=== PATIENT | female | born 1980 | race Caucasian/White ===

== ENCOUNTER 2020-05-30 15:11 | Emergency (ER) | payer MEDICAID, SELFPAY ==
--- NOTE | 2020-05-30 15:42 | XR_ITS ---
EXAMINATION: XR CHEST CLINICAL INFORMATION: Cough and wheezing COMPARISON: 05/13/2019 TECHNIQUE: Frontal view of the chest was obtained. FINDINGS: No significant abnormality is noted involving the heart, lungs, mediastinum, bony thorax or soft tissues. The lungs are hypoinflated. The subtle infiltrate seen previously at the right lung base has resolved. XR/XR chest 1V IMPRESSION: No acute thoracic disease
--- NOTE | 2020-05-30 15:42 | ED.SOB ---
HPI - SOB/Dyspnea General Chief Complaint: Dyspnea Stated Complaint: shortness of breath Time Seen by Provider: 05/30/20 15:33 Source: patient Mode of arrival: ambulatory Limitations: no limitations History of Present Illness HPI Narrative: 40 yo female with past medical history of asthma here with chest discomfort, cough, shortness of breath when cough x several days. No fevers/chills/body aches. H/o bronchitis and feels exactly the same, patient tells me she gets this every year. No leg swelling or pain. No h/o blood clots or family history of same. MD elicited complaint: shortness of breath, cough and pain with inspiration Pertinent past history: asthma Onset (ago): day(s) Timing: constant Severity: mild Exacerbating factors: coughing Relieving factors: bronchodilators and upright position Known history of: asthma Associated symptoms: chest pain, pain with inspiration and cough Treatment prior to arrival: none Related Data Previous Rx's Medication Instructions Recorded azithromycin See Rx Instructions .ROUTE 05/30/20 .COMPLEX #6 tab benzonatate [Tessalon Perles] 100 mg PO BID PRN #14 cap 05/30/20 prednisone 40 mg PO DAILY #10 tab 05/30/20 Allergies Allergy/AdvReac Type Severity Reaction Status Date / Time latex [LATEX] Allergy Unknown RASH Unverified 04/08/20 14:59 morphine [MORPHINE] Allergy Unknown HALLUCINATI Unverified 04/08/20 14:59 ONS codeine AdvReac Unknown VOMITING Unverified 04/08/20 14:59 codeine Allergy Unknown nausea/vomi Uncoded 02/20/20 00:00 ting Codeine Sulfate Allergy Unknown vomiting Uncoded 04/30/19 00:00 Latex Allergy Unknown Uncoded 04/30/19 00:00 Review of Systems Review of Systems: Yes all other systems are reviewed and are negative Constitutional: Constitutional: Reports no additional constitutional complaints, Denies body ache(s), Denies chills, Denies fever(s), Denies headache(s) and Denies weakness Eyes: Eyes: Reports no additional eye complaints and Denies change in vision ENT: Reports system reviewed and no additional complaints, except as documented, Denies dizziness, Denies headache(s), Denies nasal congestion, Denies nasal discharge and Denies neck pain Cardiovascular: Cardiovascular: Reports no additional cardiovascular complaints, Denies chest pain, Denies leg edema and Reports dyspnea Respiratory: Respiratory: Reports no additional respiratory complaints, Reports cough, Reports pain with cough and Reports dyspnea Gastrointestinal: Gastrointestinal: Reports no additional gastrointestinal complaints, Denies abdominal pain, Denies diarrhea, Denies nausea and Denies vomiting Genitourinary: Genitourinary: Reports no additional female genitourinary complaints and Denies urinary incontinence Musculoskeletal: Musculoskeletal: Reports no additional musculoskeletal complaints, Denies back pain, Denies arthralgias, Denies joint swelling, Denies neck pain, Denies numbness and Denies tingling Integumentary/Breasts: Skin/Breast: Reports system reviewed and no additional complaints, except as docu and Denies rash Neurologic: Reports system reviewed and no additional complaints, except as documented, Denies Abnormal speech present, Denies dizziness, Denies headache(s), Denies numbness, Denies tingling and Denies weakness PMFSH Past Medical History Attestation statement: The following information was validated with the patient. Source: obtained from family and nursing notes reviewed Social History Social History Alcohol intake: never Smoking Status: Current every day smoker Smoked in Last 30 Days: No Use of substances other than those prescribed or required for medical reasons: No Advance Directives: No Advance Directives Information Provided: Yes Physical Exam Vital Signs: Vital Signs: Last Vital Signs Temp 98.1 F 05/30/20 16:36 Pulse 88 05/30/20 16:36 Resp 16 05/30/20 16:36 BP 156/76 H 05/30/20 16:36 Pulse Ox 100 05/30/20 16:36 Body Mass Index 53.1 Const: General: cooperative, healthy appearing, comfortable and no acute distress Orientation/consciousness: patient oriented x3 Limitations: no limitations HENMT: Head: Yes normal to inspection Ears: hearing grossly normal bilaterally General nose exam: Normal external nose present Face and sinus: Yes normal facial exam Mouth: Normal oral and palatal mucosa present Throat: Yes posterior oropharynx normal Eyes: General: appearance normal, both eyes and all related structures Pupils: Equal, round and reactive pupils present Neck: Neck: Yes normal visual inspection Chest: Chest palpation & inspection: normal inspection of the chest and tenderness (Central chest tenderness to palp, worsened with deep breathing and cough ) Resp: Effort & Inspection: normal respiratory effort Auscultation: clear to auscultation bilaterally Cardio: Rate: regular rate Rhythm: regular rhythm Peripheral pulses: Peripheral pulses 2+ throughout GI: Inspection: Yes normal to inspection Palpation (GI): Soft to palpation and nontender Auscultation: normal bowel sounds Back/Spine/Pelvis: Thoracic/Lumbar Spine: thoracic and lumbar spine normal to inspection Skin: General skin exam: no rashes or lesions noted Neuro: General: patient oriented x3, no focal motor deficits and normal sensation to monofilament Cranial nerves: Yes Equal, round and reactive pupils present Cognition (Neuro): normal cognition Speech: No Abnormal speech present Gait exam (Neuro): Normal gait present Motor exam (neuro): 5/5 motor strength present throughout Extrem: General: Yes normal to inspection Course Course Course Narrative: 40 yo female here with MS chest pain, cough, shortness of breath with coughing. Will check CXR, COVID testing. [id number] unremarkable. Patient has stable vital signs, clear lung sounds and benign exam. Likely bronchitis and patient concurs this feels similar to her previous bouts. WIll start on oral pred, antibiotics and follow-uo with COVID testing. Reviewed worrisome signs/symptoms with patient and when to return to ED. Comfortable with discharge home. MDM - SOB/Dyspnea MDM Narrative Medical decision making narrative: pna, viral infection, covid infection, bronchitis, chest wall strain, pe Less likely pna with a unremarkable CXR. May be viral/covid infection and will f/u with test. Likely bronchitis with h/o same and same symptos per patient. Likely chest wall strain secondary to coughing. Less likely PE with no tachycardia, hypoxia, clinical s/s of PE. Medical Records Attestation: I reviewed the patient's medical records. Lab Data Attestation: I reviewed the patient's lab results. Imaging Data Chest x-ray: Attestation: I personally reviewed and interpreted this imaging study as follows: Radiologist's impression: unremarkable Discharge Plan Discharge Clinical Impression: Bronchitis Patient Disposition: Home, Self-Care Instructions: Acute Bronchitis (ED) Additional Instructions: We have tested you today for COVID 19. Test results take 1-2 days and we will call you with the results negative or positive. Take tylenol or motrin if able as needed for pain or fever. Stay well hydrated with fluids like water, gatorade and/or powerade. Wash hands at home. If living with others try to self isolate if possible. If unable wear a mask around others in your home and wash hands frequently. If COVID test is positive you will need to self isolate for a total of 14 days from when your symptoms started. You may return to work sooner if testing is negative and all symptoms resolved >72 hours. You should return to the emergency department for severe shortness of breath, chest pain or fever which does not respond to both tylenol and motrin at home. Prescriptions: New azithromycin 500 mg tablet See Rx Instructions .ROUTE .COMPLEX Qty: 6 RF: 0 prednisone 20 mg tablet 40 mg PO DAILY Qty: 10 RF: 0 benzonatate [Tessalon Perles] 100 mg capsule 100 mg PO BID PRN (Reason: cough) Qty: 14 RF: 0 Referrals: [place],[facility] [Primary Care Provider] - 2 days Stand Alone Forms: Work/School Release Interventions: ED Discharge Assessment Last Done: 05/30/20 16:56 Discharge Date/Time: 05/30/20 17:01
[2020-05-30 16:36] VITALS: BP 156/76; PULSE 88; RESP 16; TEMP 36.7; O2SAT 100; BMI 53.1
[2020-05-30 18:24] LABS: SARS COV2 PCR INHOUSE NEGATIVE (Negative)
== END 2020-05-30 17:01 | disposition home or self-care (01) ==
PROVIDERS: Nurse Practitioner Family; Emergency Provider Emergency Medicine
DX: J40 Bronchitis, not specified as acute or chronic (principal); R06.00 Dyspnea, unspecified; F17.200 Nicotine dependence, unspecified, uncomplicated; Z71.6 Tobacco abuse counseling; Z79.899 Other long term (current) drug therapy
CPT/HCPCS: 71045; 99283; 99284; U0003

== ENCOUNTER 2020-08-26 13:52 | Outpatient (REF) | payer MEDICAID, SELFPAY ==
[2020-08-27 09:15] LABS: BV Int Neg Control Negative (Negative); BV Int Pos Control Positive (Positive)
[2020-08-28 11:42] LABS: C. trachomatis RNA TMA NOT DETECTED (NOT DETECTED); N. gonorrhoeae RNA TMA NOT DETECTED (NOT DETECTED)
[2020-08-29 02:08] LABS: HPV mRNA E6/E7 rflx Not Detected (Not Detected)
== END 2020-08-26 13:53 | disposition home or self-care (01) ==
LOC: HO.LAB 13:52
PROVIDERS: Visit Provider Advanced Practice Midwife
DX: Z01.419 Encounter for gynecological examination (general) (routine) without abnormal findings (principal); Z11.51 Encounter for screening for human papillomavirus (HPV); R10.2 Pelvic and perineal pain; E66.8 Other obesity; Z68.43 Body mass index [BMI] 50.0-59.9, adult
CPT/HCPCS: 36415; 87480; 87491; 87510; 87591; 87624; 87660; 88142

== ENCOUNTER 2020-09-01 10:33 | Outpatient (REF) | payer MEDICAID, SELFPAY ==
--- NOTE | ~2020-09-01 | US_ITS ---
EXAMINATION: ULTRASOUND PELVIS. CLINICAL INFORMATION: Pelvic and perineal pain. COMPARISON: None TECHNIQUE: Transabdominal and transvaginal ultrasound the pelvis is performed. FINDINGS: On transabdominal ultrasound the uterus is anteverted and anteflexed. There is IUD in correct position within the endometrial canal. There is a hypoechoic lesion in the posterior body of uterus measuring 1.0 x 0.95 0.92 cm. Previously it measured 1.1 x 0.90 x 0.80 cm. No additional lesions seen. There are small nabothian cysts seen in the cervix. Right ovary measures 4.5 x 2.1 x 3.0 cm and volume 14.8 mL. Previously it measured 2.5 x 1.1 x 1.7 cm. No focal lesion seen. Left ovary measures 2.2 x 2.2 x 2.4 cm and volume 8.8 mL. Previously it measured 2.6 x 2.3 x 2.6 cm. There is no free fluid in the cul-de-sac. US/US pelvic complete IMPRESSION: Solitary uterine fibroid, stable. IUD in correct position within the endometrial canal. Small nabothian cysts in the cervix. The ovaries are unremarkable.
--- NOTE | ~2020-09-01 | US_ITS ---
EXAMINATION: ULTRASOUND PELVIS. CLINICAL INFORMATION: Pelvic and perineal pain. COMPARISON: None TECHNIQUE: Transabdominal and transvaginal ultrasound the pelvis is performed. FINDINGS: On transabdominal ultrasound the uterus is anteverted and anteflexed. There is IUD in correct position within the endometrial canal. There is a hypoechoic lesion in the posterior body of uterus measuring 1.0 x 0.95 0.92 cm. Previously it measured 1.1 x 0.90 x 0.80 cm. No additional lesions seen. There are small nabothian cysts seen in the cervix. Right ovary measures 4.5 x 2.1 x 3.0 cm and volume 14.8 mL. Previously it measured 2.5 x 1.1 x 1.7 cm. No focal lesion seen. Left ovary measures 2.2 x 2.2 x 2.4 cm and volume 8.8 mL. Previously it measured 2.6 x 2.3 x 2.6 cm. There is no free fluid in the cul-de-sac. US/US transvaginal IMPRESSION: Solitary uterine fibroid, stable. IUD in correct position within the endometrial canal. Small nabothian cysts in the cervix. The ovaries are unremarkable.
== END 2020-09-01 10:34 | disposition home or self-care (01) ==
LOC: HO.HMGCX 10:33
PROVIDERS: Visit Provider Advanced Practice Midwife
DX: R10.2 Pelvic and perineal pain (principal)
CPT/HCPCS: 76830; 76856

== ENCOUNTER → 2020-09-15 11:54 | Outpatient (BNVA) | payer MEDICAID, SELFPAY | PROVIDERS: Visit Provider Advanced Practice Midwife ==

== ENCOUNTER 2020-11-12 13:56 | Outpatient (REF) | payer MEDICAID, SELFPAY ==
--- NOTE | ~2020-11-12 | MM_ITS ---
EXAMINATION: MM SCREENING DIGITAL BREAST TOMOSYNTHESIS, BILATERAL CLINICAL INFORMATION: Screening. Asymptomatic. The lifetime risk of breast cancer based on the Tyrer-Cuzick Model is 11%. COMPARISON: Mammography: 04/12/2019, 03/31/2016 TECHNIQUE: Digital breast tomosynthesis is performed in both the craniocaudal and mediolateral oblique views along with computer-aided detection (CAD). Synthesized 2D images are generated from the tomosynthesis. Additional views are provided: Bilateral CC, bilateral MLO. FINDINGS: The breasts are almost entirely fatty (ACR BI-RADS breast composition Category a). There are no significant masses, abnormal calcifications, or other abnormalities. Background stromal and fibroglandular densities are stable. The skin contours are smooth. MM/MM tomosynthesis screening BI IMPRESSION: No mammographic evidence of malignancy. ASSESSMENT: BI-RADS 1: Negative RECOMMENDATION: Routine annual mammography screening. This patient's information was entered into a reminder system with a target due date for their next mammogram.
== END 2020-11-12 13:57 | disposition home or self-care (01) ==
LOC: HO.MAMMO 13:56
PROVIDERS: Visit Provider Advanced Practice Midwife
DX: Z12.31 Encounter for screening mammogram for malignant neoplasm of breast (principal)
CPT/HCPCS: 77063; 77067

== ENCOUNTER 2020-11-29 14:29 | Outpatient (REF) | payer MEDICAID, SELFPAY ==
[2020-11-30 01:36] LABS: CT PCR NOT DETECTED (Not Detect.); NG PCR NOT DETECTED (Not Detect.)
[2020-11-30 12:04] LABS: BV Int Neg Control Negative (Negative); BV Int Pos Control Positive (Positive)
[2020-12-02 07:17] LABS: HPV mRNA E6/E7 rflx Not Detected (Not Detected)
== END 2020-11-29 14:30 | disposition home or self-care (01) ==
LOC: HO.LAB 14:29
PROVIDERS: Visit Provider Advanced Practice Midwife
DX: N89.8 Other specified noninflammatory disorders of vagina (principal); R87.615 Unsatisfactory cytologic smear of cervix; E66.01 Morbid (severe) obesity due to excess calories; L73.2 Hidradenitis suppurativa; F17.210 Nicotine dependence, cigarettes, uncomplicated; Z88.5 Allergy status to narcotic agent; Z91.040 Latex allergy status; Z97.5 Presence of (intrauterine) contraceptive device
CPT/HCPCS: 87480; 87491; 87510; 87591; 87624; 87660; 88142; 99212

== ENCOUNTER → 2021-01-05 12:53 | Outpatient (BNVA) | payer MEDICAID, SELFPAY | PROVIDERS: Visit Provider Obstetrics & Gynecology | DX: N76.0 Acute vaginitis (principal); B96.89 Other specified bacterial agents as the cause of diseases classified elsewhere ==

== ENCOUNTER 2021-07-07 13:13 | Outpatient (REF) | payer MEDICAID, SELFPAY ==
[2021-07-08 01:02] LABS: CT PCR NOT DETECTED (Not Detect.); NG PCR NOT DETECTED (Not Detect.)
== END 2021-07-07 13:14 | disposition home or self-care (01) ==
LOC: HO.LAB 13:13
PROVIDERS: Visit Provider Advanced Practice Midwife
DX: Z30.433 Encounter for removal and reinsertion of intrauterine contraceptive device (principal); Z11.3 Encounter for screening for infections with a predominantly sexual mode of transmission; Z32.02 Encounter for pregnancy test, result negative
CPT/HCPCS: 58300; 58301; 81025; 87491; 87591

== ENCOUNTER 2021-08-18 13:03 | Outpatient (REF) | payer MEDICAID, SELFPAY ==
[2021-08-19 10:01] LABS: BV Int Neg Control Negative (Negative); BV Int Pos Control Positive (Positive)
== END 2021-08-18 13:04 | disposition home or self-care (01) ==
LOC: HO.LAB 13:03
PROVIDERS: Visit Provider Advanced Practice Midwife
DX: Z30.431 Encounter for routine checking of intrauterine contraceptive device (principal); N89.8 Other specified noninflammatory disorders of vagina
CPT/HCPCS: 87480; 87510; 87660; 99212

== ENCOUNTER 2021-11-03 12:35 | Outpatient (REF) | payer MEDICAID, SELFPAY ==
--- NOTE | ~2021-11-03 | US_ITS ---
EXAMINATION: US VENOUS ULTRASOUND WITH DOPPLER LOWER EXTREMITY, BILATERAL CLINICAL INFORMATION: Bilateral leg edema. COMPARISON: None TECHNIQUE: Ultrasound of the deep veins is performed from the hip to the calf with compression sonography and color and pulse Doppler assessment. Spectral analysis with color-flow imaging is performed. FINDINGS: RIGHT: There is normal venous compression and respiratory variation and augmented flow. The visualized common femoral vein, superficial femoral vein, profunda femoral vein, popliteal vein, and the trifurcation region shows no evidence of deep venous thrombosis. There is no significant popliteal fossa cyst. LEFT: There is normal venous compression and respiratory variation and augmented flow. The visualized common femoral vein, superficial femoral vein, profunda femoral vein, popliteal vein, and the trifurcation region shows no evidence of deep venous thrombosis. There is no significant popliteal fossa cyst. If the patient's symptoms persist, followup ultrasound in 5 days 7 days might be of value to exclude proximal propagation from a non-visualized calf vein. US/US venous duplex LE BI IMPRESSION: No DVT demonstrated in bilateral lower extremity.
== END 2021-11-03 12:36 | disposition home or self-care (01) ==
LOC: HO.US 12:35
PROVIDERS: PCP Registered Nurse; Visit Provider Registered Nurse
DX: R60.0 Localized edema (principal)
CPT/HCPCS: 93970

== ENCOUNTER 2021-11-09 16:54 | Emergency (ER) | payer MEDICAID, SELFPAY ==
--- NOTE | ~2021-11-09 | XR_ITS ---
EXAMINATION: XR CHEST CLINICAL INFORMATION: Chest pain COMPARISON: 05/30/2020 TECHNIQUE: Frontal view of the chest was obtained. FINDINGS: No acute finding. Lung hooper are grossly clear. The cardiac silhouette is within normal limits. There is no failure or effusion. No infiltrate. XR/XR chest 1V IMPRESSION: No acute finding.
--- NOTE | 2021-11-09 16:58 | ECG_ITS ---
Test Reason : CHEST PAIN Blood Pressure : / mmHG Vent. Rate : 078 BPM Atrial Rate : 078 BPM P-R Int : 174 ms QRS Dur : 084 ms QT Int : 362 ms P-R-T Axes : 007 008 020 degrees QTc Int : 412 ms Normal sinus rhythm Cannot rule out Anterior infarct , age undetermined Abnormal ECG When compared with ECG of 24-AUG-2019 10:17, Minimal criteria for Anterior infarct are now Present Referred By: Generic ED Physician Electronically Signed By:MARIAN LEVY MD
[2021-11-09 17:22] LABS: MANUAL DIFF FLAG NO
[2021-11-09 17:25] LABS: Basophils Absolute Auto 0.1 X10*3/uL (0.0-0.2); Basophils Percent Auto 0.4 % (0-2); Eosinophils Absolute Auto 0.2 X10*3/uL (0.0-0.4); Eosinophils Percent Auto 1.6 % (0-4); Hematocrit 39.3 % (37.0-47.0); Hemoglobin 12.6 g/dl (12.0-16.0); Imm Gran Abs Auto 0.08 X10*3/uL (0.00-0.03); Imm Gran Pct Auto 0.6 % (0.0-0.4); Lymphocytes Absolute Auto 3.8 X10*3/uL (1.2-4.9); Lymphocytes Percent Auto 27.7 % (20-40); Mean Corpuscular HGB Conc 32.1 g/dl (31.0-35.0); Mean Corpuscular Hemoglobin 30.1 pg (27.0-33.0); Mean Corpuscular Volume 93.8 fL (80.0-98.0); Mean Platelet Volume 8.8 fL (9.4-12.3); Monocytes Absolute Auto 0.7 X10*3/uL (0.1-1.2); Neutrophils Absolute Auto 8.8 x10*3/uL (2.0-8.3); Neutrophils Percent Auto 64.7 % (45-73); Platelet Count 341 X10*3/uL (160-400); Red Blood Count 4.19 X10*6/uL (4.20-5.50); Red Cell Distribution Width 12.8 % (11.0-16.0); White Blood Count 13.7 X10*3/uL (4.8-10.8)
[2021-11-09 17:45] LABS: Troponin-I High Sensitivity < 3.5 ng/L (<3.5-17.0)
[2021-11-09 17:46] LABS: Anion Gap 11 (12-20); Blood Urea Nitrogen 14 mg/dL (9-16); Calcium 9.6 mg/dL (8.4-10.2); Carbon Dioxide 33 mmol/L (22-29); Chloride 99 mmol/L (96-108); Estimated Glomerular Filt Rate > 60; Glucose Random 105 mg/dL (60-115); Potassium 4.8 mmol/L (3.3-5.1); Sodium 138 mmol/L (135-145)
[2021-11-09 18:41] VITALS: BP 145/77; PULSE 90; RESP 18; TEMP 36.5; O2SAT 99; BMI 47.8
== END 2021-11-09 21:01 | disposition left against medical advice (07) ==
PROVIDERS: Emergency Provider Emergency Medicine; PCP Registered Nurse
DX: R07.9 Chest pain, unspecified (principal)
CPT/HCPCS: 36415; 71045; 80048; 84484; 85025; 93005; 99283

== ENCOUNTER 2021-11-14 12:03 | Outpatient (REF) | payer MEDICAID, SELFPAY ==
--- NOTE | ~2021-11-14 | MM_ITS ---
EXAMINATION: MM SCREENING DIGITAL BREAST TOMOSYNTHESIS, BILATERAL CLINICAL INFORMATION: Screening. Asymptomatic. The lifetime risk of breast cancer based on the Tyrer-Cuzick Model is 11%. COMPARISON: Mammography: 11/12/2020, 04/12/2019, 03/31/2016 TECHNIQUE: Digital breast tomosynthesis is performed in both the craniocaudal and mediolateral oblique views along with computer-aided detection (CAD). Synthesized 2D images are generated from the tomosynthesis. Additional bilateral exaggerated CC and additional bilateral MLO views are provided. FINDINGS: The breasts are almost entirely fatty (ACR BI-RADS breast composition Category a). There are no significant masses, abnormal calcifications, or other abnormalities. Background stromal and fibroglandular densities are stable. There are incidental low bilateral axillary tail nodes again seen. Skin contours are smooth. MM/MM tomosynthesis screening BI IMPRESSION: No mammographic evidence of malignancy. ASSESSMENT: BI-RADS 2: Benign RECOMMENDATION: Routine annual mammography screening. This patient's information was entered into a reminder system with a target due date for their next mammogram.
== END 2021-11-14 12:04 | disposition home or self-care (01) ==
LOC: HO.MAMMO 12:03
PROVIDERS: PCP Registered Nurse; Visit Provider Advanced Practice Midwife
DX: Z12.31 Encounter for screening mammogram for malignant neoplasm of breast (principal)
CPT/HCPCS: 77063; 77067

== ENCOUNTER 2021-12-02 12:51 | Outpatient (REF) | payer MEDICAID, SELFPAY ==
--- NOTE | ~2021-12-02 | US_ITS ---
EXAMINATION: US THYROID CLINICAL INFORMATION: Nontoxic single thyroid nodule. COMPARISON: US thyroid 04/07/2016. TECHNIQUE: Linear transducer grayscale and color Doppler examination with attention to the region of the thyroid. FINDINGS: SIZE: Measurements of the thyroid lobes and nodules are given in sagittal, anteroposterior and transverse dimensions respectively. Right Thyroid Lobe: 4.6 x 2.1 x 1.6 cm, volume 8.3 mL. Previously 3.9 x 1.2 x 1.6 cm, volume 3.9 mL. Parenchyma: The gland echotexture is homogeneous. Thyroid vascularity is normal. Left Thyroid Lobe: 4.0 x 1.6 x 1.1 cm, volume 3.4 mL. Previously 3.4 x 1.6 x 1.3 cm, volume 3.5 mL. Parenchyma: The gland echotexture is homogeneous. Thyroid vascularity is normal. Isthmus: 0.46 cm in maximum AP dimension. Previously 0.50 cm. Estimated total number of nodules greater than or equal to 1 cm: 0. Base Engineer nodules are described as follows: 1. Location: Left mid. Size: 0.70 x 0.43 x 0.49 cm, volume 0.07 mL. Previously: Not documented on the previous study. Nodule characteristics: Composition: Spongiform (0). Echogenicity: Anechoic (0). Shape: Not taller than wide (0). Margins: Smooth (0). Echogenic Foci: None (0). ACR TI-RADS total points: 0 ACR TI-RADS category: 1 2. Location: Left mid. Size: 0.56 x 0.29 x 0.45 cm, volume 0.04 mL. Previously: Not documented on the previous study. Nodule characteristics: Composition: Spongiform (0). Echogenicity: Anechoic (0). Shape: Not taller than wide (0). Margins: Smooth (0). Echogenic Foci: None (0). ACR TI-RADS total points: 0 ACR TI-RADS category: 1 NODES: No lymphadenopathy is seen in the tissue surrounding the thyroid gland. US/US thyroid IMPRESSION: Tiny subcentimeter low suspicion lesions left lobe x2. These appear new since baseline. Follow-up in one year recommended. ACR TI-RADS RECOMMENDATION REFERENCE: Ultrasound-guided fine-needle aspiration, followup ultrasound, no further follow up. * TR1 (0 point) and TR 2 (2 points): No FNA or follow up * TR3 (3 points): FNA if more than or equal to 2.5 cm in maximum dimension, followup ultrasound in 1, 3 and 5 years if 1.5 to 2.4 cm in maximum dimension. * TR4 (4-6 points): FNA if more than or equal to 1.5 cm in maximum dimension, followup ultrasound in 1, 2, 3 and 5 years if 1 to 1.4 cm in maximum dimension. * TR5 (more than or equal to 7 points): FNA if more than or equal to 1 cm in maximum dimension, followup ultrasound every year for 5 years if 0.5 to 0.9 cm in maximum dimension. * TR3, TR4 or TR5 nodules that are below the size threshold for follow up receive no follow up.
== END 2021-12-02 12:52 | disposition home or self-care (01) ==
LOC: HO.HMGCX 12:51
PROVIDERS: Visit Provider Registered Nurse
DX: E04.1 Nontoxic single thyroid nodule (principal)
CPT/HCPCS: 76536

== ENCOUNTER → 2022-01-05 08:19 | Outpatient (REF) | payer MEDICAID, SELFPAY ==
--- NOTE | 2022-01-05 08:22 | CA_ITS ---
Transthoracic Echocardiogram Patient (Last, First, Middle): Lorena Phelps L Gender: Female Date of : 1980 Age: 41 Procedure Date: 01/05/2022 Procedure Type: Transthoracic Echocardiogram Location: OP Height: 160.02 cm Weight: 149.69 kg BSA: 2.39 m2 Heart Rate: bpm BP: 130 / 72 mmHg Citizen Participation Specialist: KATHARINA Lundberg MD: Mae RICHARDS [employer] Freight Car Cleaner: Bayron Melendrez MD Symptoms: R60.0 EDEMA Study Quality: Fair ECG Rhythm: Sinus Conclusions: - 1. Normal LV systolic and diastolic function 2. Normal cardiac valvular Doppler 3. Normal RV systolic pressure 4. No pericardial effusion Findings Left Ventricle Normal left ventricular size, thickness, and systolic function. The visually estimated ejection fraction is between 60-65%. Regional wall motion abnormalities can not be excluded due to suboptimal endocardial definition. Spectral Doppler is indicative of a normal filling pattern. Right Ventricle Normal right ventricular cavity size and systolic function. Atria The left atrium is likely dilated. Interatrial shunt cannot be excluded. The right atrium is normal in size. Aortic Valve The aortic valve structure and function is likely normal. There is no aortic valve stenosis. There is no aortic valve regurgitation. Mitral Valve Normal mitral valve structure and function. There is trace mitral valve regurgitation. There is no mitral valve stenosis. Pulmonic Valve The pulmonic valve was not well visualized. Tricuspid Valve Likely normal tricuspid valve structure and function. There is trace tricuspid valve regurgitation. The right ventricular systolic pressure is normal. The right ventricular systolic pressure is 14 mmHg. Normal right atrial pressure. There is no evidence of pulmonary hypertension. Great Vessels All visible segments of the aorta are normal in size. The pulmonary artery was not well visualized. Venous The inferior vena cava is normal in size and collapses greater than 50% with inspiration. Pericardium/Pleural There is no evidence of pericardial effusion. Prior Study Comparison No prior study available for comparison. Measurements 2D Linear Measurements IVSd: 1.13 0.6-0.9/0.6-1.0 cm LVIDd: 4.61 3.9-5.3/4.2-5.9 cm LVIDd Index: 1.93 2.4-3.2/2.2-3.1 cm/m2 LVIDs: 2.95 2.0-3.6 cm LVPWd: 0.91 0.7-1.1 cm LA Diam: 4.80 2.7-3.8/3.0-4.0 cm LAIDs Index: 2.01 1.5-2.3 cm/m2 LV Mass: 257.90 67-162/88-224 g LV Mass Index: 107.91 43-95/49-115 g/m2 LVOT Diam: 2.10 3.0+(-)1.3 cm 2D Systolic Function EF 4C: 66.70 >55% EF 2C: 59.30 >55% EF BiP: 62.50 >55% Mitral Valve MV Pk E: 0.90 MV PK A: 0.78 MV Decel Time: 283.00 E/A: 1.10 E'Lateral: 12.10 E'Medial: 8.59 E/E' Med: 10.50 E/E' Lat: 7.40 PHT: 83.00 MVA PHT: 2.65 Decel [place]: 3.18 Aortic Valve AoV Pk Bradley: 1.46 AoV Mn Bradley: 1.01 AoV VTI: 0.32 AoV Pk Grad: 9.00 Aov Mn Grad: 5.00 TACO Cont.VTI: 2.49 LVOT LVOT Pk Bradley: 1.08 LVOT Mn Bradley: 0.79 LVOT VTI: 0.23 LVOT Pk Grad: 5.00 LVOT Mn Grad: 3.00 LVOT Diam: 2.10 LVOT Area: 3.46 Diastolic Function MV Pk E: 0.90 MV Pk A: 0.78 E/A: 1.10 E'Medial: 8.59 E/E' Med: 10.50 E' Laterial: 12.10 E/E' Lat: 7.40 Right Ventricle TAPSE (mm): 27.20 TVS' Bradley: 16.10 Tricuspid Valve TR Pk Bradley: 1.66 TR Pk Grad: 11.00 RA Press: 3.00 RVSP: 14.00 Great Vessels Aorta Sinus of Valsalva: 3.44 2.0-3.5 cm Ao Asc: 3.50 2.1-3.4 cm Ao Arch: 3.10 Updated in Other Vendor System with Status of Final Bayron Melendrez MD electronically signed on 01/05/2022 10:40:20 AM with status of Final
== END ==
LOC: HO.CARD 08:19
PROVIDERS: Visit Provider Registered Nurse
DX: R60.0 Localized edema (principal)
CPT/HCPCS: 93306

== ENCOUNTER 2022-01-24 13:51 | Outpatient (REF) | payer MEDICAID, SELFPAY ==
--- NOTE | ~2022-01-24 | US_ITS ---
EXAMINATION: US ABDOMEN COMPLETE CLINICAL INFORMATION: Left upper quadrant pain. COMPARISON: CT abdomen pelvis 11/14/2013. US abdomen 05/22/2011. TECHNIQUE: Real-time imaging of the abdominal viscera. FINDINGS: PANCREAS: Not well visualized due to bowel gas. ABDOMINAL AORTA: The proximal, mid, and distal segments are normal in caliber. INFERIOR VENA CAVA: Visualized portions are normal. LIVER: Liver echotexture is increased. The liver is normal in size. The liver contour is normal. No focal hepatic lesion. There is no intrahepatic biliary duct dilatation seen. GALLBLADDER: Surgically absent. COMMON BILE DUCT: Normal in caliber measuring 0.72 cm in diameter. RIGHT KIDNEY: Normal. No hydronephrosis. No renal calculi or focal parenchymal lesions. The kidney measures 12.0 cm in maximum dimension. LEFT KIDNEY: Normal. No hydronephrosis. No renal calculi or focal parenchymal lesions. The kidney measures 13.2 cm in maximum dimension. SPLEEN: Normal. The spleen measures 12.0 cm in maximum dimension. FREE FLUID: None. US/US abdomen complete IMPRESSION: Echogenic liver probably representing fatty infiltration. Limited visualization of the pancreas.
== END 2022-01-24 13:52 | disposition home or self-care (01) ==
LOC: HO.HMGCX 13:51
PROVIDERS: Visit Provider Registered Nurse
DX: R10.12 Left upper quadrant pain (principal)
CPT/HCPCS: 76700

== ENCOUNTER → 2022-03-07 11:23 | Outpatient (BNVA) | payer MEDICAID, SELFPAY | PROVIDERS: PCP Registered Nurse; Visit Provider Surgery Vascular Surgery | DX: I83.12 Varicose veins of left lower extremity with inflammation (principal) | CPT/HCPCS: 99202 ==

== ENCOUNTER 2022-04-05 15:16 | Outpatient (REF) | payer MEDICAID, SELFPAY ==
[2022-04-05 19:10] LABS: CT PCR NOT DETECTED (Not Detect.); NG PCR NOT DETECTED (Not Detect.)
[2022-04-06 12:23] LABS: BV Int Neg Control Negative (Negative); BV Int Pos Control Positive (Positive)
[2022-04-08 01:22] LABS: HPV mRNA E6/E7 rflx Not Detected (Not Detected)
== END 2022-04-05 15:17 | disposition home or self-care (01) ==
LOC: HO.LNP 15:16
PROVIDERS: Visit Provider Advanced Practice Midwife
DX: Z01.419 Encounter for gynecological examination (general) (routine) without abnormal findings (principal); R10.2 Pelvic and perineal pain
CPT/HCPCS: 87480; 87491; 87510; 87591; 87624; 87660; 88142

== ENCOUNTER → 2022-04-19 11:01 | Outpatient (BNVA) | payer MEDICAID, SELFPAY | PROVIDERS: PCP Registered Nurse; Referring Provider Registered Nurse; Visit Provider Internal Medicine | DX: R07.2 Precordial pain (principal); E66.01 Morbid (severe) obesity due to excess calories; Z68.42 Body mass index [BMI] 45.0-49.9, adult | CPT/HCPCS: 99202 ==

== ENCOUNTER → 2022-04-25 10:26 | Outpatient (REF) | payer MEDICAID, SELFPAY ==
--- NOTE | 2022-04-25 10:28 | CA_ITS ---
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 Normal LV systolic and diastolic function 2. Normal RV systolic pressure Findings Left Ventricle Normal left ventricular size, thickness, and systolic function. The visually estimated ejection fraction is between 60-65%. Spectral Doppler is indicative of a normal filling pattern. Tricuspid Valve There is trace tricuspid valve regurgitation. The right ventricular systolic pressure is normal. There is no evidence of pulmonary hypertension. Pericardium/Pleural There is no evidence of pericardial effusion. Measurements 2D Linear Measurements IVSd: 1.02 0.6-0.9/0.6-1.0 cm LVIDd: 4.58 3.9-5.3/4.2-5.9 cm LVIDd Index: 1.94 2.4-3.2/2.2-3.1 cm/m2 LVIDs: 2.73 2.0-3.6 cm LVPWd: 1.07 0.7-1.1 cm LA Diam: 4.40 2.7-3.8/3.0-4.0 cm LAIDs Index: 1.86 1.5-2.3 cm/m2 LV Mass: 208.70 67-162/88-224 g LV Mass Index: 88.43 43-95/49-115 g/m2 2D Systolic Function EF 4C: 62.90 >55% EF 2C: 58.00 >55% EF BiP: 61.40 >55% Mitral Valve MV Pk E: 0.87 MV PK A: 0.78 MV Decel Time: 201.00 E/A: 1.10 E'Lateral: 13.10 E'Medial: 8.27 E/E' Med: 10.60 E/E' Lat: 6.70 PHT: 59.00 MVA PHT: 3.73 Decel Greenlee: 4.35 Diastolic Function MV Pk E: 0.87 MV Pk A: 0.78 E/A: 1.10 E'Medial: 8.27 E/E' Med: 10.60 E' Laterial: 13.10 E/E' Lat: 6.70 Right Ventricle TAPSE (mm): 29.60 TVS' Bradley: 13.30 Tricuspid Valve TR Pk Bradley: 2.65 TR Pk Grad: 28.00 RA Press: 3.00 RVSP: 31.00 Updated in Other Vendor System with Status of Final Bayron Melendrez MD electronically signed on 04/25/2022 6:47:28 PM with status of Final
== END ==
LOC: HO.CARD 10:26
PROVIDERS: PCP Registered Nurse; Visit Provider Internal Medicine
DX: R07.2 Precordial pain (principal)
CPT/HCPCS: 93308; Q9957

== ENCOUNTER 2022-05-02 12:45 | Outpatient (REF) | payer MEDICAID, SELFPAY ==
--- NOTE | ~2022-05-02 | US_ITS ---
EXAMINATION: US LOWER EXTREMITY VENOUS (REFLUX EXAM), BILATERAL CLINICAL INDICATION: Chronic venous insufficiency with lower extremity varicose veins COMPARISON: None. TECHNIQUE: Color flow triplex imaging and compression Doppler was performed to evaluate both the deep and the superficial systems bilaterally. To evaluate the superficial system, the examination was performed in the upright position. Color-flow Doppler ultrasound and compression ultrasound were utilized. In addition, maneuvers were utilized to demonstrate reflux. FINDINGS: 1. DEEP VENOUS ULTRASOUND OF THE RIGHT LOWER EXTREMITY: Common Femoral Vein: Compressible, normal respiratory variation and augmented flow. Femoral Vein: Compressible, normal color flow and augmentation. Popliteal Vein: Compressible, normal augmentation. Deep Reflux: There is reflux in the popliteal vein measuring 1700 ms There is no evidence of a Lazaro's cyst. 2. SUPERFICIAL ULTRASOUND WITH DOPPLER OF RIGHT LOWER EXTREMITY: GREAT SAPHENOUS VEIN: Saphenofemoral Junction: 1.1 cm; Reflux: 0 ms Proximal Thigh: 0.6 cm; Reflux: 0 ms Mid Thigh: 0.5 cm; Reflux: 0 ms Above Knee: 0.6 cm; Reflux: 0 ms At Knee: 0.5 cm; Reflux: 0 ms Below Knee: 0.3 cm; Reflux: 0 ms Mid Calf: 0.3 cm; Reflux: 0 ms Ankle: 0.3 cm; Reflux: 0 ms DUPLICATED MEDIAL GREAT SAPHENOUS VEIN: Diameter: 0.5 cm Reflux: None DUPLICATED LATERAL GREAT SAPHENOUS VEIN: Diameter: 0.5 cm Reflux: 3196 ms SMALL SAPHENOUS VEIN: Proximal: 0.3 cm; Reflux: 0 ms Distal: 0.2 cm; Reflux: 0 ms VEIN OF GIACOMINI: 0.3 cm without reflux PERFORATORS: Location: None significant Size: NA Reflux: NA VARICOSITIES: Location: Lateral thigh, proximal thigh, mid thigh and knee predominantly arising from of the duplicated lateral great saphenous vein Size: 0.3 to 0.5 cm Reflux: Ranging from 856 - 3288 ms 3. DEEP VENOUS ULTRASOUND OF THE LEFT LOWER EXTREMITY: Common Femoral Vein: Compressible, normal respiratory variation and augmented flow. Femoral Vein: Compressible, normal color flow and augmentation. Popliteal Vein: Compressible, normal augmentation. Deep Reflux: There is no evidence of reflux in the deep system in either the common femoral vein or the popliteal vein. There is no evidence of a Lazaro's cyst. 4. SUPERFICIAL ULTRASOUND WITH DOPPLER OF LEFT LOWER EXTREMITY: GREAT SAPHENOUS VEIN: Saphenofemoral Junction: 1.4 cm; Reflux: 0 ms Proximal Thigh: 0.7 cm; Reflux: 0 ms Mid Thigh: 0.6 cm; Reflux: 0 ms Above Knee: 0.5 cm; Reflux: 0 ms At Knee: 0.5 cm; Reflux: 0 ms Below Knee: 0.4 cm; Reflux: 0 ms Mid Calf: 0.3 cm; Reflux: 0 ms Ankle: 0.4 cm; Reflux: 0 ms DUPLICATED MEDIAL GREAT SAPHENOUS VEIN: Diameter: 0.5 cm Reflux: None DUPLICATED LATERAL GREAT SAPHENOUS VEIN: Diameter: None Imaged Reflux: NA SMALL SAPHENOUS VEIN: Proximal: 0.3 cm; Reflux: 0 ms Distal: 0.3 cm; Reflux: 0 ms VEIN OF GIACOMINI: None Imaged. PERFORATORS: Location: Calf Size: 0.3 cm Reflux: None VARICOSITIES: Location: Mid thigh off the great saphenous vein Size: 0.4 cm Reflux: 712 ms US/US venous duplex LE BI IMPRESSION: Right: Severe reflux in the right lateral duplicated great saphenous vein with multiple branching varicosities as described above Left: No significant reflux in the left great saphenous vein or small saphenous vein. There is a refluxing varicose vein in the mid to thigh arising from of the great saphenous vein
== END 2022-05-02 12:46 | disposition home or self-care (01) ==
LOC: HO.US 12:45
PROVIDERS: Visit Provider Surgery Vascular Surgery
DX: I83.12 Varicose veins of left lower extremity with inflammation (principal)
CPT/HCPCS: 93970

== ENCOUNTER 2022-05-04 11:32 | Outpatient (REF) | payer MEDICAID, SELFPAY ==
--- NOTE | 2022-05-04 10:30 | EMG_ITS ---
Left median and ulnar motor and sensory studies were performed. Left radial sensory study was performed and paraspinal muscles were tested. 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 MD MIRNA Wolfe/JONNY / [id number]
== END 2022-05-04 11:33 | disposition home or self-care (01) ==
LOC: HO.NEURO 11:32
PROVIDERS: Visit Provider Registered Nurse
DX: R20.0 Anesthesia of skin (principal)
CPT/HCPCS: 95886; 95909

== ENCOUNTER → 2022-05-09 11:21 | Outpatient (BNVA) | payer MEDICAID, SELFPAY | PROVIDERS: PCP Registered Nurse; Visit Provider Surgery Vascular Surgery | DX: I83.12 Varicose veins of left lower extremity with inflammation (principal) | CPT/HCPCS: 99212 ==

== ENCOUNTER → 2022-09-13 13:53 | Outpatient (BNVA) | payer MEDICAID, SELFPAY | PROVIDERS: PCP Registered Nurse; Visit Provider Orthopaedic Surgery | DX: R20.0 Anesthesia of skin (principal); G56.02 Carpal tunnel syndrome, left upper limb | CPT/HCPCS: 99202 ==

== ENCOUNTER 2022-10-09 08:19 | Day surgery (SDC) | payer MEDICAID, SELFPAY ==
[2022-10-09 08:46] VITALS: BMI 58.4
[2022-10-09 08:55] VITALS: BP 132/62; PULSE 78; RESP 18; TEMP 36.1; O2SAT 100
--- NOTE | 2022-10-09 10:15 | MHC.SHP ---
Pre-Procedural Eval Section A Date of Service: 10/09/22 The patient is an INPATIENT: No Changes since office visit: No Cold of Flu in the past 2 weeks, No New Medical Problems, No Changes in Medication and No Patient answered all questions The History & Physical has been completed within 30 days and I have reviewed it.: Yes Section B Chief Complaint: Carpal tunnel syndrome, left upper limb Allergies: Allergies Allergy/AdvReac Type Severity Reaction Status Date / Time latex [LATEX] Allergy Unknown RASH Verified 09/13/22 14:26 morphine [MORPHINE] Allergy Unknown HALLUCINATI Verified 09/13/22 14:26 ONS codeine AdvReac Unknown VOMITING Verified 09/13/22 14:26 Plan I have reviewed the history and physical and performed a pertinent physical examination on my patient. No changes have occurred unless specified. Time Spent With Patient Time: Total time managing care of this patient today ____ minutes.
--- NOTE | 2022-10-09 10:15 | W.PM.OPN ---
Operative Note Operative Note Date of Service: 10/09/22 Narrative: Preop diagnosis: 1. Left Carpal tunnel syndrome Postop diagnosis: same Procedure: 1. Left Carpal tunnel release Surgeon: Roshni Huff MD Anesthesia: local block using 1% lidocaine with epinephrine Findings: Thickened transverse carpal ligament. EBL: Less than 5 mL Specimens: None Complications: None Disposition: Brought to recovery room in stable condition Plan: Follow-up for 10-14 days for wound check and suture removal Indications: The patient is 42 years old, with left carpal tunnel syndrome that has been unresponsive to nonoperative management. The risks and benefits of operative treatment including but not limited to risk of damage to blood vessels, nerves, tendons, infection, persistent pain, persistent symptoms, or possible need for additional surgery were discussed with the patient and the patient wishes to proceed with surgery. Procedure: Once consent was obtained a local block was performed using a combination of 1% lidocaine with epinephrine. The patient was then brought back to the operating suite and placed on the operative table in supine position. The left upper extremity was prepped and draped in a standard surgical fashion. Once assured that we had a good block, a 2.0 cm longitudinal incision was made centered over the carpal tunnel. The incision was made through the skin to the subcutaneous tissues using a #15 blade. Dissection was made down to the level of the transverse carpal ligament with care being taken to protect the palmar cutaneous nerve. Once the transverse carpal ligament was clearly visualized, a longitudinal incision was made in the transverse carpal ligament 1st using a #15 blade, then using tenotomy scissors under direct visualization. Care was taken to look for and protect the motor branch of the median nerve when seen in this area. Once satisfied with our carpal tunnel release the wound was copiously irrigated with normal saline and hemostasis was obtained with a brief period of local pressure. The skin edges were reapproximated with some 5.0 nylon suture material and a sterile dressing was applied. The patient appears to have tolerated the procedure well and with no complications. All digits were well vascularized at the conclusion of the case.
[2022-10-09 11:42] VITALS: PULSE 80; RESP 18; TEMP 36.6; O2SAT 100
== END 2022-10-09 11:45 | disposition home or self-care (01) ==
PROVIDERS: PCP Registered Nurse; Visit Provider Orthopaedic Surgery
PROC: (CPT 64721; principal; 2022-10-09 10:00)
DX: G56.02 Carpal tunnel syndrome, left upper limb (principal); R20.0 Anesthesia of skin; R20.2 Paresthesia of skin; L02.92 Furuncle, unspecified; J45.909 Unspecified asthma, uncomplicated; E66.01 Morbid (severe) obesity due to excess calories; Z68.43 Body mass index [BMI] 50.0-59.9, adult; F11.90 Opioid use, unspecified, uncomplicated; F19.10 Other psychoactive substance abuse, uncomplicated; Z88.8 Allergy status to other drugs, medicaments and biological substances; Z91.040 Latex allergy status; F17.210 Nicotine dependence, cigarettes, uncomplicated
CPT/HCPCS: 64721; J0171

== ENCOUNTER → 2022-10-24 08:55 | Outpatient (BNVA) | payer MEDICAID, SELFPAY | PROVIDERS: PCP Registered Nurse; Visit Provider Orthopaedic Surgery ==

== ENCOUNTER 2022-12-26 12:35 | Outpatient (REF) | payer MEDICAID, SELFPAY ==
--- NOTE | ~2022-12-26 | MM_ITS ---
EXAMINATION: MM SCREENING DIGITAL BREAST TOMOSYNTHESIS, BILATERAL CLINICAL INFORMATION: Screening. Asymptomatic. The lifetime risk of breast cancer based on the Tyrer-Cuzick Model is 7%. COMPARISON: Mammography: 11/14/2021, 11/12/2020, 04/12/2019 TECHNIQUE: Digital breast tomosynthesis is performed in both the craniocaudal and mediolateral oblique views along with computer-aided detection (CAD). Synthesized 2D images are generated from the tomosynthesis. Additional bilateral CC and additional bilateral MLO views are provided. FINDINGS: The breasts are almost entirely fatty (ACR BI-RADS breast composition Category a). Background stromal markings are normal. There is no developing density or architectural abnormality. No significant mass or abnormal calcifications. The axillary nodes are stable. Prominent left axillary node shows abundant normal fatty hilus. The skin contours are smooth. No significant changes. MM/MM tomosynthesis screening BI IMPRESSION: No mammographic evidence of malignancy. ASSESSMENT: BI-RADS 2: Benign RECOMMENDATION: Routine annual mammography screening. This patient's information was entered into a reminder system with a target due date for their next mammogram.
== END 2022-12-26 12:36 | disposition home or self-care (01) ==
LOC: HO.MAMMO 12:35
PROVIDERS: PCP Registered Nurse; Visit Provider Registered Nurse
DX: Z12.31 Encounter for screening mammogram for malignant neoplasm of breast (principal)
CPT/HCPCS: 77063; 77067

== ENCOUNTER 2023-02-13 11:03 | Outpatient (AMB) | payer MEDICAID, SELFPAY ==
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
[2023-02-13 11:08] VITALS: BP 157/84; PULSE 68; O2SAT 96; BMI 56.6
== END 2023-02-13 11:49 | disposition home or self-care (01) ==
PROVIDERS: PCP Registered Nurse; Visit Provider Nurse Practitioner Family
DX: E66.01 Morbid (severe) obesity due to excess calories (principal); Z68.43 Body mass index [BMI] 50.0-59.9, adult; M54.16 Radiculopathy, lumbar region; M51.36 Other intervertebral disc degeneration, lumbar region; M96.1 Postlaminectomy syndrome, not elsewhere classified; M47.816 Spondylosis without myelopathy or radiculopathy, lumbar region
CPT/HCPCS: 99204

== ENCOUNTER → 2023-02-13 11:03 | Outpatient (BNVA) | payer MEDICAID, SELFPAY | PROVIDERS: PCP Registered Nurse; Visit Provider Nurse Practitioner Family | DX: M47.26 Other spondylosis with radiculopathy, lumbar region (principal); M51.36 Other intervertebral disc degeneration, lumbar region; M96.1 Postlaminectomy syndrome, not elsewhere classified; E66.01 Morbid (severe) obesity due to excess calories; Z68.43 Body mass index [BMI] 50.0-59.9, adult | CPT/HCPCS: 99204 ==

== ENCOUNTER 2023-03-09 11:23 | Outpatient (REF) | payer MEDICAID, SELFPAY ==
[2023-03-09 13:43] LABS: Anion Gap 11 (12-20); Blood Urea Nitrogen 14 mg/dL (9-16); Calcium 9.8 mg/dL (8.4-10.2); Carbon Dioxide 29 mmol/L (22-29); Chloride 101 mmol/L (96-108); Estimated Glomerular Filt Rate > 60; Glucose Random 82 mg/dL (60-115); Potassium 4.7 mmol/L (3.3-5.1); Sodium 136 mmol/L (135-145)
== END 2023-03-09 11:24 | disposition home or self-care (01) ==
LOC: HO.HHCL 11:23
PROVIDERS: Visit Provider Internal Medicine
DX: L73.2 Hidradenitis suppurativa (principal)
CPT/HCPCS: 36415; 80048

== ENCOUNTER 2023-11-07 14:04 | Outpatient (REF) | payer MEDICAID, SELFPAY | END 2023-11-07 14:05 | disposition home or self-care (01) | LOC: HO.LNP 14:04 | PROVIDERS: PCP Registered Nurse; Visit Provider Advanced Practice Midwife | DX: T83.32XA Displacement of intrauterine contraceptive device, initial encounter (principal) | CPT/HCPCS: 81025; 99396 ==

== ENCOUNTER 2023-11-07 14:04 | Outpatient (AMB) | payer MEDICAID, SELFPAY ==
--- NOTE | 2023-11-07 14:07 | A.OFFVIS_ITS ---
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 Doing well with no concerns. She tries to eat healthy and stays active with exercise, limited w/back pain. Currently is sexually active, alf partner. She feels safe at home. She denies vaginal itching and irritation. STI screening offered; she accepts, declines blood work. Denies family history of breast, ovarian or colon cancer. Last pap smear 2021, negative. Mammogram: 2022. 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 Sexual orientation: Straight/Heterosexual Gender identity: Female Female Reproductive History Menstrual Age of Menarche: 13 control method: progestin IUCD (Mirena 06/2021) Total pregnancies: 5 Full term: 3 Number of Living Children: 3 Ab induced: 2 Date of last pap smear: 04/05/22 (neg pap and hpv) History of abnormal pap smear: Yes (9/16 +hpv) Date of Mammogram: 12/26/22 (Birad 2) Review of Systems Const All systems reviewed & are unremarkable except as noted in HPI and below Reports as per HPI Eyes Reports no additional complaints ENT Reports no additional complaints Card Reports no additional complaints Resp Reports no additional complaints GI Reports as per HPI and Reports no additional complaints Reports as per HPI Musc Reports no additional complaints Skin/Breast Reports as per HPI Neuro Reports no additional complaints Psych Reports no additional complaints Endo Reports no additional complaints Woodrow/Lymph Reports no additional complaints Aller/Immun Reports no additional complaints Physical Exam Vital Signs: Last Vital Signs BP 110/68 11/07/23 14:08 BMI result Body Mass Index 57.4 Const General: cooperative, healthy appearing, no acute distress, well developed and alert Orientation/consciousness: patient oriented x3 HEENT Head: Yes normal to inspection Eyes General: appearance normal, both eyes and all related structures Neck Neck: Yes normal visual inspection Thyroid: Thyroid normal Chest Chest palpation & inspection: normal inspection of the chest and other (no puckering, dimpling, peau de orange, retraction, discharge, masses) Breast/axilla inspection: normal inspection of the breasts Breast/axilla palpation: normal palpation of the breasts Resp Effort & Inspection: normal respiratory effort GI Inspection: Yes normal to inspection and Yes obesity Palpation (GI): Soft to palpation Rectal Exam - Female: deferred General: Yes bladder normal to palpation External Female Exam: normal external appearance and normal appearance of the urethra Speculum Exam - Vagina: normal appearance of the vagina, normal palpation and normal vaginal discharge Speculum Exam - Cervix: normal appearance of the cervix, normal palpation and Other cervical findings present (IUD strings not seen or palpated) Bimanual exam- vagina & uterus: normal bimanual exam, normal palpation, uterine size normal, bladder normal to palpation, normal palpation and non-tender Bimanual Exam- Adnexa, other: no masses Skin General skin exam: no rashes or lesions noted Rashes: no rashes Neuro General: patient oriented x3 Cognition (Neuro): normal cognition Extrem General: Yes normal to inspection Psych Attitude: cooperative Thought process: Normal thought process present Results AMB Test Urine AMB Test Urine Negative Last Edit by STORMY Segundo on 11/07/23 14:55 Assessment & Plan Assessment & Plan (1) Well woman exam with routine gynecological exam: Code(s): Z01.419 - Encounter for gynecological examination (general) (routine) without abnormal findings Plan: (2) Intrauterine contraceptive device threads lost: Code(s): T83.32XA - Displacement of intrauterine contraceptive device, initial encounter Qualifiers: Encounter type: initial encounter Qualified Code(s): T83.32XA - Displacement of intrauterine contraceptive device, initial encounter Plan Discussed: Current recommendations for pap smears per ASCCP guidelines. Breast awareness and periodic breast exams. Maintain a healthy lifestyle including a well balanced diet and routine exercise. Plan pelvic ultrasound to check IUD positioning, follow up ultrasound results in person. Mammogram yearly. Patient verbalizes understanding and agrees to the plan of care. She was given opportunity to ask questions and all questions were answered to the best of my ability. 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 This note is constructed using voice recognition software. While every effort has been made to ensure accuracy, sheet metal mechanic errors may have been included. Orders: Orders CT NG by PCR Today Z20.2 - Contact with and (suspected) exposure to infections with a predominantly sexual mode of transmission US pelvic and transvaginal Today T83.32XA - Displacement of intrauterine contraceptive device, initial encounter Bacterial Vaginosis Panel Today Z20.2 - Contact with and (suspected) exposure to infections with a predominantly sexual mode of transmission Coding Level of Care Code Est Pt Prev Care 40-64y(14719) Diagnoses Well woman exam with routine gynecological exam Z01.419 Intrauterine contraceptive device threads lost, initial encounter T83.32XA Encounter type: initial encounter
[2023-11-07 14:08] VITALS: BP 110/68; BMI 57.4
== END 2023-11-07 14:57 | disposition home or self-care (01) ==
PROVIDERS: PCP Registered Nurse; Visit Provider Advanced Practice Midwife
DX: Z01.419 Encounter for gynecological examination (general) (routine) without abnormal findings (principal); T83.32XA Displacement of intrauterine contraceptive device, initial encounter; Z32.02 Encounter for pregnancy test, result negative
CPT/HCPCS: 99396

== ENCOUNTER 2023-11-07 14:36 | Outpatient (REF) | payer MEDICAID, SELFPAY ==
[2023-11-07 17:56] LABS: CT PCR NOT DETECTED (Not Detect.); NG PCR NOT DETECTED (Not Detect.)
[2023-11-08 12:41] LABS: BV Int Neg Control Negative (Negative); BV Int Pos Control Positive (Positive)
== END 2023-11-07 14:37 | disposition home or self-care (01) ==
LOC: HO.LAB 14:36
PROVIDERS: Visit Provider Advanced Practice Midwife
DX: Z20.2 Contact with and (suspected) exposure to infections with a predominantly sexual mode of transmission (principal)
CPT/HCPCS: 0353U; 81025; 87480; 87510; 87660; 99396

== ENCOUNTER 2023-11-14 14:34 | Outpatient (REF) | payer MEDICAID, SELFPAY ==
--- NOTE | ~2023-11-14 | US_ITS ---
EXAMINATION: US PELVIS CLINICAL INFORMATION: IUD check, displacement of intrauterine device. COMPARISON: 09/01/2020. TECHNIQUE: Ultrasound of the pelvis is performed using both transabdominal and transvaginal transducers along with Doppler. Transvaginal imaging is performed due to inadequate visualization transabdominally. Visualization severely limited due to bowel gas and body habitus. FINDINGS: The uterus is anteverted and measures 9.6 x 5.4 x 5.9 cm. IUD is grossly in place, although visualization is severely limited due to bowel gas and body habitus. Endometrial thickness is 8 mm, although endometrium poorly visualized due to shadowing from IUD as well as bowel gas and body habitus. Left ovary not visualized. Right ovary measures 3.0 x 2.1 x 2.4 cm, volume 7.9 mL and is seen only on transabdominal ultrasound images. Right ovary is grossly unremarkable on limited images. US/US pelvic and transvaginal IMPRESSION: IUD is grossly in place, although visualization is severely limited due to bowel gas and body habitus.
== END 2023-11-14 14:35 | disposition home or self-care (01) ==
LOC: HO.US 14:34
PROVIDERS: PCP Registered Nurse; Visit Provider Advanced Practice Midwife
DX: T83.32XA Displacement of intrauterine contraceptive device, initial encounter (principal)
CPT/HCPCS: 76830; 76856

== ENCOUNTER 2023-12-12 11:53 | Outpatient (AMB) | payer MEDICAID, SELFPAY ==
--- NOTE | 2023-12-12 11:54 | A.OFFVIS_ITS ---
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 She started treatment for BV but stopped due to nausea with pills, requests the gel alternative. 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 Sexual orientation: Straight/Heterosexual Gender identity: Female Female Reproductive History Menstrual Age of Menarche: 13 control method: progestin IUCD Date of last pap smear: 04/06/22 (negative) Review of Systems Const All systems reviewed & are unremarkable except as noted in HPI and below Endo Reports no additional complaints Physical Exam Const General: cooperative, healthy appearing and no acute distress Psych Appearance: well kempt Attitude: cooperative Thought process: Normal thought process present Results Reviewed Results Reviewed: [address] [address] Ultrasound Report Signed Patient: Lorena Phelps MR#: [id number] : 1980 Acct:[id number] Age/Sex: 43 / F ADM Date: 11/14/23 Loc: [facility] Attending Dr: Celeste Romo CNM Ordering Physician: Celeste Romo CNM Date of Service: 11/14/23 Procedure(s): US pelvic and transvaginal Accession Number(s): [id number] cc: Celeste Romo CNM; IgnacioMae Radha COMMUNITY SERVICE DIRECTOR~ EXAMINATION: US PELVIS CLINICAL INFORMATION: IUD check, displacement of intrauterine device. COMPARISON: 09/01/2020. TECHNIQUE: Ultrasound of the pelvis is performed using both transabdominal and transvaginal transducers along with Doppler. Transvaginal imaging is performed due to inadequate visualization transabdominally. Visualization severely limited due to bowel gas and body habitus. FINDINGS: The uterus is anteverted and measures 9.6 x 5.4 x 5.9 cm. IUD is grossly in place, although visualization is severely limited due to bowel gas and body habitus. Endometrial thickness is 8 mm, although endometrium poorly visualized due to shadowing from IUD as well as bowel gas and body habitus. Left ovary not visualized. Right ovary measures 3.0 x 2.1 x 2.4 cm, volume 7.9 mL and is seen only on transabdominal ultrasound images. Right ovary is grossly unremarkable on limited images. US/US pelvic and transvaginal IMPRESSION: IUD is grossly in place, although visualization is severely limited due to bowel gas and body habitus. Dictated By: Yulia Georges MD Signed By: <Electronically signed by Yulia Georges MD in OV> 11/19/23 1232 DD/ 1451 TD/TT: Chemistry Quality Control Technician: Assessment & Plan Assessment & Plan (1) Encounter to discuss test results: Code(s): Z71.2 - Person consulting for explanation of examination or test findings (2) Bacterial vaginosis: Code(s): N76.0 - Acute vaginitis; B96.89 - Other specified bacterial agents as the cause of diseases classified elsewhere (3) Intrauterine contraceptive device threads lost: Code(s): T83.32XA - Displacement of intrauterine contraceptive device, initial encounter Qualifiers: Encounter type: subsequent encounter Qualified Code(s): T83.32XD - Displacement of intrauterine contraceptive device, subsequent encounter Plan Reviewed ultrasound findings IUD is placed the endometrial cavity appearing properly though limited views. Reviewed use of Metrogel for complete treatment of the bacterial vaginosis episode. All of her questions and concerns were addressed to the best of my ability and shared decision making. She is agreeable to the plan of care. Return to the office for annual exam in October 2024 or sooner if needed. This note is constructed using voice recognition software. While every effort has been made to ensure accuracy, chief legal officer errors may have been included. Medications: New metronidazole 0.75%(37.5mg/5gram) 1 appful vaginal DAILY 5 days 70 grams 0RF Coding Level of Care Code Est Pt Level 3 (63135) Diagnoses Encounter to discuss test results Z71.2 Bacterial vaginosis N76.0; B96.89 Intrauterine contraceptive device threads lost, subsequent encounter T83.32XD Encounter type: subsequent encounter
[2023-12-12 11:57] VITALS: BP 122/80; BMI 57.6
== END 2023-12-12 13:13 | disposition home or self-care (01) ==
PROVIDERS: PCP Registered Nurse; Visit Provider Advanced Practice Midwife
DX: Z71.2 Person consulting for explanation of examination or test findings (principal); N76.0 Acute vaginitis; B96.89 Other specified bacterial agents as the cause of diseases classified elsewhere; T83.32XD Displacement of intrauterine contraceptive device, subsequent encounter
CPT/HCPCS: 99213

== ENCOUNTER → 2023-12-12 11:53 | Outpatient (BNVA) | payer MEDICAID, SELFPAY | PROVIDERS: PCP Registered Nurse; Visit Provider Advanced Practice Midwife | DX: Z71.2 Person consulting for explanation of examination or test findings (principal); N76.0 Acute vaginitis; B96.89 Other specified bacterial agents as the cause of diseases classified elsewhere; T83.32XA Displacement of intrauterine contraceptive device, initial encounter | CPT/HCPCS: 99212 ==

== ENCOUNTER 2024-01-16 13:50 | Outpatient (REF) | payer MEDICAID, SELFPAY ==
--- NOTE | ~2024-01-16 | US_ITS ---
EXAMINATION: US THYROID CLINICAL INFORMATION: History of thyroid nodules. COMPARISON: Thyroid ultrasound 12/02/2021. TECHNIQUE: Linear transducer grayscale and color Doppler examination with attention to the region of the thyroid. FINDINGS: SIZE: Measurements of the thyroid lobes and nodules are given in sagittal, anteroposterior and transverse dimensions respectively. Right Thyroid Lobe: 4.7 x 2.4 x 1.5 cm, volume 8.8 mL. Previously 4.6 x 2.1 x 1.6 cm, volume 8.3 mL. Parenchyma: The gland echotexture is homogeneous. Thyroid vascularity is normal. Left Thyroid Lobe: 4.2 x 1.6 x 1.4 cm, volume 5.4 mL. Previously 4.0 x 1.6 x 1.1 cm, volume 3.4 mL. Parenchyma: The gland echotexture is homogeneous. Thyroid vascularity is normal. Isthmus: 0.47 cm in maximum AP dimension. Previously 0.46 cm. Estimated total number of nodules greater than or equal to 1 cm: 0. [employer] nodules are described as follows: 1. Location: Left upper. Size: 0.62 x 0.36 x 0.65 cm, volume 0.08 mL. Previously: 0.56 x 0.29 x 0.45 cm, volume 0.04 mL. Nodule characteristics: Composition: Spongiform (0). ACR TI-RADS total points: 0 Previous: 0 ACR TI-RADS category: 1 Previous: 1 Significant change in size (>/= 20% in 2 dimensions and minimal increase of 2 mm or 50% or greater increase in volume): Yes Change in features: No Change in ACR TI-RADS risk category: No NODES: No lymphadenopathy is seen in the tissue surrounding the thyroid gland. US/US thyroid IMPRESSION: A small spongiform nodule is seen within the upper left thyroid lobe. No specific imaging follow-up is recommended. ACR TI-RADS RECOMMENDATION REFERENCE: Ultrasound-guided fine-needle aspiration, follow up ultrasound, no further followup. * TR1 (0 point) and TR2 (2 points): No FNA or followup * TR3 (3 points): FNA if more than or equal to 2.5 cm in maximum dimension, follow up ultrasound in 1, 3 and 5 years if 1.5 to 2.4 cm in maximum dimension. * TR4 (4-6 points): FNA if more than or equal to 1.5 cm in maximum dimension, follow up ultrasound in 1, 2, 3 and 5 years if 1 to 1.4 cm in maximum dimension. * TR5 (more than or equal to 7 points): FNA if more than or equal to 1 cm in maximum dimension, follow up ultrasound every year for 5 years if 0.5 to 0.9 cm in maximum dimension. * TR3, TR4 or TR5 nodules that are below the size threshold for follow up receive no followup.
== END 2024-01-16 13:51 | disposition home or self-care (01) ==
LOC: HO.HMGCX 13:50
PROVIDERS: PCP Student in an Organized Health Care Education/Training Program; Visit Provider Registered Nurse
DX: E04.1 Nontoxic single thyroid nodule (principal)
CPT/HCPCS: 76536

== ENCOUNTER 2024-02-18 12:56 | Outpatient (REF) | payer MEDICAID, SELFPAY ==
[2024-02-18 16:15] LABS: Hematocrit 39.5 % (37.0-47.0); Hemoglobin 12.6 g/dl (12.0-16.0); Mean Corpuscular HGB Conc 31.9 g/dl (31.0-35.0); Mean Corpuscular Hemoglobin 30.4 pg (27.0-33.0); Mean Corpuscular Volume 95.4 fL (80.0-98.0); Mean Platelet Volume 9.1 fL (9.4-12.3); Platelet Count 394 X10*3/uL (160-400); Red Blood Count 4.14 X10*6/uL (4.20-5.50); Red Cell Distribution Width 13.2 % (11.0-16.0); White Blood Count 12.7 X10*3/uL (4.8-10.8)
[2024-02-18 16:18] LABS: Estimated Average Glucose 128 mg/dL; Hemoglobin A1c % 6.1 % (<6.0)
[2024-02-18 16:35] LABS: Alanine Aminotransferase 32 U/L (0-31); Albumin Level 4.1 g/dL (3.5-5.0); Alkaline Phosphatase 81 U/L (39-117); Anion Gap 10 (12-20); Aspartate Amino Transferase 24 U/L (5-31); Bilirubin Total 0.4 mg/dL (0.0-1.0); Blood Urea Nitrogen 10 mg/dL (9-16); Calcium 9.6 mg/dL (8.4-10.2); Carbon Dioxide 32 mmol/L (22-29); Chloride 99 mmol/L (96-108); Cholesterol 189 mg/dL (<200); Estimated Glomerular Filt Rate > 60; Glucose Random 107 mg/dL (60-115); HDL Cholesterol 34 mg/dL (>40); LDL Cholesterol Calculated 132 mg/dL (<100); Potassium 4.6 mmol/L (3.3-5.1); Sodium 136 mmol/L (135-145); Total Protein 7.5 g/dL (6.5-8.0); Triglycerides 115 mg/dL (<150)
[2024-02-18 16:53] LABS: Thyroid Stimulating Hormone 3.69 uIU/mL (0.32-4.0); Vitamin D 25-OH Total 42.7 ng/mL (>30)
[2024-02-18 17:40] LABS: CT PCR NOT DETECTED (Not Detect.); NG PCR NOT DETECTED (Not Detect.)
[2024-02-19 04:20] LABS: Syphilis Screen Nonreactive (Nonreactive)
[2024-02-19 04:44] LABS: HBS Num1 0.77 mIU/mL (0-7.99); HBc Num1 0.11 S/CO (0.00-0.79); HBsAGNum1 0.31 S/CO (0.00-0.99); HIV AB/AG Nonreactive (Nonreactive); HIV Num 1 0.05 S/CO (0.00-0.99); Hepatitis B Core Antibody Nonreactive (Nonreactive); Hepatitis B Surface Antigen Negative (Negative); ~HepC Num1 1.17 S/CO (0.00-0.79); ~Hepatitis B Surface Antibody NONREACTIVE (Nonreactive); ~Hepatitis C Antibody Reactive (Nonreactive)
[2024-02-21 15:18] LABS: HCV Log PCR <1.18 NOT DETECTED Log IU/mL (NOT DETECTED); HepC Viral Load <15 NOT DETECTED IU/mL (NOT DETECTED)
== END 2024-02-18 12:57 | disposition home or self-care (01) ==
LOC: HO.MAMMO 12:56
PROVIDERS: PCP Student in an Organized Health Care Education/Training Program; Visit Provider Student in an Organized Health Care Education/Training Program
DX: Z00.00 Encounter for general adult medical examination without abnormal findings (principal); Z12.31 Encounter for screening mammogram for malignant neoplasm of breast
CPT/HCPCS: 36415; 77063; 77067; 80053; 80061; 82306; 83036; 84439; 84443; 85027; 86704; 86706; 86780; 86803; 87340; 87389; 87491; 87522; 87591

== ENCOUNTER → 2024-02-18 13:15 | Outpatient (BNV) | payer MEDICAID, SELFPAY | PROVIDERS: PCP Student in an Organized Health Care Education/Training Program; Visit Provider Radiology Diagnostic Radiology | DX: Z12.31 Encounter for screening mammogram for malignant neoplasm of breast (principal) | CPT/HCPCS: 77063; 77067 ==

== ENCOUNTER 2024-06-09 08:57 | Outpatient (REF) | payer MEDICAID, SELFPAY | END 2024-06-09 08:58 | disposition home or self-care (01) | LOC: HO.HHCX 08:57 | PROVIDERS: Visit Provider Student in an Organized Health Care Education/Training Program | DX: Z13.89 Encounter for screening for other disorder (principal) ==

== ENCOUNTER 2024-06-09 09:07 | Outpatient (REF) | payer OTHER, SELFPAY ==
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
== END 2024-06-09 09:08 | disposition home or self-care (01) ==
LOC: HO.HHCX 09:07
PROVIDERS: Visit Provider Student in an Organized Health Care Education/Training Program
DX: M25.531 Pain in right wrist (principal); M54.50 Low back pain, unspecified; G89.29 Other chronic pain
CPT/HCPCS: 72100; 73110

== ENCOUNTER 2024-10-14 13:02 | Outpatient (REF) | payer MEDICAID, SELFPAY ==
--- NOTE | ~2024-10-14 | US_ITS ---
EXAMINATION: US TRIPLEX LOWER EXTREMITY, BILATERAL CLINICAL INFORMATION: Lower extremity edema. COMPARISON: None available. TECHNIQUE: Color-flow triplex imaging with spectral analysis and compression Doppler were performed on the bilateral lower extremities. FINDINGS: As per technologist note, somewhat limited exam due to patient body habitus. Respiratory variation, normal compression and augmented flow are noted throughout the bilateral lower extremities. The visualized common femoral vein, superficial femoral vein, profunda femoral vein, popliteal vein and midcalf peroneal and posterior tibial venous segments show no evidence of deep venous thrombosis bilaterally. There is no Lazaro's cyst. US/US venous duplex LE BI IMPRESSION: No evidence of deep venous thrombosis involving the bilateral lower extremities. Electronically signed by: Cristóbal Eugene MD 10/14/2024 01:45 PM EDT
--- OUTSIDE RECORDS SUMMARY | 2024-10-14 15:50 | XMS_ITS | Encounter Summary ---
Author Organization [employer] Address [address] [place] [address] 7t [place] [address] Care Team Providers Care Older Worker Specialist Name Role Phone Margi Barnes MD Primary Care Pro vider Reason for Referral * Imaging (STAT) - Authorized Specialty Diagnoses / Procedures Referred By Contac t Referred To Contact Cardiology Diagnoses Bilateral lower extremity edema Procedures Vascular US lower extremity venous duplex bilateral Vascular US lower extremity venous duplex bilateral Gonzalez Goemz MD [address] [place] [address] Phone: tel: fax: [address] Phone: tel: fax: Referral ID Status Reason Start Date Expiration Date Visits Requested Visits Authorized [id number] Authorized Perform Procedure 10/14/2024 10/14/2025 1 1 * Consultation (Routine) - Authorized Specialty Diagnoses / Procedures Referred By Contac t Referred To Contact Vascular Surgery Diagnoses Bilateral lower extremity edema Gonzalez Gomez MD [address] [place] [address] Phone: tel: fax: [facility] Referral ID Status Reason Start Date Expiration Date Visits Requested Visits Authorized [id number] Authorized Specialty Services Required 10/14/2024 10/14/2025 6 6 * Imaging (Routine) - Authorized Specialty Diagnoses / Procedures Referred By Contac t Referred To Contact Cardiology Diagnoses Bilateral lower extremity edema Procedures Transthoracic Echo (TTE) Complete Gonzalez Gomez MD [address] [place] [address] Phone: tel: fax: [address] Phone: tel: fax: Referral ID Status Reason Start Date Expiration Date Visits Requested Visits Authorized [id number] Authorized Perform Procedure 10/14/2024 10/14/2025 1 1 Reason for Visit * Reason Comments Sick Onsite BLLE swelling x3 mon ths left leg swelling worsening Encounter Details Date Type Department Care Team (Late st Contact Info) Description 10/14/2024 11:00 AM EDT Office Visit [facility] MEDICINE [address] [place] [address] Gonzalez Gomez MD [address] [place], [place] [phone] Bilateral lower extremity edema (Primary Dx); Lymphedema; Elevated blood pressure reading Social History Tobacco Use Types Packs/Day Years Used Date Smoking Tobacco: Every Day Cigarettes Passive Smoke Exposure: Current Tobacco Cessation:Ready to Q uit: Not Asked; Counseling Given: Not Answered Comments:Started smoking 13 y of age ,stopped during , 10 cig a day Alcohol Use Standard Drinks/Week Comments Never 0 (1 standard drink = 0.6 oz pur e alcohol) Depression Answer Date Recorded Patient Health Questionnaire-9 Score 4 01/10/2024 Patient Health Questionnaire-9 Score 4 01/10/2024 Last PHQ-9: Questionnaire Data Not on file 0 01/10/2024 Housing Stability Answer Date Recorded What is your housing situation today? I have luis suh 02/19/[address] you li ve. Do you have problems with any of the following? None of the above 02/19/2024 Food Insecurity Answer Date Recorded Within the past 12 months, y ou worried that your food would run out before you got money to buy more: Never True 02/19/2024 Within the past 12 months,th e food you bought just didn't last and you didn't have enough money to get more: Never True Transportation Answer Date Recorded In the past 12 months, has l ack of transportation kept you from medical appts, meetings, work or from getting things needed for daily living? No 02/19/2024 Utilities Answer Date Recorded In the past 12 months, has t he electric, gas, oil or water company threatened to shut off services in your home? No 02/19/2024 Depression Answer Date Recorded Patient Health Questionnaire-2 Score 0 01/10/2024 Internet Access Answer Date Recorded Internet Access Q1 Yes 03/24/2024 Internet Access Q2 Not on file 03/24/2024 Comments Unknown Sex and Gender Information Value Date Recorded Sex Assigned at Female 05/22/2022 10:16 AM EDT Legal Sex Female 10:16 AM EDT Gender Identity Female 05/22/2022 10:16 AM EDT Sexual Orientation Straight 01/10/2024 10 :18 AM EDT documented as of this encounter Last Filed Vital Signs Vital Sign Reading Time Taken Comments Blood Pressure 160/81 10/14/2024 10:55 AM EDT pt reports no chest pain, palpitations. or SOB, is experiecning a lot of anxiety Pulse 68 10/14/2024 10:55 AM EDT Temperature 36.1 ??C (96.9 ??F) 10/14/2024 1 0:55 AM EDT Respiratory Rate 20 10/14/2024 10:5 5 AM EDT Oxygen Saturation 98% 10/14/2024 10: 55 AM EDT Inhaled Oxygen Concentration - - Weight 149 kg (327 lb 9.6 oz) 10/14/2024 10:55 AM EDT Height 160 cm (5' 3 ) 10/14/2024 10:55 AM EDT Body Mass Index 58.03 10/14/2024 10:55 AM EDT documented in this encounter Progress Notes * Gonzalez Rosa MD - 10/14/2024 11:00 AM EDT SUBJECTIVE Lorena Phelps is a 44 y.o. female who presents for Sick Onsite (BLLE swelling x3 months left leg swelling worsening). Edema Presents with recurrent edema. The current episode started 1-4 weeks ago. The onset of the episode was gradual. Pertinent negative symptoms include no abdominal pain, no chest pain, no cough and no fever. Treatments tried include nothing. Review of Systems Constitutional: Negative for fever. HENT: Negative for sore throat. Respiratory: Negative for cough and shortness of breath. Cardiovascular: Negative for chest pain. Gastrointestinal: Negative for abdominal pain. Neurological: Negative for headaches. Allergies Allergen Reactions Aspirin Nausea Other reaction(s): Unknown Codeine Other reaction(s): Nausea / Vomiting Morphine Hallucinations Other reaction(s): HALLUCUNATE VOMITING Varenicline Insomnia Latex Other, Rash and Swelling OBJECTIVE Vitals: 10/14/24 1055 BP: (!) 160/81 BP Location: Left arm Patient Position: Sitting BP Cuff Size: Large adult Pulse: 68 Resp: 20 Temp: 96.9 ??F (36.1 ??C) TempSrc: Temporal SpO2: 98% Weight: 327 lb 9.6 oz (149 kg) Height: 5' 3 (1.6 m) Physical Exam Vitals reviewed. Constitutional: Appearance: Normal appearance. HENT: Head: Normocephalic and atraumatic. Right Ear: External ear normal. Left Ear: External ear normal. Nose: Nose normal. Mouth/Throat: Mouth: Mucous membranes are moist. Eyes: Conjunctiva/sclera: Conjunctivae normal. Cardiovascular: Rate and Rhythm: Normal rate and regular rhythm. Pulmonary: Effort: Pulmonary effort is normal. Breath sounds: Normal breath sounds. Musculoskeletal: Right lower le+ Pitting Edema present. Left lower le+ Pitting Edema present. Skin: General: Skin is warm. Neurological: Mental Status: She is alert. Mental status is at baseline. Assessment/Plan Problem List Items Addressed This Visit Bilateral lower extremity edema - Primary Patient here for a sick visit with c/o bilateral LE edema x 4 week approximately. No sob, no pain, no redness, no HAIR On exam she has bilateral LE edema left> Right 1 -2 + Plan: Start Lasix 20 mg po daily LE US to rule out DVT, B-CONSULTING MARINE ENGINEER, ECHO Will refer back to vascular surgeon, seen in the past F/u with PCP after initial testing Relevant Medications furosemide (Lasix) 20 MG tablet Other Relevant Orders Vascular US lower extremity venous duplex bilateral B Type Natriuretic Peptide (BNP) Transthoracic Echo (TTE) Complete Referral to Vascular Surgery Lymphedema Patient of Dr. Sawant, here with c/o worsening LE edema Per EHR notes, this seems to be a chronic issue for which patient has been treated with Diuretics and compressive stockings Exam today indicated of fluid overload Plan: Restart lasix ( pt not taking) Obtain BNP, ECHO Referred back to vascular surgery Elevated blood pressure reading 1 month f/u with RN for a BP check Pt started on furosemide 20 mg po daily If BP persistently elevated might need another afgent BMP ordered Relevant Orders Basic Metabolic Panel documented in this encounter Miscellaneous Notes * Assessment & Plan Note - Gonzalez Rosa MD - 10/14/2024 11:17 AM EDT Associated Problem(s): Elevated blood pressure reading 1 month f/u with RN for a BP check Pt started on furosemide 20 mg po daily If BP persistently elevated might need another afgent BMP ordered * Assessment & Plan Note - Gonzalez Rosa MD - 10/14/2024 11:13 AM EDT Associated Problem(s): Bilateral lower extremity edema Patient here for a sick visit with c/o bilateral LE edema x 4 week approximately. No sob, no pain, no redness, no HAIR On exam she has bilateral LE edema left> Right 1 -2 + Plan: Start Lasix 20 mg po daily LE US to rule out DVT, B-CONSULTING MARINE ENGINEER, ECHO Will refer back to vascular surgeon, seen in the past F/u with PCP after initial testing * Assessment & Plan Note - Gonzalez Rosa MD - 10/14/2024 11:02 AM EDT Associated Problem(s): Lymphedema Patient of Dr. Sawant, here with c/o worsening LE edema Per EHR notes, this seems to be a chronic issue for which patient has been treated with Diuretics and compressive stockings Exam today indicated of fluid overload Plan: Restart lasix ( pt not taking) Obtain BNP, ECHO Referred back to vascular surgery * Addendum Note - Gonzalez Rosa MD - 10/14/2024 11:00 AM EDTAddended by: GONZALEZ WOOD on: 10/14/2024 11:22 AM Modules accepted: Orders documented in this encounter Plan of Treatment Upcoming Encounters Date Type Department Care Team (Late st Contact Info) Description 11/06/2024 9:30 AM EDT Office Visit [facility] MEDICINE [address] [place] [address] [phone] Margi Barnes MD [address] [place] [address] [phone] 11/14/2024 1:00 PM EDT Clinical Support [facility] MEDICINE [address] [place] [address] [phone] Scheduled Orders Name Type Priority Associated Diagnoses Order Schedule B Type Natriuretic Peptide (BNP) Lab Routine Bilateral lower extremity edema Expected: 10/14/2024, Expires: 10/14/2025 Transthoracic Echo (TTE) Complete Echocardiography Routine Bilateral lower extremity edema Expected: 10/14/2024 (Approximate), Expires: 10/14/2026 Basic Metabolic Panel Lab Routine Elevated blood pressure reading Ordered: 10/14/2024 Scheduled Referrals Name Type Priority Associated Diagnoses Orde r Schedule Referral to Vascular Surgery Outpatient Referral Routine Bilateral lower extremity edema Expected: 10/14/2024 (Approximate), Expires: 10/14/2025 documented as of this encounter Procedures Procedure Name Priority Date/Time Associated Diagnosis Comments VASC US LOWER EXTREMITY VENOUS DUPLEX BILATERAL STAT 10/14/2024 1:18 PM EDT Bilateral lower extremity edema documented in this encounter Results * Vascular US lower extremity venous duplex bilateral (10/14/2024 1:18 PM EDT) 10/14/2024 1:18 PM EDT Narrative [facility] - 10/14/2024 1:48 PM EDT ? [facility] ?[address] ? [place] [address] ? Ultrasound Report ? Signed ? Patient: Lorena Phelps ?MR#: [id number] ?? [id number] ? : 1980 ?Acct:[id number] ? Age/Sex: 44 / F ?ADM Date: 10/14/24 ? Loc: HO.[facility] ? Attending Dr: Margi Walters MD ? Ordering Physician: Gonzalez Reno MD ?? Date of Service: 10/14/24 ?? Procedure(s): US venous duplex LE BI ?? Accession Number(s): [id number] ? cc: Gonzalez Reno MD; Margi Barnes MD ? EXAMINATION: ?? US TRIPLEX LOWER EXTREMITY, BILATERAL ? CLINICAL INFORMATION: ?? Lower extremity edema. ? COMPARISON: ?? None available. ? TECHNIQUE: ?? Color-flow triplex imaging with spectral analysis and compression ?? Doppler were performed on the bilateral lower extremities. ? FINDINGS: ?? As per technologist note, somewhat limited exam due to patient body ?? habitus. ? Respiratory variation, normal compression and augmented flow are noted ?? throughout the bilateral lower extremities. The visualized common ?? femoral vein, superficial femoral vein, profunda femoral vein, ?? popliteal vein and midcalf peroneal and posterior tibial venous ?? segments show no evidence of deep venous thrombosis bilaterally. ? There is no Lazaro's cyst. ? US/US venous duplex LE BI ?? IMPRESSION: ?? No evidence of deep venous thrombosis involving the bilateral lower ?? extremities. ? Electronically signed by: ??Cristóbal Eugene MD ??10/14/2024 01:45 PM EDT RP ? Dictated By: ?Cristóbal Eugene MD ? Signed By: ?<Electronically signed by Cristóbal Eugene MD in OV> ?10/14/24 1345 ? DD/ 1318 ? TD/TT: 10/14/24 1342 ? Station Mechanic Helper: ? Procedure Note Donotsurendrainterpreter, Image - 10/14/2024 [facility] [address] [place] [address], [place] [address] Ultrasound Report Signed Patient: Lorena Phelps LMR#: [id number] : 1980Acct:[id number] Age/Sex: 44 / FADM Date: 10/14/24 [facility] Dr: Margi Walters MD Ordering Physician: Gonzalez Reno MD Date of Service: 10/14/24 Procedure(s): US venous duplex LE BI Accession Number(s): [id number] cc: Gonzalez Reno MD; Margi Barnes MD EXAMINATION: US TRIPLEX LOWER EXTREMITY, BILATERAL CLINICAL INFORMATION: Lower extremity edema. COMPARISON: None available. TECHNIQUE: Color-flow triplex imaging with spectral analysis and compression Doppler were performed on the bilateral lower extremities. FINDINGS: As per technologist note, somewhat limited exam due to patient body habitus. Respiratory variation, normal compression and augmented flow are noted throughout the bilateral lower extremities. The visualized common femoral vein, superficial femoral vein, profunda femoral vein, popliteal vein and midcalf peroneal and posterior tibial venous segments show no evidence of deep venous thrombosis bilaterally. There is no Lazaro's cyst. US/US venous duplex LE BI IMPRESSION: No evidence of deep venous thrombosis involving the bilateral lower extremities. Electronically signed by: Cristóbal Eugene MD 10/14/2024 01:45 PM EDT Dictated By: Cristóbal Eugene MD Signed By: <Electronically signed by Cristóbal Eugene MD in OV> 10/14/24 1345 DD/ 1318 TD/TT: 10/14/24 1342 Station Mechanic Helper: us Gonzalez Rosa MD CV VASCULAR PROCEDURE S Edited Result - Final [facility] [address] [place] [address] documented in this encounter Visit Diagnoses Diagnosis Bilateral lower extremity edema- Primary Lymphedema Other noninfectious lymphedema Elevated blood pressure reading Elevated blood pressure reading without diagnosis of hypertension documented in this encounter Additional Health Concerns Assessment Noted Time PHQ-9 Depression Total Score: 4 01/10/20 24 10:04 AM EDT documented as of this encounter Care Teams Older Worker Specialist Relationship Specialty Start Date End Date Margi Barnes MD [address] [place] [address] PCP - General Internal Medicine 04/26/23 documented as of this encounter
--- OUTSIDE RECORDS SUMMARY | 2024-10-14 15:50 | XMS_ITS | Encounter Summary ---
Author Organization [employer] Address [address] [facility] 7t [place] [address] Care Team Providers Care Wait Staff Name Role Phone Margi Barnes MD Primary Care Pro vider Encounter Details Date Type Department Care Team ([facility] st Contact Info) Description 10/13/2024 Telephone [facility] MEDICINE [address] [place] [address] [phone] Margi Barnes MD [address] [place], [place] [phone] Social History Tobacco Use Types Packs/Day Years Used Date Smoking Tobacco: Every Day Cigarettes Comments:Started smoking 13 y of age ,stopped [...] AM EDT documented as of this encounter Miscellaneous Notes * Telephone Encounter - Beena Watson RN - 10/13/2024 1:08 PM EDT T/C to patient to inquire about direct scheduling appointment on November 06 that pt labeled Blood work . Pt states that she did not mean to say that and she is actually looking to get seen for ongoing bilateral leg swelling that is currently worse in the left leg. Pt states that bilateral leg swelling started 3 months ago and pt saw Dr. Sawant for this and was instructed to try compression sock and elevation. Pt reports that she uses both of these interventions with no success. Pt states that now her left leg swelling has increased and leg is becoming red. Pt denies pain or heat to leg but does states that she has been having a increase in headaches for the past few months with out chest pain or dizziness. Pt does report one episode of dizziness that night that resolved with rest and was not associated with any other symptoms. When ask about blurry vision pt states that she has been have blurry vision for the past month but was also diagnosed with glaucoma. Pt agrees to sick visit tomorrow with Dr. Cope as PCP is not in office currently. Direct scheduling visit also left so that a follow up is already in place should it be needed. RN reviews ED precautions, pt expresses understanding and agrees to plan of care. documented in this encounter Plan of Treatment Upcoming Encounters Date Type Department Care Team (Late st Contact Info) Description 11/06/2024 9:30 AM EDT Office Visit [address] [address] Margi Barnes MD [address] [place] [address] 11/14/2024 1:00 PM EDT Clinical Support [address] [address] documented as of this encounter Visit Diagnoses Not on filedocumented in this encounter Additional Health Concerns Assessment Noted Time PHQ-9 Depression Total Score: 4 01/10/20 24 10:04 AM EDT documented as of this encounter Care Teams Wait Staff Relationship Specialty Start Date End Date Margi Barnes MD [address] [place] [phone] PCP - General Internal Medicine 04/26/23 documented as of this encounter
--- OUTSIDE RECORDS SUMMARY | 2024-10-14 15:50 | XMS_ITS | Encounter Summary ---
Author Organization [employer] Address [address] 7[address] [place] [address] Care Team Providers Care Tool Carrier Name Role Phone Margi Barnes MD Primary Care Pro vider Encounter Details Date Type Department Care Team (Latest Contact Info) Description 10/13/2024 Travel Social History Tobacco Use Types Packs/Day Years [...] AM EDT documented as of this encounter Plan of Treatment Upcoming Encounters Date Type Department Care Team (Late st Contact Info) Description 11/06/2024 9:30 AM EDT Office Visit [facility] MEDICINE [address] [place] [phone] Margi Barnes MD [address] [place] [phone] 11/14/2024 1:00 PM EDT Clinical Support [address] [address] documented as of this encounter Visit Diagnoses Not on filedocumented in this encounter Additional Health Concerns Assessment Noted Time PHQ-9 Depression Total Score: 4 01/10/20 24 10:04 AM EDT documented as of this encounter Care Teams Tool Carrier Relationship Specialty Start Date End Date Margi Barnes MD [address] [place] [address] PCP - General Internal Medicine 04/26/23 documented as of this encounter
--- OUTSIDE RECORDS SUMMARY | 2024-10-14 15:50 | XMS_ITS | Encounter Summary ---
Author Organization [employer] Address [address] [facility] 7t [place] [address] Care Team Providers Care Wet Char Conveyor Tender Name Role Phone Margi Barnes MD Primary Care Pro vider Reason for Visit * Reason Comments Med Refill Encounter Details Date Type Department Care Team ([facility] st Contact Info) Description 10/23/2023 Refill [facility] & PEDS [address] [place], [place] [phone] Margi Barnes MD [address] [place] [address] Other migraine without status migrainosus, not intractable Social History Tobacco Use Types Packs/Day Years Used Date Smoking Tobacco: Every Day Cigarettes Depression Answer Date Recorded Patient Health Questionnaire-9 Score 7 01/30/2023 Housing Stability Answer Date Recorded What is your housing situation today? I have luisxiomara suh 05/09/[address] you li ve. Do you have problems with any of the following? None of the above 05/09/2023 Food Insecurity Answer Date Recorded Within the past 12 months, y ou worried that your food would run out before you got money to buy more: Never True 05/09/2023 Within the past 12 months,th e food you bought just didn't last and you didn't have enough money to get more: Never True Transportation Answer Date Recorded In the past 12 months, has l ack of transportation kept you from medical appts, meetings, work or from getting things needed for daily living? No 05/09/2023 Utilities Answer Date Recorded In the past 12 months, has t he electric, gas, oil or water company threatened to shut off services in your home? No 05/09/2023 Depression Answer Date Recorded Patient Health Questionnaire-2 Score 0 01/30/2023 Comments Unknown Sex and Gender Information Value [...] Description 11/06/2024 9:30 AM EDT Office Visit [facility] MEDICINE [address] [place] [phone] Margi Barnes MD [address] [place] [phone] 11/14/2024 1:00 PM EDT Clinical Support [facility] MEDICINE [address] [place] [phone] documented as of this encounter Visit Diagnoses Diagnosis Other migraine without status migrainosus, not intractable documented in this encounter Additional Health Concerns Assessment Noted Time PHQ-9 Depression Total Score: 7 01/31/20 23 10:22 AM EDT documented as of this encounter Care Teams Wet Char Conveyor Tender Relationship Specialty Start Date End Date Margi Barnes MD [address] [place] [phone] PCP - General Internal Medicine 04/26/23 documented as of this encounter
--- OUTSIDE RECORDS SUMMARY | 2024-10-14 15:50 | XMS_ITS | Encounter Summary ---
Author Organization [employer] Address [address] [facility] 7t [place] [address] Care Team Providers Care Cna Hha Name Role Phone Margi Barnes MD Primary Care Pro vider Encounter Details Date Type Department Care Team ([facility] st Contact Info) Description 10/03/2024 Population Health Risk Score [facility] (C3) Department [address] [facility] [address] [place] [address] Provider, Population Health Generic Social History Tobacco Use Types Packs/Day Years [...] Description 11/06/2024 9:30 AM EDT Office Visit [facility] MEDICINE [address] [place] [phone] Margi Barnes MD [address] [place] [phone] 11/14/2024 1:00 PM EDT Clinical Support [facility] MEDICINE [address] [place] [phone] documented as of this encounter Visit Diagnoses Not on filedocumented in this encounter Additional Health Concerns Assessment Noted Time PHQ-9 Depression Total Score: 4 01/10/20 24 10:04 AM EDT documented as of this encounter Care Teams Cna Hha Relationship Specialty Start Date End Date Margi Barnes MD [address] [place] [address] PCP - General Internal Medicine 04/26/23 documented as of this encounter
--- OUTSIDE RECORDS SUMMARY | 2024-10-14 15:50 | XMS_ITS | Encounter Summary ---
Author Organization [employer] Address [address] [facility] [address] 7t [place] [address] Care Team Providers Care Heating Element Repairer Name Role Phone Margi Barnes MD Primary Care Pro vider Encounter Details Date Type Department Care Team (Latest Contact Info) Description 10/14/2024 Travel Social History Tobacco Use Types Packs/Day Years Used Date Smoking Tobacco: Every Day Cigarettes Passive Smoke Exposure: Current Comments:Started smoking 13 y of age ,stopped [...] Description 11/06/2024 9:30 AM EDT Office Visit [facility] MEDICINE [address] [place] [phone] Margi Barnes MD [address] [place] [address] 11/14/2024 1:00 PM EDT Clinical Support [address] [address] documented as of this encounter Visit Diagnoses Not on filedocumented in this encounter Additional Health Concerns Assessment Noted Time PHQ-9 Depression Total Score: 4 01/10/20 24 10:04 AM EDT documented as of this encounter Care Teams Heating Element Repairer Relationship Specialty Start Date End Date Margi Barnes MD [address] [place] [address] PCP - General Internal Medicine 04/26/23 documented as of this encounter
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
--- OUTSIDE RECORDS SUMMARY | 2024-10-14 15:50 | XMS_ITS | Encounter Summary ---
Author Organization [employer] Address [address] [place] [address] 7 [place] [address] Care Team Providers Care Chemical Packager Name Role Phone Margi Barnes MD Primary Care Pro vider Reason for Visit * Reason Comments Med Refill Encounter Details Date Type Department Care Team ([facility] st Contact Info) Description 05/28/2024 Refill [facility] 230 [place], [place] [phone] Margi Barnes MD 230 [place], [place] [phone] Hidradenitis suppurativa Social History Tobacco Use Types Packs/Day Years [...] your housing situation today? I have luis vikash 02/19/[address] you li [...] Description 11/06/2024 9:30 AM EDT Office Visit [facility] [address] [place] [address] Margi Barnes MD [address] [place] [address] 11/14/2024 1:00 PM EDT Clinical Support [address] [address] documented as of this encounter Visit Diagnoses Diagnosis Hidradenitis suppurativa Hidradenitis documented in this encounter Additional Health Concerns Assessment Noted Time PHQ-9 Depression Total Score: 4 01/10/20 24 10:04 AM EDT documented as of this encounter Care Teams Chemical Packager Relationship Specialty Start Date End Date Margi Barnes MD [address] [place] [address] PCP - General Internal Medicine 04/26/23 documented as of this encounter
--- OUTSIDE RECORDS SUMMARY | 2024-10-14 15:50 | XMS_ITS | Encounter Summary ---
Author Organization [employer] Address [address] [place] [address] 7t [place] [address] Care Team Providers Care Heel Former Name Role Phone Mae Pierre Primary Care Provider +1- [phone] Margi Barnes MD Primary Care Pro vider Reason for Visit * Reason Comments Med Refill Encounter Details Date Type Department Care Team ([facility] Contact Info) Description 01/27/2023 Refill [facility] 230 [place] [address] Mae Pierre FNP [address] [place] [address] Dept of [place] [address] Impetigo Social History Tobacco Use Types Packs/Day Years Used Date Smoking Tobacco: Every Day Cigarettes Depression Answer Date Recorded Patient Health Questionnaire-9 Score 7 01/30/2023 Depression Answer Date Recorded Patient Health Questionnaire-2 Score 0 01/30/2023 Comments Unknown Sex and Gender Information Value Date Recorded Sex Assigned at Female 05/22/2022 10:16 AM EDT Legal Sex Female 10:16 AM EDT Gender Identity Female 05/22/2022 10:16 AM EDT Sexual Orientation Straight 01/10/2024 10 :18 AM EDT COVID-19 Exposure Response Date Recorded In the last 10 days, have yo u been in contact with someone who was confirmed or suspected to have Coronavirus/COVID-19? No / Unsure 01/30/2023 9:53 AM EDT documented as of this encounter Plan of Treatment Upcoming Encounters Date Type Department Care Team ([facility] Contact Info) Description 11/06/2024 9:30 AM EDT Office Visit [address] [address] Margi Barnes MD 230 [place] [address] 11/14/2024 1:00 PM EDT Clinical Support [address] [address] documented as of this encounter Visit Diagnoses Diagnosis Impetigo documented in this encounter Care Teams Heel Former Relationship Specialty Start Date End Date Mae Pierre FNP PCP - General Family Medicine 05/16/21 04/25/23 Margi Barnes MD [address] [place] [address] PCP - General Internal Medicine 04/26/23 documented as of this encounter
--- OUTSIDE RECORDS SUMMARY | 2024-10-14 15:50 | XMS_ITS | Encounter Summary ---
Author Organization [employer] Address [address] [place] [address] 7 [place] [address] Care Team Providers Care Senior Clinician Name Role Phone Mae Pierre Primary Care Provider +1- [phone] Margi Barnes MD Primary Care Pro vider Reason for Visit * Reason Comments Med Refill Encounter Details Date Type Department Care Team ([facility] Contact Info) Description 09/12/2022 Refill [facility] 230 [place] [address] Mae Pierre FNP [address] [place] [address] Dept [place] [address] COPD with acute exacerbation ([facility]) Social History Tobacco Use Types Packs/Day Years Used Date Smoking Tobacco: Every Day Cigarettes Comments Unknown Sex and Gender Information Value [...] suspected to have Coronavirus/COVID-19? No / Unsure 08/31/2022 11:08 AM EST documented as of this encounter Plan of Treatment Upcoming Encounters Date Type Department Care Team ([facility] Contact Info) Description 11/06/2024 9:30 AM EDT Office Visit [facility] 230 [place] [address] Margi Barnes MD 230 [place] [address] 11/14/2024 1:00 PM EDT Clinical Support [facility] [address] [place] [address] documented as of this encounter Visit Diagnoses Diagnosis COPD with acute exacerbation (CMS/HCC) documented in this encounter Care Teams Senior Clinician Relationship Specialty Start Date End Date Mae Pierre FNP PCP - General Family Medicine 05/16/21 04/25/23 Margi Barnes MD [address] [place] [address] PCP - General Internal Medicine 04/26/23 documented as of this encounter
--- OUTSIDE RECORDS SUMMARY | 2024-10-14 15:50 | XMS_ITS | Encounter Summary ---
Author Organization [employer] Address [address] [facility] 7t [place] [address] Care Team Providers Care Outside Repairer Special Name Role Phone Margi Barnes MD Primary Care Pro vider Reason for Visit * Reason Comments Med Change Request Encounter Details Date Type Department Care Team ([facility] st Contact Info) Description 10/14/2024 Refill [facility] MED[facility]INE 230 [place], [place] [phone] Gonzalez Gomez MD 230 [place], [place] [phone] Bilateral lower extremity edema Social History Tobacco Use Types Packs/Day Years [...] Description 11/06/2024 9:30 AM EDT Office Visit [address] [address] Margi Barnes MD [address] [place] [address] 11/14/2024 1:00 PM EDT Clinical Support [address] [address] documented as of this encounter Visit Diagnoses Diagnosis Bilateral lower extremity edema documented in this encounter Additional Health Concerns Assessment Noted Time PHQ-9 Depression Total Score: 4 01/10/20 24 10:04 AM EDT documented as of this encounter Care Teams Outside Repairer Special Relationship Specialty Start Date End Date Margi Barnes MD [address] [place] [address] PCP - General Internal Medicine 04/26/23 documented as of this encounter
--- OUTSIDE RECORDS SUMMARY | 2024-10-14 15:50 | XMS_ITS | Encounter Summary ---
Author Organization [employer] Address [address] [place] [address] 7 [place] [address] Care Team Providers Care Credit Administrator Name Role Phone Margi Barnes MD Primary Care Pro vider Reason for Visit * Reason Onset Date Comments Med Refill 04/27/2024 Encounter Details Date Type Department Care Team (Late st Contact Info) Description 04/27/2024 Refill [facility] 230 [place], [place] [phone] Margi Barnes MD 230 [place], [place] [phone] COPD with acute exacerbation (CMS/HCC); Lumbar disc disease with radiculopathy Social History Tobacco Use Types Packs/Day Years [...] EDT Office Visit [facility] [address] [place] [address] Margi Barnes MD [address] [place] [address] 11/14/2024 1:00 PM EDT Clinical Support [facility] [address] [place] [address] documented as of this encounter Visit Diagnoses Diagnosis COPD with acute exacerbation (CMS/HCC) Lumbar disc disease with radiculopathy documented in this encounter Additional Health Concerns Assessment Noted Time PHQ-9 Depression Total Score: 4 01/10/20 24 10:04 AM EDT documented as of this encounter Care Teams Credit Administrator Relationship Specialty Start Date End Date Margi Barnes MD [address] [place] [address] PCP - General Internal Medicine 04/26/23 documented as of this encounter
== END 2024-10-14 13:03 | disposition home or self-care (01) ==
LOC: HO.HMGCX 13:02
PROVIDERS: PCP Student in an Organized Health Care Education/Training Program; Visit Provider Student in an Organized Health Care Education/Training Program
DX: R60.0 Localized edema (principal)
CPT/HCPCS: 93970

== ENCOUNTER → 2024-10-14 13:18 | Outpatient (BNV) | payer MEDICAID, SELFPAY | PROVIDERS: PCP Student in an Organized Health Care Education/Training Program; Visit Provider Radiology Diagnostic Radiology | DX: R22.43 Localized swelling, mass and lump, lower limb, bilateral (principal) | CPT/HCPCS: 93970 ==

== ENCOUNTER → 2024-10-27 12:43 | Outpatient (REF) | payer MEDICAID, SELFPAY ==
--- NOTE | 2024-10-27 12:46 | CA_ITS ---
Transthoracic Echocardiogram Patient (Last, First, Middle): Lorena Phelps L Gender: Female Date of : 1980 Age: 44 Procedure Date: 10/27/2024 Procedure Type: Transthoracic Echocardiogram Location: OP Height: 160.02 cm Weight: 147.42 kg BSA: 2.38 m2 Heart Rate: bpm BP: 124 / 72 mmHg Pollution Control Chemist: MAGDALENA Referring MD: Gonzalez Reno MD Symptoms: B/L LE EDEMA R60.0 Study Quality: Technically Difficult, contrast ECG Rhythm: Sinus Conclusions: - The left ventricular systolic function is normal. The calculated ejection fraction is 63% by biplane method. - No obvious valvular pathology seen on this study. - There is mild dilatation of the ascending aorta measuring 4.00 cm. Findings Procedure Information Contrast agent, definity, is being given per protocol without apparent complications. Left Ventricle Normal left ventricular cavity size. There is mildly increased left ventricular wall thickness. The left ventricular systolic function is normal. The calculated ejection fraction is 63% by biplane method. There is no evidence of regional wall motion abnormalities. Diastolic function is normal for age. Right Ventricle Mildly increased right ventricular cavity size. There is normal right ventricular systolic function. Atria The left atrium is mildly dilated. The right atrium is normal in size. Aortic Valve There is a normal trileaflet aortic valve. There is no aortic valve stenosis. There is no aortic valve regurgitation. Mitral Valve The mitral valve appears normal. There is no mitral valve regurgitation. There is no mitral valve stenosis. Pulmonic Valve The pulmonic valve is likely normal. Tricuspid Valve There is trace tricuspid valve regurgitation. There is no evidence of pulmonary hypertension. Great Vessels There is mild dilatation of the ascending aorta measuring 4.00 cm. Venous The inferior vena cava is normal in size and collapses greater than 50% with inspiration. Pericardium/Pleural There is no evidence of pericardial effusion. Prior Study Comparison No significant change compared to prior study dated: 04/25/2022. Recommendations, Care & Conclusions No obvious valvular pathology seen on this study. Measurements 2D Linear Measurements IVSd: 1.11 0.6-0.9/0.6-1.0 cm LVIDd: 5.18 3.9-5.3/4.2-5.9 cm LVIDd Index: 2.18 2.4-3.2/2.2-3.1 cm/m2 LVIDs: 3.60 2.0-3.6 cm LVPWd: 1.04 0.7-1.1 cm LA Diam: 5.30 2.7-3.8/3.0-4.0 cm LAIDs Index: 2.23 1.5-2.3 cm/m2 LV Mass: 265.03 67-162/88-224 g LV Mass Index: 111.36 43-95/49-115 g/m2 LVOT Diam: 2.20 3.0+(-)1.3 cm 2D Systolic Function EF 4C: 61.30 >55% EF 2C: 64.00 >55% EF BiP: 62.60 >55% Mitral Valve MV Pk E: 0.88 MV PK A: 0.67 MV Decel Time: 213.00 E/A: 1.30 E'Lateral: 11.50 E'Medial: 7.72 E/E' Med: 11.40 E/E' Lat: 7.60 PHT: 62.00 MVA PHT: 3.55 Decel [place]: 4.13 Aortic Valve AoV Pk Bradley: 1.50 AoV Mn Bradley: 1.07 AoV VTI: 0.34 AoV Pk Grad: 9.00 Aov Mn Grad: 5.00 TACO Cont.VTI: 2.73 LVOT LVOT Pk Bradley: 1.17 LVOT Mn Bradley: 0.77 LVOT VTI: 0.25 LVOT Pk Grad: 5.00 LVOT Mn Grad: 3.00 LVOT Diam: 2.20 LVOT Area: 3.80 Diastolic Function MV Pk E: 0.88 MV Pk A: 0.67 E/A: 1.30 E'Medial: 7.72 E/E' Med: 11.40 E' Laterial: 11.50 E/E' Lat: 7.60 Right Ventricle TAPSE (mm): 27.50 TVS' Bradley: 14.90 Tricuspid Valve TR Pk Bradley: 1.82 TR Pk Grad: 13.00 RA Press: 3.00 RVSP: 16.00 Great Vessels Aorta Sinus of Valsalva: 3.67 2.0-3.[address] Ridge: 3.20 1.7-3.4 cm Ao Asc: 4.00 2.1-3.4 cm Updated in Other Vendor System with Status of Final Sammy Javed MD electronically signed on 10/28/2024 9:06:43 AM with status of Final
--- OUTSIDE RECORDS SUMMARY | 2024-10-27 15:01 | XMS_ITS | Encounter Summary ---
Author Organization [employer] Address [address] [facility] 7t [place] [address] Care Team Providers Care Rail Equipment Operator Name Role Phone Margi Barnes MD Primary Care Pro vider Reason for Visit * Reason Comments Med Refill Encounter Details Date Type Department Care Team ([facility] st Contact Info) Description 10/23/2023 Refill [facility] [address] [place], [place] [phone] Margi Barnes MD 230 [place] [address] Other migraine without status migrainosus, not intractable Social History Tobacco Use Types Packs/Day Years Used Date Smoking Tobacco: Every Day Cigarettes Depression Answer Date Recorded Patient Health Questionnaire-9 Score 7 01/30/2023 Housing Stability Answer Date Recorded What is your housing situation today? I have luis vikash 05/09/[address] you li [...] Description 11/06/2024 9:30 AM EDT Office Visit [facility]ICINE [address] [place] [address] Margi Barnes MD [address] [place] [address] 11/14/2024 1:00 PM EDT Clinical Support [facility] [address] [place] [address] documented as of this encounter Visit Diagnoses Diagnosis Other migraine without status migrainosus, not intractable documented in this encounter Additional Health Concerns Assessment Noted Time PHQ-9 Depression Total Score: 7 01/31/20 23 10:22 AM EDT documented as of this encounter Care Teams Rail Equipment Operator Relationship Specialty Start Date End Date Margi Barnes MD [address] [place] [address] PCP - General Internal Medicine 04/26/23 documented as of this encounter
--- OUTSIDE RECORDS SUMMARY | 2024-10-27 15:01 | XMS_ITS | Encounter Summary ---
Author Organization [employer] Address [address] [place] [address] 7 [place] [address] Care Team Providers Care Territory Account Representative Name Role Phone Margi Barnes MD Primary Care Pro vider Reason for Visit * Reason Comments Med Refill Encounter Details Date Type Department Care Team ([facility] st Contact Info) Description 05/28/2024 Refill [facility] 230 [place], [place] [phone] Margi Barnes MD 230 [place], [place] [phone] Hidradenitis suppurativa Social History Tobacco Use Types [...] Description 11/06/2024 9:30 AM EDT Office Visit [facility] [address] [place] [address] Margi Barnes MD [address] [place] [address] 11/14/2024 1:00 PM EDT Clinical Support [address] [address] documented as of this encounter Visit Diagnoses Diagnosis Hidradenitis suppurativa Hidradenitis documented in this encounter Additional Health Concerns Assessment Noted Time PHQ-9 Depression Total Score: 4 01/10/20 24 10:04 AM EDT documented as of this encounter Care Teams Territory Account Representative Relationship Specialty Start Date End Date Margi Barnes MD [address] [place] [address] PCP - General Internal Medicine 04/26/23 documented as of this encounter
--- OUTSIDE RECORDS SUMMARY | 2024-10-27 15:01 | XMS_ITS | Encounter Summary ---
Author Organization [employer] Address [address] [place] [address] 7 [place] [address] Care Team Providers Care Shrimp Cleaner Name Role Phone Margi Barnes MD Primary Care Pro vider Reason for Visit * Reason Onset Date Comments Med Refill 04/27/2024 Encounter Details Date Type Department Care Team (Late st Contact Info) Description 04/27/2024 Refill [facility] MEDICINE 230 [place], [place] [phone] Margi Barnes MD 230 [place], [place] [phone] COPD with acute exacerbation (CMS/HCC); Lumbar disc [...] your housing situation today? I have luis ush 02/19/[address] you li [...] Description 11/06/2024 9:30 AM EDT Office Visit [facility] MEDICINE [address] [place] [address] Margi Barnes MD [address] [place] [address] 11/14/2024 1:00 PM EDT Clinical Support [facility] [address] [place] [address] documented as of this encounter Visit Diagnoses Diagnosis COPD with acute exacerbation (CMS/HCC) Lumbar disc disease with radiculopathy documented in this encounter Additional Health Concerns Assessment Noted Time PHQ-9 Depression Total Score: 4 01/10/20 24 10:04 AM EDT documented as of this encounter Care Teams Shrimp Cleaner Relationship Specialty Start Date End Date Margi Barnes MD [address] [place] [address] PCP - General Internal Medicine 04/26/23 documented as of this encounter
--- OUTSIDE RECORDS SUMMARY | 2024-10-27 15:01 | XMS_ITS | Encounter Summary ---
Author Organization [employer] Address [address] [place] [address] 7 [place] [address] Care Team Providers Care Rn Case Manager Hospice Name Role Phone Mae Pierre Primary Care Provider +1- [phone] Margi Barnes MD Primary Care Pro vider Reason for Visit * Reason Comments Med Refill Encounter Details Date Type Department Care Team ([facility] Contact Info) Description 09/12/2022 Refill [facility] MEDICINE 230 [place] [address] Mae Pierre FNP [address] [place] [address] Dept [place] [address] COPD with acute exacerbation ([facility]) Social History Tobacco Use Types Packs/Day [...] Upcoming Encounters Date Type Department Care Team ([facility] Contact Info) Description 11/06/2024 9:30 AM EDT Office Visit [facility] MED[facility]INE 230 [place] [address] Margi Barnes MD 230 [place] [address] 11/14/2024 1:00 PM EDT Clinical Support [facility]INE [address] [place] [address] documented as of this encounter Visit Diagnoses Diagnosis COPD with acute exacerbation (CMS/HCC) documented in this encounter Care Teams Rn Case Manager Hospice Relationship Specialty Start Date End Date Mae Pierre FNP PCP - General Family Medicine 05/16/21 04/25/23 Margi Barnes MD [address] [place] [address] PCP - General Internal Medicine 04/26/23 documented as of this encounter
--- OUTSIDE RECORDS SUMMARY | 2024-10-27 15:01 | XMS_ITS | Encounter Summary ---
Author Organization [employer] Address [address] [place] [address] 7t [place] [address] Care Team Providers Care Real Estate Leasing Agent Name Role Phone Mae Pierre Primary Care Provider +1- [phone] Margi Barnes MD Primary Care Pro vider Reason for Visit * Reason Comments Med Refill Encounter Details Date Type Department Care Team ([facility] Contact Info) Description 01/27/2023 Refill [facility] MEDICINE 230 [place] [address] Mae Pierre FNP [address] [place] [address] [place] [address] Impetigo Social History Tobacco Use Types Packs/Day [...] Upcoming Encounters Date Type Department Care Team ([facility] Contact Info) Description 11/06/2024 9:30 AM EDT Office Visit [address] [address] Margi Barnes MD 230 [place] [address] 11/14/2024 1:00 PM EDT Clinical Support [address] [address] documented as of this encounter Visit Diagnoses Diagnosis Impetigo documented in this encounter Care Teams Real Estate Leasing Agent Relationship Specialty Start Date End Date Mae Pierre FNP PCP - General Family Medicine 05/16/21 04/25/23 Margi Barnes MD [address] [place] [address] PCP - General Internal Medicine 04/26/23 documented as of this encounter
--- OUTSIDE RECORDS SUMMARY | 2024-10-27 15:01 | XMS_ITS | Clinical Summary ---
Author Organization [employer] Address [address] [place] [address] 7t [place] [address] Care Team Providers Care Medical Office Supervisor Name Role Phone Margi Barnes MD Primary Care Pro vider Allergies Active Allergy Reactions Criticality Noted Date Comments Aspirin Nausea 02/15/2016 Other reaction(s): Unknown Codeine 06/24/2012 Other reaction(s): Nausea / Vomiting Latex Other,Rash,Swelling Low 11/08/2022 Morphine Hallucinations 10/05/2016 Other reaction(s): HALLUCUNATE VOMITING Varenicline Insomnia 09/08/2015 Medications albuterol (2.5 MG/3ML) 0.083% nebulizer solution inhale 3 milliliter by nebulization route every 6 hours as needed 019 Active Nebulizers (Compressor Nebulizer) misc Pulmo-aide compressor 016 Active methadone (Dolophine) 10 MG/ML solution take 84 milliliter by oral route every day Active Spacer/Aero-Hold ing Chambers (AEROCHAMBER MAX W/FLOW-VU) misc Use as directed with MDI 016 Active lidocaine (Lidoderm) 5 % patch Apply 1 patch topically Once per day. Remove & discard patch within 12 hours or as directed by MD. 30 patch 2 024 Active budesonide-formo terol (Symbicort) 160-4.5 MCG/ACT inhalerIndicatio ns:COPD with acute exacerbation (CMS/HCC) PLEASE SEE ATTACHED FOR DETAILED DIRECTIONS 10.2 each 2 024 Active loratadine (Claritin) 10 MG tablet TAKE 1 TABLET BY MOUTH EVERY DAY IN THE MORNING 90 tablet 1 024 Active FLUoxetine (PROzac) 20 MG capsule TAKE 1 CAPSULE BY MOUTH EVERY DAY IN THE MORNING 30 capsule 5 024 Active ibuprofen 800 MG tabletIndication s:Lumbar disc disease with radiculopathy TAKE 1 TABLET BY MOUTH EVERY DAY NEEDED FOR MODERATE PAIN 30 tablet 025 Active Ventolin HFA 108 (90 Base) MCG/ACT inhaler INHALE 1 PUFF EVERY 4 HOURS NEEDED FOR WHEEZE 18 g 2 025 Active Tirzepatide-Weig ht Management (Zepbound) 2.5 MG/0.5ML solution auto-injectorInd ications:Class 3 severe obesity due to excess calories without serious comorbidity with body mass index (BMI) of 50.0 to 59.9 in adult (CMS/[facility]) Inject 0.5 mL (2.5 mg) under the skin 1 (one) time per week. 2 mL 025 Active topiramate 50 MG tabletIndication s:Other migraine without status migrainosus, not intractable TAKE 1 TABLET BY MOUTH EVERY DAY 90 tablet 025 Active furosemide (Lasix) 20 MG tabletIndication s:Bilateral lower extremity edema TAKE 1 TABLET (20 MG) BY MOUTH ONCE PER DAY. 90 tablet 025 Active nicotine polacrilex (Nicotine Mini) 2 MG lozenge Dissolve 1 lozenge (2 mg) in the mouth every 2 (two) hours if needed for smoking cessation. 100 lozenge 1 024 2024 Discontinued(T herapy completed) nicotine (Nicoderm, Step 3) 7 MG/24HR patchIndications :Nicotine Dependence Place 1 patch on the skin 1 (one) time each day at the same time. 30 patch 2 024 2024 Discontinued(T herapy completed) furosemide (Lasix) 20 MG tabletIndication s:Bilateral lower extremity edema Take 1 tablet (20 mg) by mouth Once per day. 30 tablet 1 025 2024 Discontinued Active Problems Problem Noted Date Diagnosed Date [...] daily LE US to rule out DVT, B-GRADUATE NURSE, ECHO Will refer back to vascular surgeon, [...] 09/30/2021 Varicose veins of left lower extremity Thyroid nodule 11/02/2021 Hidradenitis suppurativa 11/02/2021 Overview [...] Stasis dermatitis on feet and calves with colorer machine. F/u PRN Lumbar disc disease with radiculopathy [...] Description 10/14/2024 11:00 AM EDT Office Visit [facility] [address] [place] [address] Gonzalez Gomez MD Bilateral lower extremity edema (Primary Dx); Lymphedema; Elevated blood pressure reading 10/14/2024 Refill [facility] [address] [place] [address] Gonzalez Gomez MD Bilateral lower extremity edema 10/14/2024 Travel 10/13/2024 Travel 10/13/2024 Telephone [facility] [address] [place] [address] Margi Barnes MD 10/03/2024 Population Health Risk Score [facility] Department [address] [place] [address] [phone] Provider, Population Health Generic 09/11/2024 9:00 AM EST Office Visit [facility] [address] [place] [address] Lisa Leiva, OD Prediabetes (Primary Dx); Anatomical narrow angle of both eyes; Amblyopia of right eye; Hyperopia of both eyes with astigmatism and presbyopia 09/11/2024 Telephone [facility] [address] [place] [address] Lisa Leiva, OD 09/11/2024 Travel 09/04/2024 Travel 09/02/2024 Refill [facility] [address] [place] [address] Margi Barnes MD Other migraine without status migrainosus, not intractable 08/21/2024 Travel 08/18/2024 9:30 AM EST Nurse Only [facility] [address] [place] [address] Sarai Orozco LPN Encounter for immunization (Primary Dx) 08/18/2024 Travel 08/11/2024 Travel 08/08/2024 Refill [facility] [address] [place] [address] Margi Barnes MD from Last 3 Months Immunizations Name Administration Dates Next Due Hep A, Adult 09/05/2016,03/07/2016 Hep B, adult 08/18/2024, 4,02/19/2024,09/05,05/02/2016,03/07/2016 Influenza injectable quadriv alent preservative free 06/04/2019 Influenza, IIV3, injectable 05/19/2011, 8,08/18/2004 Influenza, Split (incl. ester fied surface antigen) 06/25/2013,05/14/2012 Pfizer Covid-19 Vaccine 12+ 12/09/2020, 1 Pneumococcal Conjugate PCV 20 01/10/2024 Pneumococcal Polysaccharide [...] 11/06/2024 9:30 AM EDT Office Visit [address] [address] Margi Barnes MD [address] [place] [address] 11/14/2024 1:00 PM EDT Clinical Support [address] [address] Health Maintenance Due Date Last Done Comments CT Colonography 1979 Colonoscopy 1979 Colorectal Cancer Screening 1979 FIT DNA/Cologuard 1979 FIT 1979 FOBT 1980 Sigmoidoscopy 1980 Family Planning (PISQ) 1994 Pap Smear 01/15/2000 COVID-19 Vaccine ( - season) 2024 12/09/2020, 11/18/2020 Influenza Vaccine (#1) [...] 1:18 PM EDT) 10/14/2024 1:18 PM EDT [facility] - 10/14/2024 1:48 PM EDT ? [facility] ?[address] ? [place] [address] ? Ultrasound Report ? Signed ? Patient: Adventist,Lorena L ?MR#: [id number] ?? [id number] ? : 1980 ?Acct:[id number] ? Age/Sex: 44 / F ?ADM Date: 10/14/24 ? Loc: HO.HMGCX ? Attending Dr: Margi Walters MD ? Ordering Physician: Gonzalez Reno MD ?? Date of Service: 10/14/24 ?? Procedure(s): US venous duplex LE BI ?? Accession Number(s): [id number] ? cc: Gonzalez Reno MD; Margi Barnes [...] DD/ 1318 ? TD/TT: 10/14/24 1342 ? Motorcycle Police Officer: ? Procedure Note Atilio, Leonid - 10/14/2024 [facility] [address] [place] [address] Ultrasound Report Signed Patient: Adventist,Lorena LMR#: [id number] : 1980Acct:[id number] Age/Sex: 44 / FADM Date: 10/14/24 Loc: HO.HMGCX Attending Dr: Margi Walters MD Ordering Physician: Gonzalez eRno MD Date of Service: 10/14/24 Procedure(s): US venous duplex LE BI Accession Number(s): [id number] cc: Gonzalez Reno MD; Margi Barnes MD [...] 10/14/24 1345 DD/ 1318 TD/TT: 10/14/24 1342 Motorcycle Police Officer: us Gonzalez Rosa MD CV VASCULAR PROCEDURE S Edited Result - Final [facility] [address] [place] [phone] * (ABNORMAL) Hepatitis C Antibody with Reflex to HCV, RNA, Quantitative, Real- Time PCR (02/18/2024 1:40 PM EDT) Hepatitis C Antibody Reactive( A) Nonreactive [facility] Comment:Presumptive evidence of antibodies to HCV. Blood Venous blood specimen / Unknown 02/18/2024 1:40 PM EDT 02/18/2024 3:57 PM EDT Margi Walters MD LAB BLOOD ORDERAB LES Final Result Performing Organization Address [facility]/ZIP Co de Phone Number [facility] [address] [place] [address] [phone] * HIV-1/2 Antigen and Antibodies, Fourth Generation, with Reflexes (02/18/2024 1:40 PM EDT) HIV AB/AG Nonreactive Nonreactive [facility] Comment:HIV-1 p24 Ag and/or HIV-1/HIV-2 Ab not detected.A test result that is nonreactive does not exclude thepossibility of exposure to or infection with HIV-1 and/orHIV-2. Nonreactive results in this assay for individualswith prior exposure to HIV-1 and/or HIV-2 may be due toantigen and antibody levels that are below the limit ofdetection of this assay.The [employer] HIV Ag/Ab Combo assay result andsupplemental assay results should be interpreted inconjunction with the patient's clinical presentation,history and other laboratory results. If the results areinconsistent with clinical evidence, additional testing issuggested to confirm the result. Blood Venous blood specimen / Unknown 02/18/2024 1:40 PM EDT 02/18/2024 3:57 PM EDT us Margi Walters MD LAB BLOOD ORDERAB LES Final Result Performing Organization Address City/[facility]/ZIP Co de Phone Number [facility] [address] [place] [address] [phone] * (ABNORMAL) Hemoglobin A1c (02/18/2024 1:40 PM EDT) Hemoglobin A1c 6.1(H) <6.0 % [facility] Comment:Hemoglobin A1C Refer ence Range Adults: 4.8 - 6.0 % Non diabetic: < 6.0 % Goal: < 7.0 %Additional Action Suggested: > 8.0 %Note: Hemoglobin A1c results are invalid for patients with abnormal amounts of HbF. Blood transfusions may impact the HbA1c concentration in the patient sample. Estimated Average Glucose 128 mg/dL [facility] Comment:eAG = Estimated ave rage glucose which is %A1C expressed asaverage glucose, using the formula of the U8K-CjgtkisWxdvyox Glucose study (ADAG), Diabetes Care, Vol.31,#8,Feb. 2007 Blood Venous blood specimen / Unknown 02/18/2024 1:40 PM EDT 02/18/2024 3:57 PM EDT Margi Walters MD LAB BLOOD ORDERAB LES Final Result [facility] [address] [place] [phone] * (ABNORMAL) Lipid Panel, Standard (02/18/2024 1:40 PM EDT) Triglycerides 115 <150 mg/dL [facility] Comment:Desirable Triglyceri de: less than 150 mg/dLBorderline High Triglyceride 150-199 mg/dLHigh Triglyceride: 200-499 mg/dLVery High Triglyceride: greater than or equal to 5OO mg/dL Cholesterol 189 <200 mg/dL [facility] Comment:Desirable Cholestero l: less than 200 mg/dLBorderline High Cholesterol: 200-239 mg/dLHigh Cholesterol: greater than 239 mg/dL LDL Cholesterol Calculated 132(H) <100 mg/dL [facility] Comment:Desirable LDL: less than 100 mg/dLNear Optimal/Above Optimal LDL: 110- 129 mg/dLBorderline High LDL: 130-159 mg/dLHigh LDL: 160-189 mg/dLVery High LDL: greater than or equal to 190 mg/dL HDL Cholesterol 34(L) >40 mg/dL [facility] Comment:Desirable HDL: great er than 40 mg/dL Note: This HDL assay may give artificially low results in patients with liver disease. Blood Venous blood specimen / Unknown 02/18/2024 1:40 PM EDT 02/18/2024 3:57 PM EDT us Margi Walters MD LAB BLOOD ORDERAB LES Final Result Performing Organization Address [facility]/State/ZIP Co de Phone Number [facility] [address] [place] [phone] * BI Mammogram Screening Tomosynthesis Bilateral (02/18/2024 1:27 PM EDT) Anatomical Region Laterality Modality Breast Bilateral Mammography 02/18/2024 1:27 PM EDT Narrative 03/05/2024 11:04 PM EDT ? [facility] ? [address] ?[place] [address] ? Mammography Report ? Signed ? Patient: Adventist,Lorena L ?MR#: [id number] ?? [id number] ? : 1980 ?Acct:[id number] ? Age/Sex: 44 / F ?ADM Date: 02/18/24 ? Loc: HO.MAMMO ? Attending Dr: Margi Walters MD ? Ordering Physician: Margi Barnes MD ?Re ?? sults: 1Negative ? Date of Service: 02/18/24 ?Follow Up: 1 Year From Orig ?? inal Mammogram ? Procedure(s): MM tomosynthesis screening BI ?? Accession Number(s): [id number] ? cc: Margi Barnes MD ? EXAMINATION: [...] 2300 ? DD/ 1327 ? TD/TT: ? Motorcycle Police Officer: ? Procedure Note Leonid Trimble - 03/05/2024 [facility] [address] [place], [place] [address] Mammography Report Signed Patient: Lorena Phelps LMR#: [id number] : 1980Acct:[id number] Age/Sex: 44 / FADM Date: 02/18/24 Loc: KEN[facility] Attending Dr: Margi Walters MD Ordering Physician: Margi Barnes sults: 1Negative Date of Service: 02/18/24Follow Up: 1 Year From Orig ina Mammogram Procedure(s): MM tomosynthesis screening BI Accession Number(s): [id number] cc: Margi Barnes MD EXAMINATION: MM SCREENING [...] in OV> 03/05/24 2300 DD/ 1327 TD/TT: Motorcycle Police Officer: Margi Walters MD IMG BI PROCEDURES Final Result * HPV E6/E7 RFLX PATTI 16 18/45 (04/05/2022 3:16 PM EDT) HPV 16 RNA [facility]NP [facility] HPV 18/45 RNA [facility] HPV E6 E7 ADD [facility] HPV mRNA E6/E7 rflx Not Detected Not Detected [facility] Comment: Methodology: Fur Mixer-Mediated Amplification This assay detects E6/E7 viral messenger RNA (mRNA) from 14 high-risk HPV types (16,18,31,33,35,39,45,51,52,56,58,59,66,68). Cervical sources are required for HPV testing. If a vaginal source from a patient who has had a total hysterectomy with removal of cervix was submitted, please contact the testing laboratory for alternative testing options. For additional information, please refer to [email or web address].Access Media 3/faq/FUQ046q0 (This link if provided for information/ educational purposes only.) THIS TEST WAS PERFORMED AT: [facility] [address] [place] [address] [address] [place], [place] ??[phone] BRICE TUCKER MD 04/05/2022 3:16 PM EDT us Celeste Romo HISTORICAL/NON ORDERABLE LABS Fi nal Result [facility] Anywhere [address] from Last 3 Months or Most Recently Relevant to Health Maintenance Insurance [facility] Care Teams Medical Office Supervisor Relationship Specialty Start Date End Date Margi Barnes MD [address] [place] [phone] PCP - General Internal Medicine 10/5/23
== END ==
LOC: HO.CARD 12:43
PROVIDERS: PCP Student in an Organized Health Care Education/Training Program; Visit Provider Internal Medicine
DX: R60.0 Localized edema (principal)
CPT/HCPCS: 93306; Q9957

== ENCOUNTER → 2024-10-27 12:46 | Outpatient (BNV) | payer MEDICAID, SELFPAY | PROVIDERS: PCP Student in an Organized Health Care Education/Training Program; Visit Provider Internal Medicine | DX: I51.7 Cardiomegaly (principal); I71.21 Aneurysm of the ascending aorta, without rupture | CPT/HCPCS: 93306 ==

== ENCOUNTER 2024-10-28 13:52 | Outpatient (AMB) | payer MEDICAID, SELFPAY ==
--- NOTE | 2024-10-28 13:58 | A.OFFVIS_ITS ---
Intake Visit Reasons: follow up Re-Referral for LE swelling Intake Note: Patient presents for bilateral leg swelling. Left leg is worse. No other symptoms. Accompanied by: Self / Same As Patient Allergies latex [LATEX] Allergy (Unknown, Verified 10/28/24 14:00) RASH morphine [MORPHINE] Allergy (Unknown, Verified 10/28/24 14:00) HALLUCINATIONS codeine Adverse Reaction (Unknown, Verified 10/28/24 14:00) VOMITING HPI HPI follow up Re-Referral for LE swelling: Details: The patient is a morbidly obese 44-year-old female presenting with symptoms related to chronic venous insufficiency. She experiences leg swelling, predominantly in the left leg, accompanied by discoloration. These symptoms vary in intensity correlating with physical activities such as walking or standing, and she is aware of her obesity as a contributory factor. She had actually seen us a proximally 2 years prior and at that time her workup prove to be negative. She now presents for re-evaluation. Patient denies any previous venous surgery or injections. Patient denies any history of DVT/ PE. - ultrasound on 10/14/2024 was negative for DVT Patient denies any history of phlebitis. Trial of compression includes - [id number] They now present for vascular evaluation regarding their varicose veins. 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 Sexual orientation: Straight/Heterosexual Gender identity: Female Female Reproductive History Menstrual Age of Menarche: 13 Review of Systems Const Reports as per HPI ENT Reports no additional complaints Card Denies chest pain, Denies chest pain at rest and Denies chest pain with activity Resp Denies chest congestion and Denies cough GI Reports no additional complaints Musc Details: pain over varicosities, aching of lower extremities, swelling, cramping, heaviness and tiredness, itching Denies abnormal gait Skin/Breast Reports pruritus and Denies wounds Neuro Reports no additional complaints and Denies abnormal gait Psych Denies no additional complaints Physical Exam Const General: cooperative, healthy appearing and comfortable Orientation/consciousness: oriented to person, oriented to place and oriented to time Neck Carotids: no bruits Chest Chest palpation & inspection: normal inspection of the chest and normal palpation of entire chest wall Resp Effort & Inspection: normal respiratory effort and able to speak in complete sentences Cardio Rate: regular rate Heart sounds: S1 normal heart sound present and S2 normal heart sound present Peripheral pulses: Peripheral pulses 2+ throughout GI Inspection: Yes normal to inspection Skin Other: +2 edema, large rope-like varicosities greater than 4 mm bilateral calf CEAP Classification C4 - skin color changes Ep - Etiology Primary As - superficial veins P - reflux General skin exam: dry skin Neuro General: oriented to person, oriented to place and oriented to time Extrem Right lower extremity: full ROM, normal capillary refill and edema Left lower extremity: full ROM, normal capillary refill and edema Psych Mental Status: mental status grossly normal Assessment & Plan Assessment & Plan (1) Varicose veins of left lower extremity with inflammation: Code(s): I83.12 - Varicose veins of left lower extremity with inflammation Category: Medical Plan: In short, the patient has evidence of venous insufficiency. I have discussed the pathophysiology with the patient. In addition I have provided informational material regarding venous disease to the patient. We have discussed conservative measures including compression, elevation, and exercise. I have also provided a handout regarding appropriate use of compression stockings and where to purchase good compression stockings as well. I have taken the liberty of ordering venous insufficiency testing with the patient. They will follow up with me after testing. The patient had an opportunity to ask questions regarding the treatment plan. All questions were answered. Imaging studies, laboratory studies and physical exam results were discussed and reviewed in detail. No major barriers to understanding were identified. The patient expressed understanding and agreement with the above treatment plan. The patient is aware they should contact our office by phone for worsening of the current condition or the appearance of new symptoms. Thank you for allowing me to participate in the vascular care of this patient. If you have any questions or concerns regarding the treatment for the above condition please do not hesitate to contact me. The office telephone contact is [phone]. This note is constructed using voice recognition software. While every effort has been made to ensure accuracy, medical economics consultant errors may have been included. Thank you for allowing me to participate in the care of your patient. Yours sincerely, Deniz Lui MD, FACS, R.P.V.I. Orders: Orders US venous duplex LE BI 1 Week I83.12 - Varicose veins of left lower extremity with inflammation Coding Level of Care Code Est Pt Level 4 (34681) Complex EM visit Add On G2211 Diagnoses Varicose veins of left lower extremity with inflammation I83.12
== END 2024-10-28 14:12 | disposition home or self-care (01) ==
LOC: HO.HVS 13:53
PROVIDERS: PCP Student in an Organized Health Care Education/Training Program; Visit Provider Surgery Vascular Surgery
DX: I83.12 Varicose veins of left lower extremity with inflammation (principal)
CPT/HCPCS: 99214

== ENCOUNTER → 2024-10-28 13:52 | Outpatient (BNVA) | payer MEDICAID, SELFPAY | PROVIDERS: PCP Student in an Organized Health Care Education/Training Program; Visit Provider Surgery Vascular Surgery | DX: I83.12 Varicose veins of left lower extremity with inflammation (principal) | CPT/HCPCS: 99212 ==

== ENCOUNTER 2024-12-05 10:15 | Outpatient (REF) | payer MEDICAID, SELFPAY ==
--- NOTE | ~2024-12-05 | US_ITS ---
EXAMINATION: US LOWER EXTREMITY VENOUS (REFLUX EXAM), BILATERAL CLINICAL INFORMATION: Varices. COMPARISON: Venous ultrasound dated October 14, 2024, reported negative for DVT. TECHNIQUE: Color flow triplex imaging and compression Doppler was performed to evaluate both the deep and the superficial systems bilaterally. To evaluate the superficial system, the examination was performed in the upright position. Color-flow Doppler ultrasound and compression ultrasound were utilized. In addition, maneuvers were utilized to demonstrate reflux. FINDINGS: 1. DEEP VENOUS ULTRASOUND OF THE RIGHT LOWER EXTREMITY: Common Femoral Vein: Compressible, normal respiratory variation and augmented flow. Femoral Vein: Compressible, normal color flow and augmentation. Popliteal Vein: Compressible, normal augmentation. Deep Reflux: 2608 ms in the popliteal vein. There is no evidence of a Lazaro's cyst. 2. SUPERFICIAL ULTRASOUND WITH DOPPLER OF RIGHT LOWER EXTREMITY: GREAT SAPHENOUS VEIN: Saphenofemoral Junction: 0.9 cm; Reflux: 0 ms Proximal Thigh: 0.5 cm; Reflux: 0 ms Mid Thigh: 0.6 cm; Reflux: 0 ms Distal Thigh: 0.5 cm; Reflux: 0 ms At Knee: 0.4 cm; Reflux: 0 ms Proximal Calf: 0.3 cm; Reflux: 0 ms Mid Calf: 0.3 cm; Reflux: 0 ms Distal Calf: 0.3 cm; Reflux: 1320 ms DUPLICATED MEDIAL GREAT SAPHENOUS VEIN: Diameter: None imaged Reflux: NA DUPLICATED LATERAL GREAT SAPHENOUS VEIN: Diameter: 0.5 cm. Reflux: 668 ms. SMALL SAPHENOUS VEIN: Saphenopopliteal Junction: 0.2 cm; Reflux: 0 ms Proximal: 0.2 cm; Reflux: 0 ms Distal: 0.2 cm; Reflux: 0 ms VEIN OF GIACOMINI: Size: NA Reflux: NA PERFORATORS: Location: Proximal calf. Size: 0.2 cm. Reflux: NA VARICOSITIES: Location: Accessory saphenous vein, proximal segment. Distal thigh to the distal calf. Size: 0.3-0.7 cm. Reflux: 2212 ms in the distal calf and 1212 ms in the proximal accessory saphenous vein. 3. DEEP VENOUS ULTRASOUND OF THE LEFT LOWER EXTREMITY: Common Femoral Vein: Compressible, normal respiratory variation and augmented flow. Femoral Vein: Compressible, normal color flow and augmentation. Popliteal Vein: Compressible, normal augmentation. Deep Reflux: 788 ms in the popliteal vein. There is no evidence of a Lazaro's cyst. 4. SUPERFICIAL ULTRASOUND WITH DOPPLER OF LEFT LOWER EXTREMITY: GREAT SAPHENOUS VEIN: Saphenofemoral Junction: 1.2 cm; Reflux: 0 ms Proximal Thigh: 0.7 cm; Reflux: 0 ms Mid Thigh: 0.5 cm; Reflux: 0 ms Distal Thigh: 0.4 cm; Reflux: 0 ms At Knee: 0.4 cm; Reflux: 0 ms Proximal Calf: 0.5 cm; Reflux: 0 ms Mid Calf: 0.3 cm; Reflux: 0 ms Distal Calf: 0.4 cm; Reflux: 0 ms DUPLICATED MEDIAL GREAT SAPHENOUS VEIN: Diameter: None imaged Reflux: NA DUPLICATED LATERAL GREAT SAPHENOUS VEIN: Diameter: None imaged. Reflux: NA SMALL SAPHENOUS VEIN: Saphenopopliteal Junction: 0.3 cm; Reflux: 540 ms Proximal: 0.2 cm; Reflux: 0 ms Distal: 0.3 cm; Reflux: 0 ms VEIN OF GIACOMINI: Size: NA Reflux: NA PERFORATORS: Location: Proximal thigh, proximal and mid calf. Size: 0.2-0.3 cm. Reflux: NA VARICOSITIES: Location: Proximal thigh and at the knee. Size: 0.3-0.4 cm. Reflux: 2464 ms in the proximal thigh and 2220 ms at the knee. US/US venous insuf bilat IMPRESSION: Right: Venous insufficiency, great saphenous vein at the ankle and lateral saphenous vein at the junction. Reflux in the popliteal vein. Varices with reflux in the proximal accessory saphenous vein and distal calf. Perforators without reflux in the proximal calf. Left: Venous insufficiency, small saphenous vein at the junction. Reflux, popliteal vein. Varices with reflux in the proximal thigh and at the knee. Perforators with reflux. Electronically signed by: Kentrell Cutler MD 12/08/2024 10:34 AM EDT
--- OUTSIDE RECORDS SUMMARY | 2024-12-05 10:35 | XMS_ITS | Encounter Summary ---
Author Organization [employer] Address [address] [place] [address] 7 [place] [address] Care Team Providers Care Head Swamper Name Role Phone Margi Barnes MD Primary Care Pro vider Reason for Visit * Reason Onset Date Comments Med Refill 04/27/2024 Encounter Details Date Type Department Care Team (Late st Contact Info) Description 04/27/2024 Refill [facility] [address] [place], [place] [phone] Margi Barnes MD [address] [place], [place] [phone] COPD with acute exacerbation (CMS/HCC); Lumbar disc [...] your housing situation today? I have luis shu 02/19/[address] you li [...] Care Team (Late st Contact Info) Description 01/06/2025 9:45 AM EDT Office Visit [facility] [address] [place] [phone] Margi Barnes MD [address] [place] [phone] documented as of this encounter Visit Diagnoses Diagnosis COPD with acute exacerbation (CMS/HCC) Lumbar disc disease with radiculopathy documented in this encounter Additional Health Concerns Assessment Noted Time PHQ-9 Depression Total Score: 4 01/10/20 24 10:04 AM EDT documented as of this encounter Care Teams Head Swamper Relationship Specialty Start Date End Date Margi Barnes MD [address] [place], [place] [phone] PCP - General Internal Medicine 04/26/23 documented as of this encounter
--- OUTSIDE RECORDS SUMMARY | 2024-12-05 10:35 | XMS_ITS | Encounter Summary ---
Author Organization [employer] Address [address] [place] [address] 7 [place] [address] Care Team Providers Care Oxygen Tank Filler Name Role Phone Margi Barnes MD Primary Care Pro vider Reason for Visit * Reason Comments Med Refill Encounter Details Date Type Department Care Team ([facility] st Contact Info) Description 05/28/2024 Refill [facility] [address] [place], [place] [phone] Margi Barnes MD [address] [place], [place] [phone] Hidradenitis suppurativa Social History Tobacco Use Types [...] Description 01/06/2025 9:45 AM EDT Office Visit [facility] [address] [place] [phone] Margi Barnes MD [address] [place] [address] [phone] documented as of this encounter Visit Diagnoses Diagnosis Hidradenitis suppurativa Hidradenitis documented in this encounter Additional Health Concerns Assessment Noted Time PHQ-9 Depression Total Score: 4 01/10/20 24 10:04 AM EDT documented as of this encounter Care Teams Oxygen Tank Filler Relationship Specialty Start Date End Date Margi Barnes MD [address] [place] [phone] PCP - General Internal Medicine 04/26/23 documented as of this encounter
--- OUTSIDE RECORDS SUMMARY | 2024-12-05 10:35 | XMS_ITS | Encounter Summary ---
Author Organization [employer] Address [address] [place] [address] Care Team Providers Care Medical Physics Teacher Name Role Phone Margi Barnes MD Primary Care Pro vider Reason for Visit * Reason Onset Date Comments Med Refill 11/26/2024 Encounter Details Date Type Department Care Team (Late st Contact Info) Description 11/26/2024 Refill [facility] [address] [place], [place] [phone] Nuria Holm, ANP [address] [place], [place] [phone] Class 3 severe obesity due to excess calories without serious comorbidity with body mass index (BMI) of 50.0 to 59.9 in adult Social History Tobacco Use Types Packs/Day Years [...] Description 01/06/2025 9:45 AM EDT Office Visit [facility] [address] [place] [phone] Margi Barnes MD [address] [place] [phone] documented as of this encounter Visit Diagnoses Diagnosis Class 3 severe obesity due to excess calories without serious comorbidity with body mass index (BMI) of 50.0 to 59.9 in adult documented in this encounter Additional Health Concerns Assessment Noted Time PHQ-9 Depression Total Score: 4 01/10/20 24 10:04 AM EDT documented as of this encounter Care Teams Medical Physics Teacher Relationship Specialty Start Date End Date Margi Barnes MD [address] [place] [phone] PCP - General Internal Medicine 04/26/23 documented as of this encounter
--- OUTSIDE RECORDS SUMMARY | 2024-12-05 10:35 | XMS_ITS | Encounter Summary ---
Author Organization [employer] Address [address] 7t [place] [address] Care Team Providers Care Finish Painter Name Role Phone Margi Barnes MD Primary Care Pro vider Reason for Visit * Reason Comments Med Refill Encounter Details Date Type Department Care Team ([facility] st Contact Info) Description 11/06/2024 Refill [facility] [address] [place], [place] [phone] Ting Kevin NP [address] [place] [address] Lumbar disc disease with radiculopathy Social History [...] housing situation today? I have luisxiomara suh 02/19/[address] you [...] Description 01/06/2025 9:45 AM EDT Office Visit [facility] [address] [place] [phone] Margi Barnes MD [address] [place] [phone] documented as of this encounter Visit Diagnoses Diagnosis Lumbar disc disease with radiculopathy documented in this encounter Additional Health Concerns Assessment Noted Time PHQ-9 Depression Total Score: 4 01/10/20 24 10:04 AM EDT documented as of this encounter Care Teams Finish Painter Relationship Specialty Start Date End Date Margi Barnes MD [address] [place] [phone] PCP - General Internal Medicine 04/26/23 documented as of this encounter
--- OUTSIDE RECORDS SUMMARY | 2024-12-05 10:35 | XMS_ITS | Encounter Summary ---
Author Organization [employer] Address [address] [facility] [address] 7t [place] [address] Care Team Providers Care Histology Specialist Name Role Phone Margi Barnes MD Primary Care Pro vider Reason for Visit * Reason Comments Med Refill Encounter Details Date Type Department Care Team ([facility] st Contact Info) Description 12/03/2024 Refill [facility] [address] [place], [place] [phone] Chitra Garcia MD [address] [place] [address] Other migraine without status migrainosus, not intractable [...] Description 01/06/2025 9:45 AM EDT Office Visit [facility] [address] [place] [phone] Margi Barnes MD [address] [place] [address] documented as of this encounter Visit Diagnoses Diagnosis Other migraine without status migrainosus, not intractable documented in this encounter Additional Health Concerns Assessment Noted Time PHQ-9 Depression Total Score: 4 01/10/20 24 10:04 AM EDT documented as of this encounter Care Teams Histology Specialist Relationship Specialty Start Date End Date Margi Barnes MD [address] [place] [address] PCP - General Internal Medicine 04/26/23 documented as of this encounter
--- OUTSIDE RECORDS SUMMARY | 2024-12-05 10:35 | XMS_ITS | Encounter Summary ---
Author Organization [employer] Address [address] [facility] 7t [place] [address] Care Team Providers Care Supervising Chef Name Role Phone Mae Pierre Primary Care Provider [phone]- [phone] Margi Barnes MD Primary Care Pro vider Reason for Visit * Reason Comments Med Refill Encounter Details Date Type Department Care Team ([facility] st Contact Info) Description 01/27/2023 Refill [facility] [address] [place] [address] Mae Pierre FNP [address] [place] [address] Dept [place] [address] Impetigo Social History Tobacco Use Types Packs/Day [...] AM EDT documented as of this encounter Functional Status * Over the past 2 weeks, how often have you been bothered by any of the following problems? Question Answer Date of Assessment Author Patient Health Questionnaire-2 Score 0 01/20 10:22 AM Sheyla Valenzuela * If you checked off any problems on this questionnaire so far, Question Answer Date of Assessment Author How difficult have these problems made it for you to do your work, take care of things at home, or get along with other people? Somewhat difficult 01/30/2023 10:22 AM Sheyla Valenzuela * Over the past 2 weeks, how often have you been bothered by any of the following problems? Question Answer Date of Assessment Author Little interest or pleasure in doing things Not at all 01/30/2023 10:22 AM Sheyla Valenzuela Feeling down, depressed, or hopeless Not at all 01/30/2023 10:22 AM Sheyla Valenzuela Trouble falling or staying asleep, or sleeping too much Nearly every day 01/30/2023 10:22 AM Sheyla Valenzuela Feeling tired or having little energy Nearly every day 01/30/2023 10:22 AM Sheyla Valenzuela Poor appetite or overeating Several days 01/30/2023 10 :22 AM Sheyla Valenzuela Feeling bad about yourself - or that you are a failure or have let yourself or your family down Not at all 01/30/2023 10:22 AM Sheyla Valenzuela Trouble concentrating on things, such as reading the newspaper or watching television Not at all 01/30/2023 10:22 AM Sheyla Valenzuela Moving or speaking so slowly that other people could have noticed? Or the opposite - being so fidgety or restless that you have been moving around a lot more than usual. Not at all 01/30/2023 10:22 AM Sheyla Valenzuela Thoughts that you would be better off or hurting yourself in some way Not at all 01/30/2023 10:22 AM Blaise Valenzuela r Patient Health Questionnaire-9 Score 7 01/30/2023 10:22 AM Miranda Valenzuela er documented as of this encounter Plan of Treatment Upcoming Encounters Date Type Department Care Team (Late st Contact Info) Description 01/06/2025 9:45 AM EDT Office Visit [facility] [address] [place] [address] Margi Barnes MD [address] [place] [address] documented as of this encounter Visit Diagnoses Diagnosis Impetigo documented in this encounter Care Teams Supervising Chef Relationship Specialty Start Date End Date Mae Pierre FNP PCP - General Family Medicine 05/16/21 04/25/23 Margi Barnes MD [address] [place] [address] PCP - General Internal Medicine 04/26/23 documented as of this encounter
--- OUTSIDE RECORDS SUMMARY | 2024-12-05 10:35 | XMS_ITS | Encounter Summary ---
Author Organization [employer] Address [address] [facility] [address] [facility] [address] 7t [place] [address] Care Team Providers Care Tablet Tester Name Role Phone Margi Barnes MD Primary Care Pro vider Reason for Visit * Reason Onset Date Comments Med Refill 11/06/2024 Encounter Details Date Type Department Care Team (Late st Contact Info) Description 11/06/2024 Refill [facility] [address] [place], [place] [phone] Nuria Holm, ANP [address] [place], [place] [phone] Class 3 severe obesity due to excess [...] Description 01/06/2025 9:45 AM EDT Office Visit [facility] [address] [place] [phone] Margi Barnes MD [address] [place] [address] documented as of this encounter Visit Diagnoses Diagnosis Class 3 severe obesity due to excess calories without serious comorbidity with body mass index (BMI) of 50.0 to 59.9 in adult documented in this encounter Additional Health Concerns Assessment Noted Time PHQ-9 Depression Total Score: 4 01/10/20 24 10:04 AM EDT documented as of this encounter Care Teams Tablet Tester Relationship Specialty Start Date End Date Margi Barnes MD [address] [place] [phone] PCP - General Internal Medicine 04/26/23 documented as of this encounter
--- OUTSIDE RECORDS SUMMARY | 2024-12-05 10:35 | XMS_ITS | Encounter Summary ---
Author Organization [employer] Address [address] [facility] 7t [place] [address] Care Team Providers Care Electric Distribution Engineer Name Role Phone Margi Barnes MD Primary Care Pro vider Reason for Visit * Reason Comments Med Refill Encounter Details Date Type Department Care Team ([facility] st Contact Info) Description 10/23/2023 Refill [facility] [address] [place], [place] [phone] Margi Barnes MD [address] [place] [address] Other migraine without status migrainosus, not intractable [...] t he electric, gas, oil or water [employer] threatened to shut off services in your [...] Description 01/06/2025 9:45 AM EDT Office Visit [facility] [address] [place] [phone] Margi Barnes MD [address] [place] [address] documented as of this encounter Visit Diagnoses Diagnosis Other migraine without status migrainosus, not intractable documented in this encounter Additional Health Concerns Assessment Noted Time PHQ-9 Depression Total Score: 7 01/31/20 10:22 AM EDT documented as of this encounter Care Teams Electric Distribution Engineer Relationship Specialty Start Date End Date Margi Barnes MD [address] [place] [phone] PCP - General Internal Medicine 04/26/23 documented as of this encounter
--- OUTSIDE RECORDS SUMMARY | 2024-12-05 10:35 | XMS_ITS | Encounter Summary ---
Author Organization [employer] Address [address] [place] [address] 7 [place] [address] Care Team Providers Care Optical Fabricator Name Role Phone Margi Barnes MD Primary Care Pro vider Reason for Visit * Reason Onset Date Comments Prior Authorization 11/28/2024 Encounter Details Date Type Department Care Team ([facility] st Contact Info) Description 11/28/2024 Telephone [facility] [address] [place], [place] [phone] Margi Barnes MD [address] [place], [place] [phone] Prior Authorization Social History Tobacco Use Types Packs/Day Years [...] encounter Miscellaneous Notes * Telephone Encounter - Holli Haynes - 12/01/2024 9:17 AM EDT PA Approval for [employer] received and sent to scan. * Telephone Encounter - Holli Haynes - 11/28/2024 12:01 PM EDT PA for [employer]ep[employer] signed and faxed to . Pending decision. Confirmation received and sent to scan. If pt calls for status, please advise to call pharmacy. documented in this encounter Plan of Treatment Upcoming Encounters Date Type Department Care Team (Late st Contact Info) Description 01/06/2025 9:45 AM EDT Office Visit [facility] [address] [place], [place] [phone] Margi Barnes MD [address] [place], [place] [phone] documented as of this encounter Visit Diagnoses Not on filedocumented in this encounter Additional Health Concerns Assessment Noted Time PHQ-9 Depression Total Score: 4 01/10/20 24 10:04 AM EDT documented as of this encounter Care Teams Optical Fabricator Relationship Specialty Start Date End Date Margi Barnes MD [address] [place] [phone] PCP - General Internal Medicine 04/26/23 documented as of this encounter
--- OUTSIDE RECORDS SUMMARY | 2024-12-05 10:35 | XMS_ITS | Encounter Summary ---
Author Organization [employer] Address [address] [place] [address] [place] [address] Care Team Providers Care Assembler Garment Form Name Role Phone Mae Pierre Primary Care Provider [phone]- [phone] Margi Barnes MD Primary Care Pro vider Reason for Visit * Reason Comments Med Refill Encounter Details Date Type Department Care Team ([facility] Contact Info) Description 09/12/2022 Refill [facility] [address] [place] [phone] Mae Pierre FNP [address] [place] [address] Dept [place] [address] COPD with acute exacerbation ([facility]) Social History Tobacco Use Types Packs/Day Years [...] Upcoming Encounters Date Type Department Care Team ([facility] Contact Info) Description 01/06/2025 9:45 AM EDT Office Visit [facility] [address] [place], [place] [phone] Margi Barnes MD [address] [place] [address] [place] [address] documented as of this encounter Visit Diagnoses Diagnosis COPD with acute exacerbation (CMS/HCC) documented in this encounter Care Teams Assembler Garment Form Relationship Specialty Start Date End Date Mae Pierre FNP PCP - General Family Medicine 05/16/21 04/25/23 Margi Barnes MD 230 [place] [address] PCP - General Internal Medicine 04/26/23 documented as of this encounter
--- OUTSIDE RECORDS SUMMARY | 2024-12-05 10:35 | XMS_ITS | Clinical Summary ---
Author Organization [employer] Address [address] [place] [address] [address] [place] [address] Care Team Providers Care Product Marketing Engineer Name Role Phone Margi Barnes MD [...] Use as directed with MDI 016 Active budesonide-formo terol (Symbicort) 160-4.5 MCG/ACT inhalerIndicatio ns:COPD with acute exacerbation (CMS/HCC) PLEASE SEE ATTACHED FOR DETAILED DIRECTIONS 10.2 each 2 024 Active loratadine (Claritin) 10 MG tablet TAKE 1 TABLET BY MOUTH EVERY DAY IN THE MORNING 90 tablet 1 024 Active FLUoxetine (PROzac) 20 MG capsule TAKE 1 CAPSULE BY MOUTH EVERY DAY IN THE MORNING 30 capsule 5 11/20/2 024 Active Tirzepatide-Weig ht Management (Zepbound) 2.5 MG/0.5ML solution auto-injectorInd ications:Class 3 severe obesity due to excess calories without serious comorbidity with body mass index (BMI) of 50.0 to 59.9 in adult Inject 0.5 mL (2.5 mg) under the skin 1 (one) time per week. 2 mL Active doxycycline (Adoxa) 100 MG tablet TAKE 1 TABLET BY MOUTH TWICE A DAY WITH FOOD & WATER. WEAR SUNSCREEN Active clindamycin (Clindagel) 1 % gel APPLY TO TRUNK, EXTREMITIES, GROIN TWICE A DAY NEEDED FLARES Active BENZAC AC WASH 10 % external wash APPLY TOPICALLY TO TRUNK, LEGS EVERY DAY AND RINSE Active prednisoLONE acetate (Pred-Forte) 1 % ophthalmic suspension PLEASE SEE ATTACHED FOR DETAILED DIRECTIONS Active ibuprofen 800 MG tabletIndication s:Lumbar disc disease with radiculopathy TAKE 1 TABLET BY MOUTH EVERY DAY NEEDED FOR MODERATE PAIN 30 tablet 025 Active lidocaine (Lidoderm) 5 % patch APPLY 1 PATCH TOPICALLY DAILY. REMOVE AND DISCARD PATCH WITHIN 12 HOURS OR DIRECTED BY MD. 30 patch 2 025 Active Ventolin HFA 108 (90 Base) MCG/ACT inhaler INHALE 1 PUFF EVERY 4 HOURS NEEDED FOR WHEEZE 18 g 2 025 Active topiramate 50 MG tabletIndication s:Other migraine without status migrainosus, not intractable TAKE 1 TABLET BY MOUTH EVERY DAY 90 tablet 025 Active lidocaine (Lidoderm) 5 % patch Apply 1 patch topically Once per day. Remove & discard patch within 12 hours or as directed by MD. 30 patch 2 024 2024 Discontinued(R eorder (will not trigger notification to Pharmacy)) ibuprofen 800 MG tabletIndication s:Lumbar disc disease with radiculopathy TAKE 1 TABLET BY MOUTH EVERY DAY NEEDED FOR MODERATE PAIN 30 tablet 025 2024 Discontinued(R eorder (will not trigger notification to Pharmacy)) Ventolin HFA 108 (90 Base) MCG/ACT inhaler INHALE 1 PUFF EVERY 4 HOURS NEEDED FOR WHEEZE 18 g 2 025 2024 Discontinued topiramate 50 MG tabletIndication s:Other migraine without status migrainosus, not intractable TAKE 1 TABLET BY MOUTH EVERY DAY 90 tablet 025 2024 Discontinued furosemide (Lasix) 20 MG tabletIndication s:Bilateral lower extremity edema TAKE 1 TABLET (20 MG) BY MOUTH ONCE PER DAY. 90 tablet 025 2024 Discontinued(O ther) Active Problems Problem Noted Date Diagnosed Date Glaucoma 11/06/2024 Bilateral lower extremity edema 10/14/2024 Assessment & Plan (10/14/2024 11:13 AM EDT): Patient here for a sick visit with c/o bilateral LE edema x 4 week approximately. No sob, no pain, no redness, no HAIR On exam she has bilateral LE edema left> Right 1 -2 + Plan: Start Lasix 20 mg po daily LE US to rule out DVT, B-DETAILER, ECHO Will refer back to vascular surgeon, [...] Stasis dermatitis on feet and calves with capacity planning manager. F/u PRN Lumbar disc disease with radiculopathy [...] Encounters Date Type Department Care Team Description 12/03/2024 Refill [facility] [address] [place], [place] [phone] Chitra Garcia MD Other migraine without status migrainosus, not intractable 11/28/2024 Telephone [facility] MEDICINE [address] [place], [place] [phone] Margi Barnes MD Prior Authorization 11/26/2024 Refill [facility] MEDICINE [address] [place] [address] Nuria Holm ANP Class 3 severe obesity due to excess calories without serious comorbidity with body mass index (BMI) of 50.0 to 59.9 in adult 11/18/2024 Refill [facility] MEDICINE [address] [place] [address] Nuria Holm ANP 11/07/2024 Outside Procedure [facility] OPTOMETRY [address] [place] [address] Susan Bean, OD Presbyopia (Primary Dx) 11/06/2024 9:45 AM EDT Office Visit [facility] OPTOMETRY [address] [place] [address] Hank Beann, OD Hyperopia of both eyes with astigmatism and presbyopia (Primary Dx) 11/06/2024 9:30 AM EDT Office Visit [facility] MED[facility]INE [address] [place], [place] [phone] Margi Barnes MD Glaucoma of both eyes, unspecified glaucoma type (Primary Dx); Dietary counseling; Exercise counseling; Chronic obstructive pulmonary disease, unspecified COPD type (CMS/HCC); Bilateral lower extremity edema; Class 3 severe obesity due to excess calories without serious comorbidity with body mass index (BMI) of 50.0 to 59.9 in adult; Prediabetes; Latex allergy; Tobacco dependence syndrome 11/06/2024 Refill [facility] MED[facility]INE [address] [place] [address] Margi Barnes MD Lumbar disc disease with radiculopathy 11/06/2024 Refill [facility] MED[facility]INE [address] [place] [address] Nuria Holm ANP Class 3 severe obesity due to excess calories without serious comorbidity with body mass index (BMI) of 50.0 to 59.9 in adult 11/06/2024 Refill [facility] MED[facility]INE [address] [place] [address] Margi Barnes MD 11/06/2024 Refill [facility] PEDS [address] [place] [address] Ting Kevin NP Lumbar disc disease with radiculopathy 11/06/2024 Travel 10/30/2024 Telephone [facility] MEDICINE [address] [place] [address] Margi Barnes MD chart prep 10/30/2024 Travel 10/14/2024 11:00 AM EDT Office Visit [facility] MED[facility] [address] [place] [address] Gonzalez Gomez MD Bilateral lower extremity edema (Primary Dx); Lymphedema; Elevated blood pressure reading 10/14/2024 Refill [facility] MED[facility] [address] [place] [address] Gonzalez Gomez MD Bilateral lower extremity edema 10/14/2024 Travel 10/13/2024 Travel 10/13/2024 Telephone [facility] MEDICINE [address] [place] [address] Margi Barnes MD 10/03/2024 Population Health Risk Score Community [facility] () Department [address] [place] [phone] Provider, Population Health Generic 09/11/2024 9:00 AM EST Office Visit [facility] OPTOMETRY [address] [place] [address] Lisa Leiva, OD Prediabetes (Primary Dx); Anatomical narrow angle of both eyes; Amblyopia of right eye; Hyperopia of both eyes with astigmatism and presbyopia 09/11/2024 Telephone [facility] OPTOMETRY [address] [place], [place] [phone] Lisa Leiva, BLAIRE 09/11/2024 Travel from Last 3 Months Immunizations Immunization Administration Dates Next Due Hep A, Adult [...] your housing situation today? I have luis sing 02/19/[address] you li [...] Sign Reading Time Taken Comments Blood Pressure 136/70 11/06/2024 9:45 AM EDT Pulse 70 11/06/2024 9:45 AM EDT Temperature 36.3 ??C (97.4 ??F) 11/06/2024 9:45 AM ED T Respiratory Rate 20 11/06/2024 9:45 AM EDT Oxygen Saturation 100% 11/06/2024 9:45 AM EDT Inhaled Oxygen Concentration - - Weight 148 kg (327 lb) 11/06/2024 9:45 AM EDT Height 160 cm (5' 3 ) 11/06/2024 9:45 AM EDT Body Mass Index 57.93 11/06/2024 9:45 AM EDT Plan of Treatment Upcoming Encounters Date Type Department Care Team (Late st Contact Info) Description 01/06/2025 9:45 AM EDT Office Visit [facility] MEDICINE [address] [place] [address] Margi Barnes MD [address] [place], [place] [phone] Health Maintenance Due Date Last Done Comments CT Colonography 1979 Colonoscopy 1979 Colorectal Cancer Screening 1979 FIT DNA/Cologuard 1979 FIT 1979 FOBT 1979 Sigmoidoscopy 1979 Family Planning (PISQ) 1994 Pap Smear 01/15/2000 COVID-19 Vaccine ( season) 2024 12/09/2020, 11/18/2020 Influenza Vaccine (#1) 2024 9, 06/25/2013, 05/14/2012, Additional history exists Depression Screening 01/09/2025 01/10/2024, 01/10/20 24 Diabetes: Hemoglobin A1C 02/17/2025 024, 12/12/2022, 10/03/2021 SDOH Screening 02/18/2025 02/19/2024 Alcohol/Substance Use Screening 06/10/2025 06/10/2024 Tobacco Screening 11/06/2025 11/06/2024 Mammogram 02/17/2026 02/18/2024, 06/0 12/2022, 12/26/2022 Cervical [...] patient's age to complete this topic Meningococcal B Vaccine Aged Out No l onger eligible based on patient's age to complete [...] PM EDT) 10/14/2024 1:18 PM EDT Narrative [facility] - 10/14/2024 1:48 PM EDT ? [facility] ?[address] ? [place] [address] ? Ultrasound Report ? Signed ? Patient: Yarsani,Lorena L ?MR#: [id number] ?? [id number] ? : 1980 ?Acct:[id number] ? Age/Sex: 44 / F ?ADM Date: 10/14/24 ? Loc: HO.HMGCX ? Attending Dr: Margi Walters MD ? Ordering Physician: Gonzalez Reno MD ?? Date of Service: 10/14/24 ?? Procedure(s): US venous duplex LE BI ?? Accession Number(s): [id number] ? cc: Gonzalez Reno MD; Margi Barnes [...] DD/ 1318 ? TD/TT: 10/14/24 1342 ? Wreath Inspector: ? Procedure Note Donotuseinterpreter, Image - 10/14/2024 [facility] [address] [place] [address] [place] [address] Ultrasound Report Signed Patient: Lorena Phelps LMR#: [id number] : 1980Acct:[id number] Age/Sex: 44 / FADM Date: 10/14/24 Loc: HO.HMGCX Attending Dr: Margi Walters MD Ordering Physician: Gonzalez Reno MD Date of Service: 10/14/24 Procedure(s): US venous duplex LE BI Accession Number(s): [id number] cc: Gonzalez Reno MD; Margi Barnes MD [...] 10/14/24 1345 DD/ 1318 TD/TT: 10/14/24 1342 Wreath Inspector: Gonzalez Rosa MD CV VASCULAR PROCEDURE S Edited Result - Final [facility] [address] [place] [address] * (ABNORMAL) Hepatitis C Antibody with Reflex to HCV, RNA, Quantitative, Real- Time PCR (02/18/2024 1:40 PM EDT) Hepatitis C Antibody Reactive( A) Nonreactive [facility] Comment:Presumptive evidence of antibodies to HCV. Blood Venous blood specimen / Unknown 02/18/2024 1:40 PM EDT 02/18/2024 3:57 PM EDT us Margi Walters MD LAB BLOOD ORDERAB LES Final Result Performing Organization Address [facility] Co de Phone Number [facility] [address] [place] [phone] * HIV-1/2 Antigen and Antibodies, Fourth Generation, with Reflexes (02/18/2024 1:40 PM EDT) Pathologist [facility] HIV AB/AG Nonreactive Nonreactive [facility] Comment:HIV-1 p24 Ag and/or HIV-1/HIV-2 Ab not detected.A test result that is nonreactive does not exclude thepossibility of exposure to or infection with HIV-1 and/orHIV-2. Nonreactive results in this assay for individualswith prior exposure to HIV-1 and/or HIV-2 may be due toantigen and antibody levels that are below the limit ofdetection of this assay.The Pediatric [employer]ien[employer]eniFiltr8 HIV Ag/Ab Combo assay result andsupplemental assay results should be interpreted inconjunction with the patient's clinical presentation,history and other laboratory results. If the results areinconsistent with clinical evidence, additional testing issuggested to confirm the result. Blood Venous blood specimen / Unknown 02/18/2024 1:40 PM EDT 02/18/2024 3:57 PM EDT us Margi Walters MD LAB BLOOD ORDERAB LES Final Result Performing Organization Address [facility]/State/ZIP Co de Phone Number [facility] [address] [place] [phone] * (ABNORMAL) Hemoglobin A1c (02/18/2024 1:40 PM EDT) Hemoglobin A1c 6.1(H) <6.0 % [facility] Comment:Hemoglobin A1C Refer ence Range Adults: 4.8 - 6.0 % Non diabetic: < 6.0 % Goal: < 7.0 %Additional Action Suggested: > 8.0 %Note: Hemoglobin A1c results are invalid for patients with abnormal amounts of HbF. Blood transfusions may impact the HbA1c concentration in the patient sample. Estimated Average Glucose 128 mg/dL [facility] Comment:eAG = Estimated ave rage glucose which is %A1C expressed asaverage glucose, using the formula of the E2C-HiwhloiKxwoekp Glucose study (ADAG), Diabetes Care, Vol.31,#8,Feb. 2007 Blood Venous blood specimen / Unknown 02/18/2024 1:40 PM EDT 02/18/2024 3:57 PM EDT us Margi Walters MD LAB BLOOD ORDERAB LES Final Result [facility] [address] [place] [phone] * (ABNORMAL) Lipid Panel, Standard (02/18/2024 1:40 PM EDT) Triglycerides 115 <150 mg/dL [facility] Comment:Desirable Triglyceri de: less than 150 mg/dLBorderline High Triglyceride 150-199 mg/dLHigh Triglyceride: 200-499 mg/dLVery High Triglyceride: greater than or equal to 5OO mg/dL Cholesterol 189 <200 mg/dL [facility] Comment:Desirable Cholestero l: less than 200 mg/dLBorderline High Cholesterol: 200-239 mg/dLHigh Cholesterol: greater than 239 mg/dL LDL Cholesterol Calculated 132(H) <100 mg/dL [facility] Comment:Desirable LDL: less than 100 mg/dLNear Optimal/Above Optimal LDL: 110- 129 mg/dLBorderline High LDL: 130-159 mg/dLHigh LDL: 160-189 mg/dLVery High LDL: greater than or equal to 190 mg/dL HDL Cholesterol 34(L) >40 mg/dL [facility] Comment:Desirable HDL: great er than 40 mg/dL Note: This HDL assay may give artificially low results in patients with liver disease. Blood Venous blood specimen / Unknown 02/18/2024 1:40 PM EDT 02/18/2024 3:57 PM EDT us Margi Walters MD LAB BLOOD ORDERAB LES Final Result [facility] [address] [facility] [place] [phone] * BI Mammogram Screening Tomosynthesis Bilateral (02/18/2024 1:27 PM EDT) Anatomical Region Laterality Modality Breast Bilateral Mammography 02/18/2024 1:27 PM EDT Narrative 03/05/2024 11:04 PM EDT ? [facility] [place] ? [address] ?[place] [address] ? Mammography Report ? Signed ? Patient: Yarsani,Sarah L ?MR#: [id number] ?? [id number] ? : 1980 ?Acct:[id number] ? Age/Sex: 44 / F ?ADM Date: 07/29/24 ? Loc: HO.MAMMO ? Attending Dr: Margi Walters MD ? Ordering Physician: Margi Barnes MD ?Re ?? sults: 1Negative ? Date of Service: 02/18/24 ?Follow Up: 1 Year From Orig ?? inal Mammogram ? Procedure(s): MM tomosynthesis screening BI ?? Accession Number(s): [id number] ? cc: Margi Barnes MD ? EXAMINATION: ?? MM SCREENING DIGITAL BREAST TOMOSYNTHESIS, BILATERAL ? CLINICAL INFORMATION: ? Screening. Asymptomatic. ? COMPARISON: ?? Mammography: This study is compared with prior exams dating back to ?? 2018. ? TECHNIQUE: ?? Digital breast tomosynthesis is [...] by Janett Vicente MD in OV> ? 03/05/242299 ? DD/ ? TD/TT: ? Wreath Inspector: ? Procedure Note Atilio, Image - 03/05/[address] [facility] [place] [address] Mammography Report Signed Patient: Lorena Phelps LMR#: [id number] : 1980Acct:[id number] Age/Sex: 44 / FADM Date: 02/18/24 Loc: HO.MAMMO Attending Dr: Margi Walters MD Ordering Physician: Margi Barnes sults: 1Negative Date of Service: 02/18/24Follow Up: 1 Year From Orig inal Mammogram Procedure(s): MM tomosynthesis screening BI Accession Number(s): [id number] cc: Margi Barnes MD EXAMINATION: MM SCREENING [...] in OV> 03/05/24 2300 DD/ 1327 TD/TT: Wreath Inspector: us Margi Walters MD IMG BI PROCEDURES Final Result * HPV E6/E7 RFLX PATTI 16 18/45 (04/05/2022 3:16 PM EDT) HPV 16 RNA [facility] HPV 18/45 RNA [facility] HPV E6 E7 ADD [facility] HPV mRNA E6/E7 rflx Not Detected Not Detected [facility] Comment: Methodology: Scratch Brusher-Mediated Amplification This assay detects E6/E7 viral messenger RNA (mRNA) from 14 high-risk HPV types (16,18,31,33,35,39,45,51,52,56,58,59,66,68). Cervical sources are required for HPV testing. If a vaginal source from a patient who has had a total hysterectomy with removal of cervix was submitted, please contact the testing laboratory for alternative testing options. For additional information, please refer to http://education.Domo Safety/faq/IDM652m9 (This link if provided for information/ educational purposes only.) THIS TEST WAS PERFORMED AT: [facility] [address] [place] [address] [address] [place], [place] ??[phone] BRICE TUCKER MD 04/05/2022 3:16 PM EDT us Celeste Romo HISTORICAL/NON ORDERABLE LABS Fi nal Result [facility] [address] from Last 3 Months or Most Recently Relevant to Health Maintenance Insurance [facility] C3 Care Teams Product Marketing Engineer Relationship Specialty Start Date End Date Margi Barnes MD [address] [place] [phone] PCP - General Internal Medicine 04/26/23
== END 2024-12-05 10:16 | disposition home or self-care (01) ==
LOC: HO.US 10:15
PROVIDERS: PCP Student in an Organized Health Care Education/Training Program; Visit Provider Surgery Vascular Surgery
DX: I83.12 Varicose veins of left lower extremity with inflammation (principal)
CPT/HCPCS: 93970

== ENCOUNTER → 2024-12-05 10:17 | Outpatient (BNV) | payer MEDICAID, SELFPAY | PROVIDERS: PCP Student in an Organized Health Care Education/Training Program; Visit Provider Radiology Diagnostic Radiology | DX: I87.2 Venous insufficiency (chronic) (peripheral) (principal) | CPT/HCPCS: 93970 ==

== ENCOUNTER 2025-01-13 14:13 | Outpatient (AMB) | payer MEDICAID, SELFPAY ==
--- NOTE | 2025-01-13 14:16 | MHC.OFFVIS ---
Intake Visit Reasons: follow up s/p US 12/05/24 Intake Note: Patient presents for follow up . Patient states she has swelling , discoloration and pain. Accompanied by: Self / Same As Patient Allergies latex (LATEX) Allergy (Unknown, Verified 01/13/25 14:17) RASH morphine (MORPHINE) Allergy (Unknown, Verified 01/13/25 14:17) HALLUCINATIONS codeine Adverse Reaction (Unknown, Verified 01/13/25 14:17) VOMITING [facility] follow up s/p US 12/05/24: Details: The patient is a 44-year-old female presenting with concerns of lower extremity swelling and skin discoloration. The swelling and discoloration are attributed to pressure on her legs, potentially worsened by her weight and prolonged standing. The swelling is more severe in one leg. She now presents for venous insufficiency follow-up. 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 Sexual orientation: Straight/Heterosexual Gender identity: Female Female Reproductive History Menstrual Age of Menarche: 13 Review of Systems Const Reports as per HPI ENT Reports no additional complaints Card Denies chest pain, Denies chest pain at rest and Denies chest pain with activity Resp Denies chest congestion and Denies cough GI Reports no additional complaints Musc Details: pain over varicosities, aching of lower extremities, swelling, cramping, heaviness and tiredness, itching Denies abnormal gait Skin/Breast Reports pruritus and Denies wounds Neuro Reports no additional complaints and Denies abnormal gait Psych Denies no additional complaints Physical Exam Const General: cooperative, healthy appearing and comfortable Orientation/consciousness: oriented to person, oriented to place and oriented to time Neck Carotids: no bruits Chest Chest palpation & inspection: normal inspection of the chest and normal palpation of entire chest wall Resp Effort & Inspection: normal respiratory effort and able to speak in complete sentences Cardio Rate: regular rate Heart sounds: S1 normal heart sound present and S2 normal heart sound present Peripheral pulses: Peripheral pulses 2+ throughout GI Inspection: Yes normal to inspection Skin Other: +2 edema, large rope-like varicosities greater than 4 mm CEAP Classification C4 - skin color changes Ep - Etiology Primary As - superficial veins P - reflux General skin exam: dry skin Neuro General: oriented to person, oriented to place and oriented to time Extrem Right lower extremity: full ROM, normal capillary refill and edema Left lower extremity: full ROM, normal capillary refill and edema Psych Mental Status: mental status grossly normal Results Reviewed Results Reviewed: Brief summary of venous insufficiency testing is as follows: right great saphenous vein: negative right small saphenous vein: negative right accessory vein: none present left great saphenous vein: negative left small saphenous vein: negative left accessory vein: none present Please note there is no evidence of any venous aneurysms or significant tortuosity Assessment & Plan Assessment & Plan (1) Varicose veins of left lower extremity with inflammation: Code(s): I83.12 - Varicose veins of left lower extremity with inflammation Category: Medical Plan: In short patient is negative for any significant venous insufficiency. We did discuss routine conservative measures including compression elevation and exercise. Patient will follow up with us on an as-needed basis. Thank you for allowing us to assist in her care. The patient had an opportunity to ask questions regarding the treatment plan. All questions were answered. Imaging studies, laboratory studies and physical exam results were discussed and reviewed in detail. No major barriers to understanding were identified. The patient expressed understanding and agreement with the above treatment plan. The patient is aware they should contact our office by phone for worsening of the current condition or the appearance of new symptoms. Thank you for allowing me to participate in the vascular care of this patient. If you have any questions or concerns regarding the treatment for the above condition please do not hesitate to contact me. The office telephone contact is [phone]. This note is constructed using voice recognition software. While every effort has been made to ensure accuracy, janitorial supervisor errors may have been included. Thank you for allowing me to participate in the care of your patient. Yours sincerely, Deniz Lui MD, FACS, R.P.V.I. Plan Patient was informed and verbally consented to the use of an ambient scribe for clinic note documentation during this visit. Patient Instructions: - Wear compression stockings as much as possible. - Elevate your legs when resting to reduce swelling. - Aim for 6,000 to 10,000 steps daily to improve circulation. - No need for follow-up unless new symptoms develop. Coding Level of Care Code Est Pt Level 4 (34141) Diagnoses Varicose veins of left lower extremity with inflammation I83.12
--- OUTSIDE RECORDS SUMMARY | 2025-01-13 17:18 | XMS_ITS | Encounter Summary ---
Author Organization [employer] Address [address] [facility] [address] [place] [address] Care Team Providers Care Application Tester Name Role Phone Mae Pierre Primary Care Provider [phone]- [phone] Margi Barnes MD Primary Care Pro vider Reason for Visit * Reason Comments Med Refill Encounter Details Date Type Department Care Team ([facility] st Contact Info) Description 01/27/2023 Refill [facility] MEDICINE [address] [place] [address] Mae Pierre FNP [address] [place] [address] Dept [place] [address] [place] Social History Tobacco Use Types Packs/Day [...] Care Team (Late st Contact Info) Description 04/03/2025 9:00 AM EDT Office Visit [facility] MEDICINE [address] [place] [address] Margi Barnes MD [address] [place] [address] documented as of this encounter Visit Diagnoses Diagnosis [place] documented in this encounter Care Teams Application Tester Relationship Specialty Start Date End Date Mae Pierre FNP PCP - General Family Medicine 05/16/21 04/25/23 Margi Barnes MD [address] [place] [address] PCP - General Internal Medicine 04/26/23 documented as of this encounter
== END 2025-01-13 14:30 | disposition home or self-care (01) ==
LOC: HO.HVS 14:13
PROVIDERS: PCP Student in an Organized Health Care Education/Training Program; Visit Provider Surgery Vascular Surgery
DX: I83.12 Varicose veins of left lower extremity with inflammation (principal)
CPT/HCPCS: 99214

== ENCOUNTER → 2025-01-13 14:13 | Outpatient (BNVA) | payer MEDICAID, SELFPAY | PROVIDERS: PCP Student in an Organized Health Care Education/Training Program; Visit Provider Surgery Vascular Surgery | DX: I83.12 Varicose veins of left lower extremity with inflammation (principal) | CPT/HCPCS: 99212 ==

== ENCOUNTER 2025-02-05 11:06 | Outpatient (AMB) | payer MEDICAID, SELFPAY ==
--- NOTE | 2025-02-05 11:28 | A.OFFVIS_ITS ---
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 Payroll Coordinator Required: No Information Interpreted: clinical only (Mariella) Accompanied by: Self / Same As Patient Allergies latex (LATEX) Allergy (Unknown, Verified 02/05/25 11:31) RASH morphine (MORPHINE) Allergy (Unknown, Verified 02/05/25 11:31) HALLUCINATIONS codeine Adverse Reaction (Unknown, Verified 02/05/25 11:31) VOMITING Medication List - Last Reconciled 02/05/25 by Shanice Cummins LPN adalimumab (Humira) 40 mg subcut Q2W budesonide-formoterol 160-4.5 mcg/actuation (Symbicort) inhalation fluoxetine (Prozac) 20 mg PO DAILY ibuprofen 800 mg PO TID levonorgestrel (Mirena) intrauterine loratadine 10 mg PO DAILY methadone 84 mg PO DAILY topiramate 50 mg PO DAILY Is last menstrual period known: No Post menopausal: No Patient : No Followed by:: Shanice Cummins LPN Do you need a note to return to daycare/school/sports/work: No HPI Comments Details: Patient is a premenopausal woman presenting for annual examination. Doing well with no host coordinator concerns. Mirena IUD user. Currently is sexually active. She denies vaginal itching or irritation. STI screening offered; she accepts, declines bled work. She tries to eat healthy, no regular exercise due to leg pain. Denies family history of breast or colon cancer. FH ovarian cancer-mother. Last pap smear 2021, negative. Mammogram: 2023. Booked 02/18/25. Current daily smoker. 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 Sexual orientation: Straight/Heterosexual Gender identity: Female Female Reproductive History Menstrual Age of Menarche: 13 control method: progestin IUCD (Mirena inserted 07/04/2021) Total pregnancies: 5 Full term: 3 Number of Living Children: 3 Ab induced: 2 History of abnormal pap smear: No History of abnormal mammogram: No (next apt February 18) Review of Systems Const All systems reviewed & are unremarkable except as noted in HPI and below Reports as per HPI Eyes Reports no additional complaints ENT Reports no additional complaints Card Reports no additional complaints Resp Reports no additional complaints GI Reports as per HPI and Reports no additional complaints Reports as per HPI Musc Reports no additional complaints Skin/Breast Reports as per HPI Neuro Reports no additional complaints Psych Reports no additional complaints Endo Reports no additional complaints Woodrow/Lymph Reports no additional complaints Aller/Immun Reports no additional complaints Physical Exam Vital Signs: Last Vital Signs BP 122/74 02/05/25 11:36 BMI result Body Mass Index 56.9 Const General: cooperative, healthy appearing, no acute distress, well developed and alert Orientation/consciousness: patient oriented x3 HEENT Head: Yes normal to inspection Eyes General: appearance normal, both eyes and all related structures Neck Neck: Yes normal visual inspection Thyroid: Thyroid normal Chest Chest palpation & inspection: normal inspection of the chest and other (no puckering, dimpling, peau de orange, retraction, discharge, masses) Breast/axilla inspection: normal inspection of the breasts Breast/axilla palpation: normal palpation of the breasts Resp Effort & Inspection: normal respiratory effort GI Inspection: Yes normal to inspection and Yes obesity Palpation (GI): Soft to palpation Rectal Exam - Female: deferred General: Yes bladder normal to palpation External Female Exam: normal external appearance and normal appearance of the urethra Speculum Exam - Vagina: normal appearance of the vagina, normal palpation and normal vaginal discharge Speculum Exam - Cervix: normal appearance of the cervix, normal palpation and Other cervical findings present (IUD strings seen at the os) Bimanual exam- vagina & uterus: normal bimanual exam, normal palpation, uterine size normal, bladder normal to palpation, normal palpation and non-tender Bimanual Exam- Adnexa, other: tender on the right Skin General skin exam: no rashes or lesions noted Rashes: no rashes Neuro General: patient oriented x3 Cognition (Neuro): normal cognition Extrem General: Yes normal to inspection Psych Attitude: cooperative Thought process: Normal thought process present Assessment & Plan Assessment & Plan (1) Pelvic pain: Code(s): R10.2 - Pelvic and perineal pain Category: Medical (2) Well woman exam with routine gynecological exam: Code(s): Z01.419 - Encounter for gynecological examination (general) (routine) without abnormal findings Category: Medical Plan Discussed: Current recommendations for pap smears per ASCCP guidelines. Breast awareness and periodic breast exams. Mammogram yearly. Maintain a healthy lifestyle including a well balanced diet and routine exercise. Use condoms for STI and prevention. BV, GC and chlamydia obtained. Encouraged tobacco cessation. Patient verbalizes understanding and agrees to the plan of care. She was given opportunity to ask questions and all questions were answered to the best of my ability. RTO in one year for annual host coordinator examination. This note is constructed using voice recognition software. While every effort has been made to ensure accuracy, produce wrapper errors may have been included. Orders: Orders US pelvic and transvaginal Today R10.2 - Pelvic and perineal pain Bacterial Vaginosis Panel Today Z11.3 - Encounter for screening for infections with a predominantly sexual mode of transmission CT NG by PCR Vag/Cerv Today Z11.3 - Encounter for screening for infections with a predominantly sexual mode of transmission Coding Level of Care Code Est Pt Prev Care 40-64y(83948) Diagnoses Pelvic pain R10.2 Well woman exam with routine gynecological exam Z01.419
[2025-02-05 11:36] VITALS: BP 122/74; BMI 56.9
--- OUTSIDE RECORDS SUMMARY | 2025-02-05 11:56 | XMS_ITS | Encounter Summary ---
Author Organization [employer] Address [address] [facility] [address] [place] [address] Care Team Providers Care Craft Coordinator Name Role Phone Mae Pierre Primary Care Provider [phone]- [phone] Margi Barnes MD Primary Care Pro vider Reason for Visit * Reason Comments Med Refill Encounter Details Date Type Department Care Team ([facility] st Contact Info) Description 01/27/2023 Refill [facility] MEDICINE [address] [place] [address] Mae Pierre FNP [address] [place] [address] Dept [place] [address] [place] Social History Tobacco Use Types Packs/Day [...] Description 04/03/2025 9:00 AM EDT Office Visit [facility] MEDICINE [address] [place] [address] Margi Barnes MD [address] [place] [address] documented as of this encounter Visit Diagnoses Diagnosis [place] documented in this encounter Care Teams Craft Coordinator Relationship Specialty Start Date End Date Mae Pierre FNP PCP - General Family Medicine 05/16/21 04/25/23 Margi Barnes MD [address] [place] [address] PCP - General Internal Medicine 04/26/23 documented as of this encounter
== END 2025-02-05 12:05 | disposition home or self-care (01) ==
LOC: HO.HWS 11:06
PROVIDERS: PCP Student in an Organized Health Care Education/Training Program; Visit Provider Advanced Practice Midwife
DX: Z01.419 Encounter for gynecological examination (general) (routine) without abnormal findings (principal); R10.2 Pelvic and perineal pain
CPT/HCPCS: 99396; 99459

== ENCOUNTER 2025-02-05 11:06 | Outpatient (REF) | payer MEDICAID, SELFPAY ==
[2025-02-05 15:18] LABS: Bacterial Vaginosis PCR POSITIVE (Negative); Candida Group PCR NOT DETECTED (Not Detect); Candida glab krusei PCR NOT DETECTED (Not Detect); Trichomonas vaginalis PCR NOT DETECTED (Not Detect)
[2025-02-05 15:50] LABS: CT PCR NOT DETECTED (Not Detect.); NG PCR NOT DETECTED (Not Detect.)
== END 2025-02-05 11:07 | disposition home or self-care (01) ==
LOC: HO.LNP 11:06
PROVIDERS: PCP Student in an Organized Health Care Education/Training Program; Visit Provider Advanced Practice Midwife
DX: Z11.3 Encounter for screening for infections with a predominantly sexual mode of transmission (principal); Z01.411 Encounter for gynecological examination (general) (routine) with abnormal findings; R10.2 Pelvic and perineal pain
CPT/HCPCS: 81515; 87491; 87591; 99396; 99459

== ENCOUNTER 2025-02-13 11:51 | Outpatient (REF) | payer MEDICAID, SELFPAY ==
--- NOTE | ~2025-02-13 | US_ITS ---
EXAMINATION: US PELVIS CLINICAL INFORMATION: Pelvic and perineal pain. Status post intrauterine device placement COMPARISON: November 14, 2023. TECHNIQUE: Ultrasound of the pelvis is performed using both transabdominal and transvaginal transducers along with Doppler. Transvaginal imaging is performed due to inadequate visualization transabdominally. FINDINGS: Uterus: The uterus is anteversion flexion and measures 13 x 6 x 6 cm. Volume: 231 cc. The double wall endometrial thickness is noted fully depicted secondary to presence of an intrauterine contraceptive device in normal position. Multiple nabothian cysts in the cervix. . The uterus is smooth in contour and has normal myometrial echogenicity. No visible fibroid. Adnexa: The ovaries are identified with color Doppler flow.. No gross free fluid in the cul-de-sac. Right ovary measures 7 x 5 x 5 cm. Volume: 88 cc. There is a well-defined 4.4 cm anechoic lesion without septations or nodular components. Left ovary measures 3 x 3 x 4 cm. Volume: 16 cc. US/US pelvic and transvaginal IMPRESSION: 4.4 cm simple cystic lesion right ovary. No ovarian torsion. Intrauterine contraceptive device in satisfactory position. Electronically signed by: Kentrell Cutler MD 02/13/2025 12:42 PM EDT
--- OUTSIDE RECORDS SUMMARY | 2025-02-13 11:53 | XMS_ITS | Encounter Summary ---
Author Organization [employer] Address [address] [facility] 7[address] [place] [address] Care Team Providers Care Biological Plant Operator Name Role Phone Mae Pierre Primary Care Provider +1- [phone] Margi Barnes MD Primary Care Pro vider Reason for Visit * Reason Comments Med Refill Encounter Details Date Type Department Care Team ([facility] st Contact Info) Description 01/27/2023 Refill [facility] MEDICINE [address] [place] [address] Mae Pierre FNP [address] [place] [address] Dept [place] [address] [place] Social History Tobacco Use Types Packs/Day [...] Description 04/03/2025 9:00 AM EDT Office Visit [facility] MEDICINE [address] [place] [address] Margi Barnes MD [address] [place] [address] documented as of this encounter Visit Diagnoses Diagnosis [place] documented in this encounter Care Teams Biological Plant Operator Relationship Specialty Start Date End Date aMe Pierre FNP PCP - General Family Medicine 05/16/21 04/25/23 Margi Barnes MD [address] [place] [address] PCP - General Internal Medicine 04/26/23 documented as of this encounter
== END 2025-02-13 11:52 | disposition home or self-care (01) ==
LOC: HO.US 11:51
PROVIDERS: PCP Student in an Organized Health Care Education/Training Program; Visit Provider Advanced Practice Midwife
DX: R10.2 Pelvic and perineal pain (principal)
CPT/HCPCS: 76830; 76856

== ENCOUNTER → 2025-02-13 11:53 | Outpatient (BNV) | payer MEDICAID, SELFPAY | PROVIDERS: PCP Student in an Organized Health Care Education/Training Program; Visit Provider Radiology Diagnostic Radiology | DX: N83.291 Other ovarian cyst, right side (principal) | CPT/HCPCS: 76830; 76856 ==

== ENCOUNTER 2025-02-18 13:28 | Outpatient (REF) | payer MEDICAID, SELFPAY ==
--- OUTSIDE RECORDS SUMMARY | 2025-02-18 14:02 | XMS_ITS | Encounter Summary ---
Author Organization [employer] Address [address] [facility] 7t [place] [address] Care Team Providers Care Research Professor Of Biostatistics Name Role Phone Mae Pierre Primary Care Provider +1- [phone] Margi Barnes MD Primary Care Pro vider Reason for Visit * Reason Comments Med Refill Encounter Details Date Type Department Care Team ([facility] st Contact Info) Description 01/27/2023 Refill [facility] MEDICINE [address] [place] [address] Mae Pierre FNP [address] [place] [address] Dept [place] [address] [place] Social History Tobacco Use Types Packs/Day [...] Description 04/03/2025 9:00 AM EDT Office Visit [facility] MEDICINE [address] [place] [address] Margi Barnes MD [address] [place] [address] documented as of this encounter Visit Diagnoses Diagnosis [place] documented in this encounter Care Teams Research Professor Of Biostatistics Relationship Specialty Start Date End Date Mae Pierre FNP PCP - General Family Medicine 05/16/21 04/25/23 Margi Barnes MD [address] [place] [address] PCP - General Internal Medicine 04/26/23 documented as of this encounter
== END 2025-02-18 13:29 | disposition home or self-care (01) ==
LOC: HO.MAMMO 13:28
PROVIDERS: PCP Student in an Organized Health Care Education/Training Program; Visit Provider Student in an Organized Health Care Education/Training Program
DX: Z12.31 Encounter for screening mammogram for malignant neoplasm of breast (principal)
CPT/HCPCS: 77063; 77067

== ENCOUNTER → 2025-02-18 13:30 | Outpatient (BNV) | payer MEDICAID, SELFPAY | PROVIDERS: PCP Student in an Organized Health Care Education/Training Program; Visit Provider Internal Medicine | DX: Z12.31 Encounter for screening mammogram for malignant neoplasm of breast (principal) | CPT/HCPCS: 77063; 77067 ==

== ENCOUNTER 2025-02-25 10:42 | Outpatient (AMB) | payer MEDICAID, SELFPAY ==
--- NOTE | 2025-02-25 10:55 | A.OFFVIS_ITS ---
Vital Signs 02/25/25 10:56 02/25/25 10:56 02/25/25 10:56 Height 5 ft 3 in Weight 321 lb BP 124/78 Blood Pressure Location Rt brachial Position Sitting Intake Visit Reasons: US follow up Intake Note: here to review pelvic u/s Information Interpreted: non-clinical & clinical Accompanied by: best friend Allergies latex (LATEX) Allergy (Unknown, Verified 02/05/25 11:31) RASH morphine (MORPHINE) Allergy (Unknown, Verified 02/05/25 11:31) HALLUCINATIONS codeine Adverse Reaction (Unknown, Verified 02/05/25 11:31) VOMITING Medication List - Last Reconciled 02/25/25 by Shanice Cummins LPN adalimumab (Humira) 40 mg subcut Q2W budesonide-formoterol 160-4.5 mcg/actuation (Symbicort) inhalation fluoxetine (Prozac) 20 mg PO DAILY ibuprofen 800 mg PO TID levonorgestrel (Mirena) intrauterine loratadine 10 mg PO DAILY methadone 84 mg PO DAILY topiramate 50 mg PO DAILY Is last menstrual period known: Yes Last menstrual period: 02/03/25 Post menopausal: No Patient : No Do you need a note to return to daycare/school/sports/work: No HPI Comments Details: Patient is here today for a follow up pelvic ultrasound, accompanied by her friend Jeannette. History of pelvic pain with prior exam. Mirena IUD user. She reports abnormal bleeding and pain after ultrasound procedure. She completed her treatment for BV recently, wants to be rechecked for BV. 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 Sexual orientation: Straight/Heterosexual Gender identity: Female Female Reproductive History Menstrual Age of Menarche: 13 Date of last menstrual period: 02/03/25 control method: progestin IUCD (mirena placed 07/07/21) Total pregnancies: 4 Number of Living Children: 3 Ab induced: 1 Review of Systems Const All systems reviewed & are unremarkable except as noted in HPI and below Physical Exam Vital Signs: Last Vital Signs BP 124/78 02/25/25 10:56 Const General: cooperative, healthy appearing and no acute distress Orientation/consciousness: patient oriented x3 GI Inspection: Yes normal to inspection Palpation (GI): Soft to palpation, Tenderness to palpation present (GI) (Bilateral minimal tenderness with palpation) and Other GI palpation findings present (Nontender) Rectal Exam - Female: visual inspection normal General: Yes bladder normal to palpation External Female Exam: normal appearance of the urethra Speculum Exam - Vagina: normal appearance of the vagina, normal palpation and normal vaginal discharge Speculum Exam - Cervix: normal appearance of the cervix and normal palpation Bimanual exam- vagina & uterus: normal bimanual exam, normal palpation, uterine size normal, bladder normal to palpation, normal palpation, uterine shape normal and non-tender Bimanual Exam- Adnexa, other: normal adnexae Neuro General: patient oriented x3 Results Reviewed Results Reviewed: [address] [address] Ultrasound Report Signed Patient: Lorena Phelps MR#: [id number] : 1980 Acct:[id number] Age/Sex: 45 / F ADM Date: 02/13/25 Loc: HO.US Attending Dr: Celeste Romo CNM Ordering Physician: Celeste Romo CNM Date of Service: 02/13/25 Procedure(s): US pelvic and transvaginal Accession Number(s): [id number] cc: Celeste Romo CNM; Margi Barnes MD~ EXAMINATION: US PELVIS CLINICAL INFORMATION: Pelvic and perineal pain. Status post intrauterine device placement COMPARISON: November 14, 2023. TECHNIQUE: Ultrasound of the pelvis is performed using both transabdominal and transvaginal transducers along with Doppler. Transvaginal imaging is performed due to inadequate visualization transabdominally. FINDINGS: Uterus: The uterus is anteversion flexion and measures 13 x 6 x 6 cm. Volume: 231 cc. The double wall endometrial thickness is noted fully depicted secondary to presence of an intrauterine contraceptive device in normal position. Multiple nabothian cysts in the cervix. . The uterus is smooth in contour and has normal myometrial echogenicity. No visible fibroid. Adnexa: The ovaries are identified with color Doppler flow.. No gross free fluid in the cul-de-sac. Right ovary measures 7 x 5 x 5 cm. Volume: 88 cc. There is a well-defined 4.4 cm anechoic lesion without septations or nodular components. Left ovary measures 3 x 3 x 4 cm. Volume: 16 cc. US/US pelvic and transvaginal IMPRESSION: 4.4 cm simple cystic lesion right ovary. No ovarian torsion. Intrauterine contraceptive device in satisfactory position. Electronically signed by: Kentrell Cutler MD 02/13/2025 12:42 PM EDT RP Dictated By: Kentrell Anthony MD Signed By: <Electronically signed by Kentrell Thompson MD in OV> 02/13/25 1242 DD/ 1200 TD/TT: 02/13/25 1230 Hvac Service Tech: Assessment & Plan Assessment & Plan (1) Ovarian cyst: Code(s): N83.209 - Unspecified ovarian cyst, unspecified side Category: Medical Qualifiers: Laterality: right Qualified Code(s): N83.201 - Unspecified ovarian cyst, right side Plan: Lorena is very concerned about her ovarian cyst and ongoing intermittent pelvic discomfort would like to follow up with an ultrasound to make sure the cyst is clear and not continue to worry about it. Consider residual tenderness on the abdomen from ultrasound procedure, should improve with time. Plan pelvic ultrasound at 12 weeks, call sooner if there is any changes in pain discomfort or other symptoms for sooner evaluation. Most cyst resolve on their own. (2) Vaginal discharge: Code(s): N89.8 - Other specified noninflammatory disorders of vagina Category: Medical Plan: Discussed: Ultrasound findings-4.4 right simple cyst. IUD in proper position. (3) Pelvic pain in female: Code(s): R10.2 - Pelvic and perineal pain Category: Medical Plan BV panel obtained, await results care. Discuss role of gut biome and use of women's. Boric acid protocol copy provided. The patient expressed understanding and agreement with the plan of care. All of her questions and concerns were addressed to the best of my ability. This note is constructed using voice recognition software. While every effort has been made to ensure accuracy, account solutions analyst errors may have been included. Orders: Orders Bacterial Vaginosis Panel Today N89.8 - Other specified noninflammatory disorders of vagina US pelvic and transvaginal 05/18/25 N83.201 - Unspecified ovarian cyst, right side Coding Level of Care Code Est Pt Level 3 (00172) Diagnoses Cyst of right ovary N83.201 Laterality: right Vaginal discharge N89.8 Pelvic pain in female R10.2
[2025-02-25 10:56] VITALS: BP 124/78
--- OUTSIDE RECORDS SUMMARY | 2025-02-25 11:26 | XMS_ITS | Encounter Summary ---
Author Organization [email or web address] Address [address] [facility] 7[address] [place] [address] Care Team Providers Care Tetryl Screen Operator Name Role Phone Mae Pierre Primary Care Provider [phone] Margi Barnes MD Primary Care Pro vider Reason for Visit * Reason Comments Med Refill Encounter Details Date Type Department Care Team ([facility] st Contact Info) Description 01/27/2023 Refill [facility] MEDICINE [address] [place] [address] Mae Pierre FNP [address] [place] [address] Dept [place] [address] Impetigo Social History Tobacco Use Types Packs/Day [...] Description 04/03/2025 9:00 AM EDT Office Visit [facility] MEDICINE [address] [place] [address] Margi Barnes MD [address] [place] [address] documented as of this encounter Visit Diagnoses Diagnosis Impetigo documented in this encounter Care Teams Tetryl Screen Operator Relationship Specialty Start Date End Date Mae Pierre FNP PCP - General Family Medicine 05/16/21 04/25/23 Margi Barnes MD [address] [place] [address] PCP - General Internal Medicine 04/26/23 documented as of this encounter
== END 2025-02-25 12:20 | disposition home or self-care (01) ==
LOC: HO.HWS 10:43
PROVIDERS: PCP Student in an Organized Health Care Education/Training Program; Visit Provider Advanced Practice Midwife
DX: N83.201 Unspecified ovarian cyst, right side (principal); N89.8 Other specified noninflammatory disorders of vagina; R10.2 Pelvic and perineal pain
CPT/HCPCS: 99213

== ENCOUNTER 2025-02-25 10:42 | Outpatient (REF) | payer MEDICAID, SELFPAY ==
[2025-02-25 15:44] LABS: Bacterial Vaginosis PCR NEGATIVE (Negative); Candida Group PCR NOT DETECTED (Not Detect); Candida glab krusei PCR NOT DETECTED (Not Detect); Trichomonas vaginalis PCR NOT DETECTED (Not Detect)
== END 2025-02-25 10:43 | disposition home or self-care (01) ==
LOC: HO.LNP 10:42
PROVIDERS: PCP Student in an Organized Health Care Education/Training Program; Visit Provider Advanced Practice Midwife
DX: Z12.11 Encounter for screening for malignant neoplasm of colon (principal); N83.201 Unspecified ovarian cyst, right side; R10.2 Pelvic and perineal pain; K59.03 Drug induced constipation; K64.9 Unspecified hemorrhoids; N89.8 Other specified noninflammatory disorders of vagina; Z97.5 Presence of (intrauterine) contraceptive device; Z79.899 Other long term (current) drug therapy
CPT/HCPCS: 81515; 99212

== ENCOUNTER 2025-02-25 13:56 | Outpatient (AMB) | payer MEDICAID, SELFPAY ==
--- NOTE | 2025-02-25 13:58 | MHC.OFFVIS ---
Vital Signs 02/25/25 14:04 Height 5 ft 3 in Weight 321 lb BMI 56.9 BP 106/52 L Blood Pressure Location Rt brachial Position Sitting Pulse 74 Pulse Source Pulse Oximeter Pulse Oximetry (%) 94 Oxygen Delivery Method Room Air Intake Visit Reasons: colo screening Intake Note: New pt for initial colo screening. CC: C.O. constipation hx w/ active hemorrhoids, constant BRB TX. No additional sx or concerns at this time. [employer] Power[employer] Supervisor Required: No Accompanied by: Self / Same As Patient Allergies latex (LATEX) Allergy (Unknown, Verified 02/25/25 14:09) RASH morphine (MORPHINE) Allergy (Unknown, Verified 02/25/25 14:09) HALLUCINATIONS codeine Adverse Reaction (Unknown, Verified 02/25/25 14:09) VOMITING HPI HPI colo screening: Details: 45 year old? female with past medical history of lumbar degenerative disc disease, carpal tunnel syndrome, morbid obesity, hidradenitis, asthma, depression is here today for pre colonoscopy screening.? Patient was sent to us by her PCP.? This is her first colonoscopy screening.? Patient denies any gastrointestinal symptoms in the past or at present.? However patient does report constipation. Reports that her hemorrhoids are more active now that she is more constipated. Stooling about 3 times a week. Denies any personal or family history of gastrointestinal disease, colon polyps, or CRC.? Denies history of difficulty with sedation or anesthesia in the past.? Negative for history of sleep apnea.? Denies any history of cardiac, renal, pulmonary, or hepatic disease.?? No history of infectious? diseases like hepatitis A, B, C, HIV or tuberculosis.? Patient is not on any anticoagulation [facility] Medical History Ovarian cyst IUD (intrauterine device) in place Pelvic pain Morbid obesity with BMI of 50.0-59.9, adult Drug abuse Asthma Back problem Hydradenitis Depression Surgical History Hx laparoscopic cholecystectomy History of lumpectomy of right breast Family History Mother Emphysema lung Heart attack Ovarian cancer Father Liver cancer Social History Alcohol intake: never Patient Tobacco Use Status: Current everyday Tobacco user Tobacco use type: Cigarette Cigarettes Per Day: 10 Current occupational status: disabled 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 Sexual orientation: Straight/Heterosexual Gender identity: Female Female Reproductive History Menstrual Age of Menarche: 13 Review of Systems Const Denies weight gain and Denies weight loss ENT Reports no additional complaints, Denies dysphagia and Denies odynophagia Card Reports no additional complaints Resp Reports no additional complaints GI Denies abdominal pain, Denies belching, Denies melena, Denies bloating, Reports hematochezia, Denies change in bowel habits, Reports constipation, Denies dysphagia, Denies excessive flatus, Denies dyspepsia, Denies heartburn, Denies diarrhea, Denies loose stools, Denies nausea, Denies odynophagia and Denies vomiting Musc Reports no additional complaints Neuro Reports no additional complaints Psych Reports no additional complaints Endo Reports no additional complaints Physical Exam Vital Signs: Last Vital Signs Pulse 74 02/25/25 14:04 BP 106/52 L 02/25/25 14:04 Pulse Ox 94 02/25/25 14:04 Oxygen Delivery Method Room Air 02/25/25 14:04 BMI result Body Mass Index 56.9 Const General: healthy appearing and no acute distress Nutritional Appearance: well nourished and obese Orientation/consciousness: patient oriented x3 Resp Effort & Inspection: normal respiratory effort, able to speak in complete sentences, no tracheal deviation and symmetric chest movement Auscultation: clear to auscultation bilaterally Cardio Rate: regular rate GI Inspection: Yes normal to inspection, No distended and Yes obesity Palpation (GI): Soft to palpation, not firm, nontender and No hepatosplenomegaly present Auscultation: normal bowel sounds General: Yes no CVA tenderness Back/Spine/Pelvis Back: no CVA tenderness Skin General skin exam: elasticity normal, turgor normal and dry skin Neuro General: patient oriented x3 Psych Appearance: grossly normal Mental Status: mental status grossly normal Assessment & Plan Assessment & Plan (1) Screen for colon cancer: Code(s): Z12.11 - Encounter for screening for malignant neoplasm of colon (2) Constipation: Code(s): K59.00 - Constipation, unspecified Qualifiers: Constipation type: drug induced constipation Qualified Code(s): K59.03 - Drug induced constipation Plan Patient denies any cardiac or respiratory symptoms.? Patient reports constipation is send her script for Dulcolax. Increase fluid intake and activity to promote better bowel motility. Patient reports active hemorrhoids. She can start taking Proctosol cream. Denies any issues with anesthesia in the past.? Denies any history of sleep apnea.? No history infectious diseases in the past or present.? Not on any anticoagulation therapy.? No family or personal history of colon cancer or polyps.? Patient denies melena, hematochezia, unintentional weight loss or ribbon like stools.? Discussed at length the pre-procedure,? prep, diet & medications as well as what to expect prior, during and after the procedure.?? Stressed the importance of good bowel prep.? Recommended the use of Vaseline or Calmoseptine OTC & baby wipes with bowel movements to promote comfort.? ?Patient verbalizes understanding and agrees to plan of care.? She was given the opportunity to ask questions and all questions answered.? We will see her after the procedure.? Medications: New bisacodyl (Dulcolax (bisacodyl)) 10 mg (2 x 5 mg) PO BEDTIME 180 tabs 4RF hydrocortisone 2.5% (Proctosol HC) 1 appl TX BID-QID PRN 30 grams 2RF hemorrhoids K64.9 - Unspecified hemorrhoids Coding Level of Care Code New Pt Level 3 (62555) Diagnoses Screen for colon cancer Z12.11 Drug-induced constipation K59.03 Constipation type: drug induced constipation Time Spent (min) 40 Comment 30 minutes spent with patient and additional 10 minutes spent reviewing her records
[2025-02-25 14:04] VITALS: BP 106/52; PULSE 74; O2SAT 94; BMI 56.9
== END 2025-02-25 14:24 | disposition home or self-care (01) ==
LOC: HO.HGI 13:57
PROVIDERS: PCP Student in an Organized Health Care Education/Training Program; Visit Provider Nurse Practitioner Family
DX: Z01.818 Encounter for other preprocedural examination (principal); Z12.11 Encounter for screening for malignant neoplasm of colon; K59.03 Drug induced constipation
CPT/HCPCS: 99203

== ENCOUNTER 2025-04-18 11:57 | Emergency (ER) | payer MEDICAID, SELFPAY ==
--- NOTE | 2025-04-18 | ECG_ITS ---
Test Reason : CHEST PAIN Blood Pressure : */* mmHG Vent. Rate : 73 BPM Atrial Rate : 73 BPM P-R Int : 178 ms QRS Dur : 88 ms QT Int : 378 ms P-R-T Axes : 55 12 28 degrees QTcB Int : 416 ms Normal sinus rhythm Normal ECG When compared with ECG of 09-Nov-2021 17:18, No significant change was found Referred By: Generic ED Physician Electronically Signed By: Flaco Hamilton
--- NOTE | ~2025-04-18 | XR_ITS ---
CLINICAL HISTORY: palpitations, CP Two views of the chest. COMPARISON: None provided. FINDINGS: Normal heart size. No consolidation. No pleural effusion or pneumothorax. No acute fracture. IMPRESSION: 1. No consolidation. This document has been electronically signed by: Andres Lane MD on 04/18/2025 16:53:30
[2025-04-18 12:02] VITALS: BP 160/78; BP 200/106; PULSE 82; PULSE 84; RESP 20; TEMP 36.6; O2SAT 97; O2SAT 98; BMI 58.5
--- OUTSIDE RECORDS SUMMARY | 2025-04-18 12:33 | XMS_ITS | Encounter Summary ---
Author Organization [employer] Address [address] [place] [address] 7 [place] [address] Care Team Providers Care Bridge Inspector Name Role Phone Mae Pierre Primary Care Provider Margi Jensen MD Primary Care Pro vider Reason for Visit * Reason Comments Med Refill Encounter Details Date Type Department Care Team ([facility] st Contact Info) Description 09/12/2022 Refill [facility] MEDICINE [address] [place], [place] [phone] Mae Pierre FNP COPD with acute exacerbation (CMS/HCC) Social History Tobacco Use Types Packs/Day Years [...] as of this encounter Plan of Treatment Not on file documented as of this encounter Visit Diagnoses Diagnosis COPD with acute exacerbation (CMS/HCC) documented in this encounter Care Teams Bridge Inspector Relationship Specialty Start Date End Date Mae Pierre FNP PCP - General Family Medicine 05/16/21 04/25/23 Margi Barnes MD [address] [place], [place] [phone] PCP - General Internal Medicine 04/26/23 documented as of this encounter
--- OUTSIDE RECORDS SUMMARY | 2025-04-18 12:33 | XMS_ITS | Encounter Summary ---
Author Organization [employer] Address [address] [facility] [address] [place] [address] Care Team Providers Care Division Roadmaster Name Role Phone Margi Barnes MD Primary Care Pro vider Reason for Visit * Reason Comments Med Refill Encounter Details Date Type Department Care Team ([facility] st Contact Info) Description 11/06/2024 Refill [facility] MED & PEDS [address] [place], [place] [phone] Ting Kevin NP [address] [place] [address] Lumbar disc disease with radiculopathy Social History [...] documented as of this encounter Care Teams Division Roadmaster Relationship Specialty Start Date End Date Margi Barnes MD [address] [place] [id number] PCP - General Internal Medicine 04/26/23 documented as of this encounter
--- OUTSIDE RECORDS SUMMARY | 2025-04-18 12:33 | XMS_ITS | Encounter Summary ---
Author Organization [employer] Address [address] [facility] [address] [place] [address] Care Team Providers Care Cessation Systems Outreach Specialist Name Role Phone Margi Barnes MD Primary Care Pro vider Reason for Visit * Reason Onset Date Comments Med Refill 11/26/2024 Encounter Details Date Type Department Care Team ([facility] st Contact Info) Description 11/26/2024 Refill [facility] MEDICINE [address] [place], [place] [phone] Nuria Holm, ANP [address] [place] [address] Class 3 severe obesity due to excess [...] documented as of this encounter Care Teams Cessation Systems Outreach Specialist Relationship Specialty Start Date End Date Margi Barnes MD [address] [place] [id number] PCP - General Internal Medicine 04/26/23 documented as of this encounter
--- OUTSIDE RECORDS SUMMARY | 2025-04-18 12:33 | XMS_ITS | Clinical Summary ---
Author Organization [employer] Address [address] [place] [address] 7[address] [place] [address] Care Team Providers Care Loan Representative Name Role Phone Margi Barnes MD [...] DETAILED DIRECTIONS 10.2 each 2 024 Active FLUoxetine (PROzac) 20 MG capsule TAKE 1 CAPSULE BY MOUTH EVERY DAY IN THE MORNING 30 capsule 5 024 Active Tirzepatide-Weig ht Management (Zepbound) 2.5 [...] PLEASE SEE ATTACHED FOR DETAILED DIRECTIONS Active lidocaine (Lidoderm) 5 % patch APPLY 1 PATCH TOPICALLY DAILY. REMOVE AND DISCARD PATCH WITHIN 12 HOURS OR DIRECTED BY MD. 30 patch 2 Active loratadine (Claritin) 10 MG tablet TAKE 1 TABLET BY MOUTH EVERY DAY IN THE MORNING 90 tablet 1 025 Active Ventolin HFA 108 (90 Base) MCG/ACT inhaler INHALE 1 PUFF EVERY 4 HOURS NEEDED FOR WHEEZE 18 g 2 025 Active topiramate 50 MG tabletIndication s:Other migraine without status migrainosus, not intractable Take 1 tablet (50 mg) by mouth Once per day. 90 tablet 025 Active ibuprofen 800 MG tabletIndication s:Lumbar disc disease with radiculopathy TAKE 1 TABLET BY MOUTH EVERY DAY NEEDED FOR MODERATE PAIN. 30 tablet 025 Active ibuprofen 800 MG tabletIndication s:Lumbar disc disease with radiculopathy TAKE 1 TABLET BY MOUTH EVERY DAY NEEDED FOR MODERATE PAIN. 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 F/u PRN Lumbar disc disease with radiculopathy [...] Encounters Date Type Department Care Team Description 04/03/2025 Telephone [facility] [address] [place] [phone] Margi Barnes MD No Show (Pt no show no PE on 04/03/2025. No show letter mailed, recall set.) 03/27/2025 Travel 03/27/2025 Patient Outreach [facility] [address] [place] [phone] Margi Barnes MD Pre-visit Planning (Pre-visit planning - LVM ) 03/20/2025 Refill [facility] [address] [place] [address] Margi Barnes MD Lumbar disc disease with radiculopathy 03/04/2025 Refill [facility] [address] [place] [address] Chitra Garcia MD Other migraine without status migrainosus, not intractable 03/04/2025 Refill [facility] [address] [place], [place] [phone] Margi Barnes MD Other migraine without status migrainosus, not intractable 02/25/2025 Orders Only GENERIC EXTERNAL DATA DEPARTMENT Provider, Generic External Data 02/10/2025 Telephone [facility] [address] [place] [phone] Margi Barnes MD Referral 02/05/2025 Results Follow-Up [address] [address] Margi Barnes MD Bacterial Vaginosis, Chlamydia/N. Gonorrhoeae RNA, TMA, Urogenitial 02/05/2025 Orders Only GENERIC EXTERNAL DATA DEPARTMENT Provider, Generic External Data 02/02/2025 Refill [facility] [address] [place] [address] Margi Barnes MD from Last 3 Months Immunizations Immunization Administration Dates Next Due Hep A, Adult 09/05/2016,03/07/2016 Hep B, adult 08/18/2024,,02/19/2024,09/05,05/02/2016,03/07/2016 Influenza injectable quadriv alent preservative free 06/04/2019 [...] 70 11/06/2024 9:45 AM EDT Temperature 36.3 C (97.4 F) 11/06/2024 9:45 AM EDT Respiratory Rate 20 11/06/2024 9:45 AM EDT Oxygen Saturation 100% 11/06/2024 9:45 AM EDT Inhaled Oxygen Concentration - - Weight 148 kg (327 lb) 11/06/2024 9:45 AM EDT Height 160 cm (5' 3 ) 11/06/2024 9:45 AM EDT Body Mass Index 57.93 11/06/2024 9:45 AM EDT Plan of Treatment Health Maintenance Due Date Last Done Comments CT Colonography 1979 Colonoscopy 1979 Colorectal Cancer Screening 1979 FIT DNA/Cologuard 1979 FIT 1979 FOBT 1979 Sigmoidoscopy 1979 Family Planning (PISQ) 1994 Depression Screening 01/09/2025 01/10/2024, 01/10/20 24 Diabetes: Hemoglobin A1C 02/17/2025 024, 12/12/2022, 10/03/2021 SDOH Screening 02/18/2025 02/19/2024 COVID-19 Vaccine ( season) 2025 12/09/2020, 11/18/2020 Influenza Vaccine (#1) 2025 9, 06/25/2013, 05/14/2012, Additional history exists Alcohol/Substance Use Screening 06/10/2025 06/10/2024 Disability Screening 10/30/2025 10/30/2024 Tobacco Screening 11/06/2025 11/06/2024 Mammogram 02/18/2027 02/18/2025, 01/21, 12/26/2022, Additional history exists Cervical Cancer Screening 04/05/2027 HPV/Cotest 04/05/2027 04/05/2022, 03/23, 11/29/2020, Additional history exists Pap Smear 04/05/2027 Zoster Vaccines (1 of 2) 2029 Lipid [...] Years) and At-Risk Patients (6 to 49) Years Completed 01/10/2024, 05/14/2012, 08/18/2004 HIV Screening Completed [...] Procedure Name Priority Date/Time Associated Diagnosis Comments BACTERIAL VAGINOSIS PANEL Routine 02/25/2025 10:45 AM EDT BI MAMMOGRAM SCREENING TOMOSYNTHESIS BILATERAL Routine 02/18/2025 2:00 PM EDT US PELVIS TRANSVAGINAL Routine 12:00 PM EDT CHLAMYDIA/N. GONORRHOEAE RNA, TMA, UROGENITAL Routine 02/05/2025 11:06 AM EDT BACTERIAL VAGINOSIS PANEL Routine 02/05/2025 11:06 AM EDT HEPATITIS C AB W/REFL TO HCV RNA, QN, PCR Routine 02/18/2024 1:40 PM EDT Annual physical exam HIV 1/2 ANTIGEN/ANTIBODY, FOURTH GENERATION W/RFL Routine 02/18/2024 1:40 PM EDT Annual physical exam HEMOGLOBIN A1C Routine 02/18/2024 1:40 PM EDT Annual physical exam LIPID PANEL, STANDARD Routine 02/18/2024 1:40 PM EDT Annual physical exam ZZZ HISTORICAL HPV E6/E7 RFLX PATTI 16 18/45 Routine 04/05/2022 3:16 PM EDT from Last 3 Months or Most Recently Relevant to Health Maintenance Results * Bacterial Vaginosis (02/25/2025 10:45 AM EDT) Only the most recent of2 resultswithin the time period is included. TRICHOMONAS VAGINALIS DETECTION BY PCR NOT DETECTED Not Detect [facility] BACTERIAL VAGINOSIS DETECTION BY PCR NEGATIVE Negative [facility] Comment:The BV organism targ ets of the Xpert Xpress MVP test can becommensal in women; Xpert Xpress MVP positive results forbacterial vaginosis should be considered in conjunction withother clinical and patient information to determine thedisease status. Organisms that are not detected by the XpertXpress MVP test have also been reported to be associatedwith BV and aerobic vaginitis.The Xpert Xpress MVP test performance has not been evaluatedin patients under the age of 14. NARGIS GROUP DETECTION BY PCR NOT DETECTED Not Detect [facility] Nargis glab krusei PCR NOT DETECTED Not Detect [facility] 02/25/2025 10:4 5 AM EDT 02/25/2025 1:11 PM EDT us Generic External Data Provider LAB MICROBIOLOGY - GENERAL ORDERABLES Final Result [facility] [address] [place] [phone] * BI Mammogram Screening Tomosynthesis Bilateral (02/18/2025 2:00 PM EDT) Anatomical Region Laterality Modality Breast Bilateral Mammography 02/18/2025 2:00 PM EDT Narrative 03/02/2025 10:44 AM EDT [address] [place] [address] Mammography Report Signed Patient: Lorena Phelps MR#: [id number] : 1980 Acct:[id number] Age/Sex: 45 / F ADM Date: 02/18/25 Loc: HO.MAMMO Attending Dr: Margi Walters MD Ordering Physician: Margi Barnes MD Re sults: 1Negative Date of Service: 02/18/25 Follow Up: 1 Year From [facility] Mammogram Procedure(s): MM tomosynthesis screening BI Accession Number(s): [id number] cc: Margi Barnes MD EXAMINATION: MM SCREENING DIGITAL BREAST TOMOSYNTHESIS, BILATERAL CLINICAL INFORMATION: Screening. Asymptomatic. COMPARISON: Mammography: Comparison is made with available priors TECHNIQUE: Digital breast mammography with tomosynthesis is performed in both the craniocaudal and mediolateral oblique views along with computer-aided detection (CAD). FINDINGS: There are scattered areas of fibroglandular [...] target due date for their next mammogram. Electronically signed by: Donna Salas DO 03/02/2025 10:41 AM EDT RP Dictated By: Donna Salas DO Signed By: <Electronically signed by Donna Salas DO in OV> 03/02/25 1041 DD/ 1400 TD/TT: 02/18/25 1420 Appliance Installer: Procedure Note Donotuseinterpreter, Image - 03/02/2025 [facility] [address] [place], [place] [address] Mammography Report Signed Patient: Lorena Phelps LMR#: [id number] : 1980Acct:[id number] Age/Sex: 45 / FADM Date: 02/18/25 Loc: HO.MAMMO Attending Dr: Margi Walters MD Ordering Physician: Margi Barnes sults: 1Negative Date of Service: 02/18/25Follow Up: 1 Year From Orig in[facility] Mammogram Procedure(s): MM tomosynthesis screening BI Accession Number(s): [id number] cc: Margi Barnes MD EXAMINATION: MM SCREENING DIGITAL BREAST TOMOSYNTHESIS, BILATERAL CLINICAL INFORMATION: Screening. Asymptomatic. COMPARISON: Mammography: Comparison is made with available priors TECHNIQUE: Digital breast mammography with tomosynthesis is performed in both the craniocaudal and mediolateral oblique views along with computer-aided detection (CAD). FINDINGS: There are scattered areas of fibroglandular [...] target due date for their next mammogram. Electronically signed by: Donna Salas DO 03/02/2025 10:41 AM EDT RP Dictated By: Donna Salas DO Signed By: <Electronically signed by Donna Salas DO in OV> 03/02/25 1041 DD/ 1400 TD/TT: 02/18/25 1420 Appliance Installer: us Margi Walters MD IMG BI PROCEDURES Final Result * US Pelvis Transvaginal (02/13/2025 12:00 PM EDT) Anatomical Region Laterality Modality Pelvis Ultrasound 02/13/2025 12:0 0 PM EDT Narrative 02/13/2025 12:46 PM EDT [place] [id number] Ultrasound Report Signed Patient: Lorena Phelps MR#: [id number] : 1980 Acct:[id number] Age/Sex: 45 / F ADM Date: 02/13/25 Loc: HO.US Attending Dr: Celeste Romo CNM Ordering Physician: Celeste Romo CNM Date of Service: 02/13/25 Procedure(s): US pelvic and transvaginal Accession Number(s): [id number] cc: Celeste Romo CNM; Margi Barnes MD EXAMINATION: US PELVIS CLINICAL INFORMATION: Pelvic and perineal pain. Status post intrauterine device placement COMPARISON: November 14, 2023. TECHNIQUE: Ultrasound of the pelvis is performed using both transabdominal and transvaginal transducers along with Doppler. Transvaginal imaging is performed due to inadequate visualization transabdominally. FINDINGS: Uterus: The uterus is anteversion flexion and measures 13 x 6 x 6 cm. Volume: 231 cc. The double wall endometrial thickness is noted fully depicted secondary to presence of an intrauterine contraceptive device in normal position. Multiple nabothian cysts in the cervix. . The uterus is smooth in contour and has normal myometrial echogenicity. No visible fibroid. Adnexa: The ovaries are identified with color Doppler flow.. No gross free fluid in the cul-de-sac. Right ovary measures 7 x 5 x 5 cm. Volume: 88 cc. There is a well-defined 4.4 cm anechoic lesion without septations or nodular components. Left ovary measures 3 x 3 x 4 cm. Volume: 16 cc. US/US pelvic and transvaginal IMPRESSION: 4.4 cm simple cystic lesion right ovary. No ovarian torsion. Intrauterine contraceptive device in satisfactory position. Electronically signed by: Kentrell Cutler MD 02/13/2025 12:42 PM EDT RP Dictated By: Kentrell Anthony MD Signed By: <Electronically signed by Kentrell Thompson MD in OV> 02/13/25 1242 DD/ 1200 TD/TT: 02/13/25 1230 Appliance Installer: Procedure Note Donotuseinterpreter, Image - 02/13/2025 [place] [id number] Ultrasound Report Signed Patient: Lorena Phelps LMR#: [id number] : 1980Acct:[id number] Age/Sex: 45 / FADM Date: 02/13/25 Loc: HO.US Attending Dr: Celeste Romo CNM Ordering Physician: Celeste Romo CNM Date of Service: 02/13/25 Procedure(s): US pelvic and transvaginal Accession Number(s): [id number] cc: Celeste Romo CNM; Margi Barnes MD EXAMINATION: US PELVIS CLINICAL INFORMATION: Pelvic and perineal pain. Status post intrauterine device placement COMPARISON: November 14, 2023. TECHNIQUE: Ultrasound of the pelvis is performed using both transabdominal and transvaginal transducers along with Doppler. Transvaginal imaging is performed due to inadequate visualization transabdominally. FINDINGS: Uterus: The uterus is anteversion flexion and measures 13 x 6 x 6 cm. Volume: 231 cc. The double wall endometrial thickness is noted fully depicted secondary to presence of an intrauterine contraceptive device in normal position. Multiple nabothian cysts in the cervix. . The uterus is smooth in contour and has normal myometrial echogenicity. No visible fibroid. Adnexa: The ovaries are identified with color Doppler flow.. No gross free fluid in the cul-de-sac. Right ovary measures 7 x 5 x 5 cm. Volume: 88 cc. There is a well-defined 4.4 cm anechoic lesion without septations or nodular components. Left ovary measures 3 x 3 x 4 cm. Volume: 16 cc. US/US pelvic and transvaginal IMPRESSION: 4.4 cm simple cystic lesion right ovary. No ovarian torsion. Intrauterine contraceptive device in satisfactory position. Electronically signed by: Kentrell Cutler MD 02/13/2025 12:42 PM EDT RP Dictated By: Kentrell Anthony MD Signed By: <Electronically signed by Kentrell [place] MDin OV> 02/13/25 1242 DD/ 1200 TD/TT: 02/13/25 1230 Appliance Installer: [facility] External Provider IMG US PROCEDURES Edited Result - Final * Chlamydia/N. Gonorrhoeae RNA, TMA, Urogenitial (02/05/2025 11:06 AM EDT) CT PCR NOT DETECTED Not Detect. [facility] Comment:A not detected test result does not exclude the possibilityof infection because test results can be affected byimproper specimen collection, concurrent antibiotic therapy,or the number of organisms in the specimen which may bebelow the sensitivity of the test. As with many diagnostictests, results from the Xpert CT/NG assay should beinterpreted in conjunction with other laboratory andclinical data available to the clinician.Xpert CT/NG performance has not been evaluated in patientsless than 14 years of age. The assay should not be used forthe evaluationof suspected sexual abuse or for other medico-legalindications. Additional testing is recommended in anycircumstance when false positive or false negative resultscould lead to adverse medical, social or psychologicalconsequences. NG PCR NOT DETECTED Not Detect. [facility] Comment:A not detected test result does not exclude the possibilityof infection because test results can be affected byimproper specimen collection, concurrent antibiotic therapy,or the number of organisms in the specimen which may bebelow the sensitivity of the test. As with many diagnostictests, results from the Xpert CT/NG assay should beinterpreted in conjunction with other laboratory andclinical data available to the clinician.Xpert CT/NG performance has not been evaluated in patientsless than 14 years of age. The assay should not be used forthe evaluationof suspected sexual abuse or for other medico-legalindications. Additional testing is recommended in anycircumstance when false positive or false negative resultscould lead to adverse medical, social or psychologicalconsequences. 02/05/2025 11:0 6 AM EDT 02/05/2025 1:34 PM EDT us Generic External Data Provider LAB MICROBIOLOGY - GENERAL ORDERABLES Final Result Performing Organization Address [facility]/ZIP Co de Phone Number [facility] [address] [place] [phone] * (ABNORMAL) Hepatitis C Antibody with Reflex to HCV, RNA, Quantitative, Real- Time PCR (02/18/2024 1:40 PM EDT) Pathologist [facility] Hepatitis C Antibody Reactive( A) Nonreactive [facility] Comment:Presumptive evidence of antibodies to HCV. Blood Venous blood specimen / Unknown 02/18/2024 1:40 PM EDT 02/18/2024 3:57 PM EDT us Margi Walters MD LAB BLOOD ORDERAB LES Final Result Performing Organization Address [facility]/ZIP Co de Phone Number [facility] [address] [place] [phone] * HIV-1/2 Antigen and Antibodies, Fourth Generation, with Reflexes (02/18/2024 1:40 PM EDT) HIV AB/AG Nonreactive Nonreactive [facility] Comment:HIV-1 p24 Ag and/or HIV-1/HIV-2 Ab not detected.A test result that is nonreactive does not exclude thepossibility of exposure to or infection with HIV-1 and/orHIV-2. Nonreactive results in this assay for individualswith prior exposure to HIV-1 and/or HIV-2 may be due toantigen and antibody levels that are below the limit ofdetection of this assay.The StepUp HIV Ag/Ab Combo assay result andsupplemental assay results should be interpreted inconjunction with the patient's clinical presentation,history and other laboratory results. If the results areinconsistent with clinical evidence, additional testing issuggested to confirm the result. Blood Venous blood specimen / Unknown 02/18/2024 1:40 PM EDT 02/18/2024 3:57 PM EDT us Margi Walters MD LAB BLOOD ORDERAB LES Final Result [facility] [address] [place] [phone] * (ABNORMAL) Hemoglobin A1c (02/18/2024 1:40 PM EDT) Hemoglobin A1c 6.1(H) <6.0 % [facility] Comment:Hemoglobin A1C Refer ence Range Adults: 4.8 - 6.0 % Non diabetic: < 6.0 % Goal: < 7.0 %Additional Action Suggested: > 8.0 %Note: Hemoglobin A1c results are invalid for patients with abnormal amounts of HbF. Blood transfusions may impact the HbA1c concentration in the patient sample. Estimated Average Glucose 128 mg/dL [facility] Comment:eAG = Estimated ave rage glucose which is %A1C expressed asaverage glucose, using the formula of the X1D-JdbruhvNnityfx Glucose study (ADAG), Diabetes Care, Vol.31,#8,Feb. 2007 Blood Venous blood specimen / Unknown 02/18/2024 1:40 PM EDT 02/18/2024 3:57 PM EDT us Margi Walters MD LAB BLOOD ORDERAB LES Final Result Performing Organization Address City/[facility]/ZIP Co de Phone Number [facility] [address] [place] [phone] * (ABNORMAL) Lipid Panel, Standard (02/18/2024 1:40 PM EDT) Triglycerides 115 <150 mg/dL [facility] Comment:Desirable Triglyceri de: less than 150 mg/dLBorderline High Triglyceride 150-199 mg/dLHigh Triglyceride: 200-499 mg/dLVery High Triglyceride: greater than or equal to 5OO mg/dL Cholesterol 189 <200 mg/dL [facility] Comment:Desirable Cholestero l: less than 200 mg/dLBorderline High Cholesterol: 200-239 mg/dLHigh Cholesterol: greater than 239 mg/dL LDL Cholesterol Calculated 132(H) <100 mg/dL [facility] Comment:Desirable LDL: less than 100 mg/dLNear Optimal/Above Optimal LDL: 110- 129 mg/dLBorderline High LDL: 130-159 mg/dLHigh LDL: 160-189 mg/dLVery High LDL: greater than or equal to 190 mg/dL HDL Cholesterol 34(L) >40 mg/dL [facility] Comment:Desirable HDL: great er than 40 mg/dL Note: This HDL assay may give artificially low results in patients with liver disease. Blood Venous blood specimen / Unknown 02/18/2024 1:40 PM EDT 02/18/2024 3:57 PM EDT us Margi Walters MD LAB BLOOD ORDERAB LES Final Result [facility] [address] [place] [phone] * HPV E6/E7 RFLX PATTI 16 18/45 (04/05/2022 3:16 PM EDT) HPV 16 RNA [facility] HPV 18/45 RNA [facility] HPV E6 E7 ADD [facility] HPV mRNA E6/E7 rflx Not Detected Not Detected [facility] Comment: Methodology: Senior Project Leader/Team Lead-Mediated Amplification This assay detects E6/E7 viral messenger RNA (mRNA) from 14 high-risk HPV types (16,18,31,33,35,39,45,51,52,56,58,59,66,68). Cervical sources are required for HPV testing. If a vaginal source from a patient who has had a total hysterectomy with removal of cervix was submitted, please contact the testing laboratory for alternative testing options. For additional information, please refer to http://education.[employer]/faq/VBO014z4 (This link if provided for information/ educational purposes only.) THIS TEST WAS PERFORMED AT: [facility] [address] [place] [address] [address]LO[address],[place] [phone] BRICE TUCKER MD 04/05/2022 3:16 PM EDT Celeste Romo HISTORICAL/NON ORDERABLE LABS Fi nal Result [facility] [address] from Last 3 Months or Most Recently Relevant to Health Maintenance Insurance [facility] STAND[facility] Care Teams Loan Representative Relationship Specialty Start Date End Date Margi Barnes MD [address] [place] [phone] PCP - General Internal Medicine 04/26/23
--- OUTSIDE RECORDS SUMMARY | 2025-04-18 12:33 | XMS_ITS | Encounter Summary ---
Author Organization [employer] Address [address] [place] [address] Care Team Providers Care Director Instructional Material Name Role Phone Margi Barnes MD Primary Care Pro vider Reason for Visit * Reason Onset Date Comments Med Refill 11/06/2024 Encounter Details Date Type Department Care Team ([facility] st Contact Info) Description 11/06/2024 Refill [facility] [address] [place], [place] [phone] Nuria Holm, ANP [address] [place] [address] Class 3 severe obesity due to excess [...] documented as of this encounter Care Teams Director Instructional Material Relationship Specialty Start Date End Date Margi Barnes MD [address] [place] [phone] PCP - General Internal Medicine 04/26/23 documented as of this encounter
--- OUTSIDE RECORDS SUMMARY | 2025-04-18 12:33 | XMS_ITS | Encounter Summary ---
Author Organization [employer] Address [address] [place] [address] 7 [place] [address] Care Team Providers Care Reporting Developer Name Role Phone Margi Barnes MD Primary Care Pro vider Reason for Visit * Reason Onset Date Comments Appointment Request 01/06/2025 Encounter Details Date Type Department Care Team ([facility] Contact Info) Description 01/06/2025 Telephone [facility] MEDICINE [address] [place], [place] [phone] Margi Barnes MD [address] [place], [place] [phone] Appointment Request Social History Tobacco Use Types Packs/Day Years [...] encounter Miscellaneous Notes * Telephone Encounter - Vikas Billy - 01/06/2025 8:48 AM EDT Tc from pt requesting to reschedule appointment as they are unable to attend. Appointment type - Physical (30) Provider - Margi Walters Effie notes - Follow up in about 2 months (around 01/06/2025) for annual exam,f weight . ( PVP unable to complete) Patient requests a call back at [phone]. documented in this encounter Plan of Treatment Not on file documented as of this encounter Visit Diagnoses Not on filedocumented in this encounter Additional Health Concerns Assessment Noted Time PHQ-9 Depression Total Score: 4 01/10/20 24 10:04 AM EDT documented as of this encounter Care Teams Reporting Developer Relationship Specialty Start Date End Date Margi Barnes MD [address] [place] [phone] PCP - General Internal Medicine 04/26/23 documented as of this encounter
--- OUTSIDE RECORDS SUMMARY | 2025-04-18 12:33 | XMS_ITS | Encounter Summary ---
Author Organization [employer] Address [address] [place] [address] 7 [place] [address] Care Team Providers Care It Software Developer Name Role Phone Margi Barnes MD Primary Care Pro vider Reason for Visit * Reason Comments Med Refill Encounter Details Date Type Department Care Team ([facility] st Contact Info) Description 05/28/2024 Refill [facility] MEDIC[facility] [address] [place], [place] [phone] Margi Barnes MD [address] [place] [address] Hidradenitis suppurativa Social History Tobacco Use Types [...] documented as of this encounter Care Teams It Software Developer Relationship Specialty Start Date End Date Margi Barnes MD [address] [place] [phone] PCP - General Internal Medicine 04/26/23 documented as of this encounter
--- OUTSIDE RECORDS SUMMARY | 2025-04-18 12:33 | XMS_ITS | Encounter Summary ---
Author Organization [employer] Address [address] [place] [address] 7 [place] [address] Care Team Providers Care Board Certified Family Physician Name Role Phone Margi Barnes MD Primary Care Pro vider Reason for Visit * Reason Onset Date Comments Med Refill 04/27/2024 Encounter Details Date Type Department Care Team (Late st Contact Info) Description 04/27/2024 Refill [facility] [address] [place], [place] [phone] Margi Barnes MD [address] [place] [address] COPD with acute exacerbation (CMS/HCC); Lumbar disc [...] documented as of this encounter Care Teams Board Certified Family Physician Relationship Specialty Start Date End Date Margi Barnes MD [address] [place] [id number] PCP - General Internal Medicine 04/26/23 documented as of this encounter
--- OUTSIDE RECORDS SUMMARY | 2025-04-18 12:33 | XMS_ITS | Encounter Summary ---
Author Organization [employer] Address [address] [facility] 7t [place] [address] Care Team Providers Care Motorcycle Deliverer Name Role Phone Margi Barnes MD Primary Care Pro vider Reason for Visit * Reason Comments Med Refill Encounter Details Date Type Department Care Team ([facility] st Contact Info) Description 10/23/2023 Refill [facility] [address] [place], [place] [phone] Margi Barnes MD [address] [place] [address] Other migraine without status migrainosus, not intractable [...] t he electric, gas, oil or water Location [employer] threatened to shut off services in your [...] documented as of this encounter Care Teams Motorcycle Deliverer Relationship Specialty Start Date End Date Margi Barnes MD [address] [place] [id number] PCP - General Internal Medicine 04/26/23 documented as of this encounter
--- OUTSIDE RECORDS SUMMARY | 2025-04-18 12:33 | XMS_ITS | Encounter Summary ---
Author Organization [employer] Address [address] [facility] 7t [place] [address] Care Team Providers Care Meteorological Technician Name Role Phone Mae Pierre TAR ROOFER Primary Care Provider Margi Jensen MD Primary Care Pro vider Reason for Visit * Reason Comments Med Refill Encounter Details Date Type Department Care Team (Late st Contact Info) Description 01/27/2023 Refill [facility] [address] [place] [address] Mae Pierre FNP Impetigo Social History Tobacco Use Types Packs/Day [...] Health Questionnaire-2 Score 0 01/20 10:22 AM EDT Sheyla Cornelius * If you checked off any problems [...] Impetigo documented in this encounter Care Teams Meteorological Technician Relationship Specialty Start Date End Date Mae Pierre FNP PCP - General Family Medicine 05/16/21 04/25/23 Margi Barnes MD [address] [place] [id number] PCP - General Internal Medicine 04/26/23 documented as of this encounter
[2025-04-18 14:09] LABS: MANUAL DIFF FLAG NO
[2025-04-18 14:20] LABS: Hematocrit 37.4 % (37.0-47.0); Hemoglobin 12.7 g/dl (12.0-16.0); Imm Gran Abs Auto 0.08 X10*3/uL (0.00-0.03); Imm Gran Pct Auto 0.6 % (0.0-0.4); Lymphocytes Absolute Auto 2.9 X10*3/uL (1.2-4.9); Mean Corpuscular HGB Conc 34.0 g/dl (31.0-35.0); Mean Corpuscular Hemoglobin 31.2 pg (27.0-33.0); Mean Corpuscular Volume 91.9 fL (80.0-98.0); NRBC Abs Auto 0.000 X10*3/uL (0.0-0.012); NRBC Pct Auto 0.0 /100WBC (0.0-0.2); Platelet Count 320 X10*3/uL (160-400); Red Blood Count 4.07 X10*6/uL (4.20-5.50); White Blood Count 14.3 X10*3/uL (4.8-10.8)
[2025-04-18 14:25] LABS: Alanine Aminotransferase 33 U/L (0-31); Albumin Level 4.3 g/dL (3.5-5.0); Alkaline Phosphatase 64 U/L (39-117); Anion Gap 11 (12-20); Aspartate Amino Transferase 39 U/L (5-31); Blood Urea Nitrogen 11 mg/dL (9-16); Calcium 9.0 mg/dL (8.4-10.2); Carbon Dioxide 27 mmol/L (22-29); Chloride 104 mmol/L (96-108); Creatinine Clr Calc Pharmacy 131.6; Estimated Glomerular Filt Rate > 60; Magnesium 2.5 mg/dL (1.6-2.6); Potassium 4.3 mmol/L (3.3-5.1); Sodium 138 mmol/L (135-145); Total Protein 7.3 g/dL (6.5-8.0)
[2025-04-18 14:32] LABS: Troponin-I High Sensitivity < 2.7 ng/L (<3.5-17.0)
--- NOTE | 2025-04-18 14:47 | ED.CHESTPAIN ---
HPI - Chest Pain General Chief Complaint: Chest Pain Stated Complaint: intermittent chest tightness Time Seen by Provider: 04/18/25 14:14 Source: patient and EMS Mode of arrival: EMS Limitations: no limitations History of Present Illness ED Provider: Angela Faulkner APRN HPI narrative: 45-year-old female with a past medical history of asthma, chronic back pain, depression, migraines, thyroid goiter, hidradenitis presents the ER with complaints of intermittent chest pain and palpitations since Sunday. Episodes occur at rest. They are not worsened with exertion. There is no associated shortness of breath, diaphoresis or vomiting. No leg swelling or leg pain. No recent travel, surgeries, hospitalizations. No recent illnesses. No oral hormone use. No history of DVT or PE. No family history of sudden cardiac . Related Data Home Medications ?Medication ?Instructions ?Recorded ?Confirmed fluoxetine 20 mg capsule (Prozac) 20 mg PO DAILY 11/29/20 02/25/25 methadone 5 mg tablet 84 mg PO DAILY 11/29/20 02/25/25 topiramate 50 mg tablet 50 mg PO DAILY 04/05/22 02/25/25 budesonide-formoterol HFA 160 inhalation 02/13/23 02/25/25 mcg-4.5 mcg/actuation aerosol inhaler (Symbicort) levonorgestrel (Mirena) intrauterine 12/12/23 02/25/25 adalimumab 40 mg/0.8 mL 40 mg subcut Q2W 02/05/25 02/25/25 subcutaneous syringe kit (Humira) albuterol sulfate 90 mcg/actuation 1 puff inhalation Q4H PRN wheezing 02/25/25 aerosol inhaler (Ventolin HFA) lidocaine 5 % topical patch 1 patch topical DAILY 02/25/25 loratadine 10 mg tablet 10 mg PO QAM 02/25/25 Previous Rx's ?Medication ?Instructions ?Recorded bisacodyl 5 mg tablet,delayed 10 mg (2 x 5 mg) PO BEDTIME #180 02/25/25 release (Dulcolax (bisacodyl)) tabs hydrocortisone 2.5 % topical cream 1 appl PA BID-QID PRN hemorrhoids 02/25/25 with perineal applicator #30 grams (Proctosol HC) Allergies Allergy/AdvReac Type Severity Reaction Status Date / Time latex (LATEX) Allergy Unknown RASH Verified 04/18/25 12:09 morphine (MORPHINE) Allergy Unknown HALLUCINATI Verified 04/18/25 12:09 ONS codeine AdvReac Unknown VOMITING Verified 04/18/25 12:09 Review of Systems Review of Systems: Yes all other systems are reviewed and are negative Constitutional: Constitutional: Reports no additional constitutional complaints, Denies body ache(s), Denies chills, Denies fever(s), Denies headache(s) and Denies weakness Eyes: Eyes: Reports no additional eye complaints and Denies change in vision ENT: Reports system reviewed and no additional complaints, except as documented, Denies dizziness, Denies headache(s), Denies nasal congestion, Denies nasal discharge and Denies neck pain Cardiovascular: Cardiovascular: Reports no additional cardiovascular complaints, Reports chest pain, Denies leg edema, Reports palpitations and Denies dyspnea Respiratory: Respiratory: Reports no additional respiratory complaints, Denies cough and Denies dyspnea Gastrointestinal: Gastrointestinal: Reports no additional gastrointestinal complaints, Denies abdominal pain, Denies diarrhea, Denies nausea and Denies vomiting Genitourinary: Genitourinary: Reports no additional female genitourinary complaints and Denies urinary incontinence Musculoskeletal: Musculoskeletal: Reports no additional musculoskeletal complaints, Denies back pain, Denies arthralgias, Denies joint swelling, Denies neck pain, Denies numbness and Denies tingling Integumentary/Breasts: Skin/Breast: Reports system reviewed and no additional complaints, except as docu and Denies rash Neurologic: Reports system reviewed and no additional complaints, except as documented, Denies Abnormal speech present, Denies dizziness, Denies headache(s), Denies numbness, Denies tingling and Denies weakness Endocrine: Endocrine: Reports palpitations PMFSH Past Medical History Attestation statement: The following information was validated with the patient. Source: old records reviewed and nursing notes reviewed Medical History Ovarian cyst IUD (intrauterine device) in place Pelvic pain Morbid obesity with BMI of 50.0-59.9, adult Drug abuse Asthma Back problem Hydradenitis Depression Surgical History Hx laparoscopic cholecystectomy History of lumpectomy of right breast Family History Family History Mother Emphysema lung Heart attack Ovarian cancer Father Liver cancer Social History Social History Alcohol intake: never Patient Tobacco Use Status: Current everyday Tobacco user Tobacco use type: Cigarette Cigarettes Per Day: 10 Current occupational status: disabled 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 Sexual orientation: Straight/Heterosexual Gender identity: Female Physical Exam Vital Signs: Vital Signs: Last Vital Signs Temp 97.6 F 04/18/25 17:22 Pulse 69 04/18/25 17:22 Resp 17 04/18/25 17:22 BP 157/70 H 04/18/25 17:22 Pulse Ox 100 04/18/25 17:22 O2 Del Method Room Air 04/18/25 17:22 BMI result Body Mass Index 58.5 Const: General: cooperative, healthy appearing, comfortable and no acute distress Orientation/consciousness: patient oriented x3 Limitations: no limitations HEENT: Head: Yes normal to inspection Ears: hearing grossly normal bilaterally General nose exam: Normal external nose present Face and sinus: Yes normal facial exam Mouth: Normal oral and palatal mucosa present Throat: Yes posterior oropharynx normal Eyes: General: appearance normal, both eyes and all related structures Pupils: Equal, round and reactive pupils present Neck: Neck: Yes normal visual inspection Chest: Chest palpation & inspection: normal inspection of the chest Resp: Effort & Inspection: normal respiratory effort Auscultation: clear to auscultation bilaterally Cardio: Rate: regular rate Rhythm: regular rhythm Peripheral pulses: Peripheral pulses 2+ throughout GI: Inspection: Yes normal to inspection Palpation (GI): Soft to palpation and nontender Auscultation: normal bowel sounds Back/Spine/Pelvis: Thoracic/Lumbar Spine: thoracic and lumbar spine normal to inspection Skin: General skin exam: no rashes or lesions noted Neuro: General: patient oriented x3, no focal motor deficits and normal sensation to monofilament Cranial nerves: Yes Equal, round and reactive pupils present Cognition (Neuro): normal cognition Speech: No Abnormal speech present Gait exam (Neuro): Normal gait present Motor exam (neuro): 5/5 motor strength present throughout Extrem: General: Yes normal to inspection, Yes no calf tenderness and Yes normal gait Course Course Course Narrative: Labs are unremarkable. EKG is nonischemic. X-ray shows no acute finding. HPI is atypical for ACS. Reviewed findings with the patient. Reviewed worrisome signs and symptoms of when to return to the emergency room. Comfortable plan for discharge home. Medical Decision Making Medical Decision Making [facility] Narrative: 45-year-old female with a past medical history of asthma, chronic back pain, depression, migraines, thyroid goiter, hidradenitis presents the ER with complaints of intermittent chest pain and palpitations since Sunday. Episodes occur at rest. They are not worsened with exertion. There is no associated shortness of breath, diaphoresis or vomiting. No leg swelling or leg pain. No recent travel, surgeries, hospitalizations. No recent illnesses. No oral hormone use. No history of DVT or PE. No family history of sudden cardiac . Exam is benign. Vitals are stable. Will obtain labs, EKG, chest xray Differential Diagnosis Differential Diagnoses: The differential diagnosis associated with the presentation includes ACS-less likely with nonischemic EKG, flat troponin and symptoms for several days PE-less likely with PERC 0 Aortic dissection-less likely with gradual onset of symptoms Admission/Observation Consideration of admission/observation: Escalation of care including admission/observation considered See course of care Lab Data [facility] Lab Attestation statement: I reviewed the patient's lab results. 04/18/25 13:42 04/18/25 13:42 Labs: Lab Results 04/18/25 Range/Units 13:42 WBC 14.3 H (4.8-10.8) X10*3/uL RBC 4.07 L (4.20-5.50) X10*6/uL Hgb 12.7 (12.0-16.0) g/dl Hct 37.4 (37.0-47.0) % MCV 91.9 (80.0-98.0) fL MCH 31.2 (27.0-33.0) pg MCHC 34.0 (31.0-35.0) g/dl RDW 13.1 (11.0-16.0) % Plt Count 320 (160-400) X10*3/uL MPV 9.1 L (9.4-12.3) fL Immature Gran % (Auto) 0.6 H (0.0-0.4) % Neut % (Auto) 74.0 H (45-73) % Lymph % (Auto) 20.4 (20-40) % Robertson % (Auto) 4.6 (2-11) % Eos % (Auto) 0.1 (0-4) % Baso % (Auto) 0.3 (0-2) % Lymph # (Auto) 2.9 (1.2-4.9) X10*3/uL Robertson # (Auto) 0.7 (0.1-1.2) X10*3/uL Eos # (Auto) 0.0 (0.0-0.4) X10*3/uL Baso # (Auto) 0.0 (0.0-0.2) X10*3/uL Abs Immat Gran (auto) 0.08 H (0.00-0.03) X10*3/uL Absolute Neuts (auto) 10.6 H (2.0-8.3) x10*3/uL Absolute Nucleated RBC 0.000 (0.0-0.012) X10*3/uL Nucleated RBC % (auto) 0.0 (0.0-0.2) /100WBC Sodium 138 (135-145) mmol/L Potassium 4.3 (3.3-5.1) mmol/L Chloride 104 (96-108) mmol/L Carbon Dioxide 27 (22-29) mmol/L Anion Gap 11 L (12-20) BUN 11 (9-16) mg/dL Creatinine 0.77 (0.5-1.4) mg/dL Estim Creat Clear Calc 131.6 Estimated GFR > 60 Random Glucose 147 H (60-115) mg/dL Calcium 9.0 D (8.4-10.2) mg/dL Magnesium 2.5 (1.6-2.6) mg/dL Total Bilirubin 0.5 (0.0-1.0) mg/dL AST 39 H (5-31) U/L ALT 33 H (0-31) U/L Alkaline Phosphatase 64 (39-117) U/L Troponin I High Sens < 2.7 (<3.5-17.0) ng/L Total Protein 7.3 (6.5-8.0) g/dL Albumin 4.3 (3.5-5.0) g/dL TSH 1.15 (0.32-4.0) uIU/mL Independent Interpretation I performed an independent interpretation of an: EKG and Plain X-Ray Interpretation: I independently viewed the EKG which shows normal sinus rhythm with a rate of 73 I independently reviewed the x-ray and agree with the radiology report Radiology Impression Discussion of test interpretation with radiology: I have reviewed the radiologist's reading. Radiologist Impression: [address] [address] XRay Report Signed Patient: Lorena Phelps MR#: [id number] : 1980 Acct:[id number] Age/Sex: 45 / F ADM Date: 04/18/25 Loc: HO.ED Attending Dr: Ordering Physician: Angela Faulkner NP Date of Service: 04/18/25 Procedure(s): XR chest 2V Accession Number(s): [id number] cc: Angela Faulkner NP; Margi Barnes MD~ Reason for Exam: palpitations, CP CLINICAL HISTORY: palpitations, CP Two views of the chest. COMPARISON: None provided. FINDINGS: Normal heart size. No consolidation. No pleural effusion or pneumothorax. No acute fracture. IMPRESSION: 1. No consolidation. This document has been electronically signed by: Andres Lane MD on 04/18/2025 16:53:30 Discharge Plan Discharge Clinical Impression: Palpitations Patient Disposition: Home, Self-Care Instructions: Heart Palpitations (ED) Additional Instructions: Limit caffeine intake Stay hydrated Follow-up with your primary care doctor as you may need to have an outpatient Holter monitor done Prescriptions: No Action fluoxetine [Prozac] 20 mg capsule 20 mg PO DAILY methadone 5 mg tablet 84 mg PO DAILY topiramate 50 mg tablet 50 mg PO DAILY budesonide-formoterol [Symbicort] 160-4.5 mcg/actuation HFA aerosol inhaler inhalation Mirena 21 mcg/24 hours (8 yrs) 52 mg intrauterine device intrauterine albuterol sulfate [Ventolin HFA] 90 mcg/actuation HFA aerosol inhaler 1 puff inhalation Q4H PRN (Reason: wheezing) loratadine 10 mg tablet 10 mg PO QAM lidocaine 5 % adhesive patch,medicated 1 patch topical DAILY hydrocortisone [Proctosol HC] 2.5 % cream with perineal applicator 1 appl PA BID-QID PRN (Reason: hemorrhoids) Qty: 30 2RF bisacodyl [Dulcolax (bisacodyl)] 5 mg tablet,delayed release (DR/EC) 10 mg PO BEDTIME Qty: 180 4RF Humira 40 mg/0.8 mL syringe kit 40 mg subcut Q2W Referrals: Margi Barnes MD [Primary Care Provider, Internal Medicine] Interventions: ED Discharge Assessment Last Done: 04/18/25 17:22 Discharge Date/Time: 04/18/25 17:24 Print Language: Rwandan
[2025-04-18 15:32] VITALS: BP 157/76; PULSE 58; RESP 14; TEMP 36.8; O2SAT 95
[2025-04-18 17:16] VITALS: BP 157/70; PULSE 69; RESP 17; TEMP 36.4; O2SAT 100
[2025-04-18 17:22] VITALS: BP 157/70; PULSE 69; RESP 17; TEMP 36.4; O2SAT 100
== END 2025-04-18 17:24 | disposition home or self-care (01) ==
PROVIDERS: Nurse Practitioner Family; Emergency Provider Emergency Medicine Emergency Medical Services; PCP Student in an Organized Health Care Education/Training Program
DX: R00.2 Palpitations (principal); R07.89 Other chest pain; F17.210 Nicotine dependence, cigarettes, uncomplicated; Z79.899 Other long term (current) drug therapy
CPT/HCPCS: 36415; 71046; 80053; 83735; 84443; 84484; 85025; 93005; 99283; 99285

== ENCOUNTER → 2025-04-18 12:14 | Outpatient (BNV) | payer MEDICAID, SELFPAY | PROVIDERS: Emergency Provider Emergency Medicine Emergency Medical Services; PCP Student in an Organized Health Care Education/Training Program; Visit Provider Internal Medicine Cardiovascular Disease | DX: R07.89 Other chest pain (principal) | CPT/HCPCS: 93010 ==

== ENCOUNTER → 2025-04-18 14:44 | Outpatient (BNV) | payer MEDICAID, SELFPAY | PROVIDERS: Emergency Provider Emergency Medicine Emergency Medical Services; PCP Student in an Organized Health Care Education/Training Program; Visit Provider Radiology Diagnostic Radiology | DX: R00.2 Palpitations (principal); R07.9 Chest pain, unspecified | CPT/HCPCS: 71046 ==

== ENCOUNTER 2025-04-22 12:13 | Outpatient (REF) | payer MEDICAID, SELFPAY ==
--- OUTSIDE RECORDS SUMMARY | 2025-04-22 10:15 | XMS_ITS | Encounter Summary ---
Author Organization [employer] Address [address] [facility] 7t [place] [address] Care Team Providers Care Gun Mechanic Name Role Phone Margi Barnes MD Primary Care Pro vider Reason for Referral * Cardiology (Routine) - Authorized Specialty Diagnoses / Procedures Referred By Contac t Referred To Contact Cardiology Diagnoses Palpitations Procedures Holter monitor - 48 hour Dodie Vilchis FNP [address] [place] [address] Phone: tel: fax: [facility] [address] [place] [address] Phone: tel: fax: Referral ID Status Reason Start Date Expiration Date V isits Requested Visits Authorized [id number] Authorized 04/22/2025 04/22/2026 1 1 Reason for Visit * Reason Comments hospital follow up Encounter Details Date Type Department Care Team ([facility] st Contact Info) Description 04/22/2025 10:15 AM EDT Office Visit [facility] MEDICINE [address] [place] [address] Dodie Vilchis FNP [address] [place], [place] [phone] Palpitations (Primary Dx) Social History Tobacco Use [...] documented as of this encounter Care Teams Gun Mechanic Relationship Specialty Start Date End Date Margi Barnes MD [address] [place] [id number] PCP - General Internal Medicine 04/26/23 documented as of this encounter
--- OUTSIDE RECORDS SUMMARY | 2025-04-22 13:43 | XMS_ITS | Encounter Summary ---
Author Organization [employer] Address [address] [facility] [address] 7[address] [place] [address] Care Team Providers Care Engine Maintenance Mechanic Name Role Phone Margi Barnes MD Primary Care Pro vider Encounter Details Date Type Department Care Team (Latest Contact Info) Description 04/22/2025 Travel Social History Tobacco Use Types Packs/Day [...] documented as of this encounter Care Teams Engine Maintenance Mechanic Relationship Specialty Start Date End Date Margi Barnes MD [address] [place] [id number] PCP - General Internal Medicine 04/26/23 documented as of this encounter
--- OUTSIDE RECORDS SUMMARY | 2025-04-22 13:43 | XMS_ITS | Encounter Summary ---
Author Organization [employer] Address [address] [facility] [address] 7[address] [place] [address] Care Team Providers Care Bacon Slicer Name Role Phone Margi Barnes MD Primary Care Pro vider Reason for Visit * Reason Onset Date Comments Med Refill 11/26/2024 Encounter Details Date Type Department Care Team (Late st Contact Info) Description 11/26/2024 Refill [facility] [address] [place], [place] [phone] Nuria Holm, ANP 230 [place] [address] Class 3 severe obesity due to excess [...] (BMI) of 50.0 to 59.9 in adult (HCC) documented in this encounter Additional Health Concerns Assessment Noted Time PHQ-9 Depression Total Score: 4 01/10/20 24 10:04 AM EDT documented as of this encounter Care Teams Bacon Slicer Relationship Specialty Start Date End Date Margi Barnes MD [address] [place] [id number] PCP - General Internal Medicine 04/26/23 documented as of this encounter
--- OUTSIDE RECORDS SUMMARY | 2025-04-22 13:43 | XMS_ITS | Encounter Summary ---
Author Organization [employer] Address [address] [place] [address] 7 [place] [address] Care Team Providers Care Building Cleaning Supervisor Name Role Phone Margi Barnes MD Primary Care Pro vider Reason for Visit * Reason Onset Date Comments Appointment Request 01/06/2025 Encounter Details Date Type Department Care Team ([facility] Contact Info) Description 01/06/2025 Telephone [facility] 230 [place], [place] [phone] Margi Barnes MD 230 [place], [place] [phone] Appointment Request Social History Tobacco Use Types [...] complete) Patient requests a call back at [phone]. documented in this encounter Plan of Treatment Not on file documented as of this encounter Visit Diagnoses Not on filedocumented in this encounter Additional Health Concerns Assessment Noted Time PHQ-9 Depression Total Score: 4 01/10/20 24 10:04 AM EDT documented as of this encounter Care Teams Building Cleaning Supervisor Relationship Specialty Start Date End Date Margi Barnes MD [address] [place] [id number] PCP - General Internal Medicine 04/26/23 documented as of this encounter
--- OUTSIDE RECORDS SUMMARY | 2025-04-22 13:43 | XMS_ITS | Encounter Summary ---
Author Organization [employer] Address [address] [place] [address] 7 [place] [address] Care Team Providers Care Nursing Home Director Name Role Phone Margi Barnes MD Primary Care Pro vider Reason for Visit * Reason Comments Med Refill Encounter Details Date Type Department Care Team ([facility] st Contact Info) Description 05/28/2024 Refill [facility] 230 [place], [place] [phone] Margi aBrnes MD 230 [place] [address] Hidradenitis suppurativa Social History Tobacco Use Types [...] documented as of this encounter Care Teams Nursing Home Director Relationship Specialty Start Date End Date Margi Barnes MD [address] [place] [phone] PCP - General Internal Medicine 04/26/23 documented as of this encounter
--- OUTSIDE RECORDS SUMMARY | 2025-04-22 13:43 | XMS_ITS | Encounter Summary ---
Author Organization [employer] Address [address] [facility] 7t [place] [address] Care Team Providers Care Warehouse Assistant Name Role Phone Margi Barnes MD Primary Care Pro vider Reason for Visit * Reason Comments Med Refill Encounter Details Date Type Department Care Team ([facility] st Contact Info) Description 10/23/2023 Refill [facility] PEDS [address] [place], [place] [phone] Margi Barnes MD 230 [place] [address] Other migraine without status migrainosus, not intractable Social History Tobacco Use Types Packs/Day Years Used Date Smoking Tobacco: Every Day Cigarettes Depression Answer Date Recorded Patient Health Questionnaire-9 Score 7 01/30/2023 Housing Stability Answer Date Recorded What is your housing situation today? I have luis vikahs 05/09/[address] you li [...] t he electric, gas, oil or water [employer] threatened to shut off services in your [...] documented as of this encounter Care Teams Warehouse Assistant Relationship Specialty Start Date End Date Margi Barnes MD [address] [place] [phone] PCP - General Internal Medicine 04/26/23 documented as of this encounter
--- OUTSIDE RECORDS SUMMARY | 2025-04-22 13:43 | XMS_ITS | Encounter Summary ---
Author Organization [employer] Address [address] [place] [address] [place] [address] Care Team Providers Care Computer Tech Name Role Phone Margi Barnes MD Primary Care Pro vider Reason for Visit * Reason Comments Care Coordination CHW outreach for SDO H housing search-referral completed Encounter Details Date Type Department Care Team (Latest Contact Info) Description 04/22/2025 Patient Outreach [facility] [address] [place] [phone] Margi Barnes MD 230 [place] [address] Care Coordination (CHW outreach for SDOH housing search-referral completed ) Social History Tobacco Use Types Packs/Day Years [...] Author Not at all 04/22/2025 10:26 AM MAYTET Valery White MA * Patient Health Questionnaire-9 [...] co ntrol worrying 2 04/22/2025 10:25 AM Valery Aguirre MA Worrying too much about diff erent things 2 04/22/2025 10:25 AM MAYTET Valery White MA Trouble relaxing 2 04/22/2025 10:25 AM EDT Valery White MA Being so restless that it is hard to sit still 3 04/22/2025 10:25 AM EDT Valery White MA Becoming easily annoyed or irritable 0 04/22/2025 10:25 AM MAYTET Valery White MA Feeling afraid as if somethi ng awful might happen 2 04/22/2025 10:25 AM Valery Aguirre MA BERNARDO-7 Total Score 14 04/22/2025 10:25 AM Valery Aguirre MA documented as of this encounter Progress Notes * Shai Ramos - 04/22/2025 12:00 PM EDT CHW Shai Ramos, placed outbound call to patient for assistance with SDOH as a referral was received by the provider. Patient's name and were confirmed. Patient screened positive for the following SDOH housing insecurities. Patient states is staying with her friend but is searching for her own apartment. CHW referral patient to the list of application mail out to her address on file. Patient verbalizes understanding, and able to agree with plan to follow up herself. Patient educated on extended clinic hours on Mondays through Wednesdays, and Walk-In Urgent Care Located in [facility]. Patient provided with after-hours line for [facility], , which offer night time triage service and option to transfer to network operations specialist provider if needed. documented in this encounter Plan of Treatment Not on file documented as of this encounter Visit Diagnoses Not on filedocumented in this encounter Additional Health Concerns Assessment Noted Time PHQ-9 Depression Total Score: 7 04/22/20 25 10:26 AM EDT documented as of this encounter Care Teams Computer Tech Relationship Specialty Start Date End Date Margi Barnes MD [address] [place] [id number] PCP - General Internal Medicine 04/26/23 documented as of this encounter
--- OUTSIDE RECORDS SUMMARY | 2025-04-22 13:43 | XMS_ITS | Encounter Summary ---
Author Organization [employer] Address [address] [place] [address] [address] [place] [address] Care Team Providers Care Regulatory And Compliance Technician Name Role Phone Margi Barnes MD Primary Care Pro vider Reason for Referral * Consultation (Routine) - Closed Specialty Diagnoses / Procedures Referred By Contalondra t Referred To Contact Diagnoses Hidradenitis suppurativa Skin lesion aMrgi Barnes MD [address] [place] [phone] Phone: tel: fax: Kar Dunlap [address] [place] [phone] Phone: tel: fax: Referral ID Status Reason Start Date Expiration Date V isits Requested Visits Authorized [id number] Closed Specialty Services Required 04/21/2025 04/21/2026 6 6 Encounter Details Date Type Department Care Team (Late st Contact Info) Description 04/20/2025 Orders Only [facility] [address] [place] [address] [phone] Margi Barnes MD 230 [place] [address] Hidradenitis suppurativa (Primary Dx); Skin lesion Social History Tobacco Use Types Packs/Day Years [...] of this encounter Plan of Treatment Scheduled Referrals Name Type Priority Associated Diagnoses Order Schedule Referral to Dermatology Outpatient Referral Routine Hidradenitis suppurativa Skin lesion Expected: 04/20/2025 (Approximate), Expires: 04/20/2026 documented as of this encounter Visit Diagnoses Diagnosis Hidradenitis suppurativa- Primary Hidradenitis Skin lesion Unspecified disorder of skin and subcutaneous tissue documented in this encounter Additional Health Concerns Assessment Noted Time PHQ-9 Depression Total Score: 4 01/10/20 24 10:04 AM EDT documented as of this encounter Care Teams Regulatory And Compliance Technician Relationship Specialty Start Date End Date Margi Barnes MD [address] [place] [phone] PCP - General Internal Medicine 04/26/23 documented as of this encounter
--- OUTSIDE RECORDS SUMMARY | 2025-04-22 13:43 | XMS_ITS | Encounter Summary ---
Author Organization [employer] Address [address] [facility] [address] 7t [place] [address] Care Team Providers Care Rn Clinical Quality Name Role Phone Margi Barnes MD Primary Care Pro vider Reason for Visit * Reason Comments Med Refill Encounter Details Date Type Department Care Team ([facility] st Contact Info) Description 11/06/2024 Refill [facility] MED & PEDS [address] [place], [place] [phone] Ting Kevin NP 230 [place] [address] Lumbar disc disease with radiculopathy Social History [...] documented as of this encounter Care Teams Rn Clinical Quality Relationship Specialty Start Date End Date Margi Barnes MD [address] [place] [phone] PCP - General Internal Medicine 04/26/23 documented as of this encounter
--- OUTSIDE RECORDS SUMMARY | 2025-04-22 13:43 | XMS_ITS | Encounter Summary ---
Author Organization [employer] Address [address] [place] [address] 7 [place] [address] Care Team Providers Care Syruper Name Role Phone Margi Barnes MD Primary Care Pro vider Reason for Visit * Reason Onset Date Comments Med Refill 04/27/2024 Encounter Details Date Type Department Care Team (Late st Contact Info) Description 04/27/[address] [facility] 230 [place], [place] [phone] Margi Barnes MD 230 [place] [address] COPD with acute exacerbation (CMS/HCC); Lumbar disc [...] Diagnoses Diagnosis COPD with acute exacerbation (CMS/HCC) (HCC) Lumbar disc disease with radiculopathy documented in this encounter Additional Health Concerns Assessment Noted Time PHQ-9 Depression Total Score: 4 01/10/20 24 10:04 AM EDT documented as of this encounter Care Teams Syruper Relationship Specialty Start Date End Date Margi Barnes MD [address] [place] [phone] PCP - General Internal Medicine 04/26/23 documented as of this encounter
--- OUTSIDE RECORDS SUMMARY | 2025-04-22 13:43 | XMS_ITS | Encounter Summary ---
Author Organization [employer] Address [address] [facility] 7t [place] [address] Care Team Providers Care Technician Biological Health Name Role Phone Mae Pierre HOTEL GENERAL MANAGER Primary Care Provider Margi Jensen MD Primary Care Pro vider Reason for Visit * Reason Comments Med Refill Encounter Details Date Type Department Care Team (Late st Contact Info) Description 01/27/2023 Refill [facility] [address] [place] [address] Mae Pierre FNP Impetigo Social History Tobacco [...] Impetigo documented in this encounter Care Teams Technician Biological Health Relationship Specialty Start Date End Date Mae Pierre FNP PCP - General Family Medicine 05/16/21 04/25/23 Margi Barnes MD [address] [place] [phone] PCP - General Internal Medicine 04/26/23 documented as of this encounter
--- OUTSIDE RECORDS SUMMARY | 2025-04-22 13:43 | XMS_ITS | Clinical Summary ---
Author Organization [employer] Address [address] [place] [address] 7[address] [place] [address] Care Team Providers Care Contract Designer Name Role Phone Margi Barnes MD Primary [...] MCG/ACT inhalerIndicatio ns:COPD with acute exacerbation (CMS/HCC) (HCC) PLEASE SEE ATTACHED FOR DETAILED DIRECTIONS 10.2 each 2 024 Active FLUoxetine (PROzac) 20 MG capsule TAKE 1 CAPSULE BY MOUTH EVERY DAY IN THE MORNING 30 capsule 5 024 Active Tirzepatide-Weig ht Management (Zepbound) 2.5 MG/0.5ML solution auto-injectorInd ications:Class 3 severe obesity due to excess calories without serious comorbidity with body mass index (BMI) of 50.0 to 59.9 in adult (HCC) Inject 0.5 mL (2.5 mg) under the [...] DAY IN THE MORNING 90 tablet 1 Active Ventolin HFA 108 (90 Base) MCG/ACT inhaler INHALE 1 PUFF EVERY 4 HOURS NEEDED FOR WHEEZE 18 g 2 025 Active topiramate 50 MG tabletIndication s:Other migraine without status migrainosus, not intractable Take 1 tablet (50 mg) by mouth Once per day. 90 tablet Active ibuprofen 800 MG tabletIndication s:Lumbar disc disease with radiculopathy Take 1 tablet (800 mg) by mouth Once daily as needed for moderate pain. TAKE 1 TABLET BY MOUTH EVERY DAY NEEDED FOR MODERATE PAIN Do not recommend daily ibuprofen use 15 tablet 025 2024 Active ibuprofen 800 MG tabletIndication s:Lumbar disc [...] daily LE US to rule out DVT, B-ELECTROENCEPHALOGRAPH TECHNOLOGIST, ECHO Will refer back to vascular surgeon, [...] Stasis dermatitis on feet and calves with strategic business development. F/u PRN Lumbar disc disease with radiculopathy [...] Encounters Date Type Department Care Team Description 04/22/2025 10:15 AM EDT Office Visit [facility] [place] [address] Dodie Vlichis FNP Palpitations (Primary Dx) 04/22/2025 Patient Outreach [facility] [place] [address] Margi Barnes MD Care Coordination ([facility] outreach for [facility] housing search-referral completed ) 04/22/2025 Travel 04/21/2025 Travel 04/20/2025 Results Follow-Up [facility] [place] [address] Margi Barnes MD CBC auto differential, Comprehensive Metabolic Panel, Magnesium, High Sensitivity Troponin I 04/20/2025 Orders Only [facility] [place] [address] Margi Barnes MD Hidradenitis suppurativa (Primary Dx); Skin lesion 04/20/2025 Telephone [facility] [place] [address] Margi Barnes MD Referral 04/20/2025 Telephone [facility] [place] [address] Margi Barnes MD Appointment Request 04/20/2025 Telephone [facility] [place] [phone] Margi Barnes MD ER Follow-up 04/20/2025 Refill [facility] [place] [phone] Margi Barnes MD Lumbar disc disease with radiculopathy 04/18/2025 Orders Only GENERIC EXTERNAL DATA DEPARTMENT Provider, Generic External Data 04/03/2025 Telephone [facility] [place] [phone] Margi Barnes MD No Show (Pt no show no PE on 04/03/2025. No show letter mailed, recall set.) 03/27/2025 Travel 03/27/2025 Patient Outreach [facility] [place] [phone] Margi Barnes MD Pre-visit Planning (Pre-visit planning - LVM ) 03/20/2025 Refill [facility] [address] [place] [phone] Margi Barnes MD Lumbar disc disease with radiculopathy 03/04/2025 Refill [facility] [address] [place] [address] Chitra Garcia MD Other migraine without status migrainosus, not intractable 03/04/2025 Refill [facility] [address] [place], [place] [phone] Margi Barnes MD Other migraine without status migrainosus, not intractable 02/25/2025 Orders Only GENERIC EXTERNAL DATA DEPARTMENT Provider, Generic External Data 02/10/2025 Telephone [facility] [address] [place] [phone] Margi Barnes MD Referral 02/05/2025 Results Follow-Up [facility] [address] [place] [phone] Margi Barnes MD Bacterial Vaginosis, Chlamydia/N. Gonorrhoeae RNA, TMA, Urogenitial 02/05/2025 Orders Only GENERIC EXTERNAL DATA DEPARTMENT Provider, Generic External Data 02/02/2025 Refill [facility] [address] [place] [address] Margi Barnes MD from Last 3 Months [...] Mass Index 56.6 04/22/2025 11:05 AM EDT Plan of Treatment Health Maintenance Due Date Last Done Comments CT Colonography 1979 Colonoscopy 1979 Colorectal Cancer Screening 1979 FIT DNA/Cologuard 1979 FIT 1979 FOBT 1980 Sigmoidoscopy 1980 Family Planning (PISQ) 1994 Diabetes: Hemoglobin A1C 02/17/2025 024, 12/12/2022, 10/03/2021 COVID-19 Vaccine ( season) 2025 12/09/2020, 11/18/2020 Influenza Vaccine (#1) 2025 9, 06/25/2013, 05/14/2012, Additional history exists Alcohol/Substance Use Screening 06/10/2025 06/10/2024 Disability Screening 10/30/2025 10/30/2024 Depression Screening 04/22/2026 04/22/2025, 04/22/20 SDOH Screening 04/22/2026 04/22/2025 Tobacco Screening 04/22/2026 04/22/2025 Mammogram 02/18/2027 02/18/2025, 07/2 03/2024, 12/26/2022, Additional history exists Cervical Cancer Screening [...] Procedure Name Priority Date/Time Associated Diagnosis Comments XR CHEST 2 VIEWS Routine 04/18/2025 4:53 PM EDT HIGH SENSITIVITY TROPONIN I Routine 04/18/2025 1:42 PM EDT MAGNESIUM Routine 04/18/2025 1:42 PM EDT COMPREHENSIVE METABOLIC PANEL Routine 04/18/2025 1:42 PM EDT CBC WITH AUTO DIFFERENTIAL Routine 04/18/2025 1:42 PM EDT BACTERIAL VAGINOSIS PANEL Routine 02/25/2025 10:45 AM [...] Recently Relevant to Health Maintenance Results * XR Chest 2 Views (04/18/2025 4:53 PM EDT) Anatomical Region Laterality Modality Chest Radiographic Roopa ging 04/18/2025 4:53 PM EDT Narrative 04/18/2025 4:54 PM EDT [address] [address] XRay Report Signed Patient: Lorena Phelps MR#: [id number] : 1980 Acct:[id number] Age/Sex: 45 / F ADM Date: 04/18/25 Loc: .ED Attending Dr: Ordering Physician: Angela Faulkner NP Date of Service: 04/18/25 Procedure(s): XR chest 2V Accession Number(s): [id number] cc: Angela Faulkner NP; Margi Barnes MD Reason for Exam: palpitations, CP CLINICAL HISTORY: palpitations, CP Two views of the chest. COMPARISON: None provided. FINDINGS: Normal heart size. No consolidation. No pleural effusion or pneumothorax. No acute fracture. IMPRESSION: 1. No consolidation. This document has been electronically signed by: Andres Lane MD on 04/18/2025 16:53:30 Dictated By: Andres Lane MD Signed By: <Electronically signed by Andres Lane MD in OV> 04/18/25 1654 DD/ 1653 TD/TT: 04/18/25 165 Catalytic Case Operator: Procedure Note Donotuseinterpreter, Image - 04/18/[address] [address] XRay Report Signed Patient: Lorena Phelps LMR#: [id number] : 1980Acct:[id number] Age/Sex: 45 / FADM Date: 04/18/25 Loc: .ED Attending Dr: Ordering Physician: Angela Faulkner NP Date of Service: 04/18/25 Procedure(s): XR chest 2V Accession Number(s): [id number] cc: Angela Faulkner NP; Margi Barnes MD Reason for Exam: palpitations, CP CLINICAL HISTORY: palpitations, CP Two views of the chest. COMPARISON: None provided. FINDINGS: Normal heart size. No consolidation. No pleural effusion or pneumothorax. No acute fracture. IMPRESSION: 1. No consolidation. This document has been electronically signed by: Andres Lane MD on 04/18/2025 16:53:30 Dictated By: Andres Lane MD Signed By: <Electronically signed by Andres Lane MD in OV> 04/18/251653 DD/ 52 TD/TT: 04/18/251652 Catalytic Case Operator: [facility] External Provider IMG XR PROCEDURES Edited Result - Final * High Sensitivity Troponin I (04/18/2025 1:42 PM EDT) [facility] TROPONIN I HIGH SENSITIVITY <2.7 <3.5 - 17.0 ng/L [facility] Comment:The Buck high sens itivity Troponin-I results should beused in conjunction with other diagnostic information suchas ECG, clinical observations and information, and patientsymptoms to aid in the diagnosis of [place]. 04/18/2025 1:42 PM EDT 04/18/2025 2:08 PM EDT Generic External Data Provider LAB BLOOD ORDERAB LES Final Result [facility] [address] [place] [phone] * (ABNORMAL) CBC auto differential (04/18/2025 1:42 PM EDT) [facility] White Blood Count 14.3(H) 4.8 - 10.8 X10*3/uL [facility] Red Blood Count 4.07(L) 4.20 - 5.50 X10*6/uL [facility] Hemoglobin 12.7 12.0 - 16.0 g/dl [facility] Hematocrit 37.4 37.0 - 47.0 % [facility] Mean Corpuscular Volume 91.9 80.0 - 98.0 fL [facility] Mean Corpuscular Hemoglobin 31.2 27.0 - 33.0 pg [facility] Mean Corpuscular HGB Conc 34.0 31.0 - 35.0 g/dl [facility] Red Cell Distribution Width 13.1 11.0 - 16.0 % [facility] Platelet Count 320 160 - 400 X10*3/uL [facility] Mean Platelet Volume 9.1(L) 9.4 - 12.3 fL [facility] Neutrophils Percent Auto 74.0(H) 45 - 73 % [facility] Imm Gran Pct Auto 0.6(H) 0.0 - 0.4 % [facility] Lymphocytes Percent Auto 20.4 20 - 40 % [facility] Monocytes Percent Auto 4.6 2 - 11 % [facility] Eosinophils Percent Auto 0.1 0 - 4 % [facility] Basophils Percent Auto 0.3 0 - 2 % [facility] NRBC Pct Auto 0.0 0.0 - 0.2 /100WBC [facility] Neutrophils Absolute Auto 10.6(H) 2.0 - 8.3 x10*3/uL [facility] Imm Gran Abs Auto 0.08(H) 0.00 - 0.03 X10*3/uL [facility] Lymphocytes Absolute Auto 2.9 1.2 - 4.9 X10*3/uL [facility] Monocytes Absolute Auto 0.7 0.1 - 1.2 X10*3/uL [facility] Eosinophils Absolute Auto 0.0 0.0 - 0.4 X10*3/uL [facility] Basophils Absolute Auto 0.0 0.0 - 0.2 X10*3/uL [facility] NRBC Abs Auto 0.000 0.0 - 0.012 X10*3/uL [facility] 04/18/2025 1:42 PM EDT 04/18/2025 2:08 PM EDT us Generic External Data Provider LAB BLOOD ORDERAB LES Final Result [facility] [address] [place] [phone] * Magnesium (04/18/2025 1:42 PM EDT) Magnesium 2.5 1.6 - 2.6 mg/dL [facility] 04/18/2025 1:42 PM EDT 04/18/2025 2:08 PM EDT us Generic External Data Provider LAB BLOOD ORDERAB LES Final Result [facility] [address] [place] [phone] * (ABNORMAL) Comprehensive Metabolic Panel (04/18/2025 1:42 PM EDT) Sodium 138 135 - 145 mmol/L [facility] Potassium 4.3 3.3 - 5.1 mmol/L [facility] Chloride 104 96 - 108 mmol/L [facility] Carbon Dioxide 27 22 - 29 mmol/L [facility] Anion Gap 11(L) 12 - 20 [facility] Urea Nitrogen (BUN) 11 9 - 16 mg/dL [facility] Creatinine, Serum 0.77 0.5 - 1.4 mg/dL [facility] Creatinine Clr Calc Pharmacy 131.6 [facility] Comment:Provided height and weight: 160.02 cm,149.685 kg.eGFR (calculated from the MDRD study equation) and eCrCl(calculated from the Cockcroft-Gault equation) are based ondifferent parameters and may not yield comparable results.If eCrCl result is absurd, please check patient'sheight/weight. Estimated Glomerular Filt Rate >60 [facility] Comment:Chronic Kidney Disea se: Estimated GFR < 60 mL/min/1.20x7Fwhnrb Kidney Disease: Estimated GFR < 15 mL/min/1.73m2 Glucose 147(H) 60 - 115 mg/dL [facility] Calcium 9.0 8.4 - 10.2 mg/dL [facility] Bilirubin, Total 0.5 0.0 - 1.0 mg/dL [facility] Aspartate Amino Transferase 39(H) 5 - 31 U/L [facility] Alanine Aminotransferase 33(H) 0 - 31 U/L [facility] Total Protein 7.3 6.5 - 8.0 g/dL [facility] Albumin Level 4.3 3.5 - 5.0 g/dL [facility] Alkaline Phosphatase 64 39 - 117 U/L [facility] 04/18/2025 1:42 PM EDT 04/18/2025 2:08 PM EDT Generic External Data Provider LAB BLOOD ORDERAB LES Final Result Performing Organization Address City/[facility] Co de Phone Number [facility] [address] [place] [phone] * Bacterial Vaginosis (02/25/2025 10:45 AM EDT) Only the most recent of2 resultswithin the time period is included. TRICHOMONAS VAGINALIS DETECTION BY PCR NOT DETECTED Not Detect [facility] BACTERIAL VAGINOSIS DETECTION BY PCR NEGATIVE Negative [facility] Comment:The BV organism targ ets of [...] DETECTION BY PCR NOT DETECTED Not Detect [facility] Nargis glab krusei PCR NOT DETECTED Not Detect [facility] 02/25/2025 10:4 5 AM EDT 02/25/2025 1:11 PM EDT Generic External Data Provider LAB MICROBIOLOGY - GENERAL ORDERABLES Final Result Performing Organization Address [facility] Co de Phone Number [facility] [address] [place] [phone] * BI Mammogram Screening Tomosynthesis Bilateral (02/18/2025 2:00 PM EDT) Anatomical Region Laterality Modality Breast Bilateral Mammography 02/18/2025 2:00 PM EDT Narrative 03/02/2025 10:44 AM EDT [facility] [address] [place] [place], [place] [address] Mammography Report Signed Patient: Lorena Phelps MR#: [id number] : 1980 Acct:[id number] Age/Sex: 45 / F ADM Date: 02/18/25 Loc: HO.MAMMO Attending Dr: Margi Walters MD Ordering Physician: Margi Barnes MD Re sults: 1Negative Date of Service: 02/18/25 Follow Up: 1 Year From Orig inal Mammogram Procedure(s): MM tomosynthesis screening BI Accession Number(s): [id number] cc: Margi Barnes MD EXAMINATION: MM SCREENING [...] Donna Salas DO 03/02/2025 10:41 AM EDT Dictated By: oDnna Salas DO Signed By: <Electronically signed by Donna Salas DO in OV> 03/02/25 1041 DD/ 1400 TD/TT: 02/18/25 1420 Catalytic Case Operator: Procedure Note Donotuseinterpreter, Image - 03/02/2025 [facility] [address] [place] [address] Mammography Report Signed Patient: Lorena Phelps LMR#: [id number] : 1980Acct:[id number] Age/Sex: 45 / FADM Date: 02/18/25 Loc: HO.MAMMO Attending Dr: Margi Walters MD Ordering Physician: Margi Barnes sults: 1Negative Date of Service: 02/18/25Follow Up: 1 Year From Orig ina Mammogram Procedure(s): MM tomosynthesis screening BI Accession Number(s): [id number] cc: Margi Barnes MD EXAMINATION: MM SCREENING [...] Donna Salas DO 03/02/2025 10:41 AM EDT Dictated By: Donna Salas DO Signed By: <Electronically signed by Donna Salas DO in OV> 03/02/25 1041 DD/ 1400 TD/TT: 02/18/25 1420 Catalytic Case Operator: us Margi Walters MD IMG BI PROCEDURES Final Result * US Pelvis Transvaginal (02/13/2025 12:00 PM EDT) Anatomical Region Laterality Modality Pelvis Ultrasound 02/13/2025 12:0 0 PM EDT Narrative 02/13/2025 12:46 PM EDT [address] [address] Ultrasound Report Signed Patient: Lorena Phelps MR#: [id number] : 1980 Acct:[id number] Age/Sex: 45 / F ADM Date: 02/13/25 Loc: HO.US Attending Dr: Celeste Romo CNM Ordering Physician: Celeste Romo CNM Date of Service: 02/13/25 Procedure(s): US pelvic and transvaginal Accession Number(s): [id number] cc: Celeste Romo CNM; Margi Barnes MD [...] device in satisfactory position. Electronically signed by: Kentrlel Cutler MD 02/13/2025 12:42 PM EDT Dictated By: Kentrell Anthony MD Signed By: <Electronically signed by Kentrell Thompson MD in OV> 02/13/25 1242 DD/ 1200 TD/TT: 02/13/25 1230 Catalytic Case Operator: Procedure Note Donotuseinterpreter, Image - 02/13/2025 [place] [address] Ultrasound Report Signed Patient: Lorena Phelps LMR#: [id number] : 1980Acct:[id number] Age/Sex: 45 / FADM Date: 02/13/25 Loc: HO.US Attending Dr: Celeste Romo CNM Ordering Physician: Celeste Romo CNM Date of Service: 02/13/25 Procedure(s): US pelvic and transvaginal Accession Number(s): [id number] cc: Celeste Romo CNM; Margi Barnes MD [...] 02/13/25 1242 DD/ 1200 TD/TT: 02/13/25 1230 Catalytic Case Operator: [facility] External Provider IMG US PROCEDURES Edited Result - Final * Chlamydia/N. Gonorrhoeae RNA, TMA, Urogenitial (02/05/2025 11:06 AM EDT) CT PCR NOT DETECTED Not Detect. [facility] Comment:A not detected test result does [...] psychologicalconsequences. NG PCR NOT DETECTED Not Detect. [facility] Comment:A not detected test result does [...] GENERAL ORDERABLES Final Result Performing Organization Address [facility]/ZIP Co de Phone Number [facility] [address] [place] [address] [phone] * (ABNORMAL) Hepatitis C Antibody with Reflex to HCV, RNA, Quantitative, Real- Time PCR (02/18/2024 1:40 PM EDT) Hepatitis C Antibody Reactive( A) Nonreactive [facility] Comment:Presumptive evidence of antibodies to HCV. Blood Venous blood specimen / Unknown 02/18/2024 1:40 PM EDT 02/18/2024 3:57 PM EDT us Margi Walters MD LAB BLOOD ORDERAB LES Final Result Performing Organization Address [facility] Co de Phone Number [facility] [address] [place] [phone] * HIV-1/2 Antigen and Antibodies, Fourth Generation, with Reflexes (02/18/2024 1:40 PM EDT) Pathologist [facility] HIV AB/AG Nonreactive Nonreactive [facility] Comment:HIV-1 p24 Ag and/or HIV-1/HIV-2 Ab not detected.A test result that is nonreactive does not exclude thepossibility of exposure to or infection with HIV-1 and/orHIV-2. Nonreactive results in this assay for individualswith prior exposure to HIV-1 and/or HIV-2 may be due toantigen and antibody levels that are below the limit ofdetection of this assay.The [employer] HIV Ag/Ab Combo assay result andsupplemental assay results should be interpreted inconjunction with the patient's clinical presentation,history and other laboratory results. If the results areinconsistent with clinical evidence, additional testing issuggested to confirm the result. Blood Venous blood specimen / Unknown 02/18/2024 1:40 PM EDT 02/18/2024 3:57 PM EDT us Margi Walters MD LAB BLOOD ORDERAB LES Final Result Performing Organization Address [facility] Co de Phone Number [facility] [address] [place] [phone] * (ABNORMAL) Hemoglobin A1c (02/18/2024 1:40 PM EDT) Hemoglobin A1c 6.1(H) <6.0 % [facility] Comment:Hemoglobin A1C Refer ence Range Adults: 4.8 - 6.0 % Non diabetic: < 6.0 % Goal: < 7.0 %Additional Action Suggested: > 8.0 %Note: Hemoglobin A1c results are invalid for patients with abnormal amounts of HbF. Blood transfusions may impact the HbA1c concentration in the patient sample. Estimated Average Glucose 128 mg/dL [facility] Comment:eAG = Estimated ave rage glucose which is %A1C expressed asaverage glucose, using the formula of the T6L-SdrtrjkMzklazw Glucose study (ADAG), Diabetes Care, Vol.31,#8,Feb. 2007 Blood Venous blood specimen / Unknown 02/18/2024 1:40 PM EDT 02/18/2024 3:57 PM EDT us Margi Walters MD LAB BLOOD ORDERAB LES Final Result Performing Organization Address [facility] Co de Phone Number [facility] [address] [place] [phone] * (ABNORMAL) Lipid Panel, Standard (02/18/2024 1:40 PM EDT) Triglycerides 115 <150 mg/dL [facility] Comment:Desirable Triglyceri de: less than 150 mg/dLBorderline High Triglyceride 150-199 mg/dLHigh Triglyceride: 200-499 mg/dLVery High Triglyceride: greater than or equal to 5OO mg/dL Cholesterol 189 <200 mg/dL [facility] Comment:Desirable Cholestero l: less than 200 mg/dLBorderline High Cholesterol: 200-239 mg/dLHigh Cholesterol: greater than 239 mg/dL LDL Cholesterol Calculated 132(H) <100 mg/dL [facility] Comment:Desirable LDL: less than 100 mg/dLNear Optimal/Above Optimal LDL: 110- 129 mg/dLBorderline High LDL: 130-159 mg/dLHigh LDL: 160-189 mg/dLVery High LDL: greater than or equal to 190 mg/dL HDL Cholesterol 34(L) >40 mg/dL [facility] Comment:Desirable HDL: great er than 40 mg/dL Note: This HDL assay may give artificially low results in patients with liver disease. Blood Venous blood specimen / Unknown 02/18/2024 1:40 PM EDT 02/18/2024 3:57 PM EDT Margi Walters MD LAB BLOOD ORDERAB LES Final Result Performing Organization Address City/State/[facility] Co de Phone Number [facility] [address] [place] [phone] * HPV E6/E7 RFLX PATTI 16 18/45 (04/05/2022 3:16 PM EDT) HPV 16 RNA [facility] HPV 18/45 RNA [facility] HPV E6 E7 ADD [facility]NP [facility] HPV mRNA E6/E7 rflx Not Detected Not Detected [facility] Comment: Methodology: Cutter Grinder-Mediated Amplification This assay detects E6/E7 viral messenger RNA (mRNA) from 14 high-risk HPV types (16,18,31,33,35,39,45,51,52,56,58,59,66,68). Cervical sources are required for HPV testing. If a vaginal source from a patient who has had a total hysterectomy with removal of cervix was submitted, please contact the testing laboratory for alternative testing options. For additional information, please refer to http://education.[employer]/faq/JGC261u6 (This link if provided for information/ educational purposes only.) THIS TEST WAS PERFORMED AT: [facility] [address] [place] [address],[place] [address] BRICE TUCKER MD 04/05/2022 3:16 PM EDT us Celeste Romo HISTORICAL/NON ORDERABLE LABS Fi nal Result [facility] [address] from Last 3 Months or Most Recently Relevant to Health Maintenance Insurance [facility] [employer] C3 Care Teams Contract Designer Relationship Specialty Start Date End Date Margi Barnes MD [address] [place] [phone] PCP - General Internal Medicine 04/26/23
--- OUTSIDE RECORDS SUMMARY | 2025-04-22 13:43 | XMS_ITS | Encounter Summary ---
Author Organization [employer] Address [address] [facility] 7 [place] [address] Care Team Providers Care Pharmacy Clinical Coordinator Name Role Phone Margi Barnes MD Primary Care Pro vider Encounter Details Date Type Department Care Team (Latest Contact Info) Description 04/20/2025 Results Follow-Up [facility] MEDICINE [address] [place] [phone] Margi Barnes MD [address] [place] [address] CBC auto differential, Comprehensive Metabolic Panel, Magnesium, High Sensitivity Troponin I Social History Tobacco Use Types Packs/Day Years [...] of Assessment Author 7 04/22/2025 10:26 AM Valery Aguirre MA * Over the last 2 weeks, how often have you been bothered by any of the following problems? Question Answer Date of Assessment Author Feeling nervous, anxious, or on edge 3 04/22/2025 10:25 AM EDT Valery White MA Not being able to stop or co ntrol worrying 2 04/22/2025 10:25 AM MAYTET Valery White MA Worrying too much about diff erent things 2 04/22/2025 10:25 AM Valery Aguirre MA Trouble relaxing 2 04/22/2025 10:25 AM MAYTET Valery White MA Being so restless that it is hard to sit still 3 04/22/2025 10:25 AM Valery Aguirre MA Becoming easily annoyed or irritable 0 04/22/2025 10:25 AM Valery Aguirre MA Feeling afraid as if somethi ng awful might happen 2 04/22/2025 10:25 AM Valery Aguirre MA BERNARDO-7 Total Score 14 04/22/2025 10:25 AM Valery Aguirre MA documented as of this encounter Miscellaneous Notes * Result Encounter Note - Margi Walters MD - 04/20/2025 1:20 PM EDT please can you call pt and schedule an apt with me for f up care thanks documented in this encounter Plan of Treatment Not on file documented as of this encounter Visit Diagnoses Not on filedocumented in this encounter Additional Health Concerns Assessment Noted Time PHQ-9 Depression Total Score: 4 01/10/20 24 10:04 AM EDT documented as of this encounter Care Teams Pharmacy Clinical Coordinator Relationship Specialty Start Date End Date Margi Barnes MD [address] [place] [phone] PCP - General Internal Medicine 04/26/23 documented as of this encounter
--- OUTSIDE RECORDS SUMMARY | 2025-04-22 13:43 | XMS_ITS | Encounter Summary ---
Author Organization [employer] Address [address] 7t [place] [address] Care Team Providers Care Cereal Maker Name Role Phone Margi Barnes MD Primary Care Pro vider Reason for Visit * Reason Onset Date Comments Med Refill 11/06/2024 Encounter Details Date Type Department Care Team ([facility] st Contact Info) Description 11/06/[address] [facility] MEDICINE [address] [place], [place] [phone] Nuria Holm, ANP [address] [place] [address] Class 3 severe obesity due to excess [...] documented as of this encounter Care Teams Cereal Maker Relationship Specialty Start Date End Date Margi Barnes MD [address] [place] [phone] PCP - General Internal Medicine 04/26/23 documented as of this encounter
--- OUTSIDE RECORDS SUMMARY | 2025-04-22 13:43 | XMS_ITS | Encounter Summary ---
Author Organization [employer] Address [address] [facility] [address] 7t [place] [address] Care Team Providers Care Gun Examiner Name Role Phone Margi Barnes MD Primary Care Pro vider Encounter Details Date Type Department Care Team (Latest Contact Info) Description 04/21/2025 Travel Social History Tobacco Use Types Packs/Day [...] as of this encounter Care Teams Gun Examiner Relationship Specialty Start Date End Date Margi Barnes MD [address] [place] [phone] PCP - General Internal Medicine 04/26/23 documented as of this encounter
--- OUTSIDE RECORDS SUMMARY | 2025-04-22 13:44 | XMS_ITS | Encounter Summary ---
Author Organization [employer] Address [address] [address] 7t [place] [address] Care Team Providers Care Manager Pulmonary Name Role Phone Margi Barnes MD Primary Care Pro vider Encounter Details Date Type Department Care Team (Late st Contact Info) Description 04/18/2025 Orders Only GENERIC EXTERNAL DATA DEPARTMENT Provider, Generic External Data Social History Tobacco Use Types Packs/Day Years [...] on file documented as of this encounter Procedures Procedure Name Priority Date/Time Associated Diagnosis Comments XR CHEST 2 VIEWS Routine 04/18/2025 4:53 PM EDT HIGH SENSITIVITY TROPONIN I Routine 04/18/2025 1:42 PM EDT CBC WITH AUTO DIFFERENTIAL Routine 04/18/2025 1:42 PM EDT MAGNESIUM Routine 04/18/2025 1:42 PM EDT COMPREHENSIVE METABOLIC PANEL Routine 04/18/2025 1:42 PM EDT documented in this encounter Results * XR Chest 2 Views (04/18/2025 4:53 PM EDT) Anatomical Region Laterality Modality Chest Radiographic Roopa ging 04/18/2025 4:53 PM EDT Narrative 04/18/2025 4:54 PM EDT [address] [address] XRay Report Signed Patient: Lorena Phelps MR#: [id number] : 1980 Acct:[id number] Age/Sex: 45 / F ADM Date: 04/18/25 Loc: .ED Attending Dr: Ordering Physician: Angela Faulkner NP Date of Service: 04/18/25 Procedure(s): XR chest 2V Accession Number(s): [id number] cc: Angela Faulkner NP; Margi Barnes MD [...] in OV> 04/18/251653 DD/ 52 TD/TT: 04/18/251652 Sign Carpenter: Procedure Note Donotuseinterpreter, Image - 04/18/[address] [address] XRay Report Signed Patient: Lorena Phelps LMR#: [id number] : 1980Acct:[id number] Age/Sex: 45 / FADM Date: 04/18/25 Loc: .ED Attending Dr: Ordering Physician: Angela Faulkner NP Date of Service: 04/18/25 Procedure(s): XR chest 2V Accession Number(s): [id number] cc: Angela Faulkner NP; Margi Barnes MD [...] in OV> 04/18/251653 DD/ 52 TD/TT: 04/18/251652 Sign Carpenter: [facility] External Provider IMG XR PROCEDURES Edited Result - Final * High Sensitivity Troponin I (04/18/2025 1:42 PM EDT) [facility] TROPONIN I HIGH SENSITIVITY <2.7 <3.5 - 17.0 ng/L [facility] Comment:The Buck high sens itivity Troponin-I results should beused in conjunction with other diagnostic information suchas ECG, clinical observations and information, and patientsymptoms to aid in the diagnosis of AR. 04/18/2025 1:42 PM EDT 04/18/2025 2:08 PM EDT Generic External Data Provider LAB BLOOD ORDERAB LES Final Result Performing Organization Address [facility]/ZIP Co de Phone Number [facility] [address] [place] [phone] * Magnesium (04/18/2025 1:42 PM EDT) [facility] Magnesium 2.5 1.6 - 2.6 mg/dL [facility] 04/18/2025 1:42 PM EDT 04/18/2025 2:08 PM EDT [employer] External Data Provider LAB BLOOD ORDERAB LES Final Result Performing Organization Address [facility] Co de Phone Number [facility] [address] [place] [phone] * (ABNORMAL) Comprehensive Metabolic Panel (04/18/2025 1:42 PM EDT) [facility] Sodium 138 135 - 145 mmol/L [facility] Potassium 4.3 3.3 - 5.1 mmol/L [facility] Chloride 104 96 - 108 mmol/L [facility] Carbon Dioxide 27 22 - 29 mmol/L [facility] Anion Gap 11(L) 12 - 20 [facility] Urea Nitrogen (BUN) 11 9 - 16 mg/dL [facility] Creatinine, Serum 0.77 0.5 - 1.4 mg/dL [facility] Creatinine Clr Calc Pharmacy 131.6 [facility] Comment:Provided height and weight: 160.02 cm,149.685 kg.eGFR (calculated from the MDRD study equation) and eCrCl(calculated from the Cockcroft-Gault equation) are based ondifferent parameters and may not yield comparable results.If eCrCl result is absurd, please check patient'sheight/weight. Estimated Glomerular Filt Rate >60 [facility] Comment:Chronic Kidney Disea se: Estimated GFR < 60 mL/min/1.98k8Dynsko Kidney Disease: Estimated GFR < 15 mL/min/1.73m2 Glucose 147(H) 60 - 115 mg/dL [facility] Calcium 9.0 8.4 - 10.2 mg/dL [facility] Bilirubin, Total 0.5 0.0 - 1.0 mg/dL [facility] Aspartate Amino Transferase 39(H) 5 - 31 U/L [facility] Alanine Aminotransferase 33(H) 0 - 31 U/L [facility] Total Protein 7.3 6.5 - 8.0 g/dL [facility] Albumin Level 4.3 3.5 - 5.0 g/dL [facility] Alkaline Phosphatase 64 39 - 117 U/L [facility] 04/18/2025 1:42 PM EDT 04/18/2025 2:08 PM EDT us Generic External Data Provider LAB BLOOD ORDERAB LES Final Result [facility] [address] [place] [phone] * (ABNORMAL) CBC auto differential (04/18/2025 1:42 PM EDT) White Blood Count 14.3(H) 4.8 - 10.8 X10*3/uL [facility] Red Blood Count 4.07(L) 4.20 - 5.50 X10*6/uL [facility] Hemoglobin 12.7 12.0 - 16.0 g/dl [facility] Hematocrit 37.4 37.0 - 47.0 % [facility] Mean Corpuscular Volume 91.9 80.0 - 98.0 fL [facility] Mean Corpuscular Hemoglobin 31.2 27.0 - 33.0 pg [facility] Mean Corpuscular HGB Conc 34.0 31.0 - 35.0 g/dl [facility] Red Cell Distribution Width 13.1 11.0 - 16.0 % [facility] Platelet Count 320 160 - 400 X10*3/uL [facility] Mean Platelet Volume 9.1(L) 9.4 - 12.3 fL [facility] Neutrophils Percent Auto 74.0(H) 45 - 73 % [facility] Imm Gran Pct Auto 0.6(H) 0.0 - 0.4 % [facility] Lymphocytes Percent Auto 20.4 20 - 40 % [facility] Monocytes Percent Auto 4.6 2 - 11 % [facility] Eosinophils Percent Auto 0.1 0 - 4 % [facility] Basophils Percent Auto 0.3 0 - 2 % [facility] NRBC Pct Auto 0.0 0.0 - 0.2 /100WBC [facility] Neutrophils Absolute Auto 10.6(H) 2.0 - 8.3 x10*3/uL [facility] Imm Gran Abs Auto 0.08(H) 0.00 - 0.03 X10*3/uL [facility] Lymphocytes Absolute Auto 2.9 1.2 - 4.9 X10*3/uL [facility] Monocytes Absolute Auto 0.7 0.1 - 1.2 X10*3/uL [facility] Eosinophils Absolute Auto 0.0 0.0 - 0.4 X10*3/uL [facility] Basophils Absolute Auto 0.0 0.0 - 0.2 X10*3/uL [facility] NRBC Abs Auto 0.000 0.0 - 0.012 X10*3/uL [facility] 04/18/2025 1:42 PM EDT 04/18/2025 2:08 PM EDT us Generic External Data Provider LAB BLOOD ORDERAB LES Final Result [facility] [address] [place] [phone] documented in this encounter Visit Diagnoses Not on filedocumented in this encounter Additional Health Concerns Assessment Noted Time PHQ-9 Depression Total Score: 4 01/10/20 24 10:04 AM EDT documented as of this encounter Care Teams Manager Pulmonary Relationship Specialty Start Date End Date Margi Barnes MD [address] [place] [address] PCP - General Internal Medicine 04/26/23 documented as of this encounter
--- OUTSIDE RECORDS SUMMARY | 2025-04-22 13:44 | XMS_ITS | Encounter Summary ---
Author Organization [employer] Address [address] [place] [address] 7 [place] [address] Care Team Providers Care Sectional Belt Mold Assembler Name Role Phone Mae Pierre Primary Care Provider Margi Jensen MD Primary Care Pro vider Reason for Visit * Reason Comments Med Refill Encounter Details Date Type Department Care Team ([facility] st Contact Info) Description 09/12/2022 Refill [facility] MEDICINE [address] [place], [place] [phone] Mae Pierre FNP COPD with acute exacerbation [...] Diagnosis COPD with acute exacerbation (CMS/HCC) (HCC) documented in this encounter Care Teams Sectional Belt Mold Assembler Relationship Specialty Start Date End Date Mae Pierre FNP PCP - General Family Medicine 05/16/21 04/25/23 Margi Barnes MD [address] [place] [address] PCP - General Internal Medicine 04/26/23 documented as of this encounter
--- OUTSIDE RECORDS SUMMARY | 2025-04-22 13:44 | XMS_ITS | Encounter Summary ---
Author Organization [employer] Address [address] [facility] 7 [place] [address] Care Team Providers Care Assistant Wrestling Coach Name Role Phone Margi Barnes MD Primary Care Pro vider Reason for Visit * Reason Comments Med Refill Encounter Details Date Type Department Care Team ([facility] st Contact Info) Description 04/20/2025 Refill [facility] MEDICINE [address] [place], [place] [phone] Margi Barnes MD [address] [place] [address] Lumbar disc disease with radiculopathy Social History [...] documented as of this encounter Care Teams Assistant Wrestling Coach Relationship Specialty Start Date End Date Margi Barnes MD [address] [place] [phone] PCP - General Internal Medicine 04/26/23 documented as of this encounter
--- OUTSIDE RECORDS SUMMARY | 2025-04-22 13:44 | XMS_ITS | Encounter Summary ---
Author Organization [employer] Address [address] [place] [address] 7 [place] [address] Care Team Providers Care Trash Collector Supervisor Name Role Phone Margi Barnes MD Primary Care Pro vider Reason for Visit * Reason Onset Date Comments Appointment Request 04/20/2025 Encounter Details Date Type Department Care Team ([facility] st Contact Info) Description 04/20/2025 Telephone [facility] MED[facility]INE [address] [place], [place] [phone] Margi Barnes MD [address] [place], [place] [phone] Appointment Request Social History Tobacco Use Types [...] housing situation today? I have luisxiomara suh 04/22/[address] you [...] of Assessment Author 7 04/22/2025 10:26 AM MAYTET Valery White MA * Over the last [...] awful might happen 2 04/22/2025 10:25 AM MAYTET Valery White MA BERNARDO-7 Total Score 14 04/22/2025 10:25 AM Valery Aguirre MA documented as of this encounter Miscellaneous Notes * Telephone Encounter - Pantera Jones - 04/20/2025 8:50 AM EDT Tc from pt requesting to reschedule missed PE apt Contact pt at [phone] documented in this encounter Plan of Treatment Not on file documented as of this encounter Visit Diagnoses Not on filedocumented in this encounter Additional Health Concerns Assessment Noted Time PHQ-9 Depression Total Score: 4 01/10/20 24 10:04 AM EDT documented as of this encounter Care Teams Trash Collector Supervisor Relationship Specialty Start Date End Date Margi Barnes MD [address] [place] [phone] PCP - General Internal Medicine 04/26/23 documented as of this encounter
--- OUTSIDE RECORDS SUMMARY | 2025-04-22 13:44 | XMS_ITS | Encounter Summary ---
Author Organization [employer] Address [address] [place] [address] 7 [place] [address] Care Team Providers Care Plier Worker Name Role Phone Margi Barnes MD Primary Care Pro vider Reason for Visit * Reason Onset Date Comments Referral 04/20/2025 Encounter Details Date Type Department Care Team ([facility] st Contact Info) Description 04/20/2025 Telephone [facility] MEDICINE [address] [place], [place] [phone] Margi Barnes MD [address] [place], [place] [phone] Referral Social History Tobacco Use Types Packs/Day Years [...] Miscellaneous Notes * Telephone Encounter - Beena Lopez RN - 04/20/2025 1:05 PM EDT Return call placed to the pt to inform that PCP placed a new referral for dermatology. Pt was informed that this was also sent to [facility] as requested by the pt. The pt was agreeable to this information and stated understanding. * Telephone Encounter - Beena Lopez RN - 04/20/2025 11:36 AM EDT TC placed to pt who informed that a new referral is needed for dermatology. Pt last referral was placed in December of 2023 and the pt requested a new updated referral to the same location. Pt advised that this request will be sent to PCP. * Telephone Encounter - Pantera Jones - 04/20/2025 8:52 AM EDT Tc from pt requesting a referral to [facility] Contact pt at [phone] documented in this encounter Plan of Treatment Not on file documented as of this encounter Visit Diagnoses Not on filedocumented in this encounter Additional Health Concerns Assessment Noted Time PHQ-9 Depression Total Score: 4 01/10/20 10:04 AM EDT documented as of this encounter Care Teams Plier Worker Relationship Specialty Start Date End Date Margi Barnes MD [address] [place] [phone] PCP - General Internal Medicine 04/26/23 documented as of this encounter
--- OUTSIDE RECORDS SUMMARY | 2025-04-22 13:44 | XMS_ITS | Encounter Summary ---
Author Organization [employer] Address [address] [place] [address] 7 [place] [address] Care Team Providers Care Conventional Underwriter Name Role Phone Margi Barnes MD Primary Care Pro vider Reason for Visit * Reason Onset Date Comments ER Follow-up 04/20/2025 Encounter Details Date Type Department Care Team ([facility] Contact Info) Description 04/20/2025 Telephone [facility] MEDICINE [address] [place], [place] [phone] Margi Barnes MD 230 [place], [place] [phone] ER Follow-up Social History Tobacco Use Types Packs/Day Years [...] Encounter - Beena Lopez RN - 04/20/2025 11:32 AM EDT TC placed to the pt to follow up on the [facility] ED visit on 04/18 for reported chest pain and palpitations. The pf was discharged home after EKG, chest XR and blood work all came back negative. The pt wasadvised to follow up with their PCP for possible outpatient Holter monitor testing. The pt was advised that scheduling with PCP at the moment is limited but any other provider at the clinic can be booked. The pt was agreeable to scheduling with Dodie Vilchis on 04/22/2025 for a sick onsite ED F/U. * Telephone Encounter - Pantera Jones - 04/20/2025 8:48 AM EDT Patient calling to report ED visit on : Date: 04/18 Hospital: [facility] Seen for: pt felt like she was having a heart attack , high blood pressure Symptomatic No *if yes message should go to Triage Patient advised will forward to team nurse for follow up Contact pt at [phone] documented in this encounter Plan of Treatment Not on file documented as of this encounter Visit Diagnoses Not on filedocumented in this encounter Additional Health Concerns Assessment Noted Time PHQ-9 Depression Total Score: 4 01/10/20 10:04 AM EDT documented as of this encounter Care Teams Conventional Underwriter Relationship Specialty Start Date End Date Margi Barnes MD [address] [place] [address] PCP - General Internal Medicine 04/26/23 documented as of this encounter
== END 2025-04-22 12:14 | disposition home or self-care (01) ==
LOC: HO.HHCL 12:13
PROVIDERS: PCP Registered Nurse; Visit Provider Registered Nurse
DX: Z13.89 Encounter for screening for other disorder (principal)

== ENCOUNTER 2025-04-27 14:02 | Outpatient (REF) | payer MEDICAID, SELFPAY ==
--- OUTSIDE RECORDS SUMMARY | 2025-04-22 10:15 | XMS_ITS | Encounter Summary ---
Author Organization [employer] Address [address] [facility] 7t [place] [address] Care Team Providers Care Jazz Singer Name Role Phone Margi Barnes MD Primary Care Pro vider Reason for Referral * Cardiology (Routine) - Authorized Specialty Diagnoses / Procedures Referred By Contac t Referred To Contact Cardiology Diagnoses Palpitations Procedures Holter monitor - 48 hour Dodie Vilchis FNP [address] [place] [address] Phone: tel: fax: [facility] [address] [place] [address] Phone: tel: fax: Referral ID Status Reason Start Date Expiration Date V isits Requested Visits Authorized [id number] Authorized 04/22/2025 04/22/2026 1 1 Reason for Visit * Reason Comments hospital follow up Encounter Details Date Type Department Care Team ([facility] st Contact Info) Description 04/22/2025 10:15 AM EDT Office Visit [facility] [address] [place] [address] Dodie Vilchis FNP [address] [place], [place] [phone] Palpitations (Primary Dx) Social History Tobacco Use Types Packs/Day Years [...] Date Recorded Patient Health Questionnaire-9 Score 7 04/22/2025 Patient Health Questionnaire-9 Score 7 04/22/2025 Last PHQ-9: Questionnaire Data Not on file 1 Housing Stability Answer Date Recorded What is your housing situation today? I have luis suh 04/22/[address] you li ve. Do you have problems with any of the following? Pests such as bugs, ants, or mice;Mold;Water leaks 04/22/2025 Food Insecurity Answer Date Recorded Within the past 12 months, y ou worried that your food would run out before you got money to buy more: Sometimes True 2024 Within the past 12 months,th e food you bought just didn't last and you didn't have enough money to get more: Sometimes True 04/22/2025 Transportation Answer Date Recorded In the past 12 months, has l ack of transportation kept you from medical appts, meetings, work or from getting things needed for daily living? No 04/22/2025 Utilities Answer Date Recorded In the past 12 months, has t he electric, gas, oil or water company threatened to shut off services in your home? Yes 04/22/2025 Depression Answer Date Recorded Patient Health Questionnaire-2 Score 2 04/22/2025 Internet Access Answer Date Recorded Internet Access Q1 Yes 04/22/2025 Internet Access Q2 Not on file 04/22/2025 Comments Unknown Sex and Gender Information Value Date Recorded Sex Assigned at Female 05/22/2022 10:16 AM EDT Legal Sex Female 10:16 AM EDT Gender Identity Female 05/22/2022 10:16 AM EDT Sexual Orientation Straight 01/10/2024 10 :18 AM EDT documented as of this encounter Last Filed Vital Signs Vital Sign Reading Time Taken Comments Blood Pressure 148/80 04/22/2025 11:05 AM EDT Pulse 69 04/22/2025 11:05 AM EDT Temperature 36.6 C (97.8 F) 04/22/2025 11:05 AM EDT Respiratory Rate 20 04/22/2025 11:05 AM EDT Oxygen Saturation 97% 04/22/2025 11:05 AM EDT Inhaled Oxygen Concentration - - Weight 145 kg (319 lb 8 oz) 04/22/2025 11:05 AM EDT Height 160 cm (5' 3 ) 04/22/2025 11:05 AM EDT Body Mass Index 56.6 04/22/2025 11:05 AM EDT documented in this encounter Functional Status * Over the past 2 weeks, how often have you been bothered by any of the following problems? Question Answer Date of Assessment Author Patient Health Questionnaire -2 Score 2 04/22/2025 10:26 AM EDT Valery White MA * Little interest or pleasure in doing things Answer Date of Assessment Author Several days 04/22/2025 10:26 AM EDT Valery White MA * Feeling down, depressed, or hopeless Answer Date of Assessment Author Several days 04/22/2025 10:26 AM EDT Valery White MA * Trouble falling or staying asleep, or sleeping too much Answer Date of Assessment Author More than half the days 04/22/2025 10:26 AM EDT Valery White MA * Feeling tired or having little energy Answer Date of Assessment Author More than half the days 04/22/2025 10:26 AM EDT Valery White MA * Poor appetite or overeating Answer Date of Assessment Author Several days 04/22/2025 10:26 AM EDT Valery White MA * Feeling bad about yourself - or that you are a failure or have let yourself or your family down Answer Date of Assessment Author Not at all 04/22/2025 10:26 AM EDT Valery White MA * Trouble concentrating on things, such as reading the newspaper or watching television Answer Date of Assessment Author Not at all 04/22/2025 10:26 AM EDT Valery White MA * Moving or speaking so slowly that other people could have noticed? Or the opposite - being so fidgety or restless that you have been moving around a lot more than usual. Answer Date of Assessment Author Not at all 04/22/2025 10:26 AM EDT Valery White MA * Thoughts that you would be better off or hurting yourself in some way Answer Date of Assessment Author Not at all 04/22/2025 10:26 AM EDT Valery White MA * Patient Health Questionnaire-9 Score Answer Date of Assessment Author 7 04/22/2025 10:26 AM EDT Valery White MA * Over the last 2 weeks, how often have you been bothered by any of the following problems? Question Answer Date of Assessment Author Feeling nervous, anxious, or on edge 3 04/22/2025 10:25 AM EDT Valery White MA Not being able to stop or co ntrol worrying 2 04/22/2025 10:25 AM EDT Valery White MA Worrying too much about diff erent things 2 04/22/2025 10:25 AM EDT Valery White MA Trouble relaxing 2 04/22/2025 10:25 AM EDT Valery White MA Being so restless that it is hard to sit still 3 04/22/2025 10:25 AM EDT Valery White MA Becoming easily annoyed or irritable 0 04/22/2025 10:25 AM EDT Valery White MA Feeling afraid as if somethi ng awful might happen 2 04/22/2025 10:25 AM EDT Valery White MA BERNARDO-7 Total Score 14 04/22/2025 10:25 AM EDT Valery White MA documented as of this encounter Plan of Treatment Scheduled Orders Name Type Priority Associated Diagnoses Orde r Schedule TSH W/Reflex to FT4 Lab Routine Palpitations Expected: 04/22/2025 (Approximate), Expires: 04/22/2026 [facility] Lab Routine Palpitations Expected: 04/22/2025, Expires: 04/22/2026 [facility] Lab Routine Palpitations Expected: 04/22/2025, Expires: 04/22/2026 Holter monitor - 48 hour Cardiac Services Routine Palpitations Expected: 04/22/2025 (Approximate), Expires: 04/22/2027 documented as of this encounter Visit Diagnoses Diagnosis Palpitations- Primary documented in this encounter Additional Health Concerns Assessment Noted Time PHQ-9 Depression Total Score: 7 04/22/20 25 10:26 AM EDT documented as of this encounter Care Teams Jazz Singer Relationship Specialty Start Date End Date Margi Barnes MD [address] [place] [id number] PCP - General Internal Medicine 04/26/23 documented as of this encounter
--- OUTSIDE RECORDS SUMMARY | 2025-04-27 16:36 | XMS_ITS | Clinical Summary ---
Author Organization [employer] Address [address] [place] [address] 7t [place] [address] Care Team Providers Care Physician Office Assistant Name Role Phone Margi Barnes MD Primary Care Pro vider Allergies Active Allergy Reactions Criticality Noted Date Comments Aspirin Nausea 02/15/2016 Other reaction(s): Unknown Codeine 06/24/2012 Other reaction(s): Nausea / Vomiting Latex Other,Rash,Swelling Low 11/08/2022 Morphine Hallucinations 10/05/2016 Other reaction(s): HALLUCUNATE VOMITING Varenicline Insomnia 09/08/2015 Medications * This document contains information received from the source organization and may not represent a complete record from that organization. albuterol (2.5 MG/3ML) 0.083% nebulizer solution inhale [...] HOURS NEEDED FOR WHEEZE 18 g 2 Active topiramate 50 MG tabletIndication s:Other migraine [...] Active Problems Problem Noted Date Diagnosed Date Anxiety disorder, unspecified 04/22/2025 Glaucoma 11/06/2024 Bilateral lower extremity edema 10/14/2024 Assessment & Plan (10/14/2024 11:13 AM EDT): Patient here for a sick visit with c/o bilateral LE edema x 4 week approximately. 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 F/u PRN Lumbar disc disease with radiculopathy [...] Date Resolved Date Hypothyroidism 08/13/2014 02/20/2024 Encounters * This document contains information received from the source organization and may not represent a complete record from that organization. Date Type Department Care Team Description 04/22/2025 10:15 AM EDT Office Visit [facility] [place] [address] Dodie Vilchis, SUSIE Palpitations (Primary Dx) 04/22/2025 Patient Outreach [address] [place] [address] Margi Barnes MD Care Coordination (CHW outreach for [facility] housing search-referral completed ) 04/22/2025 Travel 04/21/2025 Travel 04/20/2025 Results Follow-Up [address] [place] [address] Margi Barnes MD CBC auto differential, Comprehensive Metabolic Panel, Magnesium, High Sensitivity Troponin I 04/20/2025 Orders Only [address] [place] [address] Margi Barnes MD Hidradenitis suppurativa (Primary Dx); Skin lesion 04/20/2025 [address]phone [address] [place] [address] Margi Barnes MD Referral 04/20/2025 [address] [place] [address] Margi Barnes MD Appointment Request 04/20/2025 Telephone [address] [place] [address] Margi Barnes MD ER Follow-up 04/20/2025 Refill [facility] [place], [place] [phone] Margi Barnes MD Lumbar disc disease with radiculopathy 04/18/2025 Orders Only GENERIC EXTERNAL DATA DEPARTMENT Provider, Generic External Data 04/03/2025 Telephone [facility] [place] [place] [phone] Margi Barnes MD No Show (Pt no show no PE on 04/03/2025. No show letter mailed, recall set.) 03/27/2025 Travel 03/27/2025 Patient Outreach [facility] [address] [place] [address] Margi Barnes MD Pre-visit Planning (Pre-visit planning - LVM ) 03/20/2025 Refill [facility] [address] [place] [address] Margi Barnes MD Lumbar disc disease with radiculopathy 03/04/2025 Refill [facility] [address] [place] [address] Chitra Garcia MD Other migraine without status migrainosus, not intractable 03/04/2025 Refill [facility] [address] [place], [place] [phone] Margi Barnes MD Other migraine without status migrainosus, not intractable 02/25/2025 Orders Only GENERIC EXTERNAL DATA DEPARTMENT Provider, Generic External Data 02/10/2025 Telephone [facility] [address] [place] [address] Margi Barnes MD Referral 02/05/2025 Results Follow-Up [address] [address] Margi Barnes MD Bacterial Vaginosis, Chlamydia/N. Gonorrhoeae RNA, TMA, Urogenitial 02/05/2025 Orders Only GENERIC EXTERNAL DATA DEPARTMENT Provider, Generic External Data 02/02/2025 Refill [facility] [address] [place] [address] Margi Barnes MD from Last 3 Months [...] Tobacco Screening 04/22/2026 04/22/2025 Mammogram 02/18/2027 02/18/2025, 01/21, 12/26/2022, Additional history [...] PM EDT Narrative 04/18/2025 4:54 PM EDT [address] [address] XRay Report Signed Patient: Lorena Phelps MR#: [id number] : 1980 Acct:[id number] Age/Sex: 45 / F ADM Date: 04/18/25 Loc: .ED Attending Dr: Ordering Physician: Angela Faulkner NP Date of Service: 04/18/25 Procedure(s): XR chest 2V Accession Number(s): [id number] cc: Angela Faulkner NP; Margi Barnes MD [...] in OV> 04/18/251653 DD/ 52 TD/TT: 04/18/251652 Mechanical Engineering Lecturer: Procedure Note Donotuseinterpreter, Image - 04/18/[address] [address] XRay Report Signed Patient: Lorena Phelps LMR#: [id number] : 1980Acct:[id number] Age/Sex: 45 / FADM Date: 04/18/25 Loc: .ED Attending Dr: Ordering Physician: Angela Faulkner NP Date of Service: 04/18/25 Procedure(s): XR chest 2V Accession Number(s): [id number] cc: Angela Faulkner NP; Margi Barnes MD [...] in OV> 04/18/251653 DD/ 52 TD/TT: 04/18/251652 Mechanical Engineering Lecturer: [facility] External Provider IMG XR PROCEDURES Edited Result - Final * High Sensitivity Troponin I (04/18/2025 1:42 PM EDT) [facility] TROPONIN I HIGH SENSITIVITY <2.7 <3.5 - 17.0 ng/L [facility] Comment:The Buck high sens itivity Troponin-I results should beused in conjunction with other diagnostic information suchas ECG, clinical observations and information, and patientsymptoms to aid in the diagnosis of IA. 04/18/2025 1:42 PM EDT 04/18/2025 2:08 PM EDT Generic External Data Provider LAB BLOOD ORDERAB LES Final Result [facility] [address] [place] [phone] * (ABNORMAL) CBC auto differential (04/18/2025 1:42 PM EDT) [facility] White Blood Count 14.3(H) 4.8 - 10.8 X10*3/uL [facility] Red Blood Count 4.07(L) 4.20 - 5.50 X10*6/uL [facility] Hemoglobin 12.7 12.0 - 16.0 g/dl [facility] Hematocrit 37.4 37.0 - 47.0 % [facility] Mean Corpuscular Volume 91.9 80.0 - 98.0 fL [facility] Mean Corpuscular Hemoglobin 31.2 27.0 - 33.0 pg [facility] Mean Corpuscular HGB Conc 34.0 31.0 - 35.0 g/dl [facility] Red Cell Distribution Width 13.1 11.0 - 16.0 % [facility] Platelet Count 320 160 - 400 X10*3/uL [facility] Mean Platelet Volume 9.1(L) 9.4 - 12.3 fL [facility] Neutrophils Percent Auto 74.0(H) 45 - 73 % [facility] Imm Gran Pct Auto 0.6(H) 0.0 - 0.4 % [facility] Lymphocytes Percent Auto 20.4 20 - 40 % [facility] Monocytes Percent Auto 4.6 2 - 11 % [facility] Eosinophils Percent Auto 0.1 0 - 4 % [facility] Basophils Percent Auto 0.3 0 - 2 % [facility] NRBC Pct Auto 0.0 0.0 - 0.2 /100WBC [facility] Neutrophils Absolute Auto 10.6(H) 2.0 - 8.3 x10*3/uL [facility] Imm Gran Abs Auto 0.08(H) 0.00 - 0.03 X10*3/uL [facility] Lymphocytes Absolute Auto 2.9 1.2 - 4.9 X10*3/uL [facility] Monocytes Absolute Auto 0.7 0.1 - 1.2 X10*3/uL [facility] Eosinophils Absolute Auto 0.0 0.0 - 0.4 X10*3/uL [facility] Basophils Absolute Auto 0.0 0.0 - 0.2 X10*3/uL [facility] NRBC Abs Auto 0.000 0.0 - 0.012 X10*3/uL [facility] 04/18/2025 1:42 PM EDT 04/18/2025 2:08 PM EDT us Generic External Data Provider LAB BLOOD ORDERAB LES Final Result [facility] [address] [place] [phone] * Magnesium (04/18/2025 1:42 PM EDT) Magnesium 2.5 1.6 - 2.6 mg/dL [facility] 04/18/2025 1:42 PM EDT 04/18/2025 2:08 PM EDT us Generic External Data Provider LAB BLOOD ORDERAB LES Final Result [facility] [address] [place] [address] [phone] * (ABNORMAL) Comprehensive Metabolic Panel (04/18/2025 1:42 PM EDT) Sodium 138 135 - 145 mmol/L [facility] Potassium 4.3 3.3 - 5.1 mmol/L [facility] Chloride 104 96 - 108 mmol/L [facility] Carbon Dioxide 27 22 - 29 mmol/L [facility] Anion Gap 11(L) 12 - 20 [facility] Urea Nitrogen (BUN) 11 9 - 16 mg/dL [facility] Creatinine, Serum 0.77 0.5 - 1.4 mg/dL [facility] Creatinine Clr Calc Pharmacy 131.6 [facility] Comment:Provided height and weight: 160.02 cm,149.685 kg.eGFR (calculated from the MDRD study equation) and eCrCl(calculated from the Cockcroft-Gault equation) are based ondifferent parameters and may not yield comparable results.If eCrCl result is absurd, please check patient'sheight/weight. Estimated Glomerular Filt Rate >60 [facility] Comment:Chronic Kidney Disea se: Estimated GFR < 60 mL/min/1.12h7Gtoneb Kidney Disease: Estimated GFR < 15 mL/min/1.73m2 Glucose 147(H) 60 - 115 mg/dL [facility] Calcium 9.0 8.4 - 10.2 mg/dL [facility] Bilirubin, Total 0.5 0.0 - 1.0 mg/dL [facility] Aspartate Amino Transferase 39(H) 5 - 31 U/L [facility] Alanine Aminotransferase 33(H) 0 - 31 U/L [facility] Total Protein 7.3 6.5 - 8.0 g/dL [facility] Albumin Level 4.3 3.5 - 5.0 g/dL [facility] Alkaline Phosphatase 64 39 - 117 U/L [facility] 04/18/2025 1:42 PM EDT 04/18/2025 2:08 PM EDT us Generic External Data Provider LAB BLOOD ORDERAB LES Final Result Performing Organization Address City/[facility]/ZIP Co de Phone Number [facility] [address] [place] [phone] * Bacterial Vaginosis (02/25/2025 10:45 AM EDT) Only the most recent of2 resultswithin the time period is included. TRICHOMONAS VAGINALIS DETECTION BY PCR NOT DETECTED Not Detect [facility] BACTERIAL VAGINOSIS DETECTION BY PCR NEGATIVE Negative [facility] Comment:The BV organism targ ets of [...] DETECTION BY PCR NOT DETECTED Not Detect [facility] Nargis glab krusei PCR NOT DETECTED Not Detect [facility] 02/25/2025 10:4 5 AM EDT 02/25/2025 1:11 PM EDT us Generic External Data Provider LAB MICROBIOLOGY - GENERAL ORDERABLES Final Result [facility] [address] [place] [address] [phone] * BI Mammogram Screening Tomosynthesis Bilateral (02/18/2025 2:00 PM EDT) Anatomical Region Laterality Modality Breast Bilateral Mammography 02/18/2025 2:00 PM EDT Narrative 03/02/2025 10:44 AM EDT [address] [place] [address] Mammography Report Signed Patient: Lorena Phelps MR#: [id number] : 1980 Acct:[id number] Age/Sex: 45 / F ADM Date: 02/18/25 Loc: HO.MAMMO Attending Dr: Margi [place] MD Ordering Physician: Margi Barnes MD Re sults: 1Negative Date of Service: 02/18/25 Follow Up: 1 Year From [facility] ina Mammogram Procedure(s): MM tomosynthesis screening BI Accession Number(s): [id number] cc: Margi Barnes MD EXAMINATION: MM SCREENING [...] by Donna Salas DO in OV> 03/02/25 104 DD/ 1400 TD/TT: 02/18/25 1420 Mechanical Engineering Lecturer: Procedure Note Donotsurendrainterpreter, Image - 03/02/20[facility] [address] [place] [address] Mammography Report Signed Patient: Lorena Phelps LMR#: [id number] : 1980Acct:[id number] Age/Sex: 45 / FADM Date: 02/18/25 Loc: HO.MAMMO Attending Dr: Margi Walters MD Ordering Physician: Margi Barnes sults: 1Negative Date of Service: 02/18/25Follow Up: 1 Year From Orig inal Mammogram Procedure(s): MM tomosynthesis screening BI Accession Number(s): [id number] cc: Margi Barnes MD EXAMINATION: MM SCREENING [...] by Donna Salas DO in OV> 03/02/25 104 DD/ 1400 TD/TT: 02/18/25 1420 Mechanical Engineering Lecturer: us Margi Walters MD IMG BI PROCEDURES Final Result * US Pelvis Transvaginal (02/13/2025 12:00 PM EDT) Anatomical Region Laterality Modality Pelvis Ultrasound 02/13/2025 12:0 0 PM EDT Narrative 02/13/2025 12:46 PM EDT [address] [address] Ultrasound Report Signed Patient: Lorena Phelps MR#: [id number] : 1980 Acct:[id number] Age/Sex: 45 / F ADM Date: 02/13/25 Loc: HO.US Attending Dr: Celeste Romo CNM Ordering Physician: Celeste Romo CNM Date of Service: 02/13/25 Procedure(s): US pelvic and transvaginal Accession Number(s): [id number] cc: Celeste Romo CNM; Margi Barnes MD [...] 02/13/25 1242 DD/ 1200 TD/TT: 02/13/25 1230 Mechanical Engineering Lecturer: Procedure Note Donotuseinterpreter, Image - 02/13/[address] [address] Ultrasound Report Signed Patient: Lorena Phelps LMR#: [id number] : 1980Acct:[id number] Age/Sex: 45 / FADM Date: 02/13/25 Loc: HO.US Attending Dr: Celeste Romo CNM Ordering Physician: Celeste Romo CNM Date of Service: 02/13/25 Procedure(s): US pelvic and transvaginal Accession Number(s): [id number] cc: Celeste Romo CNM; Margi Barnes MD [...] Kentrell Cutler MD 02/13/2025 12:42 PM EDT Dictated By: Kentrell Anthony MD Signed By: <Electronically signed by Kentrell [place] MDin OV> 02/13/25 1242 DD/ 1200 TD/TT: 02/13/25 1230 Mechanical Engineering Lecturer: [facility] External Provider IMG US PROCEDURES Edited Result - Final * Chlamydia/N. Gonorrhoeae RNA, TMA, Urogenitial (02/05/2025 11:06 AM EDT) CT PCR NOT DETECTED Not Detect. [facility] Comment:A not detected test result does [...] psychologicalconsequences. NG PCR NOT DETECTED Not Detect. [facility] Comment:A not detected test result does [...] GENERAL ORDERABLES Final Result Performing Organization Address [facility] Co de Phone Number [facility] [address] [place] [phone] * (ABNORMAL) Hepatitis C Antibody with Reflex to HCV, RNA, Quantitative, Real- Time PCR (02/18/2024 1:40 PM EDT) [facility] Hepatitis C Antibody Reactive( A) Nonreactive [facility] Comment:Presumptive evidence of antibodies to HCV. Blood Venous blood specimen / Unknown 02/18/2024 1:40 PM EDT 02/18/2024 3:57 PM EDT us Margi Walters MD LAB BLOOD ORDERAB LES Final Result Performing Organization Address [facility] Co de Phone Number [facility] [address] [place] [phone] * HIV-1/2 Antigen and Antibodies, Fourth Generation, with Reflexes (02/18/2024 1:40 PM EDT) Pathologist [facility] HIV AB/AG Nonreactive Nonreactive [facility] Comment:HIV-1 p24 Ag and/or HIV-1/HIV-2 Ab not detected.A test result that is nonreactive does not exclude thepossibility of exposure to or infection with HIV-1 and/orHIV-2. Nonreactive results in this assay for individualswith prior exposure to HIV-1 and/or HIV-2 may be due toantigen and antibody levels that are below the limit ofdetection of this assay.The [employer] HIV Ag/Ab Combo assay result andsupplemental assay results should be interpreted inconjunction with the patient's clinical presentation,history and other laboratory results. If the results areinconsistent with clinical evidence, additional testing issuggested to confirm the result. Blood Venous blood specimen / Unknown 02/18/2024 1:40 PM EDT 02/18/2024 3:57 PM EDT us Margi Walters MD LAB BLOOD ORDERAB LES Final Result Performing Organization Address City/[facility]/ZIP Co de Phone Number [facility] [address] [place] [phone] * (ABNORMAL) Hemoglobin A1c (02/18/2024 1:40 PM EDT) Hemoglobin A1c 6.1(H) <6.0 % [facility] Comment:Hemoglobin A1C Refer ence Range Adults: 4.8 - 6.0 % Non diabetic: < 6.0 % Goal: < 7.0 %Additional Action Suggested: > 8.0 %Note: Hemoglobin A1c results are invalid for patients with abnormal amounts of HbF. Blood transfusions may impact the HbA1c concentration in the patient sample. Estimated Average Glucose 128 mg/dL [facility] Comment:eAG = Estimated ave rage glucose which is %A1C expressed asaverage glucose, using the formula of the W2R-PrrohldSgnyvre Glucose study (ADAG), Diabetes Care, Vol.31,#8,Feb. 2007 Blood Venous blood specimen / Unknown 02/18/2024 1:40 PM EDT 02/18/2024 3:57 PM EDT us Margi Walters MD LAB BLOOD ORDERAB LES Final Result Performing Organization Address City/[facility]/ZIP Co de Phone Number [facility] [address] [place] [phone] * (ABNORMAL) Lipid Panel, Standard (02/18/2024 1:40 PM EDT) Triglycerides 115 <150 mg/dL [facility] Comment:Desirable Triglyceri de: less than 150 mg/dLBorderline High Triglyceride 150-199 mg/dLHigh Triglyceride: 200-499 mg/dLVery High Triglyceride: greater than or equal to 5OO mg/dL Cholesterol 189 <200 mg/dL [facility] Comment:Desirable Cholestero l: less than 200 mg/dLBorderline High Cholesterol: 200-239 mg/dLHigh Cholesterol: greater than 239 mg/dL LDL Cholesterol Calculated 132(H) <100 mg/dL [facility] Comment:Desirable LDL: less than 100 mg/dLNear Optimal/Above Optimal LDL: 110- 129 mg/dLBorderline High LDL: 130-159 mg/dLHigh LDL: 160-189 mg/dLVery High LDL: greater than or equal to 190 mg/dL HDL Cholesterol 34(L) >40 mg/dL [facility] Comment:Desirable HDL: great er than 40 mg/dL Note: This HDL assay may give artificially low results in patients with liver disease. Blood Venous blood specimen / Unknown 02/18/2024 1:40 PM EDT 02/18/2024 3:57 PM EDT us Margi Walters MD LAB BLOOD ORDERAB LES Final Result [facility] [address] [place] [phone] * HPV E6/E7 RFLX PATTI 16 18/45 (04/05/2022 3:16 PM EDT) HPV 16 RNA [facility] HPV 18/45 RNA [facility] HPV E6 E7 ADD [facility] HPV mRNA E6/E7 rflx Not Detected Not Detected [facility] Comment: Methodology: Online Communications Manager-Mediated Amplification This assay detects E6/E7 viral messenger RNA (mRNA) from 14 high-risk HPV types (16,18,31,33,35,39,45,51,52,56,58,59,66,68). Cervical sources are required for HPV testing. If a vaginal source from a patient who has had a total hysterectomy with removal of cervix was submitted, please contact the testing laboratory for alternative testing options. For additional information, please refer to http://education.questdiagnostics.com/faq/XRP414d4 (This link if provided for information/ educational purposes only.) THIS TEST WAS PERFORMED AT: [facility] [address] [facility] [address],[place] [phone] BRICE TUCKER MD 04/05/2022 3:16 PM EDT us Celeste Romo HISTORICAL/NON ORDERABLE LABS Fi nal Result [facility] [address] from Last 3 Months or Most Recently Relevant to Health Maintenance Insurance [facility] C3 Care Teams Physician Office Assistant Relationship Specialty Start Date End Date Margi Barnes MD [address] [place] [phone] PCP - General Internal Medicine 04/26/23
--- OUTSIDE RECORDS SUMMARY | 2025-04-27 16:36 | XMS_ITS | Encounter Summary ---
Author Organization [employer] Address [address] 7[address] [place] [address] Care Team Providers Care Order To Delivery Supervisor Name Role Phone Margi Barnes MD Primary Care Pro vider Reason for Visit * Reason Onset Date Comments Med Refill 11/06/2024 Encounter Details Date Type Department Care Team ([facility] st Contact Info) Description 11/06/2024 Refill [facility] [address] [place], [place] [phone] Nuria Holm, ANP [address] [place] [address] Class 3 severe obesity due to excess [...] documented as of this encounter Care Teams Order To Delivery Supervisor Relationship Specialty Start Date End Date Margi Barnes MD [address] [place] [phone] PCP - General Internal Medicine 04/26/23 documented as of this encounter
--- OUTSIDE RECORDS SUMMARY | 2025-04-27 16:36 | XMS_ITS | Encounter Summary ---
Author Organization [employer] Address [address] [place] [address] 7 [place] [address] Care Team Providers Care Rail Operator Name Role Phone Margi Barnes MD Primary Care Pro vider Reason for Visit * Reason Comments Med Refill Encounter Details Date Type Department Care Team ([facility] st Contact Info) Description 05/28/2024 Refill [facility] [address] [place], [place] [phone] Margi Barnes MD [address] [place] [address] Hidradenitis suppurativa Social History Tobacco Use Types [...] as of this encounter Care Teams Rail Operator Relationship Specialty Start Date End Date Margi Barnes MD [address] [place] [phone] PCP - General Internal Medicine 04/26/23 documented as of this encounter
--- OUTSIDE RECORDS SUMMARY | 2025-04-27 16:36 | XMS_ITS | Encounter Summary ---
Author Organization [employer] Address [address] [facility] 7t [place] [address] Care Team Providers Care Air Support Operations Operator Name Role Phone Mae Pierre SENIOR CATERING SALES MANAGER Primary Care Provider Margi Jensen MD Primary Care Pro vider Reason for Visit * Reason Comments Med Refill Encounter Details Date Type Department Care Team (Late st Contact Info) Description 01/27/2023 Refill [facility] [address] [place] [address] Mae Pierre FNP Impetigo Social History Tobacco [...] Impetigo documented in this encounter Care Teams Air Support Operations Operator Relationship Specialty Start Date End Date Mae Pierre FNP PCP - General Family Medicine 05/16/21 04/25/23 Margi Barnes MD [address] [place] [phone] PCP - General Internal Medicine 04/26/23 documented as of this encounter
--- OUTSIDE RECORDS SUMMARY | 2025-04-27 16:36 | XMS_ITS | Encounter Summary ---
Author Organization [employer] Address [address] [place] [address] Care Team Providers Care Advertising Rep Name Role Phone Margi Barnes MD Primary Care Pro vider Reason for Visit * Reason Comments Med Refill Encounter Details Date Type Department Care Team ([facility] st Contact Info) Description 11/06/2024 Refill [facility] [address] [place], [place] [phone] Ting Kevin NP [address] [place] [address] Lumbar disc disease with radiculopathy Social History [...] documented as of this encounter Care Teams Advertising Rep Relationship Specialty Start Date End Date Margi Barnes MD [address] [place] [phone] PCP - General Internal Medicine 04/26/23 documented as of this encounter
--- OUTSIDE RECORDS SUMMARY | 2025-04-27 16:36 | XMS_ITS | Encounter Summary ---
Author Organization [employer] Address [address] [place] [address] 7 [place] [address] Care Team Providers Care Text Transcriber Name Role Phone Margi Barnes MD Primary Care Pro vider Reason for Visit * Reason Onset Date Comments Med Refill 04/27/2024 Encounter Details Date Type Department Care Team (Late st Contact Info) Description 04/27/2024 Refill [facility] [address] [place], [place] [phone] Margi Barnes MD [address] [place] [address] COPD with acute exacerbation (CMS/HCC); Lumbar disc [...] documented as of this encounter Care Teams Text Transcriber Relationship Specialty Start Date End Date Margi Barnes MD [address] [place] [phone] PCP - General Internal Medicine 04/26/23 documented as of this encounter
--- OUTSIDE RECORDS SUMMARY | 2025-04-27 16:36 | XMS_ITS | Encounter Summary ---
Author Organization [employer] Address [address] [facility] [address] [address] 7t [place] [address] Care Team Providers Care Inside Account Executive Name Role Phone Margi Barnes MD Primary Care Pro vider Reason for Visit * Reason Onset Date Comments Med Refill 11/26/2024 Encounter Details Date Type Department Care Team (Late st Contact Info) Description 11/26/2024 Refill [facility] MEDICINE 230 [place], [place] [phone] Nuria Holm, ANP 230 [place] [address] Class 3 severe obesity due to excess [...] documented as of this encounter Care Teams Inside Account Executive Relationship Specialty Start Date End Date Margi Barnes MD [address] [place] [address] PCP - General Internal Medicine 04/26/23 documented as of this encounter
--- OUTSIDE RECORDS SUMMARY | 2025-04-27 16:36 | XMS_ITS | Encounter Summary ---
Author Organization [employer] Address [address] [place] [address] 7 [place] [address] Care Team Providers Care Surgeon Chief Name Role Phone Margi Barnes MD Primary Care Pro vider Reason for Visit * Reason Onset Date Comments Appointment Request 01/06/2025 Encounter Details Date Type Department Care Team ([facility] Contact Info) Description 01/06/2025 Telephone [facility] MEDICINE 230 [place], [place] [phone] Margi Barnes MD 230 [place], [place] [phone] Appointment Request Social History Tobacco Use Types [...] complete) Patient requests a call back at [phone]. documented in this encounter Plan of Treatment Not on file documented as of this encounter Visit Diagnoses Not on filedocumented in this encounter Additional Health Concerns Assessment Noted Time PHQ-9 Depression Total Score: 4 01/10/20 24 10:04 AM EDT documented as of this encounter Care Teams Surgeon Chief Relationship Specialty Start Date End Date Margi Barnes MD [address] [place] [address] PCP - General Internal Medicine 04/26/23 documented as of this encounter
--- OUTSIDE RECORDS SUMMARY | 2025-04-27 16:36 | XMS_ITS | Encounter Summary ---
Author Organization [employer] Address [address] [facility] 7t [place] [address] Care Team Providers Care C4 Planner Name Role Phone Margi Barnes MD Primary Care Pro vider Reason for Visit * Reason Comments Med Refill Encounter Details Date Type Department Care Team ([facility] st Contact Info) Description 10/23/2023 Refill [facility] MED & PEDS [address] [place], [place] [phone] Margi Barnes MD 230 [place] [address] Other migraine without status migrainosus, not intractable [...] t he electric, gas, oil or water [employer] threatened to shut off services in your [...] documented as of this encounter Care Teams C4 Planner Relationship Specialty Start Date End Date Margi Barnes MD [address] [place] [address] PCP - General Internal Medicine 04/26/23 documented as of this encounter
--- OUTSIDE RECORDS SUMMARY | 2025-04-27 16:37 | XMS_ITS | Encounter Summary ---
Author Organization [employer] Address [address] [place] [address] 7 [place] [address] Care Team Providers Care Industrial Organization Manager Name Role Phone Mae Pierre Primary Care Provider Margi Jensen MD Primary Care Pro vider Reason for Visit * Reason Comments Med Refill Encounter Details Date Type Department Care Team ([facility] st Contact Info) Description 09/12/2022 Refill [facility] MEDICINE 230 [place], [place] [phone] Mae Pierre FNP COPD with acute exacerbation [...] (HCC) documented in this encounter Care Teams Industrial Organization Manager Relationship Specialty Start Date End Date Mae Pierre FNP PCP - General Family Medicine 05/16/21 04/25/23 Margi Barnes MD 230 [place] [address] PCP - General Internal Medicine 04/26/23 documented as of this encounter
--- OUTSIDE RECORDS SUMMARY | 2025-04-27 16:37 | XMS_ITS | Encounter Summary ---
Author Organization [employer] Address [address] [facility] 7 [place] [address] Care Team Providers Care Slip Maker Name Role Phone Margi Barnes MD Primary Care Pro vider Reason for Visit * Reason Comments Med Refill Encounter Details Date Type Department Care Team ([facility] st Contact Info) Description 04/20/2025 Refill [facility] MEDICINE 230 [place], [place] [phone] Margi Barnes MD 230 [place] [address] Lumbar disc disease with radiculopathy Social History [...] documented as of this encounter Care Teams Slip Maker Relationship Specialty Start Date End Date Margi Barnes MD [address] [place] [address] PCP - General Internal Medicine 04/26/23 documented as of this encounter
--- OUTSIDE RECORDS SUMMARY | 2025-04-27 16:37 | XMS_ITS | Encounter Summary ---
Author Organization [employer] Address [address] [facility] 7 [place] [address] Care Team Providers Care Builder Beam Name Role Phone Margi aBrnes MD Primary Care Pro vider Encounter Details Date Type Department Care Team (Latest Contact Info) Description 04/20/2025 Results Follow-Up [facility] MEDICINE [address] [place] [phone] Margi Barnes MD 230 [place] [address] CBC auto differential, Comprehensive Metabolic Panel, Magnesium, [...] documented as of this encounter Care Teams Builder Beam Relationship Specialty Start Date End Date Margi Barnes MD [address] [place] [address] PCP - General Internal Medicine 04/26/23 documented as of this encounter
--- OUTSIDE RECORDS SUMMARY | 2025-04-27 16:37 | XMS_ITS | Encounter Summary ---
Author Organization [employer] Address [address] [place] [address] 7 [place] [address] Care Team Providers Care Planer Setter Name Role Phone Margi Barnes MD Primary Care Pro vider Reason for Visit * Reason Onset Date Comments Appointment Request 04/20/2025 Encounter Details Date Type Department Care Team ([facility] st Contact Info) Description 04/20/2025 Telephone [facility] MEDICINE 230 [place], [place] [phone] Margi Barnes MD 230 [place], [place] [phone] Appointment Request Social History Tobacco Use Types [...] reschedule missed PE apt Contact pt at [phone] documented in this encounter Plan of Treatment Not on file documented as of this encounter Visit Diagnoses Not on filedocumented in this encounter Additional Health Concerns Assessment Noted Time PHQ-9 Depression Total Score: 4 01/10/20 24 10:04 AM EDT documented as of this encounter Care Teams Planer Setter Relationship Specialty Start Date End Date Margi Barnes MD [address] [place] [address] PCP - General Internal Medicine 04/26/23 documented as of this encounter
--- OUTSIDE RECORDS SUMMARY | 2025-04-27 16:37 | XMS_ITS | Encounter Summary ---
Author Organization [employer] Address [address] [facility] [address] 7t [place] [address] Care Team Providers Care Social And Human Services Assistant Name Role Phone Margi Barnes MD [...] documented as of this encounter Care Teams Social And Human Services Assistant Relationship Specialty Start Date End Date Margi Barnes MD [address] [place] [address] PCP - General Internal Medicine 04/26/23 documented as of this encounter
--- OUTSIDE RECORDS SUMMARY | 2025-04-27 16:37 | XMS_ITS | Encounter Summary ---
Author Organization [employer] Address [address] [place] [address] [place] [address] Care Team Providers Care Automatic Coin Machine Mechanic Name Role Phone Margi Barnes MD Primary Care Pro vider Reason for Visit * Reason Comments Care Coordination CHW outreach for SDO H housing search-referral completed Encounter Details Date Type Department Care Team (Latest Contact Info) Description 04/22/2025 Patient Outreach [facility] MEDICINE [address] [place] [phone] Margi Barnes MD 230 [place] [address] Care Coordination (CH[facility] outreach for SDOH housing [...] annoyed or irritable 0 04/22/2025 10:25 AM MATYET Valery White MA Feeling afraid as if somethi ng awful might happen 2 04/22/2025 10:25 AM Vaelry Aguirre MA BERNARDO-7 Total Score 14 04/22/2025 [...] Wednesdays, and Walk-In Urgent Care Located in [facility]. Patient provided with after-hours line for [facility], , which offer night time triage service and option to transfer to site identification specialist provider if needed. documented in this encounter Plan of Treatment Not on file documented as of this encounter Visit Diagnoses Not on filedocumented in this encounter Additional Health Concerns Assessment Noted Time PHQ-9 Depression Total Score: 7 04/22/20 25 10:26 AM EDT documented as of this encounter Care Teams Automatic Coin Machine Mechanic Relationship Specialty Start Date End Date Margi Barnes MD [address] [place] [address] PCP - General Internal Medicine 04/26/23 documented as of this encounter
[2025-04-27 16:39] LABS: Anion Gap 7 (12-20); Blood Urea Nitrogen 10 mg/dL (9-16); Calcium 9.2 mg/dL (8.4-10.2); Carbon Dioxide 32 mmol/L (22-29); Chloride 101 mmol/L (96-108); Estimated Glomerular Filt Rate > 60; Potassium 4.3 mmol/L (3.3-5.1); Sodium 136 mmol/L (135-145)
[2025-04-28 08:18] LABS: Follicle Stimulating Hormone 9.9 mIU/mL
[2025-05-04 03:38] LABS: Estradiol Ultra Sensitive 88 pg/mL
== END 2025-04-27 14:03 | disposition home or self-care (01) ==
LOC: HO.HMGCLDS 14:02
PROVIDERS: Internal Medicine; PCP Registered Nurse; Visit Provider Registered Nurse
DX: R03.0 Elevated blood-pressure reading, without diagnosis of hypertension (principal); R00.2 Palpitations
CPT/HCPCS: 36415; 80048; 82670; 83001; 84443

== ENCOUNTER 2025-05-18 10:59 | Outpatient (REF) | payer MEDICAID, SELFPAY ==
--- NOTE | ~2025-05-18 | US_ITS ---
CLINICAL HISTORY: N83.201 - Unspecified ovarian cyst, right side Transabdominal and transvaginal pelvic ultrasound Comparison: 02/13/2025 Findings: Study limited by patient body habitus. Uterus 10.8 x 4.8 x 6.2 cm. Endometrium 1 cm. IUD grossly unremarkable. No free fluid in cul-de-sac. Right ovary 2.4 x 3.0 x 2.4 cm. No significant abnormality. Left ovary 4.3 x 3.4 x 2.9 cm. 2.6 cm simple cyst. Impression: 2.6 cm simple cyst left ovary This document has been electronically signed by: René Longo MD on 05/18/2025 23:48:42
--- OUTSIDE RECORDS SUMMARY | 2025-05-18 13:45 | XMS_ITS | Encounter Summary ---
Author Organization [employer] Address [address] [facility] [address] 7t [place] [address] Care Team Providers Care Tar Leveler Name Role Phone Margi Barnes MD Primary Care Pro vider Encounter Details Date Type Department Care Team ([facility] Contact Info) Description 05/08/2025 Results Follow-Up [facility] MED & PEDS 505 [place], [place] [phone] Dodie Vilchis, SUSIE 505 [place], [place] [phone] TSH W/Reflex to FT4, FSH, Estradiol Social History Tobacco Use Types Packs/Day Years [...] documented as of this encounter Care Teams Tar Leveler Relationship Specialty Start Date End Date Margi Barnes MD [address] [place] [address] PCP - General Internal Medicine 04/26/23 documented as of this encounter
--- OUTSIDE RECORDS SUMMARY | 2025-05-18 13:45 | XMS_ITS | Encounter Summary ---
Author Organization [employer] Address [address] [place] [address] 7 [place] [address] Care Team Providers Care Geographic Analyst Name Role Phone Margi Barnes MD Primary Care Pro vider Reason for Visit * Reason Onset Date Comments Appointment Request 01/06/2025 Encounter Details Date Type Department Care Team ([facility] Contact Info) Description 01/06/2025 Telephone [facility] MEDICINE 230 [place], [place] [phone] Margi Barnes MD 230 [place], [place] [phone] Appointment Request Social History Tobacco Use Types [...] complete) Patient requests a call back at [phone]. documented in this encounter Plan of Treatment Not on file documented as of this encounter Visit Diagnoses Not on filedocumented in this encounter Additional Health Concerns Assessment Noted Time PHQ-9 Depression Total Score: 4 01/10/20 24 10:04 AM EDT documented as of this encounter Care Teams Geographic Analyst Relationship Specialty Start Date End Date Margi Barnes MD [address] [place] [address] PCP - General Internal Medicine 04/26/23 documented as of this encounter
--- OUTSIDE RECORDS SUMMARY | 2025-05-18 13:45 | XMS_ITS | Encounter Summary ---
Author Organization [employer] Address [address] [place] [address] 7 [place] [address] Care Team Providers Care Organ Recovery Coordinator Name Role Phone Margi Barnes MD Primary Care Pro vider Reason for Visit * Reason Onset Date Comments jul recall 05/13/2025 Encounter Details Date Type Department Care Team ([facility] st Contact Info) Description 05/13/2025 Telephone [facility] MEDICINE 230 [place], [place] [phone] Margi Barnes MD 230 [place], [place] [phone] jul recall Social History Tobacco Use Types Packs/Day Years [...] encounter Miscellaneous Notes * Telephone Encounter - Monica Gandara MA - 05/13/2025 3:30 PM EDT Recall letter sent. Visit type: Physical After this Date 01/06/25 Appointment notes: Physical Month due: July With: Jese Please schedule appointment above if patient returns call documented in this encounter Plan of Treatment Not on file documented as of this encounter Visit Diagnoses Not on filedocumented in this encounter Additional Health Concerns Assessment Noted Time PHQ-9 Depression Total Score: 7 04/22/20 10:26 AM EDT documented as of this encounter Care Teams Organ Recovery Coordinator Relationship Specialty Start Date End Date Margi Barnes MD [address] [place] [address] PCP - General Internal Medicine 04/26/23 documented as of this encounter
--- OUTSIDE RECORDS SUMMARY | 2025-05-18 13:45 | XMS_ITS | Encounter Summary ---
Author Organization [employer] Address [address] [facility] [address] 7t [place] [address] Care Team Providers Care Pre Parole Counseling Aide Name Role Phone Margi Barnes MD Primary Care Pro vider Reason for Visit * Reason Comments Med Refill Encounter Details Date Type Department Care Team ([facility] st Contact Info) Description 11/06/2024 Refill [facility] CH[facility] MED & PEDS [address] [place], [place] [phone] Ting Kevin NP 230 [place] [address] Lumbar disc disease with radiculopathy Social History [...] documented as of this encounter Care Teams Pre Parole Counseling Aide Relationship Specialty Start Date End Date Margi Barnes MD [address] [place] [address] PCP - General Internal Medicine 04/26/23 documented as of this encounter
--- OUTSIDE RECORDS SUMMARY | 2025-05-18 13:45 | XMS_ITS | Encounter Summary ---
Author Organization [employer] Address [address] [facility] [address] 7t [place] [address] Care Team Providers Care Supervisor Lead Burning Name Role Phone Margi Barnes MD Primary Care Pro vider Reason for Visit * Reason Onset Date Comments Med Refill 11/06/2024 Encounter Details Date Type Department Care Team ([facility] st Contact Info) Description 11/06/2024 Refill [facility] MEDICINE 230 [place], [place] [phone] Nuria Holm, ANP 230 [place] [address] Class 3 severe obesity due to excess [...] documented as of this encounter Care Teams Supervisor Lead Burning Relationship Specialty Start Date End Date Margi Barnes MD [address] [place] [address] PCP - General Internal Medicine 04/26/23 documented as of this encounter
--- OUTSIDE RECORDS SUMMARY | 2025-05-18 13:45 | XMS_ITS | Encounter Summary ---
Author Organization [employer] Address [address] [place] [address] 7 [place] [address] Care Team Providers Care Hand Striper Name Role Phone Margi Barnes MD Primary Care Pro vider Reason for Visit * Reason Onset Date Comments Med Refill 04/27/2024 Encounter Details Date Type Department Care Team (Late st Contact Info) Description 04/27/2024 Refill [facility] MEDICINE 230 [place], [place] [phone] Margi Barens MD 230 [place] [address] COPD with acute exacerbation (CMS/HCC); Lumbar disc [...] documented as of this encounter Care Teams Hand Striper Relationship Specialty Start Date End Date Margi Barnes MD [address] [place] [address] PCP - General Internal Medicine 04/26/23 documented as of this encounter
--- OUTSIDE RECORDS SUMMARY | 2025-05-18 13:45 | XMS_ITS | Encounter Summary ---
Author Organization [employer] Address [address] [place] [address] 7 [place] [address] Care Team Providers Care Aircraft Lay Out Worker Name Role Phone Margi Barnes MD Primary Care Pro vider Reason for Visit * Reason Comments Med Refill Encounter Details Date Type Department Care Team ([facility] st Contact Info) Description 05/28/2024 Refill [facility] MEDICINE 230 [place], [place] [phone] Margi Barnes MD 230 [place] [address] Hidradenitis suppurativa Social History Tobacco Use Types [...] documented as of this encounter Care Teams Aircraft Lay Out Worker Relationship Specialty Start Date End Date Margi Barnes MD [address] [place] [address] PCP - General Internal Medicine 04/26/23 documented as of this encounter
--- OUTSIDE RECORDS SUMMARY | 2025-05-18 13:45 | XMS_ITS | Clinical Summary ---
Author Organization [employer] Address [address] [place] [address] 7[address] [place] [address] Care Team Providers Care Supervisor Slitting And Shipping Name Role Phone Margi Barnes MD Primary [...] Active Problems Problem Noted Date Diagnosed Date Palpitations 04/28/2025 Assessment & Plan (04/28/2025 8:31 PM EDT): Evaluated at [facility] ED on 04/18/25 with reassuring EKG, chest x-ray and labs Plan: 48 Holter Monitor, check TSH, FSH, estradiol, BE due to acute/worsening anxiety. Anxiety disorder, unspecified 04/22/2025 Assessment & Plan (04/28/2025 8:32 PM EDT): - New onset panic attacks, likely contributing to palpitations and chest symptoms. - Recommended behavioral health evaluation for coping strategies. Continue following with therapist, BE completed today following visit. Glaucoma 11/06/2024 Bilateral lower extremity edema 10/14/2024 Assessment & Plan (10/14/2024 11:13 AM EDT): Patient here for a sick visit with c/o bilateral LE edema x 4 week approximately. No sob, no pain, no redness, no HAIR On exam she has bilateral LE edema left> Right 1 -2 + Plan: Start Lasix 20 mg po daily LE US to rule out DVT, B-BILLING AND ACCOUNTING STAFF ASSISTANT, ECHO Will refer back to vascular surgeon, seen in the past F/u with PCP after initial testing Elevated blood pressure reading 10/14/2024 Assessment & Plan (04/28/2025 8:29 PM EDT): Elevated blood pressure reading in office, may be secondary to acute stress/anxiety. Rec check home BP readings and f/up if above goal. Assessment & Plan (10/14/2024 11:17 AM EDT): [...] Stasis dermatitis on feet and calves with molecular geneticist. F/u PRN Lumbar disc disease with radiculopathy [...] organization. Date Type Department Care Team Description 05/13/[address] [facility] [address] [place] [phone] Margi Barnes MD ana maría recall 05/08/2025 Results Follow-Up [facility] [address] [place], [place] [phone] Dodie Vilchis, SNAKER TSH W/Reflex to FT4, FSH, Estradiol 04/22/2025 10:15 AM EDT Office Visit [facility] [address] [place] [address] Dodie Vilchis, SNAKER Palpitations (Primary Dx); Elevated blood pressure reading; Anxiety disorder, unspecified type 04/22/2025 Patient Outreach [facility] [address] [place] [phone] Margi Barnes MD Care Coordination (CHW outreach for SDOH housing search-referral completed ) 04/22/2025 Travel 04/21/2025 Travel 04/20/2025 Results Follow-Up [facility] [address] [place] [phone] Margi Barnes MD CBC auto differential, Comprehensive Metabolic Panel, Magnesium, High Sensitivity Troponin I 04/20/2025 Orders Only [facility] [address] [facility] [place] [address] Margi Barnes MD Hidradenitis suppurativa (Primary Dx); Skin lesion 04/20/[address] [facility] [address] [place] [address] Margi Barnes MD Referral 04/20/[address] [facility] [address] [place] [address] Margi Barnes MD Appointment Request 04/20/[address] [facility] [address] [facility] [place] [address] Margi Barnes MD ER Follow-up 04/20/[address] [facility] [address] [place] [address] Margi Barnes MD Lumbar disc disease with radiculopathy 04/18/2025 Orders Only GENERIC EXTERNAL DATA DEPARTMENT Provider, Generic External Data 04/03/[address] [facility] [address] [place] [address] Margi Barnes MD No Show (Pt no show no PE on 04/03/2025. No show letter mailed, recall set.) 03/27/2025 Travel 03/27/2025 Patient Outreach [facility] [address] [place] [address] Margi Barnes MD Pre-visit Planning (Pre-visit planning - LVM ) 03/20/[address] [facility] [address] [place] [address] Margi Barnes MD Lumbar disc disease with radiculopathy 03/04/[address] [facility] [address] [place] [address] Chitra Garcia MD Other migraine without status migrainosus, not intractable 03/04/[address] [facility] [address] [place] [address] Margi Barnes MD Other migraine without status migrainosus, not intractable 02/25/2025 Orders Only GENERIC EXTERNAL DATA DEPARTMENT Provider, Generic External Data from Last 3 Months Immunizations Immunization Administration [...] A1C 02/17/2025 024, 12/12/2022, 10/03/2021 COVID-19 Vaccine (3 - season) 2025 12/09/2020, 11/18/2020 Influenza Vaccine (#1) [...] Procedure Name Priority Date/Time Associated Diagnosis Comments ESTRADIOL Routine 04/27/2025 2:14 PM EDT Palpitations FSH Routine 04/27/2025 2:14 PM EDT Palpitations TSH W/REFLEX TO FT4 Routine 04/27/2025 2 :14 PM EDT Palpitations BASIC METABOLIC PANEL Routine 04/27/2025 2:14 PM EDT Elevated blood pressure reading XR CHEST 2 VIEWS Routine 04/18/2025 4:53 PM EDT HIGH SENSITIVITY TROPONIN I Routine 04/18/2025 1:42 PM EDT MAGNESIUM Routine 04/18/2025 1:42 PM EDT COMPREHENSIVE METABOLIC PANEL Routine 04/18/2025 1:42 PM EDT CBC WITH AUTO DIFFERENTIAL Routine 04/18/2025 1:42 PM EDT BACTERIAL VAGINOSIS PANEL Routine 02/25/2025 10:45 AM EDT BI MAMMOGRAM SCREENING TOMOSYNTHESIS BILATERAL Routine 02/18/2025 2:00 PM EDT HEPATITIS C AB W/REFL TO HCV [...] Recently Relevant to Health Maintenance Results * TSH W/Reflex to FT4 (04/27/2025 2:14 PM EDT) TSH reflex Free T4 1.70 0.32 - 4.0 uIU/mL [facility] Blood Venous blood specimen / Unknown 04/27/2025 2:14 PM EDT 04/27/2025 4:07 PM EDT us Dodie Vilchis SNAKER LAB BLOOD ORDERABLES Final Res ult [facility] [address] [place] [phone] * Estradiol (04/27/2025 2:14 PM EDT) Pathologist [facility] Estradiol Ultra Sensitive 88 pg/mL [facility] Comment:Female Reference Ran ges for Estradiol, Ultrasensitive (pg/mL): Follicular Phase: 39-375 Luteal Phase: 48-440 Postmenopausal Phase: < or = 10This test was developed and its analytical performancecharacteristics have been determined by [facility].It has not been cleared or approved by the FDA. This assayhas been validated pursuant to the CLIA regulations and isused for clinical purposes.THIS TEST WAS PERFORMED AT:[employer] [id number] [place] [phone] ZIMMER MD,PHD,LAURENT Blood Venous blood specimen / Unknown 04/27/2025 2:14 PM EDT 04/27/2025 4:07 PM EDT Dodie Vilchis SNAKER LAB BLOOD ORDERABLES Final Res ult Performing Organization Address [facility] de Phone Number [facility] [address] [place] [phone] * FSH (04/27/2025 2:14 PM EDT) Follicle Stimulating Hormone 9.9 mIU/mL [facility] Comment:Reference Range Foll icular Phase 2.5-10.2 Mid-cycle Peak 3.1-17.7 Luteal Phase 1.5- 9.1 Postmenopausal 23.0-116.3THIS TEST WAS PERFORMED AT:[facility] [place] [phone] TUCKER MD Blood Venous blood specimen / Unknown 04/27/2025 2:14 PM EDT 04/27/2025 4:07 PM EDT Dodie Vilchis SNAKER LAB BLOOD ORDERABLES Final Res ult Performing Organization Address [facility] de Phone Number [facility] [address] [place] [phone] * (ABNORMAL) Basic Metabolic Panel (04/27/2025 2:14 PM EDT) Sodium 136 135 - 145 mmol/L [facility] Potassium 4.3 3.3 - 5.1 mmol/L [facility] Chloride 101 96 - 108 mmol/L [facility] Carbon Dioxide 32(H) 22 - 29 mmol/L [facility] Anion Gap 7(L) 12 - 20 [facility] Urea Nitrogen (BUN) 10 9 - 16 mg/dL [facility] Creatinine, Serum 0.81 0.5 - 1.4 mg/dL [facility] Estimated Glomerular Filt Rate >60 [facility] Comment:Chronic Kidney Disea se: Estimated GFR < 60 mL/min/1.25h4Ldlevm Kidney Disease: Estimated GFR < 15 mL/min/1.73m2 Glucose 151(H) 60 - 115 mg/dL [facility] Calcium 9.2 8.4 - 10.2 mg/dL [facility] Blood Venous blood specimen / Unknown 04/27/2025 2:14 PM EDT 04/27/2025 4:07 PM EDT us Gonzalez Rosa MD LAB BLOOD ORDERABLES Final Result Performing Organization Address City/State/RUST Co de Phone Number [facility] [address] [place] [phone] * XR Chest 2 Views (04/18/2025 4:53 PM EDT) Anatomical Region Laterality Modality Chest Radiographic Roopa ging 04/18/2025 4:53 PM EDT Narrative 04/18/2025 4:54 PM EDT [address] [address] XRay Report Signed Patient: Lorena Phelps MR#: [id number] : 1980 Acct:[id number] Age/Sex: 45 / F ADM Date: 04/18/25 Loc: .ED Attending Dr: Ordering Physician: Angela Faulkner NP Date of Service: 04/18/25 Procedure(s): XR chest 2V Accession Number(s): [id number] cc: Angela Faulkner NP; Margi Barnes MD [...] Lane MD in OV> 04/18/25 1654 DD/ 52 TD/TT: 04/18/251652 Onsite Health Coach: Procedure Note Donotuseinterpreter, Image - 04/18/[address] [address] XRay Report Signed Patient: Lorena Phelps LMR#: [id number] : 1980Acct:[id number] Age/Sex: 45 / FADM Date: 04/18/25 Loc: HO.ED Attending Dr: Ordering Physician: Angela Faulkner NP Date of Service: 04/18/25 Procedure(s): XR chest 2V Accession Number(s): [id number] cc: Angela Faulkner NP; Margi Barnes MD [...] in OV> 04/18/251653 DD/ 52 TD/TT: 04/18/251652 Onsite Health Coach: [facility] External Provider IMG XR PROCEDURES Edited Result - Final * High Sensitivity Troponin I (04/18/2025 1:42 PM EDT) TROPONIN I HIGH SENSITIVITY <2.7 <3.5 - 17.0 ng/L [facility] Comment:The Buck high sens itivity Troponin-I results should beused in conjunction with other diagnostic information suchas ECG, clinical observations and information, and patientsymptoms to aid in the diagnosis of IN. 04/18/2025 1:42 PM EDT 04/18/2025 2:08 PM EDT Generic External Data Provider LAB BLOOD ORDERAB LES Final Result [facility] [address] [place], [place] [phone] * (ABNORMAL) CBC auto differential (04/18/2025 1:42 PM EDT) White Blood Count 14.3(H) 4.8 - 10.8 X10*3/uL [facility] Red Blood Count 4.07(L) 4.20 - 5.50 X10*6/uL [facility] Hemoglobin 12.7 12.0 - 16.0 g/dl [facility] Hematocrit 37.4 37.0 - 47.0 % [facility] Mean Corpuscular Volume 91.9 80.0 - 98.0 fL [facility] Mean Corpuscular Hemoglobin 31.2 27.0 - 33.0 pg [facility] Mean Corpuscular HGB Conc 34.0 31.0 - 35.0 g/dl [facility] Red Cell Distribution Width 13.1 11.0 - 16.0 % [facility] Platelet Count 320 160 - 400 X10*3/uL [facility] Mean Platelet Volume 9.1(L) 9.4 - 12.3 fL [facility] Neutrophils Percent Auto 74.0(H) 45 - 73 % [facility] Imm Gran Pct Auto 0.6(H) 0.0 - 0.4 % [facility] Lymphocytes Percent Auto 20.4 20 - 40 % [facility] Monocytes Percent Auto 4.6 2 - 11 % [facility] Eosinophils Percent Auto 0.1 0 - 4 % [facility] Basophils Percent Auto 0.3 0 - 2 % [facility] NRBC Pct Auto 0.0 0.0 - 0.2 /100WBC [facility] Neutrophils Absolute Auto 10.6(H) 2.0 - 8.3 x10*3/uL [facility] Imm Gran Abs Auto 0.08(H) 0.00 - 0.03 X10*3/uL [facility] Lymphocytes Absolute Auto 2.9 1.2 - 4.9 X10*3/uL [facility] Monocytes Absolute Auto 0.7 0.1 - 1.2 X10*3/uL [facility] Eosinophils Absolute Auto 0.0 0.0 - 0.4 X10*3/uL [facility] Basophils Absolute Auto 0.0 0.0 - 0.2 X10*3/uL [facility] NRBC Abs Auto 0.000 0.0 - 0.012 X10*3/uL [facility] 04/18/2025 1:42 PM EDT 04/18/2025 2:08 PM EDT Generic External Data Provider LAB BLOOD ORDERAB LES Final Result Performing Organization Address City/[facility]/ZIP Co de Phone Number [facility] [address] [place] [phone] * Magnesium (04/18/2025 1:42 PM EDT) Pathologist [facility] Magnesium 2.5 1.6 - 2.6 mg/dL [facility] 04/18/2025 1:42 PM EDT 04/18/2025 2:08 PM EDT Generic External Data Provider LAB BLOOD ORDERAB LES Final Result Performing Organization Address [facility]/ZIP Co de Phone Number [facility] [address] [place] [phone] * (ABNORMAL) Comprehensive Metabolic Panel (04/18/2025 1:42 PM EDT) Sodium 138 135 - 145 mmol/L [facility] Potassium 4.3 3.3 - 5.1 mmol/L [facility] Chloride 104 96 - 108 mmol/L [facility] Carbon Dioxide 27 22 - 29 mmol/L [facility] Anion Gap 11(L) 12 - 20 [facility] Urea Nitrogen (BUN) 11 9 - 16 mg/dL [facility] Creatinine, Serum 0.77 0.5 - 1.4 mg/dL [facility] Creatinine Clr Calc Pharmacy 131.6 [facility] Comment:Provided height and weight: 160.02 cm,149.685 kg.eGFR (calculated from the MDRD study equation) and eCrCl(calculated from the Cockcroft-Gault equation) are based ondifferent parameters and may not yield comparable results.If eCrCl result is absurd, please check patient'sheight/weight. Estimated Glomerular Filt Rate >60 [facility] Comment:Chronic Kidney Disea se: Estimated GFR < 60 mL/min/1.66t4Xcofyb Kidney Disease: Estimated GFR < 15 mL/min/1.73m2 Glucose 147(H) 60 - 115 mg/dL [facility] Calcium 9.0 8.4 - 10.2 mg/dL [facility] Bilirubin, Total 0.5 0.0 - 1.0 mg/dL [facility] Aspartate Amino Transferase 39(H) 5 - 31 U/L [facility] Alanine Aminotransferase 33(H) 0 - 31 U/L [facility] Total Protein 7.3 6.5 - 8.0 g/dL [facility] Albumin Level 4.3 3.5 - 5.0 g/dL [facility] Alkaline Phosphatase 64 39 - 117 U/L [facility] 04/18/2025 1:42 PM EDT 04/18/2025 2:08 PM EDT us Generic External Data Provider LAB BLOOD ORDERAB LES Final Result [facility] [address] [place] [phone] [phone] * Bacterial Vaginosis (02/25/2025 10:45 AM EDT) TRICHOMONAS VAGINALIS DETECTION BY PCR NOT DETECTED Not Detect [facility] BACTERIAL VAGINOSIS DETECTION BY PCR NEGATIVE Negative [facility] Comment:The BV organism targ ets [...] DETECTION BY PCR NOT DETECTED Not Detect [facility] Nargis glab krusei PCR NOT DETECTED Not Detect [facility] 02/25/2025 10:4 5 AM EDT 02/25/2025 1:11 PM EDT us Generic External Data Provider LAB MICROBIOLOGY - GENERAL ORDERABLES Final Result Performing Organization Address City/State/[place]UST Co de Phone Number [facility] [address] [place] [phone] * BI Mammogram Screening Tomosynthesis Bilateral (02/18/2025 2:00 PM EDT) Anatomical Region Laterality Modality Breast Bilateral Mammography 02/18/2025 2:00 PM EDT Narrative 03/02/2025 10:44 AM EDT [address] [place] [address] Mammography Report Signed Patient: Lorena Phelps MR#: [id number] : 1980 Acct:[id number] Age/Sex: 45 / F ADM Date: 02/18/25 Loc: HO.MAMMO Attending Dr: Margi Walters MD Ordering Physician: Margi Barnes MD Re sults: 1Negative Date of Service: 02/18/25 Follow Up: 1 Year From Orig inal Mammogram Procedure(s): MM tomosynthesis screening BI Accession Number(s): [id number] cc: Margi Barnes MD EXAMINATION: MM SCREENING [...] 03/02/25 1041 DD/ 1400 TD/TT: 02/18/25 1420 Onsite Health Coach: Procedure Note Donotuseinterpreter, Image - 03/02/2025 [facility] [address] [place] [address] Mammography Report Signed Patient: Lorena Phelps LMR#: [id number] : 1980Acct:[id number] Age/Sex: 45 / FADM Date: 02/18/25 Loc: HO.MAMMO Attending Dr: Margi Walters MD Ordering Physician: Margi Barnes sults: 1Negative Date of Service: 02/18/25Follow Up: 1 Year From Orig ina Mammogram Procedure(s): MM tomosynthesis screening BI Accession Number(s): [id number] cc: Margi Barnes MD EXAMINATION: MM SCREENING [...] 03/02/25 1041 DD/ 1400 TD/TT: 02/18/25 1420 Onsite Health Coach: Margi Walters MD IMG BI PROCEDURES Final Result * (ABNORMAL) Hepatitis C Antibody with Reflex to HCV, RNA, Quantitative, Real- Time PCR (02/18/2024 1:40 PM EDT) Hepatitis C Antibody Reactive( A) Nonreactive [facility] Comment:Presumptive evidence of antibodies to HCV. Blood Venous blood specimen / Unknown 02/18/2024 1:40 PM EDT 02/18/2024 3:57 PM EDT Margi Walters MD LAB BLOOD ORDERAB LES Final Result [facility] [address] [place] [phone] * HIV-1/2 Antigen and Antibodies, Fourth Generation, with Reflexes (02/18/2024 1:40 PM EDT) HIV AB/AG Nonreactive Nonreactive [facility] Comment:HIV-1 p24 Ag and/or HIV-1/HIV-2 Ab not detected.A test result that is nonreactive does not exclude thepossibility of exposure to or infection with HIV-1 and/orHIV-2. Nonreactive results in this assay for individualswith prior exposure to HIV-1 and/or HIV-2 may be due toantigen and antibody levels that are below the limit ofdetection of this assay.The [employer] HIV Ag/Ab Combo assay result andsupplemental assay results should be interpreted inconjunction with the patient's clinical presentation,history and other laboratory results. If the results areinconsistent with clinical evidence, additional testing issuggested to confirm the result. Blood Venous blood specimen / Unknown 02/18/2024 1:40 PM EDT 02/18/2024 3:57 PM EDT us Margi Walters MD LAB BLOOD ORDERAB LES Final Result Performing Organization Address [facility]/[place]UST Co de Phone Number [facility] [address] [place] [phone] * (ABNORMAL) Hemoglobin A1c (02/18/2024 1:40 PM EDT) Hemoglobin A1c 6.1(H) <6.0 % [facility] Comment:Hemoglobin A1C Refer ence Range Adults: 4.8 - 6.0 % Non diabetic: < 6.0 % Goal: < 7.0 %Additional Action Suggested: > 8.0 %Note: Hemoglobin A1c results are invalid for patients with abnormal amounts of HbF. Blood transfusions may impact the HbA1c concentration in the patient sample. Estimated Average Glucose 128 mg/dL [facility] Comment:eAG = Estimated ave rage glucose which is %A1C expressed asaverage glucose, using the formula of the W1K-EtnzjelJbtgewu Glucose study (ADAG), Diabetes Care, Vol.31,#8,2007 Blood Venous blood specimen / Unknown 02/18/2024 1:40 PM EDT 02/18/2024 3:57 PM EDT us Margi Walters MD LAB BLOOD ORDERAB LES Final Result Performing Organization Address [facility]/ZIP Co de Phone Number [facility] [address] [place] [phone] * (ABNORMAL) Lipid Panel, Standard (02/18/2024 1:40 PM EDT) Triglycerides 115 <150 mg/dL [facility] Comment:Desirable Triglyceri de: less than 150 mg/dLBorderline High Triglyceride 150-199 mg/dLHigh Triglyceride: 200-499 mg/dLVery High Triglyceride: greater than or equal to 5OO mg/dL Cholesterol 189 <200 mg/dL [facility] Comment:Desirable Cholestero l: less than 200 mg/dLBorderline High Cholesterol: 200-239 mg/dLHigh Cholesterol: greater than 239 mg/dL LDL Cholesterol Calculated 132(H) <100 mg/dL [facility] Comment:Desirable LDL: less than 100 mg/dLNear Optimal/Above Optimal LDL: 110- 129 mg/dLBorderline High LDL: 130-159 mg/dLHigh LDL: 160-189 mg/dLVery High LDL: greater than or equal to 190 mg/dL HDL Cholesterol 34(L) >40 mg/dL [facility] Comment:Desirable HDL: great er than 40 mg/dL Note: This HDL assay may give artificially low results in patients with liver disease. Blood Venous blood specimen / Unknown 02/18/2024 1:40 PM EDT 02/18/2024 3:57 PM EDT Margi Walters MD LAB BLOOD ORDERAB LES Final Result [facility] [address] [place] [address] [phone] * HPV E6/E7 RFLX PATTI 16 18/45 (04/05/2022 3:16 PM EDT) HPV 16 RNA [facility] HPV 18/45 RNA [facility] HPV E6 E7 ADD [facility] HPV mRNA E6/E7 rflx Not Detected Not Detected [facility] Comment: Methodology: Talent Sourcing Specialist-Mediated Amplification This assay detects E6/E7 viral messenger RNA (mRNA) from 14 high-risk HPV types (16,18,31,33,35,39,45,51,52,56,58,59,66,68). Cervical sources are required for HPV testing. If a vaginal source from a patient who has had a total hysterectomy with removal of cervix was submitted, please contact the testing laboratory for alternative testing options. For additional information, please refer to http://education.Phizzbo/faq/SFZ951h8 (This link if provided for information/ educational purposes only.) THIS TEST WAS PERFORMED AT: [facility] [address] [place] [address] [address],[place] [address] BRICE TUCKER MD 04/05/2022 3:16 PM EDT us Celeste Romo HISTORICAL/NON ORDERABLE LABS Fi nal Result Performing Organization Address City/State/RUST Co de Phone Number [facility] [address] from Last 3 Months or Most Recently Relevant to Health Maintenance [facility] Care Teams Supervisor Slitting And Shipping Relationship Specialty Start Date End Date Margi Barnes MD [address] [place] [phone] PCP - General Internal Medicine 04/26/23
--- OUTSIDE RECORDS SUMMARY | 2025-05-18 13:45 | XMS_ITS | Encounter Summary ---
Author Organization [employer] Address [address] [place] [address] Care Team Providers Care Fuel System Maintenance Supervisor Name Role Phone Margi Barnes MD Primary Care Pro vider Reason for Visit * Reason Onset Date Comments Med Refill 11/26/2024 Encounter Details Date Type Department Care Team (Late st Contact Info) Description 11/26/2024 Refill [facility] [address] [place], [place] [phone] Nuria Holm, ANP [address] [place] [address] Class 3 severe obesity due to excess [...] documented as of this encounter Care Teams Fuel System Maintenance Supervisor Relationship Specialty Start Date End Date Margi Barnes MD [address] [place] [phone] PCP - General Internal Medicine 04/26/23 documented as of this encounter
--- OUTSIDE RECORDS SUMMARY | 2025-05-18 13:45 | XMS_ITS | Encounter Summary ---
Author Organization [employer] Address [address] [facility] [address] [place] [address] Care Team Providers Care Registrar [employer] Name Role Phone Mae Pierre CLEARANCE CUTTER Primary Care Provider Margi Jensen MD Primary Care Pro vider Reason for Visit * Reason Comments Med Refill Encounter Details Date Type Department Care Team (Late st Contact Info) Description 01/27/2023 Refill [facility] [address] [place] [address] Mae Pierre FNP Impetigo Social History Tobacco [...] Impetigo documented in this encounter Care Teams Registrar [employer] Relationship Specialty Start Date End Date Mae Pierre FNP PCP - General Family Medicine 05/16/21 04/25/23 Margi Barnes MD [address] [place] [phone] PCP - General Internal Medicine 04/26/23 documented as of this encounter
--- OUTSIDE RECORDS SUMMARY | 2025-05-18 13:46 | XMS_ITS | Encounter Summary ---
Author Organization [employer] Address [address] [place] [address] 7 [place] [address] Care Team Providers Care Tab Card Press Operator Name Role Phone Margi Barnes MD Primary Care Pro vider Reason for Visit * Reason Onset Date Comments Appointment Request 04/20/2025 Encounter Details Date Type Department Care Team ([facility] st Contact Info) Description 04/20/2025 Telephone [facility] MEDICINE [address] [place], [place] [phone] Margi Barnes MD [address] [place], [place] [phone] Appointment Request Social History Tobacco Use Types [...] reschedule missed PE apt Contact pt at [phone] documented in this encounter Plan of Treatment Not on file documented as of this encounter Visit Diagnoses Not on filedocumented in this encounter Additional Health Concerns Assessment Noted Time PHQ-9 Depression Total Score: 4 01/10/20 24 10:04 AM EDT documented as of this encounter Care Teams Tab Card Press Operator Relationship Specialty Start Date End Date Margi Barnes MD [address] [place] [id number] PCP - General Internal Medicine 04/26/23 documented as of this encounter
--- OUTSIDE RECORDS SUMMARY | 2025-05-18 13:46 | XMS_ITS | Encounter Summary ---
Author Organization [employer] Address [address] [place] [address] 7 [place] [address] Care Team Providers Care Finish Repairer Name Role Phone Mae Pierre Primary Care Provider Margi Jensen MD Primary Care Pro vider Reason for Visit * Reason Comments Med Refill Encounter Details Date Type Department Care Team ([facility] st Contact Info) Description 09/12/2022 Refill [facility] MEDICINE [address] [place], [place] [phone] Mae Pierre FNP COPD with acute exacerbation [...] (HCC) documented in this encounter Care Teams Finish Repairer Relationship Specialty Start Date End Date Mae Pierre FNP PCP - General Family Medicine 05/16/21 04/25/23 Margi Barnes MD [address] [place] [address] PCP - General Internal Medicine 04/26/23 documented as of this encounter
--- OUTSIDE RECORDS SUMMARY | 2025-05-18 13:46 | XMS_ITS | Encounter Summary ---
Author Organization [employer] Address [address] [facility] [address]t [place] [address] Care Team Providers Care Manager Machine Name Role Phone Margi Barnes MD Primary Care Pro vider Reason for Visit * Reason Comments Med Refill Encounter Details Date Type Department Care Team ([facility] st Contact Info) Description 10/23/2023 Refill [facility] [address] [place], [place] [phone] Margi Barnes MD [address] [place] [address] Other migraine without status migrainosus, not intractable [...] t he electric, gas, oil or water [employer] threatened to shut off services in your [...] as of this encounter Care Teams Manager Machine Relationship Specialty Start Date End Date Margi Barnes MD [address] [place] [id number] PCP - General Internal Medicine 04/26/23 documented as of this encounter
--- OUTSIDE RECORDS SUMMARY | 2025-05-18 13:46 | XMS_ITS | Encounter Summary ---
Author Organization [employer] Address [address] [facility] 7 [place] [address] Care Team Providers Care Cutter V Groove Name Role Phone Margi Barnes MD Primary Care Pro vider Encounter Details Date Type Department Care Team (Latest Contact Info) Description 04/20/2025 Results Follow-Up [facility] MEDICINE [address] [place] [phone] Margi Barnes MD [address] [place] [address] CBC auto differential, Comprehensive Metabolic Panel, Magnesium, [...] documented as of this encounter Care Teams Cutter V Groove Relationship Specialty Start Date End Date Margi Barnes MD [address] [place] [id number] PCP - General Internal Medicine 04/26/23 documented as of this encounter
== END 2025-05-18 11:00 | disposition home or self-care (01) ==
LOC: HO.US 10:59
PROVIDERS: PCP Student in an Organized Health Care Education/Training Program; Visit Provider Advanced Practice Midwife
DX: N83.201 Unspecified ovarian cyst, right side (principal)
CPT/HCPCS: 76830; 76856

== ENCOUNTER → 2025-05-18 11:00 | Outpatient (BNV) | payer MEDICAID, SELFPAY | PROVIDERS: PCP Student in an Organized Health Care Education/Training Program; Visit Provider Radiology Diagnostic Radiology | DX: N83.202 Unspecified ovarian cyst, left side (principal) | CPT/HCPCS: 76830; 76856 ==

== ENCOUNTER → 2025-06-01 10:29 | Outpatient (REF) | payer MEDICAID, SELFPAY ==
--- OUTSIDE RECORDS SUMMARY | 2025-06-01 12:17 | XMS_ITS | Encounter Summary ---
Author Organization [employer] Address [address] [place] [address] 7 [place] [address] Care Team Providers Care Custom Studio Coordinator Name Role Phone Margi Barnes MD Primary Care Pro vider Reason for Visit * Reason Comments Med Refill Encounter Details Date Type Department Care Team ([facility] st Contact Info) Description 05/28/2024 Refill [facility] MEDICINE [address] [place], [place] [phone] Margi Barnes MD [address] [place] [address] Hidradenitis suppurativa Social History Tobacco Use Types [...] Care Team (Late st Contact Info) Description 08/04/2025 10:45 AM EST Office Visit [facility] MEDICINE [address] [place] [phone] Margi Barnes MD [address] [place] [phone] documented as of this encounter Visit Diagnoses Diagnosis Hidradenitis suppurativa Hidradenitis documented in this encounter Additional Health Concerns Assessment Noted Time PHQ-9 Depression Total Score: 4 01/10/20 24 10:04 AM EDT documented as of this encounter Care Teams Custom Studio Coordinator Relationship Specialty Start Date End Date Margi Barnes MD [address] [place] [id number] PCP - General Internal Medicine 04/26/23 documented as of this encounter
--- OUTSIDE RECORDS SUMMARY | 2025-06-01 12:17 | XMS_ITS | Clinical Summary ---
Author Organization [employer] Address [address] [place] [address] 7[address] [place] [address] Care Team Providers Care Barrel Burner Name Role Phone Margi Barnes MD Primary [...] as directed with MDI 10/06/19 16 Active budesonide-formot tonio (Symbicort) 160-4.5 MCG/ACT inhalerIndication s:COPD with acute exacerbation (CMS/HCC) (HCC) PLEASE SEE ATTACHED FOR DETAILED DIRECTIONS 10.2 each 2 04/28/20 24 Active FLUoxetine (PROzac) 20 MG capsule TAKE 1 CAPSULE BY MOUTH EVERY DAY IN THE MORNING 30 capsule 5 06/11/20 24 Active Tirzepatide-Weigh t Management (Zepbound) 2.5 MG/0.5ML solution auto-injectorIndi cations:Class 3 severe obesity due to excess calories without serious comorbidity with body mass index (BMI) of 50.0 to 59.9 in adult (HCC) Inject 0.5 mL (2.5 mg) under the skin 1 (one) time per week. 2 mL 08/20/19 25 Active doxycycline (Adoxa) 100 MG tablet TAKE 1 TABLET BY MOUTH TWICE A DAY WITH FOOD & WATER. WEAR SUNSCREEN 08/14/19 25 Active clindamycin (Clindagel) 1 % gel APPLY TO TRUNK, EXTREMITIES, GROIN TWICE A DAY NEEDED FLARES 10/15/19 25 Active BENZAC AC WASH 10 % external wash APPLY TOPICALLY TO TRUNK, LEGS EVERY DAY AND RINSE 08/14/19 25 Active prednisoLONE acetate (Pred-Forte) 1 % ophthalmic suspension PLEASE SEE ATTACHED FOR DETAILED DIRECTIONS 10/02/19 25 Active lidocaine (Lidoderm) 5 % patch APPLY 1 PATCH TOPICALLY DAILY. REMOVE AND DISCARD PATCH WITHIN 12 HOURS OR DIRECTED BY MD. 30 patch 2 11/08/19 25 Active loratadine (Claritin) 10 MG tablet TAKE 1 TABLET BY MOUTH EVERY DAY IN THE MORNING 90 tablet 1 02/04/20 25 Active Ventolin HFA 108 (90 Base) MCG/ACT inhaler INHALE 1 PUFF EVERY 4 HOURS NEEDED FOR WHEEZE 18 g 2 03/05/20 25 Active topiramate 50 MG tabletIndications :Other migraine without status migrainosus, not intractable Take 1 tablet (50 mg) by mouth Once per day. 90 tablet 03/05/20 25 Active ibuprofen 800 MG tabletIndications :Lumbar disc disease with radiculopathy Take 1 tablet (800 mg) by mouth Once daily as needed for moderate pain. 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 F/u PRN Lumbar disc disease with radiculopathy [...] organization. Date Type Department Care Team Description 05/31/2025 Refill [facility] [address] [place] [phone] Margi Barnes MD Other migraine without status migrainosus, not intractable 05/24/2025 Refill [facility] [address] [place] [address] Margi Barnes MD Lumbar disc disease with radiculopathy 05/18/2025 Orders Only [facility] External Provider, [facility] 05/13/2025 Telephone [facility] [address] [place] [phone] Magri Barnes MD ana maría recall 05/08/2025 Results Follow-Up [facility] [address] [place], [place] [phone] Dodie Vilchis FNP TSH W/Reflex to FT4, FSH, Estradiol 04/22/2025 10:15 AM EDT Office Visit [address] [address] Dodie Vilchis FNP Palpitations (Primary Dx); Elevated blood pressure reading; Anxiety disorder, unspecified type 04/22/2025 Patient Outreach [facility] [address] [place] [phone] Margi Barnes MD Care Coordination (CHW outreach for [facility] housing search-referral completed ) 04/22/2025 Travel 04/21/2025 Travel 04/20/2025 Results Follow-Up [facility] [place] [address] Margi Barnes MD CBC auto differential, Comprehensive Metabolic Panel, Magnesium, High Sensitivity Troponin I 04/20/2025 Orders Only [facility] [place] [address] Margi Barnes MD Hidradenitis suppurativa (Primary Dx); Skin lesion 04/20/2025 Telephone [facility] [place] [address] Margi Barnes MD Referral 04/20/2025 Telephone [facility] [place] [address] Margi Barnes MD Appointment Request 04/20/2025 Telephone [facility] [place] [address] Margi Barnes MD ER Follow-up 04/20/2025 Refill [facility] [place] [address] Margi Barnes MD Lumbar disc disease with radiculopathy 04/18/2025 Orders Only GENERIC EXTERNAL DATA DEPARTMENT Provider, Generic External Data 04/03/2025 Telephone [facility] [place] [place] [address] Margi Barnes MD No Show (Pt no show no PE on 04/03/2025. No show letter mailed, recall set.) 03/27/2025 Travel 03/27/2025 Patient Outreach [facility] [place] [address] Margi Barnes MD Pre-visit Planning (Pre-visit planning - LVM ) 03/20/2025 Refill [facility] [address] [place] [phone] Margi Barnes MD Lumbar disc disease with radiculopathy 03/04/2025 Refill [facility] [address] [place] [address] Chitra Garcia MD Other migraine without status migrainosus, not intractable 03/04/2025 Refill [facility] [address] [place] [address] Margi Barnes MD Other migraine without status migrainosus, not intractable from Last 3 Months Immunizations Immunization Administration [...] 04/22/2025 11:05 AM EDT Plan of Treatment Upcoming Encounters Date Type Department Care Team (Late st Contact Info) Description 08/04/2025 10:45 AM EST Office Visit [facility] [address] [place] [address] Margi Barnes MD [address] [place] [phone] Health Maintenance Due Date Last Done Comments [...] Procedure Name Priority Date/Time Associated Diagnosis Comments US PELVIS TRANSVAGINAL Routine 11:48 PM EDT ESTRADIOL Routine 04/27/2025 2:14 PM EDT Palpitations [...] AUTO DIFFERENTIAL Routine 04/18/2025 1:42 PM EDT BI MAMMOGRAM SCREENING TOMOSYNTHESIS BILATERAL Routine [...] Recently Relevant to Health Maintenance Results * US Pelvis Transvaginal (05/18/2025 11:48 PM EDT) Anatomical Region Laterality Modality Pelvis Ultrasound 05/18/2025 11:4 8 PM EDT Narrative 05/18/2025 11:50 PM EDT [place] [address] Ultrasound Report Signed Patient: Lorena Phelps MR#: [id number] : 1980 Acct:[id number] Age/Sex: 45 / F ADM Date: 05/18/25 Loc: HO. Attending Dr: Celeste Romo CNM Ordering Physician: Celeste Romo CNM Date of Service: 05/18/25 Procedure(s): US pelvic and transvaginal Accession Number(s): [id number] cc: Celeste Romo CNM; Margi Barnes MD Reason for Exam: N83.201 - Unspecified ovarian cyst, right side CLINICAL HISTORY: N83.201 - Unspecified ovarian cyst, right side Transabdominal and transvaginal pelvic ultrasound Comparison: 02/13/2025 Findings: Study limited by patient body habitus. Uterus 10.8 x 4.8 x 6.2 cm. Endometrium 1 cm. IUD grossly unremarkable. No free fluid in cul-de-sac. Right ovary 2.4 x 3.0 x 2.4 cm. No significant abnormality. Left ovary 4.3 x 3.4 x 2.9 cm. 2.6 cm simple cyst. Impression: 2.6 cm simple cyst left ovary This document has been electronically signed by: René Longo MD on 05/18/2025 23:48:42 Dictated By: René Longo MD Signed By: <Electronically signed by René Longo MD in OV> 05/18/250 DD/ 47 TD/TT: 05/18/252347 Medical Territory Manager: Procedure Note Donotuseinterpreter, Image - 05/18/2025 [place] [address] Ultrasound Report Signed Patient: Lorena Phelps LMR#: [id number] : 1980Acct:[id number] Age/Sex: 45 / FADM Date: 05/18/25 Loc: HO.US Attending Dr: Celeste Romo CNM Ordering Physician: Celeste Romo CNM Date of Service: 05/18/25 Procedure(s): US pelvic and transvaginal Accession Number(s): [id number] cc: Celeste Romo CNM; Margi Barnes MD Reason for Exam: N83.201 - Unspecified ovarian cyst, right side CLINICAL HISTORY: N83.201 - Unspecified ovarian cyst, right side Transabdominal and transvaginal pelvic ultrasound Comparison: 02/13/2025 Findings: Study limited by patient body habitus. Uterus 10.8 x 4.8 x 6.2 cm. Endometrium 1 cm. IUD grossly unremarkable. No free fluid in cul-de-sac. Right ovary 2.4 x 3.0 x 2.4 cm. No significant abnormality. Left ovary 4.3 x 3.4 x 2.9 cm. 2.6 cm simple cyst. Impression: 2.6 cm simple cyst left ovary This document has been electronically signed by: René Longo MD on 05/18/2025 23:48:42 Dictated By: René Longo MD Signed By: <Electronically signed by René Longo MD in OV> 05/18/250 DD/ 47 TD/TT: 05/18/252347 Medical Territory Manager: us [facility] External Provider IMG US PROCEDURES Final Result * TSH W/Reflex to FT4 (04/27/2025 2:14 PM EDT) TSH reflex Free T4 1.70 0.32 - 4.0 uIU/mL [facility] Blood Venous blood specimen / Unknown 04/27/2025 2:14 PM EDT 04/27/2025 4:07 PM EDT Dodie Vilchis TABLE GAMES SHIFT MANAGER LAB BLOOD ORDERABLES Final Res ult [facility] [address] [place] [phone] * Estradiol (04/27/2025 2:14 PM EDT) Estradiol Ultra Sensitive 88 pg/mL [facility] Comment:Female Reference Ran ges for Estradiol, Ultrasensitive (pg/mL): Follicular Phase: 39-375 Luteal Phase: 48-440 Postmenopausal Phase: < or = 10This test was developed and its analytical performancecharacteristics have been determined by [employer].It has not been cleared or approved by the FDA. This assayhas been validated pursuant to the CLIA regulations and isused for clinical purposes.THIS TEST WAS PERFORMED AT:[facility] [id number] [place] [address]LZOMASYDNEY ZIMMER MD,PHD,LAURENT Blood Venous blood specimen / Unknown 04/27/2025 2:14 PM EDT 04/27/2025 4:07 PM EDT Dodie Vilchis [facility] LAB BLOOD ORDERABLES Final Res ult Performing Organization Address [facility] de Phone Number [facility] [address] [place] [phone] * FSH (04/27/2025 2:14 PM EDT) Pathologist [facility] Follicle Stimulating Hormone 9.9 mIU/mL [facility] Comment:Reference Range Foll icular Phase 2.5-10.2 Mid-cycle Peak 3.1-17.7 Luteal Phase 1.5- 9.1 Postmenopausal 23.0-116.3THIS TEST WAS PERFORMED AT:[id number] [place] [id number] TUCKER MD Blood Venous blood specimen / Unknown 04/27/2025 2:14 PM EDT 04/27/2025 4:07 PM EDT Dodie Vilchis [facility] LAB BLOOD ORDERABLES Final Res ult Performing Organization Address [facility] Number [facility] [address] [place] [phone] * (ABNORMAL) Basic Metabolic Panel (04/27/2025 2:14 PM EDT) Pathologist [facility] Sodium 136 135 - 145 mmol/L [facility] Potassium 4.3 3.3 - 5.1 mmol/L [facility] Chloride 101 96 - 108 mmol/L [facility] Carbon Dioxide 32(H) 22 - 29 mmol/L [facility] Anion Gap 7(L) 12 - 20 [facility] Urea Nitrogen (BUN) 10 9 - 16 mg/dL [facility] Creatinine, Serum 0.81 0.5 - 1.4 mg/dL [facility] Estimated Glomerular Filt Rate >60 [facility] Comment:Chronic Kidney Disea se: Estimated GFR < 60 mL/min/1.87k9Trxpha Kidney Disease: Estimated GFR < 15 mL/min/1.73m2 Glucose 151(H) 60 - 115 mg/dL [facility] Calcium 9.2 8.4 - 10.2 mg/dL [facility] Blood Venous blood specimen / Unknown 04/27/2025 2:14 PM EDT 04/27/2025 4:07 PM EDT us Gonzalez Rosa MD LAB BLOOD ORDERABLES Final Result Performing Organization Address City/State/[facility] Co de Phone Number [facility] [address] [place] [phone] * XR Chest 2 Views (04/18/2025 4:53 PM EDT) Anatomical Region Laterality Modality Chest Radiographic Roopa ging 04/18/2025 4:53 PM EDT Narrative 04/18/2025 4:54 PM EDT [address] [address] XRay Report Signed Patient: Lorena Phelps MR#: [id number] : 1980 Acct:[id number] Age/Sex: 45 / F ADM Date: 04/18/25 Loc: .ED Attending Dr: Ordering Physician: Angela Faulkner NP Date of Service: 04/18/25 Procedure(s): XR chest 2V Accession Number(s): [id number] cc: Angela Faulkner NP; Margi Barnes MD [...] in OV> 04/18/251653 DD/ 52 TD/TT: 04/18/251652 Medical Territory Manager: Procedure Note Donottrevorter, Image - 04/18/[address] [address] XRay Report Signed Patient: Lorena Phelps LMR#: [id number] : 1980Acct:[id number] Age/Sex: 45 / FADM Date: 04/18/25 Loc: .ED Attending Dr: Ordering Physician: Angela Faulkner NP Date of Service: 04/18/25 Procedure(s): XR chest 2V Accession Number(s): [id number] cc: Angela Faulkner NP; Margi Barnes MD [...] in OV> 04/18/251653 DD/ 52 TD/TT: 04/18/251652 Medical Territory Manager: [facility] External Provider IMG XR PROCEDURES Edited Result - Final * High Sensitivity Troponin I (04/18/2025 1:42 PM EDT) TROPONIN I HIGH SENSITIVITY <2.7 <3.5 - 17.0 ng/L [facility] Comment:The Buck high sens itivity Troponin-I results should beused in conjunction with other diagnostic information suchas ECG, clinical observations and information, and patientsymptoms to aid in the diagnosis of ME. 04/18/2025 1:42 PM EDT 04/18/2025 2:08 PM EDT us Generic External Data Provider LAB BLOOD ORDERAB LES Final Result [facility] [address], [place] [phone] * (ABNORMAL) CBC auto differential (04/18/2025 1:42 PM EDT) White Blood Count 14.3(H) 4.8 - 10.8 X10*3/uL [facility] Red Blood Count 4.07(L) 4.20 - 5.50 X10*6/uL [facility] Hemoglobin 12.7 12.0 - 16.0 g/dl [facility] Hematocrit 37.4 37.0 - 47.0 % [facility] Mean Corpuscular Volume 91.9 80.0 - 98.0 fL [facility] Mean Corpuscular Hemoglobin 31.2 27.0 - 33.0 pg [facility] Mean Corpuscular HGB Conc 34.0 31.0 - 35.0 g/dl [facility] Red Cell Distribution Width 13.1 11.0 - 16.0 % [facility] Platelet Count 320 160 - 400 X10*3/uL [facility] Mean Platelet Volume 9.1(L) 9.4 - 12.3 fL [facility] Neutrophils Percent Auto 74.0(H) 45 - 73 % [facility] Imm Gran Pct Auto 0.6(H) 0.0 - 0.4 % [facility] Lymphocytes Percent Auto 20.4 20 - 40 % [facility] Monocytes Percent Auto 4.6 2 - 11 % [facility] Eosinophils Percent Auto 0.1 0 - 4 % [facility] Basophils Percent Auto 0.3 0 - 2 % [facility] NRBC Pct Auto 0.0 0.0 - 0.2 /100WBC [facility] Neutrophils Absolute Auto 10.6(H) 2.0 - 8.3 x10*3/uL [facility] Imm Gran Abs Auto 0.08(H) 0.00 - 0.03 X10*3/uL [facility] Lymphocytes Absolute Auto 2.9 1.2 - 4.9 X10*3/uL [facility] Monocytes Absolute Auto 0.7 0.1 - 1.2 X10*3/uL [facility] Eosinophils Absolute Auto 0.0 0.0 - 0.4 X10*3/uL [facility] Basophils Absolute Auto 0.0 0.0 - 0.2 X10*3/uL [facility] NRBC Abs Auto 0.000 0.0 - 0.012 X10*3/uL [facility] 04/18/2025 1:42 PM EDT 04/18/2025 2:08 PM EDT Generic External Data Provider LAB BLOOD ORDERAB LES Final Result Performing Organization Address [facility]/ZIP Co de Phone Number [facility] [address] [place] [phone] * Magnesium (04/18/2025 1:42 PM EDT) Pathologist [facility] Magnesium 2.5 1.6 - 2.6 mg/dL [facility] 04/18/2025 1:42 PM EDT 04/18/2025 2:08 PM EDT Generic External Data Provider LAB BLOOD ORDERAB LES Final Result Performing Organization Address [facility] de Phone Number [facility] [address] [place] [phone] * (ABNORMAL) Comprehensive Metabolic Panel (04/18/2025 1:42 PM EDT) Sodium 138 135 - 145 mmol/L [facility] Potassium 4.3 3.3 - 5.1 mmol/L [facility] Chloride 104 96 - 108 mmol/L [facility] Carbon Dioxide 27 22 - 29 mmol/L [facility] Anion Gap 11(L) 12 - 20 [facility] Urea Nitrogen (BUN) 11 9 - 16 mg/dL [facility] Creatinine, Serum 0.77 0.5 - 1.4 mg/dL [facility] Creatinine Clr Calc Pharmacy 131.6 [facility] Comment:Provided height and weight: 160.02 cm,149.685 kg.eGFR (calculated from the MDRD study equation) and eCrCl(calculated from the Cockcroft-Gault equation) are based ondifferent parameters and may not yield comparable results.If eCrCl result is absurd, please check patient'sheight/weight. Estimated Glomerular Filt Rate >60 [facility] Comment:Chronic Kidney Disea se: Estimated GFR < 60 mL/min/1.81b3Zyxqfp Kidney Disease: Estimated GFR < 15 mL/min/1.73m2 Glucose 147(H) 60 - 115 mg/dL [facility] Calcium 9.0 8.4 - 10.2 mg/dL [facility] Bilirubin, Total 0.5 0.0 - 1.0 mg/dL [facility] Aspartate Amino Transferase 39(H) 5 - 31 U/L [facility] Alanine Aminotransferase 33(H) 0 - 31 U/L [facility] Total Protein 7.3 6.5 - 8.0 g/dL [facility] Albumin Level 4.3 3.5 - 5.0 g/dL [facility] Alkaline Phosphatase 64 39 - 117 U/L [facility] 04/18/2025 1:42 PM EDT 04/18/2025 2:08 PM EDT us Generic External Data Provider LAB BLOOD ORDERAB LES Final Result [facility] [address] [place] [phone] * BI Mammogram Screening Tomosynthesis Bilateral (02/18/2025 2:00 PM EDT) Anatomical Region Laterality Modality Breast Bilateral Mammography 02/18/2025 2:00 PM EDT Narrative 03/02/2025 10:44 AM EDT [address] [place] [address] Mammography Report Signed Patient: Lorena Phelps MR#: [id number] : 1980 Acct:[id number] Age/Sex: 45 / F ADM Date: 02/18/25 Loc: HO.MAMMO Attending Dr: Margi Wal[place] MD Ordering Physician: Margi Barnes MD Re sults: 1Negative Date of Service: 02/18/25 Follow Up: 1 Year From Orig inal Mammogram Procedure(s): MM tomosynthesis screening BI Accession Number(s): [id number] cc: Margi Barnes MD EXAMINATION: MM SCREENING [...] 03/02/25 1041 DD/ 1400 TD/TT: 02/18/25 1420 Medical Territory Manager: Procedure Note Donotuseinterpreter, Image - 03/02/[address] [place] [address] Mammography Report Signed Patient: Lorena Phelps LMR#: [id number] : 1980Acct:[id number] Age/Sex: 45 / FADM Date: 02/18/25 Loc: HO.MAMMO Attending Dr: Margi [place] MD Ordering Physician: Margi Barnes sults: 1Negative Date of Service: 02/18/25Follow Up: 1 Year From Orig inal Mammogram Procedure(s): MM tomosynthesis screening BI Accession Number(s): [id number] cc: Margi Barnes MD EXAMINATION: MM SCREENING [...] 03/02/25 1041 DD/ 1400 TD/TT: 02/18/25 1420 Medical Territory Manager: Margi Walters MD IMG BI PROCEDURES Final Result * (ABNORMAL) Hepatitis C Antibody with Reflex to HCV, RNA, Quantitative, Real- Time PCR (02/18/2024 1:40 PM EDT) Hepatitis C Antibody Reactive( A) Nonreactive [facility] Comment:Presumptive evidence of antibodies to HCV. Blood Venous blood specimen / Unknown 02/18/2024 1:40 PM EDT 02/18/2024 3:57 PM EDT us Margi Walters MD LAB BLOOD ORDERAB LES Final Result Performing Organization Address [facility]/ZIP Co de Phone Number [facility] [address] [place] [phone] * HIV-1/2 Antigen and Antibodies, Fourth Generation, with Reflexes (02/18/2024 1:40 PM EDT) HIV AB/AG Nonreactive Nonreactive [facility] Comment:HIV-1 p24 Ag and/or HIV-1/HIV-2 Ab not detected.A test result that is nonreactive does not exclude thepossibility of exposure to or infection with HIV-1 and/orHIV-2. Nonreactive results in this assay for individualswith prior exposure to HIV-1 and/or HIV-2 may be due toantigen and antibody levels that are below the limit ofdetection of this assay.The [employer] HIV Ag/Ab Combo assay result andsupplemental assay results should be interpreted inconjunction with the patient's clinical presentation,history and other laboratory results. If the results areinconsistent with clinical evidence, additional testing issuggested to confirm the result. Blood Venous blood specimen / Unknown 02/18/2024 1:40 PM EDT 02/18/2024 3:57 PM EDT us Margi Waltesr MD LAB BLOOD ORDERAB LES Final Result Performing Organization Address [facility]/ZIP Co de Phone Number [facility] [address] [place] [phone] * (ABNORMAL) Hemoglobin A1c (02/18/2024 1:40 PM EDT) Hemoglobin A1c 6.1(H) <6.0 % [facility] Comment:Hemoglobin A1C Refer ence Range Adults: 4.8 - 6.0 % Non diabetic: < 6.0 % Goal: < 7.0 %Additional Action Suggested: > 8.0 %Note: Hemoglobin A1c results are invalid for patients with abnormal amounts of HbF. Blood transfusions may impact the HbA1c concentration in the patient sample. Estimated Average Glucose 128 mg/dL [facility] Comment:eAG = Estimated ave rage glucose which is %A1C expressed asaverage glucose, using the formula of the M9J-QgyiuczBczftti Glucose study (ADAG), Diabetes Care, Vol.31,#8,Feb. 2007 Blood Venous blood specimen / Unknown 02/18/2024 1:40 PM EDT 02/18/2024 3:57 PM EDT Margi Walters MD LAB BLOOD ORDERAB LES Final Result [facility] [address] [place] [phone] * (ABNORMAL) Lipid Panel, Standard (02/18/2024 1:40 PM EDT) Triglycerides 115 <150 mg/dL [facility] Comment:Desirable Triglyceri de: less than 150 mg/dLBorderline High Triglyceride 150-199 mg/dLHigh Triglyceride: 200-499 mg/dLVery High Triglyceride: greater than or equal to 5OO mg/dL Cholesterol 189 <200 mg/dL [facility] Comment:Desirable Cholestero l: less than 200 mg/dLBorderline High Cholesterol: 200-239 mg/dLHigh Cholesterol: greater than 239 mg/dL LDL Cholesterol Calculated 132(H) <100 mg/dL [facility] Comment:Desirable LDL: less than 100 mg/dLNear Optimal/Above Optimal LDL: 110- 129 mg/dLBorderline High LDL: 130-159 mg/dLHigh LDL: 160-189 mg/dLVery High LDL: greater than or equal to 190 mg/dL HDL Cholesterol 34(L) >40 mg/dL [facility] Comment:Desirable HDL: great er than 40 mg/dL Note: This HDL assay may give artificially low results in patients with liver disease. Blood Venous blood specimen / Unknown 02/18/2024 1:40 PM EDT 02/18/2024 3:57 PM EDT us Margi Walters MD LAB BLOOD ORDERAB LES Final Result [facility] [address] [place] [phone] * HPV E6/E7 RFLX PATTI 16 18/45 (04/05/2022 3:16 PM EDT) HPV 16 RNA [facility] HPV 18/45 RNA [facility] HPV E6 E7 ADD [facility] HPV mRNA E6/E7 rflx Not Detected Not Detected [facility] Comment: Methodology: Hospital Housekeeper-Mediated Amplification This assay detects E6/E7 viral messenger RNA (mRNA) from 14 high-risk HPV types (16,18,31,33,35,39,45,51,52,56,58,59,66,68). Cervical sources are required for HPV testing. If a vaginal source from a patient who has had a total hysterectomy with removal of cervix was submitted, please contact the testing laboratory for alternative testing options. For additional information, please refer to http://education.Züm XR/faq/RMP054i9 (This link if provided for information/ educational purposes only.) THIS TEST WAS PERFORMED AT: [facility] [address] [place] [address],[place] [address] BRICE TUCKER MD 04/05/2022 3:16 PM EDT us Celeste Romo HISTORICAL/NON ORDERABLE LABS Fi nal Result [facility] [address] from Last 3 Months or Most Recently Relevant to Health Maintenance Insurance [facility] C3 Care Teams Barrel Burner Relationship Specialty Start Date End Date Margi Barnes MD [address] [place] [address] PCP - General Internal Medicine 04/26/23
--- OUTSIDE RECORDS SUMMARY | 2025-06-01 12:17 | XMS_ITS | Encounter Summary ---
Author Organization [employer] Address [address] [facility] 7t [place] [address] Care Team Providers Care Circulating Process Inspector Name Role Phone Mae Pierre SEX OFFENDER TREATMENT PROFESSIONAL Primary Care Provider Margi Jensen MD Primary Care Pro vider Reason for Visit * Reason Comments Med Refill Encounter Details Date Type Department Care Team (Late st Contact Info) Description 01/27/2023 Refill [facility] MEDICINE [address] [place] [address] Mae Pierre FNP Impetigo Social History Tobacco [...] Description 08/04/2025 10:45 AM EST Office Visit [facility] MEDICINE [address] [place] [address] Margi Barnes MD 230 [place] [address] documented as of this encounter Visit Diagnoses Diagnosis Impetigo documented in this encounter Care Teams Circulating Process Inspector Relationship Specialty Start Date End Date Mae Pierre FNP PCP - General Family Medicine 05/16/21 04/25/23 Margi Barnes MD 230 [place] [address] PCP - General Internal Medicine 04/26/23 documented as of this encounter
--- OUTSIDE RECORDS SUMMARY | 2025-06-01 12:17 | XMS_ITS | Encounter Summary ---
Author Organization [employer] Address [address] [facility] [address] 7t [place] [address] Care Team Providers Care Utilization Management Nurse Name Role Phone Margi Barnes MD Primary Care Pro vider Encounter Details Date Type Department Care Team ([facility] Contact Info) Description 05/08/2025 Results Follow-Up [facility] MED & PEDS [address] [place], [place] [phone] Dodie Vilchis, SUSIE [address] [place] [address] TSH W/Reflex to FT4, FSH, Estradiol Social [...] encounter Miscellaneous Notes * Telephone Encounter - Stacy Choi RN - 05/22/2025 9:08 AM EDT TC to [facility] cardiology office [phone]. They stated they do not have a referral from our office for this patient to have a Holter placed. Will route to referral to send new referral. [facility] Cardiology fax: [phone] documented in this encounter Plan of Treatment Upcoming Encounters Date Type Department Care Team (Late st Contact Info) Description 08/04/2025 10:45 AM EST Office Visit [facility] MEDICINE [address] [place] [address] Margi Barnes MD 230 [place] [address] documented as of this encounter Visit Diagnoses Not on filedocumented in this encounter Additional Health Concerns Assessment Noted Time PHQ-9 Depression Total Score: 7 04/22/20 25 10:26 AM EDT documented as of this encounter Care Teams Utilization Management Nurse Relationship Specialty Start Date End Date Margi Barnes MD [address] [place] [address] PCP - General Internal Medicine 04/26/23 documented as of this encounter
--- OUTSIDE RECORDS SUMMARY | 2025-06-01 12:17 | XMS_ITS | Encounter Summary ---
Author Organization [employer] Address [address] [place] [address] 7 [place] [address] Care Team Providers Care Ecommerce Analyst Name Role Phone Margi Barnes MD Primary Care Pro vider Reason for Visit * Reason Onset Date Comments Med Refill 04/27/2024 Encounter Details Date Type Department Care Team (Late st Contact Info) Description 04/27/2024 Refill [facility] MEDICINE 230 [place], [place] [phone] Margi Barnes MD 230 [place] [address] COPD with acute exacerbation (CMS/HCC); Lumbar disc [...] Description 08/04/2025 10:45 AM EST Office Visit [facility] MEDICINE [address] [place] [phone] Margi Barnes MD [address] [place] [address] documented as of this encounter Visit Diagnoses Diagnosis COPD with acute exacerbation (CMS/HCC) (HCC) Lumbar disc disease with radiculopathy documented in this encounter Additional Health Concerns Assessment Noted Time PHQ-9 Depression Total Score: 4 01/10/20 24 10:04 AM EDT documented as of this encounter Care Teams Ecommerce Analyst Relationship Specialty Start Date End Date Margi Barnes MD [address] [place] [address] PCP - General Internal Medicine 04/26/23 documented as of this encounter
--- OUTSIDE RECORDS SUMMARY | 2025-06-01 12:17 | XMS_ITS | Encounter Summary ---
Author Organization [employer] Address [address] [facility] [address] 7t [place] [address] Care Team Providers Care Director Property Name Role Phone Margi Barnes MD Primary Care Pro vider Reason for Visit * Reason Onset Date Comments Med Refill 11/26/2024 Encounter Details Date Type Department Care Team (Late st Contact Info) Description 11/26/2024 Refill [facility] MEDICINE 230 [place], [place] [phone] Nuria Holm, ANP 230 [place] [address] Class 3 severe obesity due to excess [...] Description 08/04/2025 10:45 AM EST Office Visit [facility] MEDICINE [address] [place] [phone] Margi Barnes MD [address] [place] [address] documented as of this encounter Visit Diagnoses Diagnosis Class 3 severe obesity due to excess calories without serious comorbidity with body mass index (BMI) of 50.0 to 59.9 in adult (HCC) documented in this encounter Additional Health Concerns Assessment Noted Time PHQ-9 Depression Total Score: 4 01/10/20 24 10:04 AM EDT documented as of this encounter Care Teams Director Property Relationship Specialty Start Date End Date Margi Barnes MD [address] [place] [address] PCP - General Internal Medicine 04/26/23 documented as of this encounter
--- OUTSIDE RECORDS SUMMARY | 2025-06-01 12:17 | XMS_ITS | Encounter Summary ---
Author Organization [employer] Address [address] [facility] [address] 7t [place] [address] Care Team Providers Care Etl Analyst Name Role Phone Margi Barnes MD Primary Care Pro vider Reason for Visit * Reason Onset Date Comments Med Refill 11/06/2024 Encounter Details Date Type Department Care Team ([facility] st Contact Info) Description 11/06/2024 Refill [facility] MEDICINE 230 [place], [place] [phone] Nuria Holm, ANP 230 [place] [address] Class 3 severe obesity due to excess [...] 10:45 AM EST Office Visit [facility] MEDICINE [address] [place] [address] Margi Barnes MD [address] [place] [address] documented as of this encounter Visit Diagnoses Diagnosis Class 3 severe obesity due to excess calories without serious comorbidity with body mass index (BMI) of 50.0 to 59.9 in adult (HCC) documented in this encounter Additional Health Concerns Assessment Noted Time PHQ-9 Depression Total Score: 4 01/10/20 24 10:04 AM EDT documented as of this encounter Care Teams Etl Analyst Relationship Specialty Start Date End Date Margi Barnes MD [address] [place] [address] PCP - General Internal Medicine 04/26/23 documented as of this encounter
--- OUTSIDE RECORDS SUMMARY | 2025-06-01 12:17 | XMS_ITS | Encounter Summary ---
Author Organization [employer] Address [address] [place] [address] 7 [place] [address] Care Team Providers Care Gameplay Engineer Name Role Phone Margi Barnes MD Primary Care Pro vider Reason for Visit * Reason Onset Date Comments Appointment Request 01/06/2025 Encounter Details Date Type Department Care Team ([facility] Contact Info) Description 01/06/2025 Telephone [facility] MEDICINE 230 [place], [place] [phone] Margi Barnes MD 230 [place], [place] [phone] Appointment Request Social History Tobacco Use Types [...] complete) Patient requests a call back at [phone]. documented in this encounter Plan of Treatment Upcoming Encounters Date Type Department Care Team (Late st Contact Info) Description 08/04/2025 10:45 AM EST Office Visit [facility] MEDICINE 230 [place] [address] Margi Barnes MD 230 [place], [place] [phone] documented as of this encounter Visit Diagnoses Not on filedocumented in this encounter Additional Health Concerns Assessment Noted Time PHQ-9 Depression Total Score: 4 01/10/20 24 10:04 AM EDT documented as of this encounter Care Teams Gameplay Engineer Relationship Specialty Start Date End Date Margi Barnes MD [address] [place] [phone] PCP - General Internal Medicine 04/26/23 documented as of this encounter
--- OUTSIDE RECORDS SUMMARY | 2025-06-01 12:17 | XMS_ITS | Encounter Summary ---
Author Organization [employer] Address [address] [facility] [address] 7t [place] [address] Care Team Providers Care Client Engagement Specialist Name Role Phone Margi Barnes MD Primary Care Pro vider Reason for Visit * Reason Comments Med Refill Encounter Details Date Type Department Care Team ([facility] st Contact Info) Description 11/06/2024 Refill [facility] MED & PEDS [address] [place], [place] [phone] Ting Kevin NP 230 [place] [address] Lumbar disc disease with radiculopathy Social History [...] Description 08/04/2025 10:45 AM EST Office Visit [facility] MEDICINE [address] [place] [phone] Margi Barnes MD [address] [place] [address] documented as of this encounter Visit Diagnoses Diagnosis Lumbar disc disease with radiculopathy documented in this encounter Additional Health Concerns Assessment Noted Time PHQ-9 Depression Total Score: 4 01/10/20 24 10:04 AM EDT documented as of this encounter Care Teams Client Engagement Specialist Relationship Specialty Start Date End Date Margi Barnes MD [address] [place] [address] PCP - General Internal Medicine 04/26/23 documented as of this encounter
--- OUTSIDE RECORDS SUMMARY | 2025-06-01 12:17 | XMS_ITS | Encounter Summary ---
Author Organization [employer] Address [address] [facility] 7 [place] [address] Care Team Providers Care Network Operations Technician Name Role Phone Margi Barnes MD Primary Care Pro vider Reason for Visit * Reason Comments Med Refill Encounter Details Date Type Department Care Team ([facility] st Contact Info) Description 05/24/2025 Refill [facility] MEDICINE 230 [place], [place] [phone] Margi Barnes MD 230 [place] [address] Lumbar disc disease with radiculopathy Social History [...] Description 08/04/2025 10:45 AM EST Office Visit [facility] MEDICINE [address] [place] [address] Margi Barnes MD [address] [place] [address] documented as of this encounter Visit Diagnoses Diagnosis Lumbar disc disease with radiculopathy documented in this encounter Additional Health Concerns Assessment Noted Time PHQ-9 Depression Total Score: 7 04/22/20 25 10:26 AM EDT documented as of this encounter Care Teams Network Operations Technician Relationship Specialty Start Date End Date Margi Barnes MD [address] [place] [address] PCP - General Internal Medicine 04/26/23 documented as of this encounter
--- OUTSIDE RECORDS SUMMARY | 2025-06-01 12:17 | XMS_ITS | Encounter Summary ---
Author Organization [employer] Address [address] [facility] 7 [place] [address] Care Team Providers Care Medical Anthropologist Name Role Phone Margi Barnes MD Primary Care Pro vider Encounter Details Date Type Department Care Team (Latest Contact Info) Description 04/20/2025 Results Follow-Up [facility] MEDICINE [address] [place] [address] Margi Barnes MD 230 [place] [address] CBC auto differential, Comprehensive Metabolic Panel, Magnesium, [...] Description 08/04/2025 10:45 AM EST Office Visit [facility] MEDICINE [address] [place] [address] Margi Barnes MD [address] [place] [address] documented as of this encounter Visit Diagnoses Not on filedocumented in this encounter Additional Health Concerns Assessment Noted Time PHQ-9 Depression Total Score: 4 01/10/20 24 10:04 AM EDT documented as of this encounter Care Teams Medical Anthropologist Relationship Specialty Start Date End Date Margi Barnes MD [address] [place] [address] PCP - General Internal Medicine 04/26/23 documented as of this encounter
--- OUTSIDE RECORDS SUMMARY | 2025-06-01 12:17 | XMS_ITS | Clinical Summary ---
Author Organization [facility] Address [address] [place] [address] Care Team Providers Care Clip Coater Name Role Phone Unavailable Primary Care Provider Unavailabl e Source Comments PLEASE NOTE, if this patient is a minor, it may be UNLAWFUL to discuss sensitive information that is contained in these records (such as FAMILY PLANNING, MENTAL HEALTH or SUBSTANCE ABUSE) with the minor patient's parent or other person without the patient's specific authorization.[facility] Social History Tobacco Use Types Packs/Day Years Used Date Smoking Tobacco: Never Assessed Comments Unknown Sex and Gender Information Value Date Recorded Sex Assigned at Female 05/25/2025 7:32 AM PST Legal Sex Female 7:32 AM PST Gender Identity Female 05/25/2025 7:32 AM PST Sexual Orientation Not on file Plan of Treatment Upcoming Encounters Date Type Department Care Team (Late st Contact Info) Description 07/21/2025 1:00 PM EST Behavioral Health Visit [facility] [address] [place] [phone] Andressa Ramirez APRN [address] [place] [address] Health Maintenance Due Date Last Done Comments Anxiety Screening 1979 HPV Screening (self-collect) 1979 HPV Screening 1979 Pap + HPV 1979 Tobacco Screening 1979 Relationship Safety Screening/Counseling 1994 Hypertension Screening (#1) 1997 Cervical Cancer Screening 01/15/2000 Pap Smear 01/15/2000 Breast Cancer Screening (Mammogram) 2019 CT Colonography 01/15/2024 Colonoscopy 01/15/2024 Colorectal Cancer Screening 01/15/2024 FIT/gFOBT 01/15/2024 Fecal DNA 01/15/2024 Flexible Sigmoidoscopy 01/15/2024 Alcohol and Drug Screen 07/23/2024 Depression Annual Screen 07/23/2024 [id number] ( season) 2025 021, 11/18/2020 Imm-Influenza (#1) 2025 06/04/2019, 1 08/26/2012, 05/14/2012, Additional history exists Diabetes Screening 04/27/2028 04/27/2025, 0 04/18/2025, 02/18/2024, Additional history exists Lipid Screening 02/17/2029 02/18/2024 Imm-DTaP/Tdap/Td (3 - Td or Tdap) 10/01/2031 022, 07/05/2010 HIV Screening Completed 02/18/2024, 02/18/2024 Hepatitis C Screening Completed 02/18/2024 Imm-Hepatitis B Completed 08/18/2024, 02/21, 02/19/2024, Additional history exists Cervical Ablation/Cold-Knife Conization Discontinued Cervical Cryotherapy Discontinued Colposcopy Discontinued Excision/Leep Discontinued HPV Genotyping Discontinued Vaginal Pap Discontinued Vulvoscopy Discontinued Insurance [facility]
--- OUTSIDE RECORDS SUMMARY | 2025-06-01 12:17 | XMS_ITS | Encounter Summary ---
Author Organization [employer] Address [address] [place] [address] 7 [place] [address] Care Team Providers Care Bank Sales And Service Manager Name Role Phone Margi Barnes MD Primary Care Pro vider Reason for Visit * Reason Comments Med Refill Encounter Details Date Type Department Care Team ([facility] st Contact Info) Description 05/31/2025 Refill [facility] MEDICINE 230 [place], [place] [phone] Margi Barnes MD 230 [place], [place] [phone] Other migraine without status migrainosus, not intractable [...] Description 08/04/2025 10:45 AM EST Office Visit [facility] MEDICINE [address] [place] [address] Margi Barnes MD [address] [place] [address] documented as of this encounter Visit Diagnoses Diagnosis Other migraine without status migrainosus, not intractable documented in this encounter Additional Health Concerns Assessment Noted Time PHQ-9 Depression Total Score: 7 04/22/20 25 10:26 AM EDT documented as of this encounter Care Teams Bank Sales And Service Manager Relationship Specialty Start Date End Date Margi Barnes MD [address] [place] [address] PCP - General Internal Medicine 04/26/23 documented as of this encounter
--- OUTSIDE RECORDS SUMMARY | 2025-06-01 12:17 | XMS_ITS | Encounter Summary ---
Author Organization [employer] Address 75 [facility] 7t [place] [address] Care Team Providers Care Licensed Massage Practitioner Name Role Phone Margi Barnes MD Primary Care Pro vider Reason for Visit * Reason Comments Med Refill Encounter Details Date Type Department Care Team ([facility] st Contact Info) Description 10/23/[address] [facility] MED & PEDS [address] [place], [place] [phone] Margi Barnes MD 230 [place] [address] Other migraine without status migrainosus, not intractable [...] t he electric, gas, oil or water [employer] threatened to shut off services in your [...] 10:45 AM EST Office Visit [facility] MEDICINE [address] [place] [address] Margi Barnes MD [address] [place] [address] documented as of this encounter Visit Diagnoses Diagnosis Other migraine without status migrainosus, not intractable documented in this encounter Additional Health Concerns Assessment Noted Time PHQ-9 Depression Total Score: 7 01/31/20 23 10:22 AM EDT documented as of this encounter Care Teams Licensed Massage Practitioner Relationship Specialty Start Date End Date Margi Barnes MD [address] [place] [address] PCP - General Internal Medicine 04/26/23 documented as of this encounter
--- OUTSIDE RECORDS SUMMARY | 2025-06-01 12:17 | XMS_ITS | Encounter Summary ---
Author Organization [employer] Address [address] [place] [address] 7 [place] [address] Care Team Providers Care Air Technician Name Role Phone Margi Barnes MD Primary Care Pro vider Reason for Visit * Reason Onset Date Comments Appointment Request 04/20/2025 Encounter Details Date Type Department Care Team ([facility] st Contact Info) Description 04/20/2025 Telephone [facility] MEDICINE 230 [place], [place] [phone] Margi Barnes MD 230 [place], [place] [phone] Appointment Request Social History Tobacco Use Types [...] reschedule missed PE apt Contact pt at [phone] documented in this encounter Plan of Treatment Upcoming Encounters Date Type Department Care Team (Late st Contact Info) Description 08/04/2025 10:45 AM EST Office Visit [facility] MEDICINE 230 [place], [place] [phone] Margi Barnes MD 230 [place] [address] documented as of this encounter Visit Diagnoses Not on filedocumented in this encounter Additional Health Concerns Assessment Noted Time PHQ-9 Depression Total Score: 4 01/10/20 24 10:04 AM EDT documented as of this encounter Care Teams Air Technician Relationship Specialty Start Date End Date Margi Barnes MD [address] [place] [address] [phone] PCP - General Internal Medicine 04/26/23 documented as of this encounter
--- OUTSIDE RECORDS SUMMARY | 2025-06-01 12:18 | XMS_ITS | Encounter Summary ---
Author Organization [employer] Address [address] [place] [address] 7 [place] [address] Care Team Providers Care Career Development Consultant Name Role Phone Mae Pierre WELDING MACHINE OPERATOR PL[employer]MA [employer] Primary Care Provider Margi Jensen MD Primary Care Pro vider Reason for Visit * Reason Comments Med Refill Encounter Details Date Type Department Care Team ([facility] Contact Info) Description 09/12/2022 Refill [facility] MEDICINE [address] [place] [address] [phone] Mae Pierre FNP COPD with acute exacerbation (CMS/[facility]) Social History Tobacco Use Types Packs/Day Years [...] Upcoming Encounters Date Type Department Care Team ([facility] Contact Info) Description 08/04/2025 10:45 AM EST Office Visit [facility] MEDICINE [address] [place] [address] [phone] Margi Barnes MD 230 [place], [place] [phone] documented as of this encounter Visit Diagnoses Diagnosis COPD with acute exacerbation (CMS/HCC) (HCC) documented in this encounter Care Teams Career Development Consultant Relationship Specialty Start Date End Date Mae Pierre FNP PCP - General Family Medicine 05/16/21 04/25/23 Margi Barnes MD [address] [place] [address] PCP - General Internal Medicine 04/26/23 documented as of this encounter
== END ==
LOC: HO.CARD 10:29
PROVIDERS: PCP Student in an Organized Health Care Education/Training Program; Visit Provider Registered Nurse
DX: R00.2 Palpitations (principal)
CPT/HCPCS: 93225

== ENCOUNTER → 2025-06-01 10:32 | Outpatient (BNV) | payer MEDICAID, SELFPAY | PROVIDERS: PCP Student in an Organized Health Care Education/Training Program; Visit Provider Internal Medicine | DX: I49.3 Ventricular premature depolarization (principal); I49.49 Other premature depolarization | CPT/HCPCS: 93227 ==

== ENCOUNTER 2025-06-02 11:08 | Outpatient (AMB) | payer MEDICAID, SELFPAY ==
[2025-06-02 11:26] VITALS: BP 126/80
--- NOTE | 2025-06-02 11:26 | A.OFFVIS_ITS ---
Vital Signs 06/02/25 11:26 Height 5 ft 3 in BP 126/80 Blood Pressure Location Lt brachial Position Sitting Intake Visit Reasons: ultrasound follow up Donations Attendant Required: No Head Of Maintenance: Head Of Maintenance Present Allergies latex (LATEX) Allergy (Unknown, Verified 06/02/25 11:29) RASH morphine (MORPHINE) Allergy (Unknown, Verified 06/02/25 11:29) HALLUCINATIONS codeine Adverse Reaction (Unknown, Verified 06/02/25 11:29) VOMITING Medication List - Last Reconciled 06/02/25 by Katherin Gallegos LPN adalimumab (Humira) 40 mg subcut Q2W albuterol sulfate 90 mcg/actuation (Ventolin HFA) 1 puff inhalation Q4H PRN bisacodyl (Dulcolax (bisacodyl)) 10 mg (2 x 5 mg) PO BEDTIME budesonide-formoterol 160-4.5 mcg/actuation (Symbicort) inhalation fluoxetine (Prozac) 20 mg PO DAILY hydrocortisone 2.5% (Proctosol HC) 1 appl PA BID-QID PRN levonorgestrel (Mirena) intrauterine loratadine 10 mg PO QAM methadone 89 mg PO DAILY topiramate 50 mg PO DAILY Is last menstrual period known: Yes Last menstrual period: 05/31/25 Post menopausal: No Patient : No HPI Comments Details: Patient is here today for a follow up pelvic ultrasound, history of pelvic pain with a prior examination. She reports an occasional left-sided discomfort. Has recently started her probiotics to help prevent reoccurrence BV. Struggling with a significant anxiety for 2 months has a appointment to be scheduled with the psychiatrist. [facility] Medical History Anxiety Ovarian cyst IUD (intrauterine device) in place Pelvic pain Morbid obesity with BMI of 50.0-59.9, adult Drug abuse Asthma Back problem Hydradenitis Depression Surgical History Hx laparoscopic cholecystectomy History of lumpectomy of right breast Family History Mother Emphysema lung Heart attack Ovarian cancer Father Liver cancer Social History Alcohol intake: never Patient Tobacco Use Status: Current everyday Tobacco user Tobacco use type: Cigarette Cigarettes Per Day: 10 Patient : No Current occupational status: disabled 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 Sexual orientation: Straight/Heterosexual Gender identity: Female Female Reproductive History Menstrual Age of Menarche: 13 Duration of menses: 3-5 days Date of last menstrual period: 05/31/25 control method: progestin IUCD Total pregnancies: 5 Full term: 3 Number of Living Children: 3 Ab induced: 2 History of abnormal pap smear: Yes History of STI: No Review of Systems Const All systems reviewed & are unremarkable except as noted in HPI and below Endo Reports no additional complaints Physical Exam Vital Signs: Last Vital Signs BP 126/80 06/02/25 11:26 Const General: cooperative, healthy appearing and no acute distress Psych Appearance: well kempt Attitude: cooperative Thought process: Normal thought process present Results Reviewed Results Reviewed: [address] [address] Ultrasound Report Signed Patient: Lorena Phelps MR#: [id number] : 1980 Acct:[id number] Age/Sex: 45 / F ADM Date: 05/18/25 Loc: HO.US Attending Dr: Celeste Romo CNM Ordering Physician: Celeste Romo CNM Date of Service: 05/18/25 Procedure(s): US pelvic and transvaginal Accession Number(s): [id number] cc: Celeste Romo CNM; Margi Barnes MD~ Reason for Exam: N83.201 - Unspecified ovarian cyst, right side CLINICAL HISTORY: N83.201 - Unspecified ovarian cyst, right side Transabdominal and transvaginal pelvic ultrasound Comparison: 02/13/2025 Findings: Study limited by patient body habitus. Uterus 10.8 x 4.8 x 6.2 cm. Endometrium 1 cm. IUD grossly unremarkable. No free fluid in cul-de-sac. Right ovary 2.4 x 3.0 x 2.4 cm. No significant abnormality. Left ovary 4.3 x 3.4 x 2.9 cm. 2.6 cm simple cyst. Impression: 2.6 cm simple cyst left ovary This document has been electronically signed by: René Longo MD on 05/18/2025 23:48:42 Dictated By: Rneé Longo MD Signed By: <Electronically signed by René Longo MD in OV> 05/18/252349 DD/ 47 TD/TT: 05/18/252347 Assessment & Plan Assessment & Plan (1) Ovarian cyst: Comment: left < from 4.4 to 2.6cm Code(s): N83.209 - Unspecified ovarian cyst, unspecified side Category: Medical Qualifiers: Laterality: right Qualified Code(s): N83.201 - Unspecified ovarian cyst, right side Plan: Discussed: Ultrasound findings- Right ovary 2.4 x 3.0 x 2.4 cm. No significant abnormality. Left ovary 4.3 x 3.4 x 2.9 cm. 2.6 cm simple cyst. Reviewed simple cyst- benign, most resolve on their own with time. Has decreased in size from 4.4 cm on previous scan. The patient expressed understanding and agreement with the plan of care. All of her questions and concerns were addressed to the best of my ability. (2) Pelvic pain in female: Code(s): R10.2 - Pelvic and perineal pain Category: Medical Plan Discuss concerns for pelvic pain, advised to call if any increase or changes, pelvic warnings and went to call for any follow up care. The patient expressed understanding and agreement with the plan of care. All of her questions and concerns were addressed to the best of my ability. Keep follow up annual exam January 2026. This note is constructed using voice recognition software. While every effort has been made to ensure accuracy, sweet dough mixer errors may have been included. Coding Level of Care Code Est Pt Level 3 (08421) Diagnoses Cyst of right ovary N83.201 Laterality: right Pelvic pain in female R10.2
--- OUTSIDE RECORDS SUMMARY | 2025-06-02 13:19 | XMS_ITS | Encounter Summary ---
Author Organization [employer] Address [address] [place] [address] 7 [place] [address] Care Team Providers Care Non Profit Job Titles Name Role Phone Margi Barnes MD Primary Care Pro vider Reason for Visit * Reason Onset Date Comments Med Refill 04/27/2024 Encounter Details Date Type Department Care Team (Late st Contact Info) Description 04/27/2024 Refill [facility] [address] [place], [place] [phone] Margi Barnes MD [address] [place] [address] COPD with acute exacerbation (CMS/HCC); Lumbar disc [...] Description 08/04/2025 10:45 AM EST Office Visit [facility] [address] [place] [phone] Margi Barnes MD [address] [place] [phone] documented as of this encounter Visit Diagnoses Diagnosis COPD with acute exacerbation (CMS/HCC) (HCC) Lumbar disc disease with radiculopathy documented in this encounter Additional Health Concerns Assessment Noted Time PHQ-9 Depression Total Score: 4 01/10/20 24 10:04 AM EDT documented as of this encounter Care Teams Non Profit Job Titles Relationship Specialty Start Date End Date Margi Barnes MD [address] [place] [phone] PCP - General Internal Medicine 04/26/23 documented as of this encounter
--- OUTSIDE RECORDS SUMMARY | 2025-06-02 13:19 | XMS_ITS | Encounter Summary ---
Author Organization [employer] Address [address] [facility] [address] [place] [address] Care Team Providers Care Labor Economics Teacher Name Role Phone Margi Barnes MD Primary Care Pro vider Encounter Details Date Type Department Care Team (Latest Contact Info) Description 04/20/2025 Results Follow-Up [facility] [address] [place] [phone] Margi Barnes MD [address] [place] [address] CBC auto differential, Comprehensive Metabolic Panel, Magnesium, [...] Description 08/04/2025 10:45 AM EST Office Visit [facility] [address] [place] [phone] Margi Barnes MD [address] [place] [phone] documented as of this encounter Visit Diagnoses Not on filedocumented in this encounter Additional Health Concerns Assessment Noted Time PHQ-9 Depression Total Score: 4 01/10/20 24 10:04 AM EDT documented as of this encounter Care Teams Labor Economics Teacher Relationship Specialty Start Date End Date Margi Barnes MD [address] [place] [phone] PCP - General Internal Medicine 04/26/23 documented as of this encounter
--- OUTSIDE RECORDS SUMMARY | 2025-06-02 13:19 | XMS_ITS | Encounter Summary ---
Author Organization [employer] Address [address] [facility] [address] [place] [address] Care Team Providers Care Head Grinder Name Role Phone Margi Barnes MD Primary Care Pro vider Reason for Visit * Reason Comments Med Refill Encounter Details Date Type Department Care Team ([facility] st Contact Info) Description 11/06/2024 Refill [facility] [address] [place], [place] [phone] Ting Kevin NP [address] [place] [address] Lumbar disc disease with radiculopathy Social History [...] Visit [facility] [address] [place] [phone] Margi Barnes MD [address] [place] [phone] documented as of this encounter Visit Diagnoses Diagnosis Lumbar disc disease with radiculopathy documented in this encounter Additional Health Concerns Assessment Noted Time PHQ-9 Depression Total Score: 4 01/10/20 24 10:04 AM EDT documented as of this encounter Care Teams Head Grinder Relationship Specialty Start Date End Date Margi Barnes MD [address] [place] [phone] PCP - General Internal Medicine 04/26/23 documented as of this encounter
--- OUTSIDE RECORDS SUMMARY | 2025-06-02 13:19 | XMS_ITS | Clinical Summary ---
Author Organization [employer] Address [address] [place] [address] 7[address] [place] [address] Care Team Providers Care Auto Rental Supervisor Name Role Phone Margi Barnes MD [...] BY MD. 30 patch 2 025 Active loratadine (Claritin) 10 MG tablet TAKE 1 TABLET BY MOUTH EVERY DAY IN THE MORNING 90 tablet 1 Active Ventolin HFA 108 (90 Base) MCG/ACT inhaler INHALE 1 PUFF EVERY 4 HOURS NEEDED FOR WHEEZE 18 g 2 025 Active topiramate 50 MG tabletIndication s:Other migraine without status migrainosus, not intractable TAKE 1 TABLET BY MOUTH EVERY DAY 90 tablet 025 Active topiramate 50 MG tabletIndication s:Other migraine without status migrainosus, not intractable Take 1 tablet (50 mg) by mouth Once per day. 90 tablet 025 2024 Discontinued ibuprofen 800 MG tabletIndication s:Lumbar disc disease with radiculopathy Take 1 tablet (800 mg) by mouth Once daily as needed for moderate pain. 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 F/u PRN Lumbar disc disease with radiculopathy [...] Type Department Care Team Description 05/31/2025 Refill [facility] [address] [place] [address] Margi Barnes MD Other migraine without status migrainosus, not intractable 05/24/2025 Refill [facility] [address] [place] [address] Margi Branes MD Lumbar disc disease with radiculopathy 05/18/2025 Orders Only [facility] External Provider, [facility] 05/13/2025 Telephone [facility] [address] [place] [address] Margi Barnes MD ana maría recall 05/08/2025 Results Follow-Up [facility] [address] [place], [place] [phone] Viken, Dodie, STAMP PAD MAKER TSH W/Reflex to FT4, FSH, Estradiol 04/22/2025 10:15 AM EDT Office Visit [facility] [address], [place] [phone] Dodie Vilchis, SUSIE Palpitations (Primary Dx); Elevated blood pressure reading; Anxiety disorder, unspecified type 04/22/2025 Patient Outreach [facility] [place] [address] Margi Barnes MD Care Coordination ([facility] outreach for [facility] housing search-referral completed ) 04/22/2025 Travel 04/21/2025 Travel 04/20/2025 Results Follow-Up [facility] [place] [address] Margi Barnes MD CBC auto differential, Comprehensive Metabolic Panel, Magnesium, High Sensitivity Troponin I 04/20/2025 Orders Only [facility] [place] [address] Margi Barnes MD Hidradenitis suppurativa (Primary Dx); Skin lesion 04/20/2025 Telephone [facility] [place] [address] Margi Barnes MD Referral 04/20/2025 Telephone [facility] [place] [address] Margi Barnes MD Appointment Request 04/20/2025 Telephone [facility] [place] [address] Margi Barnes MD ER Follow-up 04/20/2025 Refill [facility] [place] [address] Margi Barnes MD Lumbar disc disease with radiculopathy 04/18/2025 Orders Only GENERIC EXTERNAL DATA DEPARTMENT Provider, Generic External Data 04/03/2025 Telephone [facility] [place] [address] Margi Barnes MD No Show (Pt no show no PE on 04/03/2025. No show letter mailed, recall set.) 03/27/2025 Travel 03/27/2025 Patient Outreach [facility] [place] [address] Margi Barnes MD Pre-visit Planning (Pre-visit planning - LVM ) 03/20/2025 Refill [facility] [address] [place] [address] Margi Barnes MD Lumbar disc disease with radiculopathy 03/04/2025 Refill [facility] [address] [place] [address] Chitra Garcia MD Other migraine without status migrainosus, not intractable 03/04/2025 Refill [facility] [address] [place] [address] Margi Barnes MD Other migraine without status [...] Upcoming Encounters Date Type Department Care Team ([facility] st Contact Info) Description 08/04/2025 10:45 AM EST Office Visit [facility] [address] [place] [address] Margi Barnes MD [address] [place] [address] Health Maintenance Due Date Last Done Comments [...] PM EDT Narrative 05/18/2025 11:50 PM EDT [address] [address] Ultrasound Report Signed Patient: Lorena Phelps MR#: [id number] : 1980 Acct:[id number] Age/Sex: 45 / F ADM Date: 05/18/25 Loc: HO.US Attending Dr: Celeste Romo CNM Ordering Physician: Celeste Romo CNM Date of Service: 05/18/25 Procedure(s): US pelvic and transvaginal Accession Number(s): [id number] cc: Celeste Romo CNM; Margi Barnes MD [...] in OV> 05/18/250 DD/ 47 TD/TT: 05/18/252347 Petroleum Refinery Operator: Procedure Note Donotuseinterpreter, Image - 05/18/2025 [place] [address] Ultrasound Report Signed Patient: Lorena Phelps LMR#: [id number] : 1980Acct:[id number] Age/Sex: 45 / FADM Date: 05/18/25 Loc: HO.US Attending Dr: Celeste Romo CNM Ordering Physician: Celeste Romo CNM Date of Service: 05/18/25 Procedure(s): US pelvic and transvaginal Accession Number(s): [id number] cc: Celeste Romo CNM; Margi Barnes MD [...] This document has been electronically signed by: eRné Longo MD on 05/18/2025 23:48:42 Dictated By: René Longo MD Signed By: <Electronically signed by René Longo MD in OV> 05/18/252349 DD/ 47 TD/TT: 05/18/252347 Petroleum Refinery Operator: [facility] External Provider IMG US PROCEDURES Final Result * TSH W/Reflex to FT4 (04/27/2025 2:14 PM EDT) TSH reflex Free T4 1.70 0.32 - 4.0 uIU/mL [facility] Blood Venous blood specimen / Unknown 04/27/2025 2:14 PM EDT 04/27/2025 4:07 PM EDT Dodie Vilchis STAMP PAD MAKER LAB BLOOD ORDERABLES Final Res ult [facility] [address] [place] [phone] * Estradiol (04/27/2025 2:14 PM EDT) Estradiol Ultra Sensitive 88 pg/mL [facility] Comment:Female Reference Ran ges for Estradiol, Ultrasensitive (pg/mL): Follicular Phase: 39-375 Luteal Phase: 48-440 Postmenopausal Phase: < or = 10This test was developed and its analytical performancecharacteristics have been determined by [facility].It has not been cleared or approved by the FDA. This assayhas been validated pursuant to the CLIA regulations and isused for clinical purposes.THIS TEST WAS PERFORMED AT:[employer] [id number] [place] [address]RTNLPSYDNEY ZIMMER MD,PHD,LAURENT Blood Venous blood specimen / Unknown 04/27/2025 2:14 PM EDT 04/27/2025 4:07 PM EDT Dodie Vilchis [facility] LAB BLOOD ORDERABLES Final Res ult Performing Organization Address [facility] de Phone Number [facility] [address] [place] [phone] * FSH (04/27/2025 2:14 PM EDT) Pathologist [facility] Follicle Stimulating Hormone 9.9 mIU/mL [facility] Comment:Reference Range Foll icular Phase 2.5-10.2 Mid-cycle Peak 3.1-17.7 Luteal Phase 1.5- 9.1 Postmenopausal 23.0-116.3THIS TEST WAS PERFORMED AT:[employer] [place] [id number] TUCKER MD Blood Venous blood specimen / Unknown 04/27/2025 2:14 PM EDT 04/27/2025 4:07 PM EDT Dodie Vilchis [facility] LAB BLOOD ORDERABLES Final Res ult Performing Organization Address [facility] de Phone Number [facility] [address] [place] [phone] * (ABNORMAL) Basic Metabolic Panel (04/27/2025 2:14 PM EDT) Pathologist [facility] Sodium 136 135 - 145 mmol/L [facility] Potassium 4.3 3.3 - 5.1 mmol/L [facility] Chloride 101 96 - 108 mmol/L [facility] Carbon Dioxide 32(H) 22 - 29 mmol/L [facility] Anion Gap 7(L) 12 - 20 [facility] Urea Nitrogen (BUN) 10 9 - 16 mg/dL [facility] Creatinine, Serum 0.81 0.5 - 1.4 mg/dL [facility] Estimated Glomerular Filt Rate >60 [facility] Comment:Chronic Kidney Disea se: Estimated GFR < 60 mL/min/1.71s5Kevadv Kidney Disease: Estimated GFR < 15 mL/min/1.73m2 Glucose 151(H) 60 - 115 mg/dL [facility] Calcium 9.2 8.4 - 10.2 mg/dL [facility] Blood Venous blood specimen / Unknown 04/27/2025 2:14 PM EDT 04/27/2025 4:07 PM EDT us Gonzalez Rosa MD LAB BLOOD ORDERABLES Final Result Performing Organization Address City/State/[facility] Co de Phone Number [facility] [address] [place] [phone] * XR Chest 2 Views (04/18/2025 4:53 PM EDT) Anatomical Region Laterality Modality Chest Radiographic Roopa ging 04/18/2025 4:53 PM EDT Narrative 04/18/2025 4:54 PM EDT [address] [address] XRay Report Signed Patient: Lorena hPelps MR#: [id number] : 1980 Acct:[id number] Age/Sex: 45 / F ADM Date: 04/18/25 Loc: HO.ED Attending Dr: Ordering Physician: Angela Faulkner NP Date of Service: 04/18/25 Procedure(s): XR chest 2V Accession Number(s): [id number] cc: Angela Faulkner NP; Margi Barnes MD [...] in OV> 04/18/251653 DD/ 52 TD/TT: 04/18/251652 Petroleum Refinery Operator: Procedure Note Donotuseinterpreter, Image - 04/18/[address] [address] XRay Report Signed Patient: Lorena Phelps LMR#: [id number] : 1980Acct:[id number] Age/Sex: 45 / FADM Date: 04/18/25 Loc: .ED Attending Dr: Ordering Physician: Angela Faulkner NP Date of Service: 04/18/25 Procedure(s): XR chest 2V Accession Number(s): [id number] cc: Angela Faulkner NP; Margi Barnes MD [...] in OV> 04/18/251653 DD/ 52 TD/TT: 04/18/251652 Petroleum Refinery Operator: [facility] External Provider IMG XR PROCEDURES Edited Result - Final * High Sensitivity Troponin I (04/18/2025 1:42 PM EDT) TROPONIN I HIGH SENSITIVITY <2.7 <3.5 - 17.0 ng/L [facility] Comment:The Buck high sens itivity Troponin-I results should beused in conjunction with other diagnostic information suchas ECG, clinical observations and information, and patientsymptoms to aid in the diagnosis of NM. 04/18/2025 1:42 PM EDT 04/18/2025 2:08 PM EDT us Generic External Data Provider LAB BLOOD ORDERAB LES Final Result [facility] [address] [place], [place] [phone] * (ABNORMAL) CBC auto differential (04/18/2025 1:42 PM EDT) White Blood Count 14.3(H) 4.8 - 10.8 X10*3/uL [facility] Red Blood Count 4.07(L) 4.20 - 5.50 X10*6/uL [facility] Hemoglobin 12.7 12.0 - 16.0 g/dl [facility] Hematocrit 37.4 37.0 - 47.0 % [facility] Mean Corpuscular Volume 91.9 80.0 - 98.0 fL [facility] Mean Corpuscular Hemoglobin 31.2 27.0 - 33.0 pg [facility] Mean Corpuscular HGB Conc 34.0 31.0 - 35.0 g/dl [facility] Red Cell Distribution Width 13.1 11.0 - 16.0 % [facility] Platelet Count 320 160 - 400 X10*3/uL [facility] Mean Platelet Volume 9.1(L) 9.4 - 12.3 fL [facility] Neutrophils Percent Auto 74.0(H) 45 - 73 % [facility] Imm Gran Pct Auto 0.6(H) 0.0 - 0.4 % [facility] Lymphocytes Percent Auto 20.4 20 - 40 % [facility] Monocytes Percent Auto 4.6 2 - 11 % [facility] Eosinophils Percent Auto 0.1 0 - 4 % [facility] Basophils Percent Auto 0.3 0 - 2 % [facility] NRBC Pct Auto 0.0 0.0 - 0.2 /100WBC [facility] Neutrophils Absolute Auto 10.6(H) 2.0 - 8.3 x10*3/uL [facility] Imm Gran Abs Auto 0.08(H) 0.00 - 0.03 X10*3/uL [facility] Lymphocytes Absolute Auto 2.9 1.2 - 4.9 X10*3/uL [facility] Monocytes Absolute Auto 0.7 0.1 - 1.2 X10*3/uL [facility] Eosinophils Absolute Auto 0.0 0.0 - 0.4 X10*3/uL [facility] Basophils Absolute Auto 0.0 0.0 - 0.2 X10*3/uL [facility] NRBC Abs Auto 0.000 0.0 - 0.012 X10*3/uL [facility] 04/18/2025 1:42 PM EDT 04/18/2025 2:08 PM EDT Generic External Data Provider LAB BLOOD ORDERAB LES Final Result Performing Organization Address [facility]/ZIP Co de Phone Number [facility] [address] [place] [phone] * Magnesium (04/18/2025 1:42 PM EDT) [facility] Magnesium 2.5 1.6 - 2.6 mg/dL [facility] 04/18/2025 1:42 PM EDT 04/18/2025 2:08 PM EDT [employer] External Data Provider LAB BLOOD ORDERAB LES Final Result Performing Organization Address [facility] Co de Phone Number [facility] [address] [place] [phone] * (ABNORMAL) Comprehensive Metabolic Panel (04/18/2025 1:42 PM EDT) Pathologist [facility] Sodium 138 135 - 145 mmol/L [facility] Potassium 4.3 3.3 - 5.1 mmol/L [facility] Chloride 104 96 - 108 mmol/L [facility] Carbon Dioxide 27 22 - 29 mmol/L [facility] Anion Gap 11(L) 12 - 20 [facility] Urea Nitrogen (BUN) 11 9 - 16 mg/dL [facility] Creatinine, Serum 0.77 0.5 - 1.4 mg/dL [facility] Creatinine Clr Calc Pharmacy 131.6 [facility] Comment:Provided height and weight: 160.02 cm,149.685 kg.eGFR (calculated from the MDRD study equation) and eCrCl(calculated from the Cockcroft-Gault equation) are based ondifferent parameters and may not yield comparable results.If eCrCl result is absurd, please check patient'sheight/weight. Estimated Glomerular Filt Rate >60 [facility] Comment:Chronic Kidney Disea se: Estimated GFR < 60 mL/min/1.78v3Kstjpr Kidney Disease: Estimated GFR < 15 mL/min/1.73m2 Glucose 147(H) 60 - 115 mg/dL [facility] Calcium 9.0 8.4 - 10.2 mg/dL [facility] Bilirubin, Total 0.5 0.0 - 1.0 mg/dL [facility] Aspartate Amino Transferase 39(H) 5 - 31 U/L [facility] Alanine Aminotransferase 33(H) 0 - 31 U/L [facility] Total Protein 7.3 6.5 - 8.0 g/dL [facility] Albumin Level 4.3 3.5 - 5.0 g/dL [facility] Alkaline Phosphatase 64 39 - 117 U/L [facility] 04/18/2025 1:42 PM EDT 04/18/2025 2:08 PM EDT us Generic External Data Provider LAB BLOOD ORDERAB LES Final Result [facility] [address] [place] [address] [phone] * BI Mammogram Screening Tomosynthesis Bilateral (02/18/2025 2:00 PM EDT) Anatomical Region Laterality Modality Breast Bilateral Mammography 02/18/2025 2:00 PM EDT Narrative 03/02/2025 10:44 AM EDT [facility] [address] [place], [place] [address] Mammography Report Signed Patient: Lorena Phelps MR#: [id number] : 1980 Acct:[id number] Age/Sex: 45 / F ADM Date: 02/18/25 Loc: HO.MAMMO Attending Dr: Margi Walters MD Ordering Physician: Margi Barnes MD Re sults: 1Negative Date of Service: 02/18/25 Follow Up: 1 Year From Orig inal Mammogram Procedure(s): MM tomosynthesis screening BI Accession Number(s): [id number] cc: Margi Barnes MD EXAMINATION: MM SCREENING [...] 03/02/25 1041 DD/ 1400 TD/TT: 02/18/25 1420 Petroleum Refinery Operator: Procedure Note Donotuseinterpreter, Image - 03/02/2025 [facility] [address] [place] [address] Mammography Report Signed Patient: Lorena Phelps LMR#: [id number] : 1980Acct:[id number] Age/Sex: 45 / FADM Date: 02/18/25 Loc: HO.MAMMO Attending Dr: Margi Walters MD Ordering Physician: Margi Barnes sults: 1Negative Date of Service: 02/18/25Follow Up: 1 Year From Orig inal Mammogram Procedure(s): MM tomosynthesis screening BI Accession Number(s): [id number] cc: Margi Barnes MD EXAMINATION: MM SCREENING [...] 03/02/25 1041 DD/ 1400 TD/TT: 02/18/25 1420 Petroleum Refinery Operator: Margi Walters MD IMG BI PROCEDURES Final Result * (ABNORMAL) Hepatitis C Antibody with Reflex to HCV, RNA, Quantitative, Real- Time PCR (02/18/2024 1:40 PM EDT) Hepatitis C Antibody Reactive( A) Nonreactive [facility] Comment:Presumptive evidence of antibodies to HCV. Blood Venous blood specimen / Unknown 02/18/2024 1:40 PM EDT 02/18/2024 3:57 PM EDT Margi Walters MD LAB BLOOD ORDERAB LES Final Result Performing Organization Address [facility]/ZIP Co de Phone Number [facility] [address] [place] [phone] * HIV-1/2 Antigen and Antibodies, Fourth Generation, with Reflexes (02/18/2024 1:40 PM EDT) HIV AB/AG Nonreactive Nonreactive [facility] Comment:HIV-1 p24 Ag and/or HIV-1/HIV-2 Ab not detected.A test result that is nonreactive does not exclude thepossibility of exposure to or infection with HIV-1 and/orHIV-2. Nonreactive results in this assay for individualswith prior exposure to HIV-1 and/or HIV-2 may be due toantigen and antibody levels that are below the limit ofdetection of this assay.The [employer] HIV Ag/Ab Combo assay result andsupplemental assay results should be interpreted inconjunction with the patient's clinical presentation,history and other laboratory results. If the results areinconsistent with clinical evidence, additional testing issuggested to confirm the result. Blood Venous blood specimen / Unknown 02/18/2024 1:40 PM EDT 02/18/2024 3:57 PM EDT Margi Walters MD LAB BLOOD ORDERAB LES Final Result Performing Organization Address City/[facility]/ZIP Co de Phone Number [facility] [address] [place] [phone] * (ABNORMAL) Hemoglobin A1c (02/18/2024 1:40 PM EDT) Hemoglobin A1c 6.1(H) <6.0 % [facility] Comment:Hemoglobin A1C Refer ence Range Adults: 4.8 - 6.0 % Non diabetic: < 6.0 % Goal: < 7.0 %Additional Action Suggested: > 8.0 %Note: Hemoglobin A1c results are invalid for patients with abnormal amounts of HbF. Blood transfusions may impact the HbA1c concentration in the patient sample. Estimated Average Glucose 128 mg/dL [facility] Comment:eAG = Estimated ave rage glucose which is %A1C expressed asaverage glucose, using the formula of the D0H-BbtrzfxDbbdqvo Glucose study (ADAG), Diabetes Care, Vol.31,#8,2007 Blood Venous blood specimen / Unknown 02/18/2024 1:40 PM EDT 02/18/2024 3:57 PM EDT us Margi Walters MD LAB BLOOD ORDERAB LES Final Result [facility] [address] [place] [phone] * (ABNORMAL) Lipid Panel, Standard (02/18/2024 1:40 PM EDT) Triglycerides 115 <150 mg/dL [facility] Comment:Desirable Triglyceri de: less than 150 mg/dLBorderline High Triglyceride 150-199 mg/dLHigh Triglyceride: 200-499 mg/dLVery High Triglyceride: greater than or equal to 5OO mg/dL Cholesterol 189 <200 mg/dL [facility] Comment:Desirable Cholestero l: less than 200 mg/dLBorderline High Cholesterol: 200-239 mg/dLHigh Cholesterol: greater than 239 mg/dL LDL Cholesterol Calculated 132(H) <100 mg/dL [facility] Comment:Desirable LDL: less than 100 mg/dLNear Optimal/Above Optimal LDL: 110- 129 mg/dLBorderline High LDL: 130-159 mg/dLHigh LDL: 160-189 mg/dLVery High LDL: greater than or equal to 190 mg/dL HDL Cholesterol 34(L) >40 mg/dL [facility] Comment:Desirable HDL: great er than 40 mg/dL Note: This HDL assay may give artificially low results in patients with liver disease. Blood Venous blood specimen / Unknown 02/18/2024 1:40 PM EDT 02/18/2024 3:57 PM EDT Margi Walters MD LAB BLOOD ORDERAB LES Final Result Performing Organization Address [facility]/ZIP Co de Phone Number [facility] [address] [place] [address] [phone] * HPV E6/E7 RFLX PATTI 16 18/45 (04/05/2022 3:16 PM EDT) Pathologist [facility] HPV 16 RNA [facility] HPV 18/45 RNA [facility] HPV E6 E7 ADD [facility] HPV mRNA E6/E7 rflx Not Detected Not Detected [facility] Comment: Methodology: Cancer Registry Manager-Mediated Amplification This assay detects E6/E7 viral messenger RNA (mRNA) from 14 high-risk HPV types (16,18,31,33,35,39,45,51,52,56,58,59,66,68). Cervical sources are required for HPV testing. If a vaginal source from a patient who has had a total hysterectomy with removal of cervix was submitted, please contact the testing laboratory for alternative testing options. For additional information, please refer to http://[email or web address].[email or web address]/faq/OHF396t2 (This link if provided for information/ educational purposes only.) THIS TEST WAS PERFORMED AT: [employer] [address] [place] [address],[place] [address] BRICE TUCKER MD 04/05/2022 3:16 PM EDT us Celeste Romo HISTORICAL/NON ORDERABLE LABS Fi nal Result Performing Organization Address City/[facility]/ZIP Co de Phone Number [facility] [address] from Last 3 Months or Most Recently Relevant to Health Maintenance Insurance [facility] [place] [id number] Care Teams Auto Rental Supervisor Relationship Specialty Start Date End Date Margi Barnes MD [address] [place] [phone] PCP - General Internal Medicine 04/26/23
--- OUTSIDE RECORDS SUMMARY | 2025-06-02 13:19 | XMS_ITS | Encounter Summary ---
Author Organization [employer] Address [address] [place] [address] Care Team Providers Care Taxation Inspector Name Role Phone Margi Barnes MD Primary Care Pro vider Reason for Visit * Reason Onset Date Comments Med Refill 11/26/2024 Encounter Details Date Type Department Care Team (Late st Contact Info) Description 11/26/2024 Refill [facility] [address] [place], [place] [phone] Nuria Holm, ANP [address] [place] [address] Class 3 severe obesity due to excess [...] Description 08/04/2025 10:45 AM EST Office Visit [facility] [address] [place] [phone] Margi Barnes MD [address] [place] [phone] documented as of this encounter Visit Diagnoses Diagnosis Class 3 severe obesity due to excess calories without serious comorbidity with body mass index (BMI) of 50.0 to 59.9 in adult (HCC) documented in this encounter Additional Health Concerns Assessment Noted Time PHQ-9 Depression Total Score: 4 01/10/20 24 10:04 AM EDT documented as of this encounter Care Teams Taxation Inspector Relationship Specialty Start Date End Date Margi Barnes MD [address] [place] [phone] PCP - General Internal Medicine 04/26/23 documented as of this encounter
--- OUTSIDE RECORDS SUMMARY | 2025-06-02 13:19 | XMS_ITS | Encounter Summary ---
Author Organization [employer] Address [address] 7t [place] [address] Care Team Providers Care Roof Cement And Paint Maker Helper Name Role Phone Margi Barnes MD Primary Care Pro vider Encounter Details Date Type Department Care Team ([facility] Contact Info) Description 05/08/2025 Results Follow-Up [facility]ED[facility] [address] [place], [place] [phone] Dodie Vilchis, SUSIE [address] [place] [address] TSH W/Reflex to FT4, FSH, Estradiol Social [...] - 05/22/2025 9:08 AM EDT TC to [facility] cardiology office [phone]. They stated they do not have a referral from our office for this patient to have a Holter placed. Will route to referral to send new referral. [facility] Cardiology fax: [phone] documented in this encounter Plan of Treatment Upcoming Encounters Date Type Department Care Team (Late st Contact Info) Description 08/04/2025 10:45 AM EST Office Visit [facility] [address] [place] [address] Margi Barnes MD [address] [place] [address] documented as of this encounter Visit Diagnoses Not on filedocumented in this encounter Additional Health Concerns Assessment Noted Time PHQ-9 Depression Total Score: 7 04/22/20 25 10:26 AM EDT documented as of this encounter Care Teams Roof Cement And Paint Maker Helper Relationship Specialty Start Date End Date Margi Barnes MD [address] [place] [address] PCP - General Internal Medicine 04/26/23 documented as of this encounter
--- OUTSIDE RECORDS SUMMARY | 2025-06-02 13:19 | XMS_ITS | Encounter Summary ---
Author Organization [employer] Address [address] [place] [address] 7 [place] [address] Care Team Providers Care Public Utilities Sales Representative Name Role Phone Margi Barnes MD Primary Care Pro vider Reason for Visit * Reason Comments Med Refill Encounter Details Date Type Department Care Team ([facility] st Contact Info) Description 05/31/2025 Refill [facility] [address] [place], [place] [phone] Margi Barnes MD 230 [place], [place] [phone] Other migraine without status migrainosus, not intractable [...] Description 08/04/2025 10:45 AM EST Office Visit [facility] [address] [place] [phone] Margi Barnes MD [address] [place] [phone] documented as of this encounter Visit Diagnoses Diagnosis Other migraine without status migrainosus, not intractable documented in this encounter Additional Health Concerns Assessment Noted Time PHQ-9 Depression Total Score: 7 04/22/20 25 10:26 AM EDT documented as of this encounter Care Teams Public Utilities Sales Representative Relationship Specialty Start Date End Date Margi Barnes MD [address] [place] [phone] PCP - General Internal Medicine 04/26/23 documented as of this encounter
--- OUTSIDE RECORDS SUMMARY | 2025-06-02 13:19 | XMS_ITS | Clinical Summary ---
Author Organization [facility] Address [address] [place] [address] Care Team Providers Care Electrical Hardware Engineer Name Role Phone Unavailable Primary Care Provider [...] EST Behavioral Health Visit [facility] [address] [place] [phone] Andressa [address] [facility] [place] [address] Health Maintenance Due Date Last Done Comments [...] Drug Screen 07/23/2024 Depression Annual Screen 07/23/2024 [id number] ( season) 2025 021, 11/18/2020 Imm-Influenza (#1) [...] Discontinued Vaginal Pap Discontinued Vulvoscopy Discontinued Insurance [facility]
--- OUTSIDE RECORDS SUMMARY | 2025-06-02 13:19 | XMS_ITS | Encounter Summary ---
Author Organization [employer] Address [address] [facility] 7t [place] [address] Care Team Providers Care Entertainment Production Professional Name Role Phone Mae Pierre INNER LAYER SCRUBBER TENDER Primary Care Provider Margi Jensen MD Primary Care Pro vider Reason for Visit * Reason Comments Med Refill Encounter Details Date Type Department Care Team (Late st Contact Info) Description 01/27/2023 Refill [facility] [address] [place] [address] Mae Pierre FNP Impetigo Social History Tobacco [...] energy Nearly every day 01/30/2023 10:22 AM hSeyla Valenzuela Poor appetite or overeating Several days [...] Office Visit [facility] [address] [place] [phone] Margi Barnes MD [address] [place] [address] documented as of this encounter Visit Diagnoses Diagnosis Impetigo documented in this encounter Care Teams Entertainment Production Professional Relationship Specialty Start Date End Date Mae Pierre FNP PCP - General Family Medicine 05/16/21 04/25/23 Margi Barnes MD [address] [place] [address] PCP - General Internal Medicine 04/26/23 documented as of this encounter
--- OUTSIDE RECORDS SUMMARY | 2025-06-02 13:19 | XMS_ITS | Encounter Summary ---
Author Organization [employer] Address [address] 7t [place] [address] Care Team Providers Care Marketing Rotation Associate Name Role Phone Margi Barnes MD Primary Care Pro vider Reason for Visit * Reason Onset Date Comments Med Refill 11/06/2024 Encounter Details Date Type Department Care Team ([facility] st Contact Info) Description 11/06/2024 Refill [facility] 230 [place], [place] [phone] Nuria Holm, ANP 230 [place] [address] Class 3 severe obesity due to excess [...] Description 08/04/2025 10:45 AM EST Office Visit [facility] [address] [place] [phone] Margi Barnes MD [address] [place] [phone] documented as of this encounter Visit Diagnoses Diagnosis Class 3 severe obesity due to excess calories without serious comorbidity with body mass index (BMI) of 50.0 to 59.9 in adult (HCC) documented in this encounter Additional Health Concerns Assessment Noted Time PHQ-9 Depression Total Score: 4 01/10/20 24 10:04 AM EDT documented as of this encounter Care Teams Marketing Rotation Associate Relationship Specialty Start Date End Date Margi Barnes MD [address] [place] [phone] PCP - General Internal Medicine 04/26/23 documented as of this encounter
--- OUTSIDE RECORDS SUMMARY | 2025-06-02 13:19 | XMS_ITS | Encounter Summary ---
Author Organization [employer] Address [address] [facility] 7 [place] [address] Care Team Providers Care Building Stonecutter Name Role Phone Margi Barnes MD Primary Care Pro vider Reason for Visit * Reason Comments Med Refill Encounter Details Date Type Department Care Team ([facility] st Contact Info) Description 05/24/2025 Refill [facility] [address] [place], [place] [phone] Margi Barnes MD [address] [place] [address] Lumbar disc disease with radiculopathy Social History [...] 10:45 AM EST Office Visit [facility] MEDICINE [address] [place] [phone] Margi Barnes MD [address] [place] [address] documented as of this encounter Visit Diagnoses Diagnosis Lumbar disc disease with radiculopathy documented in this encounter Additional Health Concerns Assessment Noted Time PHQ-9 Depression Total Score: 7 04/22/20 25 10:26 AM EDT documented as of this encounter Care Teams Building Stonecutter Relationship Specialty Start Date End Date Margi Barnes MD [address] [place] [address] PCP - General Internal Medicine 04/26/23 documented as of this encounter
--- OUTSIDE RECORDS SUMMARY | 2025-06-02 13:19 | XMS_ITS | Encounter Summary ---
Author Organization [employer] Address [address] [place] [address] 7 [place] [address] Care Team Providers Care Raw Material Handler Name Role Phone Margi Barnes MD Primary Care Pro vider Reason for Visit * Reason Onset Date Comments Appointment Request 04/20/2025 Encounter Details Date Type Department Care Team ([facility] st Contact Info) Description 04/20/2025 Telephone [facility] [address] [place], [place] [phone] Margi Barnes MD [address] [place], [place] [phone] Appointment Request Social History Tobacco Use Types [...] Author Several days 04/22/2025 10:26 AM EDT aVlery White [place] * Trouble falling or staying [...] at all 04/22/2025 10:26 AM MAYTET Valery Wihte [place] * Patient Health Questionnaire-9 Score Answer [...] reschedule missed PE apt Contact pt at [phone] documented in this encounter Plan of Treatment Upcoming Encounters Date Type Department Care Team (Late st Contact Info) Description 08/04/2025 10:45 AM EST Office Visit [facility] [address] [place], [place] [phone] Margi Barnes MD [address] [place] [address] documented as of this encounter Visit Diagnoses Not on filedocumented in this encounter Additional Health Concerns Assessment Noted Time PHQ-9 Depression Total Score: 4 01/10/20 24 10:04 AM EDT documented as of this encounter Care Teams Raw Material Handler Relationship Specialty Start Date End Date Margi Barnes MD [address] [place] [address] [phone] PCP - General Internal Medicine 04/26/23 documented as of this encounter
--- OUTSIDE RECORDS SUMMARY | 2025-06-02 13:19 | XMS_ITS | Encounter Summary ---
Author Organization [employer] Address [address] [place] [address] 7 [place] [address] Care Team Providers Care Freight Forwarder Name Role Phone Mae Pierre TIMBER CUTTER Primary Care Provider Margi Jensen MD Primary Care Pro vider Reason for Visit * Reason Comments Med Refill Encounter Details Date Type Department Care Team ([facility] Contact Info) Description 09/12/2022 Refill [facility] MEDICINE [address] [place] [address] [phone] Mae Pierre FNP COPD with acute exacerbation (CMS/[facility]) Social History Tobacco Use Types Packs/Day Years [...] Upcoming Encounters Date Type Department Care Team ([facility] Contact Info) Description 08/04/2025 10:45 AM EST Office Visit [facility] MEDICINE [address] [place] [address] [phone] Margi Barnes MD [address] [place], [place] [phone] documented as of this encounter Visit Diagnoses Diagnosis COPD with acute exacerbation (CMS/HCC) (HCC) documented in this encounter Care Teams Freight Forwarder Relationship Specialty Start Date End Date Mae Pierre FNP PCP - General Family Medicine 05/16/21 04/25/23 Margi Barnes MD [address] [place] [phone] PCP - General Internal Medicine 04/26/23 documented as of this encounter
--- OUTSIDE RECORDS SUMMARY | 2025-06-02 13:19 | XMS_ITS | Encounter Summary ---
Author Organization [employer] Address [address] [facility] 7t [place] [address] Care Team Providers Care Shopping Centre Manager Name Role Phone Margi Barnes MD Primary Care Pro vider Reason for Visit * Reason Comments Med Refill Encounter Details Date Type Department Care Team ([facility] st Contact Info) Description 10/23/2023 Refill [facility] PEDS [address] [place], [place] [phone] Margi Barnes MD [address] [place] [address] Other migraine without status migrainosus, not intractable [...] t he electric, gas, oil or water [employer] threatened to shut off services in your [...] Description 08/04/2025 10:45 AM EST Office Visit [facility] MEDICINE [address] [place] [address] Margi Barnes MD [address] [place] [address] documented as of this encounter Visit Diagnoses Diagnosis Other migraine without status migrainosus, not intractable documented in this encounter Additional Health Concerns Assessment Noted Time PHQ-9 Depression Total Score: 7 01/31/20 23 10:22 AM EDT documented as of this encounter Care Teams Shopping Centre Manager Relationship Specialty Start Date End Date Margi Barnes MD [address] [place] [address] PCP - General Internal Medicine 04/26/23 documented as of this encounter
--- OUTSIDE RECORDS SUMMARY | 2025-06-02 13:19 | XMS_ITS | Encounter Summary ---
Author Organization [employer] Address [address] [place] [address] 7 [place] [address] Care Team Providers Care Graphic Art Technician Name Role Phone Margi Barnes MD Primary Care Pro vider Reason for Visit * Reason Onset Date Comments Appointment Request 01/06/2025 Encounter Details Date Type Department Care Team ([facility] Contact Info) Description 01/06/2025 Telephone [facility] MEDICINE [address] [place], [place] [phone] Margi Barnes MD 230 [place], [place] [phone] Appointment Request Social History Tobacco Use Types [...] complete) Patient requests a call back at [phone]. documented in this encounter Plan of Treatment Upcoming Encounters Date Type Department Care Team (Late st Contact Info) Description 08/04/2025 10:45 AM EST Office Visit [facility] MED[facility]INE [address] [place] [address] Margi Barnes MD [address] [place], [place] [phone] documented as of this encounter Visit Diagnoses Not on filedocumented in this encounter Additional Health Concerns Assessment Noted Time PHQ-9 Depression Total Score: 4 01/10/20 24 10:04 AM EDT documented as of this encounter Care Teams Graphic Art Technician Relationship Specialty Start Date End Date Margi Barnes MD [address] [place] [phone] PCP - General Internal Medicine 04/26/23 documented as of this encounter
--- OUTSIDE RECORDS SUMMARY | 2025-06-02 13:19 | XMS_ITS | Encounter Summary ---
Author Organization [employer] Address [address] [place] [address] 7 [place] [address] Care Team Providers Care Beam Press Operator Name Role Phone Margi Barnes MD Primary Care Pro vider Reason for Visit * Reason Comments Med Refill Encounter Details Date Type Department Care Team ([facility] st Contact Info) Description 05/28/2024 Refill [facility] MED[facility]INE 230 [place], [place] [phone] Margi Barnes MD [address] [place] [address] Hidradenitis suppurativa Social History Tobacco Use Types [...] Description 08/04/2025 10:45 AM EST Office Visit [facility] MEDICINE [address] [place] [phone] Margi Barnes MD [address] [place] [phone] documented as of this encounter Visit Diagnoses Diagnosis Hidradenitis suppurativa Hidradenitis documented in this encounter Additional Health Concerns Assessment Noted Time PHQ-9 Depression Total Score: 4 01/10/20 24 10:04 AM EDT documented as of this encounter Care Teams Beam Press Operator Relationship Specialty Start Date End Date Margi Barnes MD [address] [place] [phone] PCP - General Internal Medicine 04/26/23 documented as of this encounter
== END 2025-06-02 12:10 | disposition home or self-care (01) ==
LOC: HO.HWS 11:08
PROVIDERS: PCP Student in an Organized Health Care Education/Training Program; Visit Provider Advanced Practice Midwife
DX: N83.201 Unspecified ovarian cyst, right side (principal); R10.20 Pelvic and perineal pain unspecified side
CPT/HCPCS: 99213

== ENCOUNTER → 2025-06-02 11:08 | Outpatient (BNVA) | payer MEDICAID, SELFPAY | PROVIDERS: PCP Student in an Organized Health Care Education/Training Program; Visit Provider Advanced Practice Midwife | DX: N83.201 Unspecified ovarian cyst, right side (principal); R10.20 Pelvic and perineal pain unspecified side | CPT/HCPCS: 99212 ==